=== PATIENT | female | born 1945 | race Caucasian/White ===

== ENCOUNTER 2017-01-07 23:46 | Inpatient (IN) | payer MEDICARE ==
[~2017-01-07] VITALS: Ht 170.2 cm; Wt 85.4 kg
[~2017-01-07 23:46] MED LIST: BUSP5TAB PO; CARV6.25 PO; CYAN1000P IM; IRON SUPPLEMENT PO; LOVA1TAB47 PO; MIRA33502 PO; PRIL20CA PO; STOO100C PO; [UNRECOGNIZED DRUG - CODE] IV
[2017-01-08] VITALS (35 sets, daily range): BP systolic 75–163; BP diastolic 48–90; PULSE 85–102; RESP 18–29; TEMP 97.4–98.5; O2SAT 95–100
[2017-01-08] MEDS ORDERED: SODIUM CHLOR 0.9% 250 ML INJ 250 ML IV ONE ×2 (00:15→01:30)
[2017-01-08] MEDS ORDERED: ONDANSETRON HCL 4 MG/2 ML VIAL IV ONE ×2 (00:30→02:15)
[2017-01-08 00:37] LABS: AUTOMATED NEUTROPHIL # 9.6 TH/MM3 (1.8-7.7); BASOPHIL # 0.1 TH/MM3 (0-0.2); BASOPHIL % 0.5 % (0.0-2.0); EOSINOPHIL # 0.1 TH/MM3 (0-0.4); EOSINOPHIL % 0.9 % (0.0-4.0); LYMPH % 2.7 % (9.0-44.0); LYMPHOCYTE # 0.3 TH/MM3 (1.0-4.8); MEAN CELL VOLUME 83.8 FL (80.0-100.0); MEAN CORPUSCULAR HEMOGLOBIN 26.8 PG (27.0-34.0); MONO % 5.6 % (0.0-8.0); NEUT % 90.3 % (16.0-70.0); PLATELET COUNT 343 TH/MM3 (150-450); RED BLOOD COUNT 2.42 MIL/MM3 (4.00-5.30); RED CELL DISTRIBUTION WIDTH 14.4 % (11.6-17.2); WHITE BLOOD COUNT 10.8 TH/MM3 (4.0-11.0)
--- NOTE | 2017-01-08 00:41 | RADRPT ---
EXAM DATE/TIME: 01/08/2017 00:23 [facility] COMPARISON: No previous studies available for comparison. INDICATIONS : Shortness of breath. MEDICAL HISTORY : Hypertension. SURGICAL HISTORY : None. ENCOUNTER: Initial ACUITY: 1 day PAIN SCORE: 0/10 LOCATION: Bilateral chest FINDINGS: A single view of the chest demonstrates multiple bilateral pulmonary nodules characteristic of bilate ral lung metastatic disease. No acute pulmonary infiltrates. No definite pleural effusions.. The car diomediastinal contours are unremarkable. Osseous structures are intact. CONCLUSION: Diffuse bilateral pulmonary metastatic disease. Cuauhtemoc Mensah MD on January 08, 2017 at 0:38 Board Certified Radiologist. This report was verified electronically.
[2017-01-08 00:53] LABS: HEMO FLAGS DIFF FINAL
[2017-01-08 00:55] LABS: HEMATOCRIT 20.3 % (35.0-46.0)
[2017-01-08 01:04] LABS: CHLORIDE 109 MEQ/L (98-107); POTASSIUM 5.3 MEQ/L (3.5-5.1); SODIUM (NA) 141 MEQ/L (136-145)
[2017-01-08 01:06] LABS: BLOOD, URINE SMALL (NEG); GLUCOSE,URINE NEG (NEG); KETONE, URINE NEG (NEG); NITRITE,URINE NEG (NEG); PH, URINE 5.5 (5.0-8.5)
[2017-01-08 01:07] LABS: ANION GAP 16 MEQ/L (5-15); BICARBONATE 16.5 MEQ/L (21.0-32.0)
[2017-01-08 01:08] LABS: BLOOD UREA NITROGEN 81 MG/DL (7-18)
[2017-01-08 01:10] LABS: ALT (GPT) 17 U/L (10-53); APTT (PATIENT) 53.1 SEC (24.3-30.1); AST (GOT) 37 U/L (15-37); GLOMERULAR FILTRATION RATE 20 ML/MIN (>89)
[2017-01-08 01:12] LABS: TOTAL BILIRUBIN ADULT 0.2 MG/DL (0.2-1.0)
[2017-01-08 01:13] LABS: ALKALINE PHOSPHATASE 91 U/L (45-117)
--- NOTE | 2017-01-08 01:22 | PD ---
HPI Chief Complaint: Abdominal Pain Time Seen by Provider: 00:13 Travel History International Travel<30 days: No Contact w/Intl Traveler<30days: No History of Present Illness HPI Is a 71 old woman presents emergent department when his been feeling poorly for the past 4 days or so. Over the past 6 hours on abruptly worse. She is Fatigued Weak and Lightheaded, She Had a Fainting Spell. I Also Noticed Some Dark Stools. She [place] Constipated. She States Her Doctor Told Her That Her INR Was Elevated and That She Needed to Stop Her Warfarin for Now, He Brought Eat Spinach, and Then a Recheck on Sunday. History Past Medical History Narrative Medical Chronic any disease, stage IV AAA, [id number] thrombus Diabetes Hypertension PNEUMOCCOCAL Vaccine (Year): 2010 Menopausal: Yes : 5 Para: 3 Social History Alcohol Use: Yes (1-2 DAILY) Tobacco Use: No (QUIT 10 YRS AGO. H/O 25 PACK YEARS. ) Allergies-Medications (Allergen,Severity, Reaction): Coded Allergies: Clindamycin (Unverified Allergy, Severe, VOMITING AND DIARRHEA, 11/17/11) Sulfamethoxazole (Unverified Allergy, Severe, VOMITING AND DIARRHEA, ) Penicillin (Unverified Allergy, Mild, Rash, 11/17/11) Reported Meds & Prescriptions Reported Meds & Active Scripts Active Reported Vancomycin 1 Gm Addvantage (Vancomycin HCl) 1 Gm Inj 1 Gm IV Q36HR Vitamin B12 (Cyanocobalamin) 1,000 Mcg/Ml Inj 1,000 Mcg IM MONTHLY Colace (Docusate Sodium) 100 Mg Cap 100 Mg PO BID Miralax (Polyethylene Glycol) 255 Gm Powd 17 Gm PO DAILY [Iron Supplement] 45 Mg PO BID Buspirone Hcl (Buspirone HCl) 5 Mg Tab 5 Mg PO BID Prilosec (Omeprazole) 20 Mg Capcr 20 Mg PO DAILY Lovastatin 20 Mg Tab 20 Mg PO DAILY Coreg (Carvedilol) 6.25 Mg Tab 3.12 Mg PO BID Review of Systems Except as stated in HPI: all other systems reviewed are Neg Physical Exam Narrative GENERAL: This 71-year-old woman, little bit ill-appearing, somewhat pale. SKIN: Focused skin assessment warm/dry. HEAD: Atraumatic. Normocephalic. NECK: Trachea midline. No JVD. CARDIOVASCULAR: Regular rate and rhythm. No murmur appreciated. RESPIRATORY: No accessory muscle use. Clear to auscultation. Breath sounds equal bilaterally. GASTROINTESTINAL: Abdomen soft, non-tender, nondistended. Hepatic and splenic margins not palpable. MUSCULOSKELETAL: No obvious deformities. No edema. NEUROLOGICAL: Awake and alert. No obvious cranial nerve deficits. Motor grossly within normal limits. Normal speech. PSYCHIATRIC: Appropriate mood and affect; insight and judgment normal. Data Data Last Documented VS Vital Signs Date Time Temp Pulse Resp B/P Pulse Ox O2 Delivery O2 Flow Rate FiO2 01/08/17 01:02 97.7 90 20 95/48 99 Nasal Cannula 2 Orders Type And Screen (01/08/17:) Red Blood Cells (Rbc) (01/08/17:13) Fresh Frozen Plasma (Ffp) (01/08/17:13) Blood Product Administration .UPON TRANSFUSION (01/08/17:) Sodium Chlor 0.9% 250 Ml Inj (Ns 250 Ml (01/08/17 00:15) Complete Blood Count With Diff (01/08/17:13) Comprehensive Metabolic Panel (01/08/17:13) Lipase (01/08/17:13) Lactic Acid (01/08/17:13) Prothrombin Time / Inr (Pt) (01/08/17:) Act Partial Throm Time (Ptt) (01/08/17:13) Urinalysis - C+S If Indicated (01/08/17:) Ct Abd/Pel W/O Iv Contrast (01/08/17:13) Iv Access Insert/Monitor (01/08/17:13) Ecg Monitoring (01/08/17:13) Oximetry (01/08/17:13) Electrocardiogram (01/08/17 00:13) Chest, Single Ap (01/08/17:13) Urinary Catheter Insert/Apply (01/08/17:13) Ondansetron Inj (Zofran Inj) (01/08/17 00:30) Admit Order (Ed Use Only) (01/08/17 ) Labs Laboratory Tests Test 01/08/17 01/08/17 00:20 00:35 White Blood Count 10.8 TH/MM3 Red Blood Count 2.42 MIL/MM3 Hemoglobin 6.5 GM/DL Hematocrit 20.3 % Mean Corpuscular Volume 83.8 FL Mean Corpuscular Hemoglobin 26.8 PG Mean Corpuscular Hemoglobin 32.0 % Concent Red Cell Distribution Width 14.4 % Platelet Count 343 TH/MM3 Mean Platelet Volume 8.8 FL Neutrophils (%) (Auto) 90.3 % Lymphocytes (%) (Auto) 2.7 % Monocytes (%) (Auto) 5.6 % Eosinophils (%) (Auto) 0.9 % Basophils (%) (Auto) 0.5 % Neutrophils # (Auto) 9.6 TH/MM3 Lymphocytes # (Auto) 0.3 TH/MM3 Monocytes # (Auto) 0.6 TH/MM3 Eosinophils # (Auto) 0.1 TH/MM3 Basophils # (Auto) 0.1 TH/MM3 CBC Comment DIFF FINAL Differential Comment Sodium Level 141 MEQ/L Potassium Level 5.3 MEQ/L Chloride Level 109 MEQ/L Carbon Dioxide Level 16.5 MEQ/L Anion Gap 16 MEQ/L Blood Urea Nitrogen 81 MG/DL Creatinine 2.40 MG/DL Estimat Glomerular Filtration 20 ML/MIN Rate Random Glucose 175 MG/DL Lactic Acid Level 4.9 mmol/L Calcium Level 8.2 MG/DL Total Bilirubin 0.2 MG/DL Aspartate Amino Transf 37 U/L (AST/SGOT) Alanine Aminotransferase 17 U/L (ALT/SGPT) Alkaline Phosphatase 91 U/L Total Protein 6.2 GM/DL Albumin 2.5 GM/DL Lipase 76 U/L Urine pH 5.5 Urine Protein NEG mg/dL Urine Glucose (UA) NEG mg/dL Urine Ketones NEG mg/dL Urine Occult Blood SMALL Urine Nitrite NEG Urine Bilirubin NEG Urine Leukocyte Esterase NEG [facility] Medical Decision Making Medical Screen Exam Complete: Yes Emergency Medical Condition: Yes Interpretation(s) LABS: CBC remarkable for any melena 6.5. CMP remarkable for abnormal electrolytes, acidosis with an anion gap of 16 and a bicarbonate 16.5 and a lactate of 4.9, elevated BUN and creatinine Lipase is 76 INR 8.0 Urinalysis unremarkable Differential Diagnosis GI bleed, upper GI bleed, hematemesis, quite cooperative, other Narrative Course Medical decision making Is a 71-year-old woman presents to the emergency department complaining of weakness and fatigue, very pale appearing, with known elevated INR, with dark stools and evidence of GI bleed. Initial hematology 6.2, INR is elevated, lactate elevated. She was given emergency release blood. We'll put in for vitamin K FFP for reversal, more blood transfusion. I spoke with Dr. Costa rehab liaison for gastroenterology. We'll place consult for Dr. Okeefe see her in the morning. I spoke with Dr. Gustafson, with critical care medicine. When the patient to the ICU. Critical Care Narrative Aggregate critical care time was 35 minutes. Time to perform other separately billable procedures was not included in the critical care time. My time did not include minutes spent treating any other patients simultaneously or on activities that did not directly contribute to the patient's treatment. The services I provided to this patient were to treat and/or prevent clinically significant deterioration that could result in: , disability, shock. I provided critical care services requiring my management, as noted below: Chart data review, documentation time, medication orders and management, vital sign assessments/reviewing monitor data, ordering and reviewing lab tests, ordering and interpreting/reviewing x-rays and diagnostic studies, care of the patient and discussion of the patient with the admitting physicians. Diagnosis Primary Impression: GI bleed Additional Impressions: Shock Warfarin-induced coagulopathy Admitting Information Admitting Physician Requests: it Lex Zhang MD Jan 08, 2017 01:22
[2017-01-08] MEDS ORDERED: PHYTONADIONE INJ 10 MG in SODIUM CHLORIDE 0.9% INJ 50 ML IV ONE ×2 (01:30→02:15)
[2017-01-08 01:46] LABS: METHOD OF COLLECTION CATH; MUCUS URINE MOD /lpf (OCC); SQUAMOUS EPITHELIAL CELL URINE 0-5 /hpf (0-5); URINE COLOR YELLOW (YELLW/STRAW)
[2017-01-08 01:47] LABS: COMMENT (UR) CULT NOT INDICATED; CULTURE IF INDICATED CULT NOT INDICATED
--- NOTE | 2017-01-08 01:59 | RADRPT ---
EXAM DATE/TIME: 01/08/2017 01:19 [facility] COMPARISON: No previous studies available for comparison. INDICATIONS : Shortness of breath. Bilateral pulmonary nodules. RADIATION DOSE: 17.51 CTDIvol (mGy) ; Combined studies - Thorax/Abdomen/Pelvis MEDICAL HISTORY : Gastroesophageal reflux disease. Renal failure, chronic. Diabetes mellitus type 2. Hypertension. SURGICAL HISTORY : None. ENCOUNTER: Initial ACUITY: 4 - 6 days PAIN SCALE: 5/10 LOCATION: Bilateral chest TECHNIQUE: Volumetric scanning of the chest was performed. Using automated exposure control and adjustment of t he mA and/or kV according to patient size, radiation dose was kept as low as reasonably achievable to obtain optimal diagnostic quality images. DICOM format image data is available electronically for r eview and comparison. Follow-up recommendations for incidentally detected pulmonary nodules are based at a minimum on nodul e size and patient risk factors according to Fleischner Society Guidelines. FINDINGS: LUNGS: There are multiple scattered pulmonary nodules throughout both lung mckay. The largest one measures 2.3 cm and the right lower lobe no acute pulmonary infiltrates are demonstrated. PLEURAE: There is no pleural thickening or pleural effusion. MEDIASTINUM: The heart and great vessels demonstrate no acute abnormality. There is no mediastinal or hilar lymph adenopathy. Mild aneurysmal dilatation of the ascending aorta at 4.4 cm. AXILLAE: Within normal limits. No lymphadenopathy. MUSCULOSKELETAL: Within normal limits for patient age. MISCELLANEOUS: Multiple low density lesions in the liver. Elina hepatal and para-aortic adenopathy CONCLUSION: 1. Diffuse lung metastatic disease. 2. Diffuse liver metastatic disease. Cuauhtemoc Mensah MD on January 08, 2017 at 1:55 Board Certified Radiologist. This report was verified electronically.
--- NOTE | 2017-01-08 02:05 | RADRPT ---
EXAM DATE/TIME: 01/08/2017 01:19 [facility] COMPARISON: No previous studies available for comparison. INDICATIONS : Epigastric pain. Weakness. ORAL CONTRAST: No oral contrast ingested. RADIATION DOSE: 17.51 CTDIvol (mGy) ; Combined studies - Thorax/Abdomen/Pelvis MEDICAL HISTORY : Gastroesophageal reflux disease. Renal failure, chronic. Diabetes mellitus type 2.Hypertension. SURGICAL HISTORY : None. ENCOUNTER: Initial ACUITY: 4 - 6 days PAIN SCALE: 5/10 LOCATION: Bilateral upper quadrant TECHNIQUE: Volumetric scanning of the abdomen and pelvis was performed. Using automated exposure control and ad justment of the mA and/or kV according to patient size, radiation dose was kept as low as reasonably achievable to obtain optimal diagnostic quality images. DICOM format image data is available electro nically for review and comparison. FINDINGS: LOWER LUNGS: Multiple bilateral pulmonary nodules. LIVER: Multiple ill-defined low-density lesions throughout the entire liver. No dilated biliary ducts. The g allbladder is unremarkable. There is mal hepatal adenopathy. SPLEEN: Normal size without lesion. PANCREAS: Within normal limits. KIDNEYS: Normal in size and shape. There is no mass, stone, or hydronephrosis. ADRENAL GLANDS: Within normal limits. VASCULAR: There is aneurysmal dilatation of the infrarenal abdominal aorta with an AP diameter of 3.7 cm. BOWEL/MESENTERY: There is an abnormal area of increased density and soft tissue involving the upper portion of the sto mach near the GE junction. Suspicious for neoplastic disease. ABDOMINAL WALL: Within normal limits. RETROPERITONEUM: There is diffuse para-aortic and retroperitoneal adenopathy. The largest mass measures about 3.5 cm a long the left side of the aorta at the level of the kidneys. No definite pelvic adenopathy is demonst rated. BLADDER: Diaz catheter in the bladder. REPRODUCTIVE: Within normal limits. INGUINAL: There is no lymphadenopathy or hernia. MUSCULOSKELETAL: Within normal limits for patient age. CONCLUSION: 1. There is an abnormal soft tissue mass involving the upper portion of the stomach at or just below the GE junction suspicious for neoplastic disease. Recommend direct visualization by endoscopy. 2. Diffuse liver metastatic disease. 3. Diffuse lung metastatic disease. 4. Diffuse para-aortic and retroperitoneal adenopathy. 5. Aneurysmal dilatation of the infrarenal abdominal aorta at 3.7 cm. Cuauhtemoc Mensah MD on January 08, 2017 at 1:58 Board Certified Radiologist. This report was verified electronically.
[2017-01-08] MEDS ORDERED: PANTOPRAZOLE INJ 80 MG in SODIUM CHLORIDE 0.9% INJ 100 ML IV SCH (02:15)
[2017-01-08] MEDS ORDERED: PANTOPRAZOLE INJ 80 MG in SODIUM CHLORIDE 0.9% INJ 35 ML IV ONE (02:15)
[2017-01-08] MEDS ORDERED: ONDANSETRON HCL 4 MG/2 ML VIAL IV PUSH ONE (02:15)
[2017-01-08] MEDS ORDERED: ZOLPIDEM TARTRATE 5 MG TAB PO PRN (03:30)
[2017-01-08] MEDS ORDERED: CHLORHEXIDINE GLUCONATE 2 % 1 PACK (2 CLOTHS) TOP PRN (03:30)
[2017-01-08] MEDS ORDERED: MAGNESIUM HYDROXIDE SUSP 30 ML CUP PO PRN (03:30)
[2017-01-08] MEDS ORDERED: SENNOSIDES 8.6 MG TAB PO PRN (03:30)
[2017-01-08] MEDS ORDERED: BISACODYL 10 MG SUPP RECTAL PRN (03:30)
[2017-01-08] MEDS ORDERED: ACETAMINOPHEN 325 MG TAB PO PRN (03:30)
[2017-01-08] MEDS ORDERED: LACTULOSE SYRUP 20 GM/30 ML CUP PO PRN (03:30)
[2017-01-08] MEDS ORDERED: SODIUM CHLORIDE 0.9% FLUSH 10 ML FLUSH PRN (03:30)
[2017-01-08] MEDS ORDERED: MISCELLANEOUS NURSING INFORMATION XX SCH (03:30)
[2017-01-08] MEDS ORDERED: RESP: ALBUTEROL 2.5 MG/IPRATROPIUM 0.5 MG NEB (PRN) INH (03:30)
[2017-01-08] MEDS: CHLORHEXIDINE GLUCONATE 2 % 1 PACK (2 CLOTHS) TOP SCH (03:37)
[2017-01-08] MEDS ORDERED: AMLO10TA2 PO (03:50)
[2017-01-08] MEDS ORDERED: WARF-23 PO (03:50)
[2017-01-08] MEDS ORDERED: TELM1TAB PO (03:50)
[2017-01-08] MEDS ORDERED: CYAN25005 IM (03:50)
[2017-01-08] MEDS ORDERED: NOVOLOGP2 SQ (03:50)
[2017-01-08] MEDS ORDERED: LEVEMIR SQ (03:50)
[2017-01-08] MEDS ORDERED: BUSP1TAB PO (03:50)
[2017-01-08] MEDS ORDERED: CARV6.252 PO (03:50)
[2017-01-08] MEDS ORDERED: PRIL20TA2 PO (03:50)
[2017-01-08] MEDS ORDERED: POLY17PO3 (03:50)
[2017-01-08] MEDS ORDERED: CHOL1CAP34 PO (03:50)
[2017-01-08] MEDS ORDERED: COLA100C PO (03:50)
[2017-01-08] MEDS ORDERED: ATOR20TA15 PO (03:50)
[2017-01-08] MEDS: SODIUM CHLOR 0.9% 1000 ML INJ 1,000 ML IV SCH ×2 (03:51→15:13)
--- NOTE | 2017-01-08 04:03 | HHI.HP ---
[facility] Service Critical Care Medicine Primary Care Physician Fiona Robles MD Admission Diagnosis GI bleed, marked anemia Diagnosis: Travel History International Travel<30 Days: No Contact w/Intl Traveler <30 Da: No History of Present Illness 71 old woman presents because she has been feeling poorly for the past 4 days. She feels fatigued weak and lightheaded and has some fainting spells. She was told by her primary care physician that her INR was elevated and advised her to take vitamin K. She'll don't also noticed some dark stool. Review of Systems Constitutional: COMPLAINS OF: Fatigue, Dizziness, DENIES: Diaphoretic episodes , Fever, Weight gain, Weight loss, Chills, Change in appetite, Night Sweats Endocrine: DENIES: Abnorml menstrual pattern, Heat/cold intolerance, Polydipsia , Polyuria, Polyphagia Eyes: DENIES: Blurred vision, Diplopia, Eye inflammation, Eye pain, Vision loss , Photosensitivity, Double Vision Ears, nose, mouth, throat: DENIES: Tinnitus, Hearing loss, Vertigo, Nasal discharge, Oral lesions, Throat pain, Hoarseness, Ear Pain, Running Nose, Epistaxis, Sinus Pain, Toothache, Odynophagia Respiratory: DENIES: Apneas, Cough, Snoring, Wheezing, Hemoptysis, Sputum production, Shortness of breath Cardiovascular: DENIES: Chest pain, Palpitations, Syncope, Dyspnea on Exertion , PND, Lower Extremity Edema, Orthopnea, Claudication Gastrointestinal: COMPLAINS OF: Black stools, Constipation, DENIES: Abdominal pain, Bloody stools, Diarrhea, Nausea, Vomiting, Difficulty Swallowing, Anorexia Genitourinary: DENIES: Abnormal vaginal bleeding, Dysmenorrhea, Dyspareunia, Sexual dysfunction, Urinary frequency, Urinary incontinence, Urgency, Hematuria , Dysuria, Nocturia, Vaginal discharge Musculoskeletal: DENIES: Joint pain, Muscle aches, Stiffness, Joint Swelling, Back pain, Neck pain Integumentary: DENIES: Abnormal pigmentation, Pruritus, Rash, Nail changes, Breast masses, Breast skin changes, Nipple discharge Hematologic/lymphatic: DENIES: Bruising, Lymphadenopathy Immunologic/allergic: DENIES: Eczema, Urticaria Neurologic: DENIES: Abnormal gait, Headache, Localized weakness, Paresthesias, Seizures, Speech Problems, Tremor, Poor Balance Psychiatric: DENIES: Anxiety, Confusion, Mood changes, Depression, Hallucinations, Agitation, Suicidal Ideation, Homicidal Ideation, Delusions Past Family Social History Allergies: Coded Allergies: Clindamycin (Unverified Allergy, Severe, VOMITING AND DIARRHEA, 11/17/11) Sulfamethoxazole (Unverified Allergy, Severe, VOMITING AND DIARRHEA, ) Penicillin (Unverified Allergy, Mild, Rash, 11/17/11) Past Medical History Cardiac kidney disease stage IV AAA, [id number] thrombus Diabetes Hypertension Past Surgical History None Reported Medications Reported Meds & Active Scripts Active Reported Vancomycin 1 Gm Addvantage (Vancomycin HCl) 1 Gm Inj 1 Gm IV Q36HR Vitamin B12 (Cyanocobalamin) 1,000 Mcg/Ml Inj 1,000 Mcg IM MONTHLY Colace (Docusate Sodium) 100 Mg Cap 100 Mg PO BID Miralax (Polyethylene Glycol) 255 Gm Powd 17 Gm PO DAILY [Iron Supplement] 45 Mg PO BID Buspirone Hcl (Buspirone HCl) 5 Mg Tab 5 Mg PO BID Prilosec (Omeprazole) 20 Mg Capcr 20 Mg PO DAILY Lovastatin 20 Mg Tab 20 Mg PO DAILY Coreg (Carvedilol) 6.25 Mg Tab 3.12 Mg PO BID Active Ordered Medications Current Medications Medications (Trade) Dose Ordered Sig/[place] Route PRN Reason Start Time Stop Time Status Last Admin Dose Admin Sodium Chloride 250 ml @ 15 mls/hr ONCE ONCE IV 01/08/17 00:15 01/08/17 16:54 01/08/17 02:06 Sodium Chloride 250 ml @ 15 mls/hr ONCE ONCE IV 01/08/17 01:30 01/08/17 18:09 01/08/17 02:24 Pantoprazole Sodium/Sodium Chloride (Protonix Inj/NS Inj) 100 ml @ 10 mls/hr Q10H IV 01/08/17 02:15 Family History No family history of early cancer or coronary artery disease Social History She drinks socially 1-2 drinks per day She quit tobacco use 10 years ago and has a history of 25 packs per year Physical Exam Vital Signs Vital Signs Date Time Temp Pulse Resp B/P Pulse Ox O2 Delivery O2 Flow Rate FiO2 01/08/17 02:40 97.9 92 18 140/75 98 Nasal Cannula 2 01/08/17 02:25 98.0 91 20 149/77 97 Nasal Cannula 2 01/08/17 02:10 98.0 96 18 154/74 97 Nasal Cannula 2 01/08/17 01:55 98.4 94 18 158/81 97 Nasal Cannula 2 01/08/17 01:40 97.9 86 18 142/87 98 Nasal Cannula 2 01/08/17 01:25 86 20 156/83 98 01/08/17 01:13 85 20 163/66 100 Nasal Cannula 2 01/08/17 01:02 97.7 90 20 95/48 99 Nasal Cannula 2 01/08/17 00:27 100 20 75/54 01/08/17 00:17 94 20 110/59 98 01/08/17 00:10 20 01/08/17 00:00 102 18 94/56 99 Nasal Cannula 2 Physical Exam GENERAL: Well-nourished, well-developed patient. SKIN: Warm and dry. HEAD: Normocephalic. EYES: No scleral icterus. No injection or drainage. NECK: Supple, trachea midline. No JVD or lymphadenopathy. CARDIOVASCULAR: Regular rate and rhythm without murmurs, gallops, or rubs. RESPIRATORY: Breath sounds equal bilaterally. No accessory muscle use. GASTROINTESTINAL: Abdomen soft, non-tender, nondistended. MUSCULOSKELETAL: No cyanosis, or edema. BACK: Nontender without obvious deformity. No CVA tenderness. EXTREMITIES: Clubbing cyanosis or edema Laboratory Laboratory Tests Test 01/08/17 01/08/17 01/08/17 00:20 00:35 00:47 White Blood Count 10.8 Red Blood Count 2.42 Hemoglobin 6.5 Hematocrit 20.3 Mean Corpuscular Volume 83.8 Mean Corpuscular Hemoglobin 26.8 Mean Corpuscular Hemoglobin 32.0 Concent Red Cell Distribution Width 14.4 Platelet Count 343 Mean Platelet Volume 8.8 Neutrophils (%) (Auto) 90.3 Lymphocytes (%) (Auto) 2.7 Monocytes (%) (Auto) 5.6 Eosinophils (%) (Auto) 0.9 Basophils (%) (Auto) 0.5 Neutrophils # (Auto) 9.6 Lymphocytes # (Auto) 0.3 Monocytes # (Auto) 0.6 Eosinophils # (Auto) 0.1 Basophils # (Auto) 0.1 CBC Comment DIFF FINAL Differential Comment Prothrombin Time 97.0 Prothromb Time International 8.0 Ratio Activated Partial 53.1 Thromboplast Time Sodium Level 141 Potassium Level 5.3 Chloride Level 109 Carbon Dioxide Level 16.5 Anion Gap 16 Blood Urea Nitrogen 81 Creatinine 2.40 Estimat Glomerular Filtration 20 Rate Random Glucose 175 Lactic Acid Level 4.9 Calcium Level 8.2 Total Bilirubin 0.2 Aspartate Amino Transf 37 (AST/SGOT) Alanine Aminotransferase 17 (ALT/SGPT) Alkaline Phosphatase 91 Total Protein 6.2 Albumin 2.5 Lipase 76 Blood Type O POSITIVE O POSITIVE Antibody Screen NEGATIVE Crossmatch Leukocyte-Reduced Red Blood Cells Blood Bank Comment Urine Collection Type CATH Urine Color YELLOW Urine Turbidity CLEAR Urine pH 5.5 Urine Specific [place] 1.016 Urine Protein NEG Urine Glucose (UA) NEG Urine Ketones NEG Urine Occult Blood SMALL Urine Nitrite NEG Urine Bilirubin NEG Urine Leukocyte Esterase NEG Urine RBC 4-9 Urine Squamous Epithelial 0-5 Cells Urine Amorphous Sediment MOD Urine Hyaline Casts 3-5 Urine Mucus MOD Microscopic Urinalysis Comment CULT NOT INDICATED Result Diagram: 01/08/17 0020 01/08/17 0020 Imaging Last 24 hours Impressions Chest X-Ray 01/08/1712 Signed Impressions: Service Date/Time: Sunday, January 08, 2017 00:23 - CONCLUSION: Diffuse bilateral pulmonary metastatic disease. Cuauhtemoc Mensah MD Abdomen/Pelvis CT 01/08/17 001 Signed Impressions: Service Date/Time: Sunday, January 08, 2017 01:19 - CONCLUSION: 1. There is an abnormal soft tissue mass involving the upper portion of the stomach at or just below the GE junction suspicious for neoplastic disease. Recommend direct visualization by endoscopy. 2. Diffuse liver metastatic disease. 3. Diffuse lung metastatic disease. 4. Diffuse para-aortic and retroperitoneal adenopathy. 5. Aneurysmal dilatation of the infrarenal abdominal aorta at 3.7 cm. Cuauhtemoc Mensah MD Chest CT 01/08/17 0000 Signed Impressions: Service Date/Time: Sunday, January 08, 2017 01:19 - CONCLUSION: 1. Diffuse lung metastatic disease. 2. Diffuse liver metastatic disease. Cuauhtemoc Mensah MD Assessment and Plan Assessment and Plan Anemia - Due to GI bleed - Supratherapeutic INR - Transfuse PRBCs to keep hemoglobin above 7 Coagulopathy - Iatrogenic - Hold Coumadin - INR >8 - Kcentra - Vitamin K and FFP's GI bleed - IV Protonix every 12 - GI consult pending Mass in the stomach suspicious of neoplasm - Widespread metastatic disease in the liver lungs and adenopathy - Oncology consult Hypertension - Currently normotensive - We'll hold home antihypertensive meds due to active GI bleed Chronic kidney disease - Creatinine 2.4 today - Most likely component of volume loss - Last creatinine available in the chart is from 2012 and was 1.4 - We'll continue hydration and monitor trend as well as strict I's and O's Diabetes - Insulin sliding scale DVT GI prophylaxis - Teds SCDs - Hold pharmacological DVT prophylaxis due to active GI bleed - IV Protonix Critical Care: The total critical care time was 35 minutes. Time to perform other separately billable procedures was not included in the critical care time. Aneudy Gustafson MD Jan 08, 2017 04:03
[2017-01-08] MEDS ORDERED: PROTHROMBIN COMPLEX IV ONE (04:15)
[2017-01-08 04:21] LABS: HEMATOCRIT 28.3 % (35.0-46.0); REVIEW FLAG FINAL
[2017-01-08] MEDS: ONDANSETRON HCL 4 MG/2 ML VIAL IV PRN (04:29)
[2017-01-08] MEDS: DOCUSATE SODIUM 50 MG/SENNA 8.6 MG TAB PO SCH ×2 (09:00→20:58)
[2017-01-08] MEDS: PANTOPRAZOLE SODIUM 40 MG VIAL IV SCH ×2 (09:46→20:58)
[2017-01-08] MEDS: SODIUM CHLORIDE 0.9% FLUSH 10 ML FLUSH SCH ×2 (09:46→21:00)
[2017-01-08 13:40] LABS: HEMATOCRIT 26.3 % (35.0-46.0); REVIEW FLAG FINAL
[2017-01-08 13:48] LABS: PROTHROMBIN TIME - PATIENT 11.4 SEC (9.8-11.6)
[2017-01-08] MEDS: MORPHINE SULFATE 8 MG/ML INJ IV PUSH PRN ×2 (16:05→20:47)
--- NOTE | 2017-01-08 16:42 | PD.CONS ---
HPI History of Present Illness This is a 71 year old female who presented to the ER for evaluation of generalized weakness, and fatigue. The patient tells me that she has a long history of constipation that has been well controlled with pericolace at home. However, she ran out of her laxatives about a week ago and has been having constipation for the past 5 days. She has passed some small bowel movements, but feels that she has not had a good solid bowel movement. She then started having nausea/vomiting without hematemesis this past Sunday. Since that time, she has had decreased appetite. She reports that her appetite was good until she started having the nausea and vomiting and has not lost any weight. She states that she has actually gained weight. She does have a history of esophageal strictures and states that she has had problems swallowing pills in the past, but has not had any difficulty swallowing since her last EGD with dilatation in 2011. She does not feel like the food is getting caught in her esophagus, but does report that when she tried to eat, she felt as though it was just sitting in her stomach until she threw up. She has not had any reflux or heartburn. She has not seen any blood in her stool or dark stools. On admission, she was found to have anemia with an H/H of 6.5/20.3. Rectal exam revealed dark stool and this was hemoccult (+). Abdomen/Pelvis CT (01/08/17)---- -> 1. There is an abnormal soft tissue mass involving the upper portion of the stomach at or just below the GE junction suspicious for neoplastic disease. Recommend direct visualization by endoscopy. 2. Diffuse liver metastatic disease. 3. Diffuse lung metastatic disease. 4. Diffuse para-aortic and retroperitoneal adenopathy. 5. Aneurysmal dilatation of the infrarenal abdominal aorta at 3.7 cm. GI was consulted for further evaluation. She last had EGD with dilatation (05/03/12)----> stricture in the proximal esophagus, stricture in the distal esophagus. Colonoscopy (06/29/15)----> two sessile polyps ranging between 3-5 mm in size were found in the rectum, multiple biopsies performed using cold forceps, sessile polyp ranging between 3-5 mm in size was found in the ascending colon, polypectomy was performed with cold forceps, sessile polyp ranging between 3-5 mm in size was found in the sigmoid colon, biopsy using cord forcepts, melanosis, there was severe diverticulosis noted in the sigmoid colon, retroflexed views revealed small internal hemorrhoids, rectal exam revealed external hemorrhoids. Pathology sigmoid polyp -hyperplastic, cecum bx- colonic mucosa with pigmented macrophages in lamina propria, consistent with melanosis coli, negative for dysplasia, colon, ascending biopsy with fragments of tubular adenoma, negative for high grade dysplasia or malignancy, rectal polyp with fragments of hyperplastic polyp. She does not know her family history, as she was adopted. (Caterina Alegria) PFSH Past Medical History Abdominal aortic aneurysm Iron deficiency anemia Anxiety B12 deficiency Cataracts Cellulitis Charcot's joint of foot CKD Colon polyps Esophageal stricture DVT HTN GERD Hyperlipidemia PAD DM Vitamin D deficiency Constipation Past Surgical History Cataract surgery EGD with dilatation Colonoscopy (Caterina Alegria) Coded Allergies: Clindamycin (Unverified Allergy, Severe, VOMITING AND DIARRHEA, 01/08/17) Sulfamethoxazole (Unverified Allergy, Severe, VOMITING AND DIARRHEA, ) Penicillin (Unverified Allergy, Mild, Rash, 01/08/17) Cipro (Verified Allergy, Unknown, 01/08/17) Medications Allergies Coded Allergies Type Severity Reaction Last Updated Verified Clindamycin Allergy Severe VOMITING AND DIARRHEA 01/08/17 No Sulfamethoxazole Allergy Severe VOMITING AND DIARRHEA 01/08/17 No Penicillin Allergy Mild Rash 01/08/17 No Cipro Allergy Unknown 01/08/17 Yes Active Scripts Medications Dose Route/Sig Days Date Category Dose Instructions Vitamin D3 (Cholecalciferol) 50,000 Unit Cap 50,000 Units PO Q7D 01/08/17 Reported Vitamin B12 (Cyanocobalamin (Vitamin B-12)) 2,500 Mcg Tab.chew IM MONTHLY 01/08/17 Reported Colace (Docusate Sodium) 100 Mg Capsule 100 Mg PO DAILY 01/08/17 Reported Miralax (Polyethylene Glycol 3350) 17 Gm Powd.pack 01/08/17 Reported Levemir Inj (Insulin Detemir) 1,000 unit/ 10 ML Vial 52 Units SQ HS 01/08/17 Reported Do not mix with any other Insulin. Amlodipine (Amlodipine Besylate) 10 Mg Tab 10 Mg PO DAILY 01/08/17 Reported Atorvastatin (Atorvastatin Calcium) 20 Mg Tab 20 Mg PO HS 01/08/17 Reported Carvedilol 6.25 Mg Tab 6.25 Mg PO BID 01/08/17 Reported Buspirone (Buspirone HCl) 7.5 Mg Tab 7.5 Mg PO BID 01/08/17 Reported Prilosec (Omeprazole Magnesium) 20 Mg Tab 20 Mg PO DAILY 01/08/17 Reported Telmisartan 40 Mg Tab 40 Mg PO DAILY 01/08/17 Reported Novolog Inj (Insulin Aspart) 1,000 Unit/10 Ml Vial 14 Units SQ TIDPC 01/08/17 Reported Warfarin 5 Mg Tab 5 Mg PO DAILY 01/08/17 Reported Family History Pt adopted Social History Former smoker, quit in 2000, smoked 25 years Drinks one glass of wine daily No illicit drug use. (Caterina Alegria) Review of Systems Constitutional: COMPLAINS OF: Diaphoretic episodes, Fatigue, Weight gain, Dizziness, Change in appetite, DENIES: Weight loss Respiratory: COMPLAINS OF: Shortness of breath, DENIES: Cough Cardiovascular: DENIES: Chest pain Gastrointestinal: COMPLAINS OF: Constipation, Nausea, Vomiting, Anorexia, Swelling of Abdomen, DENIES: Abdominal pain, Black stools, Bloody stools, Diarrhea, Difficulty Swallowing, Odynophagia, Heartburn, Hematemesis Musculoskeletal: COMPLAINS OF: Joint pain, Muscle aches Neurologic: COMPLAINS OF: Localized weakness (BLE weakness), DENIES: Headache Psychiatric: DENIES: Confusion (Caterina Alegria) GI Exam Vitals I&O Vital Signs Date Time Temp Pulse Resp B/P Pulse Ox O2 Delivery O2 Flow Rate FiO2 01/08/17 14:00 93 01/08/17 14:00 93 23 146/71 95 01/08/17 13:01 96 29 160/77 97 01/08/17 13:00 96 27 97 01/08/17 12:01 98.2 96 23 130/63 98 01/08/17 12:00 96 01/08/17 12:00 96 20 97 01/08/17 11:00 96 27 143/71 98 01/08/17 10:01 96 23 146/65 98 01/08/17 10:00 96 01/08/17 10:00 96 25 97 01/08/17 09:00 98 24 162/81 99 01/08/17 08:00 92 01/08/17 08:00 97.4 99 20 156/74 98 01/08/17 07:00 95 18 151/68 98 01/08/17 06:00 96 19 156/73 98 01/08/17 06:00 96 01/08/17 05:00 94 21 133/65 100 01/08/17 04:00 97 01/08/17 04:00 98.1 97 20 150/90 100 01/08/17 02:40 97.9 92 18 140/75 98 Nasal Cannula 2 01/08/17 02:40 97.9 92 18 140/75 98 Nasal Cannula 2 01/08/17 02:25 98.0 91 20 149/77 97 Nasal Cannula 2 01/08/17 02:10 98.0 96 18 154/74 97 Nasal Cannula 2 01/08/17 01:55 98.4 94 18 158/81 97 Nasal Cannula 2 01/08/17 01:40 97.9 86 18 142/87 98 Nasal Cannula 2 01/08/17 01:25 86 20 156/83 98 01/08/17 01:13 85 20 163/66 100 Nasal Cannula 2 01/08/17 01:02 97.7 90 20 95/48 99 Nasal Cannula 2 01/08/17 00:32 98 18 99/60 98 Nasal Cannula 2 01/08/17 00:27 100 20 75/54 01/08/17 00:17 94 20 110/59 98 01/08/17 00:10 20 01/08/17 00:00 102 18 94/56 99 Nasal Cannula 2 I/O 01/07/17 01/07/17 01/07/17 01/08/17 01/08/17 01/08/17 07:00 15:00 23:00 07:00 15:00 23:00 Intake Total 1892 ml 707 ml Output Total 420 ml 850 ml Balance 1472 ml -143 ml Intake Oral 50 ml IV Total 1617 ml 657 ml Packed Cells 275 ml Output Urine Total 410 ml 850 ml Emesis 10 ml 0 ml Imaging Last Impressions Chest X-Ray 01/08/1712 Signed Impressions: Service Date/Time: Sunday, January 08, 2017 00:23 - CONCLUSION: Diffuse bilateral pulmonary metastatic disease. Cuauhtemoc Mensah MD Abdomen/Pelvis CT 01/08/1712 Signed Impressions: Service Date/Time: Sunday, January 08, 2017 01:19 - CONCLUSION: 1. There is an abnormal soft tissue mass involving the upper portion of the stomach at or just below the GE junction suspicious for neoplastic disease. Recommend direct visualization by endoscopy. 2. Diffuse liver metastatic disease. 3. Diffuse lung metastatic disease. 4. Diffuse para-aortic and retroperitoneal adenopathy. 5. Aneurysmal dilatation of the infrarenal abdominal aorta at 3.7 cm. Cuauhtemoc Mensah MD Chest CT 01/08/17 0000 Signed Impressions: Service Date/Time: Sunday, January 08, 2017 01:19 - CONCLUSION: 1. Diffuse lung metastatic disease. 2. Diffuse liver metastatic disease. Cuauhtemoc Mensah MD Laboratory Test 01/08/17 01/08/17 01/08/17 01/08/17 00:20 00:35 00:47 03:20 White Blood Count 10.8 TH/MM3 Red Blood Count 2.42 MIL/MM3 Hemoglobin 6.5 GM/DL Hematocrit 20.3 % Mean Corpuscular Volume 83.8 FL Mean Corpuscular Hemoglobin 26.8 PG Mean Corpuscular Hemoglobin 32.0 % Concent Red Cell Distribution Width 14.4 % Platelet Count 343 TH/MM3 Mean Platelet Volume 8.8 FL Neutrophils (%) (Auto) 90.3 % Lymphocytes (%) (Auto) 2.7 % Monocytes (%) (Auto) 5.6 % Eosinophils (%) (Auto) 0.9 % Basophils (%) (Auto) 0.5 % Neutrophils # (Auto) 9.6 TH/MM3 Lymphocytes # (Auto) 0.3 TH/MM3 Monocytes # (Auto) 0.6 TH/MM3 Eosinophils # (Auto) 0.1 TH/MM3 Basophils # (Auto) 0.1 TH/MM3 CBC Comment DIFF FINAL Differential Comment Prothrombin Time 97.0 SEC Prothromb Time International 8.0 RATIO Ratio Activated Partial 53.1 SEC Thromboplast Time Sodium Level 141 MEQ/L Potassium Level 5.3 MEQ/L Chloride Level 109 MEQ/L Carbon Dioxide Level 16.5 MEQ/L Anion Gap 16 MEQ/L Blood Urea Nitrogen 81 MG/DL Creatinine 2.40 MG/DL Estimat Glomerular Filtration 20 ML/MIN Rate Random Glucose 175 MG/DL Lactic Acid Level 4.9 mmol/L Calcium Level 8.2 MG/DL Total Bilirubin 0.2 MG/DL Aspartate Amino Transf 37 U/L (AST/SGOT) Alanine Aminotransferase 17 U/L (ALT/SGPT) Alkaline Phosphatase 91 U/L Total Protein 6.2 GM/DL Albumin 2.5 GM/DL Lipase 76 U/L Blood Type O POSITIVE O POSITIVE Antibody Screen NEGATIVE Crossmatch Leukocyte-Reduced Red Blood Cells Blood Bank Comment Urine Collection Type CATH Urine Color YELLOW Urine Turbidity CLEAR Urine pH 5.5 Urine Specific Osteen 1.016 Urine Protein NEG mg/dL Urine Glucose (UA) NEG mg/dL Urine Ketones NEG mg/dL Urine Occult Blood SMALL Urine Nitrite NEG Urine Bilirubin NEG Urine Leukocyte Esterase NEG Urine RBC 4-9 /hpf Urine Squamous Epithelial 0-5 /hpf Cells Urine Amorphous Sediment MOD Urine Hyaline Casts 3-5 /lpf Urine Mucus MOD /lpf Microscopic Urinalysis Comment CULT NOT INDICATED Nasal Screen MRSA (PCR) MRSA NOT DETECTED Test 01/08/17 01/08/17 04:01 13:07 Hemoglobin 9.2 GM/DL 8.6 GM/DL Hematocrit 28.3 % 26.3 % Prothrombin Time 11.4 SEC Prothromb Time International 1.0 RATIO Ratio Physical Examination HEENT: Normocephalic; atraumatic; no jaundice. CHEST: Resp. even/unlabored. Diminished. CARDIAC: RRR. ABDOMEN: Soft, mildly bloated, nontender; no hepatosplenomegaly; bowel sounds are present in all four quadrants. EXTREMITIES: No clubbing, cyanosis, or edema. SKIN: BLE discolored PROGRAM/MUSIC DIRECTOR: No focal deficits; alert and oriented times three. (Caterina Alegria) Assessment and Plan Plan ASSESSMENT: - Abn. Imaging with soft tissue mass involving the upper portion of stomach/ below GE junction. Abdomen/Pelvis CT (01/08/17)-----> 1. There is an abnormal soft tissue mass involving the upper portion of the stomach at or just below the GE junction suspicious for neoplastic disease. Recommend direct visualization by endoscopy. 2. Diffuse liver metastatic disease. 3. Diffuse lung metastatic disease. 4. Diffuse para-aortic and retroperitoneal adenopathy. 5. Aneurysmal dilatation of the infrarenal abdominal aorta at 3.7 cm. EGD with dilatation (05/03/12)----> stricture in the proximal esophagus , stricture in the distal esophagus. Colonoscopy (06/29/15)----> two sessile polyps ranging between 3-5 mm in size were found in the rectum, multiple biopsies performed using cold forceps, sessile polyp ranging between 3-5 mm in size was found in the ascending colon, polypectomy was performed with cold forceps, sessile polyp ranging between 3-5 mm in size was found in the sigmoid colon, biopsy using cord forcepts, melanosis, there was severe diverticulosis noted in the sigmoid colon, retroflexed views revealed small internal hemorrhoids, rectal exam revealed external hemorrhoids. Pathology sigmoid polyp-hyperplastic , cecum bx- colonic mucosa with pigmented macrophages in lamina propria, consistent with melanosis coli, negative for dysplasia, colon, ascending biopsy with fragments of tubular adenoma, negative for high grade dysplasia or malignancy, rectal polyp with fragments of hyperplastic polyp. She was adopted and does not know family history. 3-4 day hx of n/v, decreased appetite, constipation. No abn. weight loss. States appetite was okay until Sunday. Okay for clears. Will plan for EGD with biopsy in am. - Metastatic liver and lung disease on CT. Plan for EGD with biopsy of gastric mass in am. Consult oncology. AFP, CEA, Ca19-9. - Severe anemia with hemoccult positive stool,acute on chronic. Pt has hx of CLEMENCIA and B12 Deficiency. H/H 6.5/20.3. S/P 2 units PRBC, 8.6/26.3. - N/V. CT as above with gastric mass. She does have hx of esophageal strictures, but states that this was more difficulty with pills getting caught and that this is different. States she has not had any issues with dysphagia since dilatation in 2011. Plan for EGD in am. PPI. Zofran. Okay for clears. - Coagulopathy on admission with INR of 8.0. (On Coumadin for DVT, now on hold. INR 1.0) - Constipation. Long hx of constipation, usually controlled with pericolace, but ran out about a week ago and has not had good bowel movement in 5 days although she has passed some small stools. - Acute on chronic kidney disease with electrolyte abnormalities. Creat 2.40. K+ 5.3 - Abdominal aortic aneurysm, Anxiety, Hx DVT, HTN, Hyperlipidemia, PAD, per attending. PLAN: - Plan for EGD with biopsy - Obtain consents - Clear liquids - NPO after MN - COnt. PPI - AFP, CEA, Ca19-9 - Oncology evaluation - CBC, PT/INR, BMP in am - Lactulose prn - Supportive care - Further recommendations to follow based on results of above - Pt seen and examined by Dr. Okeefe and myself and this note is written on her behalf (Caterina Alegria) Physician Comments seen, examined agree with above (Sofie Okeefe MD) Caterina Alegria Jan 08, 2017 16:42 Sofie Okeefe MD Jan 08, 2017 18:39
[2017-01-08 19:29] LABS: REVIEW FLAG FINAL
--- NOTE | 2017-01-08 19:31 | EKG ---
Date Performed: 01/08/2017 Time Performed: 00:06:15 PTAGE: 71 years EKG: Sinus rhythm RIGHT BUNDLE BRANCH BLOCK LEFT ANTERIOR FASCICULAR BLOCK POSSIBLE SEPTAL MYOCARDIAL INFARCTION ABNOR MAL ECG PREVIOUS TRACING : 11/02/2011 09.38 Since previous tracing, no significant change noted DOCTOR: Jerilyn Ash Interpretating Date/Time 01/08/2017 19:30:46
[2017-01-08 23:51] LABS: REVIEW FLAG FINAL
[2017-01-09] VITALS (26 sets, daily range): BP systolic 115–168; BP diastolic 56–76; PULSE 78–98; RESP 13–30; TEMP 97.3–98.6; O2SAT 93–98
[2017-01-09] MEDS: CHLORHEXIDINE GLUCONATE 2 % 1 PACK (2 CLOTHS) TOP SCH (04:00)
[2017-01-09 04:13] LABS: AUTOMATED NEUTROPHIL # 8.9 TH/MM3 (1.8-7.7); BASOPHIL % 0.4 % (0.0-2.0); EOSINOPHIL # 0.1 TH/MM3 (0-0.4); HEMATOCRIT 22.9 % (35.0-46.0); HEMO FLAGS DIFF FINAL; LYMPHOCYTE # 0.2 TH/MM3 (1.0-4.8); MEAN CELL VOLUME 87.2 FL (80.0-100.0); MEAN CORPUSCULAR HEMOGLOBIN 28.7 PG (27.0-34.0); MEAN CORPUSCULAR HGB CONC 32.9 % (32.0-36.0); MONO % 10.1 % (0.0-8.0); NEUT % 86.5 % (16.0-70.0); PLATELET COUNT 211 TH/MM3 (150-450); RED BLOOD COUNT 2.63 MIL/MM3 (4.00-5.30); RED CELL DISTRIBUTION WIDTH 15.2 % (11.6-17.2); WHITE BLOOD COUNT 10.2 TH/MM3 (4.0-11.0)
[2017-01-09 04:21] LABS: PROTHROMBIN TIME - PATIENT 10.9 SEC (9.8-11.6)
[2017-01-09] MEDS: SODIUM CHLOR 0.9% 1000 ML INJ 1,000 ML IV SCH ×3 (04:29→22:43)
[2017-01-09 04:37] LABS: ALT (GPT) 15 U/L (10-53); ANION GAP 9 MEQ/L (5-15); AST (GOT) 27 U/L (15-37); BICARBONATE 21.3 MEQ/L (21.0-32.0); BLOOD UREA NITROGEN 64 MG/DL (7-18); CHLORIDE 114 MEQ/L (98-107); GLOMERULAR FILTRATION RATE 27 ML/MIN (>89); POTASSIUM 4.7 MEQ/L (3.5-5.1); SODIUM (NA) 144 MEQ/L (136-145)
[2017-01-09 04:39] LABS: ALKALINE PHOSPHATASE 79 U/L (45-117); TOTAL BILIRUBIN ADULT 0.4 MG/DL (0.2-1.0)
[2017-01-09] MEDS: MORPHINE SULFATE 8 MG/ML INJ IV PUSH PRN ×3 (05:23→18:47)
[2017-01-09] MEDS: ONDANSETRON HCL 4 MG/2 ML VIAL IV PRN ×3 (05:23→18:34)
[2017-01-09] MEDS: DOCUSATE SODIUM 50 MG/SENNA 8.6 MG TAB PO SCH ×2 (09:00→21:41)
[2017-01-09] MEDS: PANTOPRAZOLE SODIUM 40 MG VIAL IV SCH ×2 (10:05→21:41)
[2017-01-09] MEDS: SODIUM CHLORIDE 0.9% FLUSH 10 ML FLUSH SCH ×2 (10:06→21:42)
[2017-01-09] MEDS ORDERED: DEXTROSE 50% IN WATER 50 ML VIAL(D50) IV PRN (10:15)
[2017-01-09] MEDS ORDERED: GLUCAGON 1 MG/ML VIAL OTHER PRN (10:15)
[2017-01-09] MEDS: INSULIN NovoLIN REGULAR SUPPLEMENTAL SCALE SQ SCH ×3 (11:00→21:00)
--- NOTE | 2017-01-09 12:01 | HHI.CCPN ---
Subjective Remarks/Hospital Course 71 year old woman presents because she has been feeling poorly for the past 4 days. She feels fatigued weak and lightheaded and has some fainting spells. She was told by her primary care physician that her INR was elevated and advised her to take vitamin K. She'll don't also noticed some dark stool. Subjective: 01/09: Hemoglobin slowly trending downward. Plan for EGD today. Coags are stabilized. No bowel movement 7 days. Objective Vital Signs Date Time Temp Pulse Resp B/P Pulse Ox O2 Delivery O2 Flow Rate FiO2 01/09/17 10:00 82 16 158/67 95 01/09/17 08:01 97.9 01/08/17 02:40 Nasal Cannula 2 Intake and Output 01/08/17 01/08/17 01/09/17 08:00 16:00 00:00 Intake Total 1892 ml 707 ml 1285 ml Output Total 420 ml 850 ml 850 ml Balance 1472 ml -143 ml 435 ml Result Diagram: 01/09/17 0320 01/09/17 0320 Imaging Last Impressions Chest X-Ray 01/08/1712 Signed Impressions: Service Date/Time: Sunday, January 08, 2017 00:23 - CONCLUSION: Diffuse bilateral pulmonary metastatic disease. Cuauhtemoc Mensah MD Abdomen/Pelvis CT 01/08/1712 Signed Impressions: Service Date/Time: Sunday, January 08, 2017 01:19 - CONCLUSION: 1. There is an abnormal soft tissue mass involving the upper portion of the stomach at or just below the GE junction suspicious for neoplastic disease. Recommend direct visualization by endoscopy. 2. Diffuse liver metastatic disease. 3. Diffuse lung metastatic disease. 4. Diffuse para-aortic and retroperitoneal adenopathy. 5. Aneurysmal dilatation of the infrarenal abdominal aorta at 3.7 cm. Cuauhtemoc Mensah MD Chest CT 01/08/17 0000 Signed Impressions: Service Date/Time: Sunday, January 08, 2017 01:19 - CONCLUSION: 1. Diffuse lung metastatic disease. 2. Diffuse liver metastatic disease. Cuauhtemoc Mensah MD Objective Remarks GENERAL: 71-year-old female, resting in bed in mild distress secondary to abdominal pain SKIN: Warm and dry. No rash HEAD: Normocephalic. EYES: Pupils equal round reactive.. NECK: Supple, trachea midline. No JVD or lymphadenopathy. CARDIOVASCULAR: RR. S1, S2 no S4. Distant. RESPIRATORY: Socially clear to auscultation without wheezes rales or rhonchi GASTROINTESTINAL: Abdomen soft, diffuse tender specifically in the left lower quadrant to palpation. Voluntary guarding. No rigidity. MUSCULOSKELETAL: No significant peripheral edema. BACK: Nontender without obvious deformity. No CVA tenderness. NEURO: Cranial nerves II through XII grossly intact. Strength equal/and symmetric bilaterally. Normal sensation.. A/P Assessment and Plan Neuro/Psych: Anxiety disorder NOS Holding buspirone 7.5 mg by mouth twice a day On acetaminophen 650 mg every 4 hours as needed for fever/pain 1-5 CV: History of hypertension Dyslipidemia 4.4 cm ascending aortic aneurysm and 3.3 cm infrarenal aortic aneurysm Holding carvedilol 6.25 mg twice a day, telmisartan 40 mg by mouth daily, amlodipine 10 mg daily for hypertension. Holding atorvastatin 20 mg by mouth daily for dyslipidemia On normal saline at 84 cc an hour. Currently not requiring vasopressors and/or antihypertensives. As needed labetalol for systolic blood pressure greater than 160 Resp: Pulmonary nodules Nasal cannula to maintain saturations greater than or equal to 92% Incentive spirometry while awake CT chest revealed multiple pulmonary nodules largest which is 2.3 cm in the right lower lobe GI: Constipation Gastroesophageal reflux disease History of tubular adenoma History of esophageal stricture Patient is currently nothing by mouth Currently on pantoprazole 40 mg IV twice a day On omeprazole 20 mg by mouth daily at home for gastroesophageal reflux disease Patient is on docusate sodium 100 mg by mouth daily and polyethylene glycol 17 g by mouth daily for constipation. CT abdomen/pelvis revealed multiple low liver lesions, portal hepatic and periaortic lymphadenopathy. Large mass at the GE junction amenable to biopsy. Plan for EGD today Glycerin suppositories times 1, soapsuds enema, Gastrografin enema and Relistor 12 mg subcutaneous 1 ordered for constipation : Diaz catheter if indicated for accurate I's nose any critically ill patient Endo: Diabetes mellitus On insulin aspart 14 units subcutaneous 3 times a day and insulin detemir 52 units at night for diabetes mellitus Currently on sliding-scale with Accu-Cheks every 6 hours to maintain euglycemia/ moderate regimen Renal: Chronic kidney disease stage III Monitor urine output Accurate I's and O's Follow-ups BMP in a.m. Heme: Acute blood loss anemia History of iron deficiency anemia Chronic warfarin use History of deep venous thrombosis Patient is on warfarin 5 mill grams by mouth daily at home. Reversed with 10 mg of vitamin K IV/5 mg subcutaneous and PCC Last INR 1.0 8 was 8.0 on admission Transfuse 1 unit PRBC today. Serial hemoglobins. Follow trends ID: Monitor for infection MSK: Physical therapy evaluate and treat FEN: Vitamin B12 deficiency Vitamin D deficiency On Cyanocobalamin 2500 g by mouth monthly for vitamin B-12 deficiency and cholecalciferol 50,000 units by mouth weekly for osteoporosis Access - Utilize peripheral IV. Central line if indicated Prophylaxis - GI - Protonix - DVT - SCD/pharmacological prophylaxis contraindicated with bleeding Level III follow-up Everett Courtney MD Jan 09, 2017 12:01 - Vitamin K and FFP's GI bleed - IV Protonix every 12 - GI consult pending Mass in the stomach suspicious of neoplasm - Widespread metastatic disease in the liver lungs and adenopathy - Oncology consult Hypertension - Currently normotensive - We'll hold home antihypertensive meds due to active GI bleed Chronic kidney disease - Creatinine 2.4 today - Most likely component of volume loss - Last creatinine available in the chart is from 2013 and was 1.4 - We'll continue hydration and monitor trend as well as strict I's and O's Diabetes - Insulin sliding scale DVT GI prophylaxis - Teds SCDs - Hold pharmacological DVT prophylaxis due to active GI bleed - IV Protonix Critical Care: The total critical care time was 35 minutes. Time to perform other separately billable procedures was not included in the critical care time. Everett Courtney MD Jan 09, 2017 12:01
[2017-01-09] MEDS ORDERED: METHYLNALTREXONE BROMIDE 12 MG/0.6 ML VIAL SQ ONE (12:15)
[2017-01-09] MEDS ORDERED: GLYCERIN ADULT 2 GM SUPP RECTAL ONE (12:15)
[2017-01-09] MEDS ORDERED: EPINEPHrine HCL (1:10,000) 1 MG/10 ML SYRINGE OTHER ONE (14:50)
[2017-01-09] MEDS ORDERED: PROPOFOL 200 MG/20 ML AMP IV ONE (14:59)
--- NOTE | 2017-01-09 15:10 | GIPROC ---
[facility] [address] [facility]. [facility], [address] EGD PROCEDURE REPORT EXAM DATE: 01/09/2017 PATIENT NAME: Madison Vasquez MR #: [id number] BIRTHDATE: 1945 ATTENDING: Sofie Okeefe MD ORDER #: [id number] SAFETY COUNCIL DIRECTOR: Griselda Lopez and Yolis Flynn STATUS: inpatient INDICATIONS: The patient is a 71 yr old female here for an EGD due to anemia abnormal ct PROCEDURE PERFORMED: EGD w/ biopsy EGD w/ directed submucosal injection(s), any substance MEDICATIONS: Per Anesthesia and None. TOPICAL ANESTHETIC: none CONSENT: The patient understands the risks and benefits of the procedure and understands that these risks include, but are not limited to: sedation, allergic reaction, infection, perforation and/or bleeding. Alternative means of evaluation and treatment include, among others: physical exam, x-rays, and/or surgical intervention. The patient elects to proceed with this endoscopic procedure. medical equipment was checked for proper function. Hand hygiene and appropriate measures for infection prevention was taken. After the risks, benefits and alternatives of the procedure were thoroughly explained, Informed consent was verified, confirmed and timeout was successfully executed by the treatment team. The patient was anesthetized with topical anesthesia and the Pentax EG-[id number] endoscope was introduced through the mouth and advanced to the second portion of the duodenum. Retroflexed views revealed ulcerated mass fundus The gastroscope was then slowly withdrawn and removed. Esophagitis distal esophagus-giopsy ulcerated mass fundus , old clot, friable-multiple biopsies , epinephrine 1:10,000 - 7 cc injected. ADVERSE EVENTS: There were no complications. IMPRESSIONS: 1. Esophagitis distal esophagus-giopsy ulcerated mass fundus , old clot, friable-multiple biopsies , epinephrine 1:10,000 - 7 cc injected 2. Retroflexed views revealed ulcerated mass fundus RECOMMENDATIONS: 1. Anti-reflux regimen 2. Continue PPI 3. Avoid NSAIDS 4. Full liquid consult oncology consult surgery/oncological PATIENT CONDITION: stable DISPOSITION: Inpatient REPEAT EXAM: EGD pending biopsy results Sofie Okeefe MD eSigned: Sofie Okeefe MD 01/09/2017 3:10 PM cc: PATIENT NAME: Madison aVsquez MR#: [id number]
[2017-01-09] MEDS ORDERED: DO NOT ADM ANY ANTICOAGULANT DRUGS PRN (15:14)
[2017-01-09] MEDS ORDERED: *PROMETHAZINE 25 MG/ML VIAL PERIprocedural use ONLY ONE (15:25)
[2017-01-09 20:07] LABS: HEMATOCRIT 27.4 % (35.0-46.0); REVIEW FLAG FINAL
[2017-01-10] VITALS (16 sets, daily range): BP systolic 133–170; BP diastolic 60–81; PULSE 77–98; RESP 13–19; TEMP 96.7–99; O2SAT 91–99
[2017-01-10] MEDS: [UNRECOGNIZED DRUG - REMARK] T-DERMAL SCH (01:00)
[2017-01-10] MEDS: SCOPOLAMINE 1.5 MG PATCH T-DERMAL SCH (01:48)
[2017-01-10] MEDS: CHLORHEXIDINE GLUCONATE 2 % 1 PACK (2 CLOTHS) TOP SCH (04:00)
[2017-01-10] MEDS: ONDANSETRON HCL 4 MG/2 ML VIAL IV PRN ×3 (04:39→21:18)
[2017-01-10] MEDS: MORPHINE SULFATE 8 MG/ML INJ IV PUSH PRN ×3 (04:40→11:01)
--- NOTE | 2017-01-10 05:35 | MB ---
cc: JULI CONNER DATE OF 1945 DATE OF CONSULTATION January 10, 2017 REASON FOR CONSULTATION Patient with soft tissue mass in the upper portion of the stomach below the GE junction, also metastatic disease to the liver and lungs. CHIEF COMPLAINT Persistent nausea. HISTORY OF PRESENT ILLNESS This is a 71-year-old female who presented to the emergency department with generalized weakness, fatigue, nausea, abdominal discomfort and overall decline over the past 1-2 weeks. She also was constipated. In the emergency department a CT of the abdomen and pelvis was obtained which shows abnormal soft tissue mass in the upper portion of the stomach just below the GE junction. Additionally there were diffuse liver metastatic lesions, lung lesions as well. The patient was anemic on admission with a hemoglobin of 6.5 and stool was hemoccult positive. The patient was admitted to the intensive care unit for close monitoring. She has received packed red blood cell transfusion. She has been on Coumadin for lower extremity DVT. On admission she had supratherapeutic INR. She was given Kcentra, vitamin K and FFP. The patient underwent an EGD today; the official report is not available. The EGD did confirm an esophageal mass. This was a distal esophagus ulcerated mass. Biopsy pathology results are pending. The patient is currently very nauseous. She was given was IV Zofran. She has also received 2 units of packed red blood cell today. She denies any headaches, no blurry vision. No chest pain, no shortness of breath. No abdominal pain. No lower extremity edema or pain. Her tumor markers are elevated including AFP level of 777. CEA of 1044. CA19-9 02/9311. The patient has a history of Stage IV chronic kidney disease. She is deconditioned at baseline and is not very ambulatory. This was conveyed to me by her son who was present during this evaluation. REVIEW OF SYSTEMS A comprehensive 14-point review of systems was completed which is negative except as described in the HPI. PAST MEDICAL HISTORY 1. Abdominal aortic aneurysm. 2. Iron deficiency anemia. 3. Anxiety. 4. B12 deficiency. 5. Cataracts. 6. Cellulitis. 7. CKD. 8. Colonic polyps. 9. Esophageal strictures. 10. DVT. 11. Hypertension. 12. Gastroesophageal reflux disease. 13. Hyperlipidemia. 14. Peripheral arterial disease. 15. Diabetes. 16. Vitamin D deficiency. 17. Chronic constipation. PAST SURGICAL HISTORY 1. Cataract surgery. 2. EGD with dilatation. 3. Colonoscopy. 4. Recent EGD with biopsy. FAMILY HISTORY Reviewed and IS noncontributory to this admission. SOCIAL HISTORY Quit smoking in 2004. Has approximately 25 years of smoking history. She drinks one glass of wine daily. No illicit drug use. MEDICATIONS 1. Labetalol 10 mg IV q.1 hour p.r.n. 2. Sliding scale insulin. 3. Pantoprazole 40 mg IV q.12 hours. 4. Docusate 1 tablet p.o. b.i.d. 5. Morphine sulfate 2 mg IV q.2 hours p.r.n. 6. Zofran 4 mg IV q.6 hours p.r.n. 7. Ambien 5 mg p.o. q.h.s. p.r.n. 8. DuoNebs q.2 hours p.r.n. 9. Magnesium hydroxide 30 cc p.o. q.12 hours. 10. Senna 17.2 mg q.12 hours p.r.n. 11. Dulcolax 10 mg suppository p.r.n. 12. Lactulose 30cc p.o. p.r.n. ALLERGIES CIPRO. CLINDAMYCIN. PENICILLIN. SULFAMETHOXAZOLE. PHYSICAL EXAMINATION VITAL SIGNS: Blood pressure is 115/56, pulse is in the 80s, temperature is 98.3, O2 sats are 95% on room air. GENERAL: In mild distress, nauseous. HEENT: Pupils are equal, round, react to light. EOMI. No oral thrush. No oral lesions. NECK: Supple. No JVD, no bruits, no lymphadenopathy. CHEST: Clear to auscultation bilaterally. CARDIAC: S1-S2, regular rate and rhythm. ABDOMEN: Soft. Mild tenderness in the epigastric area. No rebound or guarding. Bowel sounds are present. EXTREMITIES: Without any edema, erythema or cyanosis. SKIN: Without any petechiae, lesion or bruises. NEURO: No focal deficits. PSYCHIATRIC: Mood and affect is appropriate. LABORATORY DATA WBC 10.2, hemoglobin 9.1, MCV 87.2, platelet count is 211. Serum chemistries show sodium of 144, potassium 4.7, CO2 21.3, BUN 64, creatinine 1.83, lactic acid 4.9, calcium 8.2, phosphorus 2.6, magnesium 2, alk phos 79, total protein 6, albumin 2.6. IMAGING STUDIES Reviewed in the EMR. CT of the abdomen and pelvis shows abnormal soft tissue mass involving the upper portion of the stomach at or just below the GE junction suspicious for neoplastic disease. Diffuse liver metastatic disease. Diffuse lung metastatic disease. Diffuse paronychia and retroperitoneal adenopathy. Aneurysm in the infrarenal abdominal aorta 3.[address] of the chest shows diffuse lung metastatic disease. There are multiple lung nodules in bilateral lung mckay. ASSESSMENT AND PLAN This is a 71-year-old female who presents with weakness, abdominal pain, constipation and difficulty swallowing. On admission she underwent imaging including a CT of the chest, abdomen and pelvis which revealed a gastric mass at or below the level of the GE junction, metastatic lesions to the liver, abdomen as well as bilateral lung mckay. 1. GE junction/gastric mass with metastatic disease to the liver, lung and abdomen. This is highly suspicious for a primary gastric cancer. She has undergone EGD and biopsy is pending. I will follow up. At baseline the patient has a poor performance status. She has been non-ambulatory for the past two years. She also has Stage III-IV chronic kidney disease. I had a long discussion with the patient's both sons. I explained to them that, if this is confirmed malignancy, she has Stage IV disease. There are no curative options. Metastatic cancer is treated with systemic chemotherapy. The goal of the treatment is to palliate the symptoms, control disease, minimize toxicity and preserve the quality of life of the patient. I will discuss with them further once the diagnosis is confirmed 2. Dysphagia, poor oral intake, hypoalbuminemia. We need to consult Speech Pathology to evaluate and obtain a swallow study. Dietitian consult. I briefly discussed with the family that we may need to consider a feeding tube. 3. Severe anemia, likely bleeding from the gastric mass. We will transfuse packed red blood cells. If she continues to drop her hemoglobin, we may have to ask IR whether embolization of the blood supply to the mass is possible. 4. Stage IV chronic kidney disease. 5. History of DVT. Anticoagulation is on hold. Thank you for allowing me to participate in the care of this patient. I will continue to follow this patient along. MD MARY BETH Turner/JANETTE /12:42 AM /5:07 AM
[2017-01-10 05:40] LABS: AUTOMATED NEUTROPHIL # 9.4 TH/MM3 (1.8-7.7); BASOPHIL % 0.4 % (0.0-2.0); EOSINOPHIL # 0.1 TH/MM3 (0-0.4); EOSINOPHIL % 0.7 % (0.0-4.0); HEMATOCRIT 32.2 % (35.0-46.0); HEMO FLAGS DIFF FINAL; LYMPH % 1.4 % (9.0-44.0); LYMPHOCYTE # 0.2 TH/MM3 (1.0-4.8); MEAN CELL VOLUME 85.1 FL (80.0-100.0); MEAN CORPUSCULAR HEMOGLOBIN 28.2 PG (27.0-34.0); MEAN CORPUSCULAR HGB CONC 33.2 % (32.0-36.0); MONO % 11.1 % (0.0-8.0); NEUT % 86.4 % (16.0-70.0); PLATELET COUNT 186 TH/MM3 (150-450); RED BLOOD COUNT 3.78 MIL/MM3 (4.00-5.30); RED CELL DISTRIBUTION WIDTH 17.1 % (11.6-17.2); WHITE BLOOD COUNT 10.9 TH/MM3 (4.0-11.0)
[2017-01-10 06:07] LABS: ANION GAP 10 MEQ/L (5-15); AST (GOT) 23 U/L (15-37); BICARBONATE 22.2 MEQ/L (21.0-32.0); CHLORIDE 114 MEQ/L (98-107); MAGNESIUM 2.1 MG/DL (1.5-2.5); POTASSIUM 4.5 MEQ/L (3.5-5.1); SODIUM (NA) 146 MEQ/L (136-145)
[2017-01-10 06:17] LABS: APTT (PATIENT) 24.7 SEC (24.3-30.1); INTERNATIONAL NORMALIZED RATIO 1.1 RATIO; PROTHROMBIN TIME - PATIENT 11.8 SEC (9.8-11.6)
[2017-01-10 06:19] LABS: ALKALINE PHOSPHATASE 86 U/L (45-117); ALT (GPT) 15 U/L (10-53); BLOOD UREA NITROGEN 38 MG/DL (7-18); GLOMERULAR FILTRATION RATE 30 ML/MIN (>89)
[2017-01-10] MEDS: INSULIN NovoLIN REGULAR SUPPLEMENTAL SCALE SQ SCH ×4 (06:52→21:00)
[2017-01-10] MEDS: DOCUSATE SODIUM 50 MG/SENNA 8.6 MG TAB PO SCH ×2 (08:46→21:00)
[2017-01-10] MEDS: PANTOPRAZOLE SODIUM 40 MG VIAL IV SCH ×2 (08:47→21:00)
[2017-01-10] MEDS: SODIUM CHLORIDE 0.9% FLUSH 10 ML FLUSH SCH (08:47)
--- NOTE | 2017-01-10 10:03 | HHI.GIFU ---
Subjective Remarks Resting in bed. Pt having dry heaving despite Zofran. Does not want compazine - states she has no allergy, but she is opposed to it because of it's name and it brings back memories of her . No hematemesis. No rectal bleeding. ( Caterina Alegria) Objective Vitals I&O Vital Signs Date Time Temp Pulse Resp B/P Pulse Ox O2 Delivery O2 Flow Rate FiO2 01/10/17 07:00 98.4 86 14 149/71 99 01/10/17 06:00 96.7 83 14 134/60 91 01/10/17 06:00 83 01/10/17 05:00 98.7 93 19 133/63 91 01/10/17 04:00 85 01/10/17 04:00 98.3 85 15 160/72 91 01/10/17 03:00 98.3 84 15 166/79 91 01/10/17 02:00 98.4 84 18 160/75 91 01/10/17 02:00 84 01/10/17 01:00 98.2 81 16 158/72 91 01/10/17 00:00 98.4 77 13 137/65 93 01/10/17 00:00 77 01/09/17 23:00 98.4 80 14 134/66 94 01/09/17 22:00 85 01/09/17 22:00 98.6 85 28 124/64 95 01/09/17 21:00 98.5 83 19 127/58 94 01/09/17 20:00 98.3 93 16 115/56 95 01/09/17 20:00 83 01/09/17 19:00 98.0 97 19 126/58 94 01/09/17 18:00 83 01/09/17 18:00 97.9 83 14 166/73 95 01/09/17 18:00 97.9 83 14 166/73 95 01/09/17 17:00 85 13 132/59 94 01/09/17 16:14 97.9 90 15 146/65 96 01/09/17 16:00 87 01/09/17 16:00 97.9 87 14 94 01/09/17 15:44 98.2 86 16 133/59 95 Room Air 01/09/17 15:30 90 21 143/67 95 Room Air 01/09/17 15:19 98.4 94 24 139/64 94 Room Air 01/09/17 14:06 89 14 143/68 97 01/09/17 14:00 92 19 97 01/09/17 14:00 98 01/09/17 13:00 90 26 130/63 96 01/09/17 12:00 87 01/09/17 12:00 97.9 87 16 148/62 96 01/09/17 11:05 88 30 133/63 97 01/09/17 10:00 82 01/09/17 10:00 82 16 158/67 95 I/O 01/09/17 01/09/17 01/09/17 01/10/17 01/10/17 01/10/17 07:00 15:00 23:00 07:00 15:00 23:00 Intake Total 972 ml 636 ml 814 ml 944 ml Output Total 650 ml 775 ml 650 ml 650 ml Balance 322 ml -139 ml 164 ml 294 ml Intake Oral 300 ml 300 ml IV Total 672 ml 636 ml 632 ml Packed Cells 314 ml 312 ml Other 200 ml Output Urine Total 650 ml 775 ml 650 ml 650 ml Stool Total 0 ml 0 ml 0 ml Laboratory Laboratory Tests Test 01/09/17 01/09/17 01/09/17 01/10/17 13:23 19:17 19:33 04:46 Blood Type O POSITIVE O POSITIVE Crossmatch Leukocyte-Reduced Leukocyte-Reduced Red Blood Red Blood Cells Cells Blood Bank Comment Hemoglobin 9.1 10.7 Hematocrit 27.4 32.2 White Blood Count 10.9 Red Blood Count 3.78 Mean Corpuscular Volume 85.1 Mean Corpuscular Hemoglobin 28.2 Mean Corpuscular Hemoglobin 33.2 Concent Red Cell Distribution Width 17.1 Platelet Count 186 Mean Platelet Volume 8.3 Neutrophils (%) (Auto) 86.4 Lymphocytes (%) (Auto) 1.4 Monocytes (%) (Auto) 11.1 Eosinophils (%) (Auto) 0.7 Basophils (%) (Auto) 0.4 Neutrophils # (Auto) 9.4 Lymphocytes # (Auto) 0.2 Monocytes # (Auto) 1.2 Eosinophils # (Auto) 0.1 Basophils # (Auto) 0.0 CBC Comment DIFF FINAL Differential Comment Prothrombin Time 11.8 Prothromb Time International 1.1 Ratio Activated Partial 24.7 Thromboplast Time Sodium Level 146 Potassium Level 4.5 Chloride Level 114 Carbon Dioxide Level 22.2 Anion Gap 10 Blood Urea Nitrogen 38 Creatinine 1.67 Estimat Glomerular Filtration 30 Rate Random Glucose 123 Calcium Level 8.5 Phosphorus Level 2.8 Magnesium Level 2.1 Total Bilirubin 1.0 Aspartate Amino Transf 23 (AST/SGOT) Alanine Aminotransferase 15 (ALT/SGPT) Alkaline Phosphatase 86 Total Protein 6.5 Albumin 2.8 Imaging Last Impressions Chest X-Ray 01/08/1712 Signed Impressions: Service Date/Time: Sunday, January 08, 2017 00:23 - CONCLUSION: Diffuse bilateral pulmonary metastatic disease. Cuauhtemoc Mensah MD Abdomen/Pelvis CT 01/08/1712 Signed Impressions: Service Date/Time: Sunday, January 08, 2017 01:19 - CONCLUSION: 1. There is an abnormal soft tissue mass involving the upper portion of the stomach at or just below the GE junction suspicious for neoplastic disease. Recommend direct visualization by endoscopy. 2. Diffuse liver metastatic disease. 3. Diffuse lung metastatic disease. 4. Diffuse para-aortic and retroperitoneal adenopathy. 5. Aneurysmal dilatation of the infrarenal abdominal aorta at 3.7 cm. Cuauhtemoc Mensah MD Chest CT 01/08/17 0000 Signed Impressions: Service Date/Time: Sunday, January 08, 2017 01:19 - CONCLUSION: 1. Diffuse lung metastatic disease. 2. Diffuse liver metastatic disease. Cuauhtemoc Mensah MD Physical Exam HEENT: Normocephalic; atraumatic; no jaundice. CHEST: CTA CARDIAC: RRR ABDOMEN: Soft, nondistended, nontender; no hepatosplenomegaly; bowel sounds are present in all four quadrants. EXTREMITIES: No clubbing, cyanosis, or edema. SKIN: Normal; no rash; no jaundice. PIECER: No focal deficits; alert and oriented times three. (Caterina Alegria) Assessment and Plan Plan ASSESSMENT: - Ulcerated Gastric mass with evidence of metastatic dz to liver and lung. Abdomen/Pelvis CT (01/08/17)-----> 1. There is an abnormal soft tissue mass involving the upper portion of the stomach at or just below the GE junction suspicious for neoplastic disease. Recommend direct visualization by endoscopy. 2. Diffuse liver metastatic disease. 3. Diffuse lung metastatic disease. 4. Diffuse para-aortic and retroperitoneal adenopathy. 5. Aneurysmal dilatation of the infrarenal abdominal aorta at 3.7 cm. Colonoscopy (06/29/15)----> two sessile polyps ranging between 3-5 mm in size were found in the rectum, multiple biopsies performed using cold forceps, sessile polyp ranging between 3-5 mm in size was found in the ascending colon, polypectomy was performed with cold forceps, sessile polyp ranging between 3-5 mm in size was found in the sigmoid colon, biopsy using cord forceps , melanosis, there was severe diverticulosis noted in the sigmoid colon, retroflexed views revealed small internal hemorrhoids, rectal exam revealed external hemorrhoids. Pathology sigmoid polyp-hyperplastic, cecum bx- colonic mucosa with pigmented macrophages in lamina propria, consistent with melanosis coli, negative for dysplasia, colon, ascending biopsy with fragments of tubular adenoma, negative for high grade dysplasia or malignancy, rectal polyp with fragments of hyperplastic polyp. She was adopted and does not know family history. 3-4 day hx of n/v, decreased appetite, constipation. No abn. weight loss. EGD (01/09/17)-----> 1. Esophagitis distal esophagus-biopsy, ulcerated mass fundus , old clot, friable-multiple biopsies , epinephrine 1:10,000 - 7 cc injected 2. Retroflexed views revealed ulcerated mass fundus. Pathology pending. AFP 777.5, CEA 1044.3, Ca19-9 9311.6. Oncology following. If bleeding, consider embolization by IR. - Metastatic liver and lung disease on CT. Gastric mass as above, pathology pending. FP 777.5, CEA 1044.3, Ca19-9 9311.6. Oncology following. - Severe anemia with hemoccult positive stool,acute on chronic. Pt has hx of CLEMENCIA and B12 Deficiency. H/H 6.5/20.3. S/P 5 units PRBC, 10.7/32.2. - N/V. CT as above with gastric mass. She does have hx of esophageal strictures, but states that this was more difficulty with pills getting caught and that this is different. States she has not had any issues with dysphagia since dilatation in 2011. PPI. Zofran. Still dry heaving despite zofran. Does not want compazine (states no allergyto this), trial of phenergan if needed. Going for MBS today. If fails, may need - Coagulopathy on admission with INR of 8.0. (On Coumadin for DVT, now on hold. INR 1.0) - Constipation. Long hx of constipation, usually controlled with pericolace, but ran out about a week ago and has not had good bowel movement in 5 days although she has passed some small stools.Pericolace, lacutlose - Acute on chronic kidney disease with electrolyte abnormalities. Creat 1.67 - Abdominal aortic aneurysm, Anxiety, Hx DVT, HTN, Hyperlipidemia, PAD, per attending. PLAN: - NPO until MBS - MBS today - Await pathology - Cont. PPI - Oncology evaluation - Monitor labs - Lactulose prn - Supportive care - If bleeding, consider IR for embolization - Further recommendations to follow based on results of above - Pt seen and examined by Dr. Okeefe and myself and this note is written on her behalf (Caterina Alegria) Physician Comments seen, examined agree with above just returned from Gastrografin enema, large amounts of melanotic stool manual disimpaction done also, felt better (Sofie Okeefe MD) Caterina Alegria Jan 10, 2017 10:03 Sofie Okeefe MD Jan 10, 2017 15:38
[2017-01-10] MEDS ORDERED: GLYCERIN ADULT 2 GM SUPP RECTAL PRN (12:15)
[2017-01-10] MEDS: SODIUM CHLOR 0.45% 1000 ML INJ 1,000 ML IV SCH (12:15)
[2017-01-10] MEDS ORDERED: POLYETHYLENE GLYCOL 17 GM PKG PO ONE (12:15)
[2017-01-10] MEDS ORDERED: GLYCERIN ADULT 2 GM SUPP RECTAL ONE (12:15)
--- NOTE | 2017-01-10 12:20 | HHI.CCPN ---
Subjective Remarks/Hospital Course 71 year old woman presents because she has been feeling poorly for the past 4 days. She feels fatigued weak and lightheaded and has some fainting spells. She was told by her primary care physician that her INR was elevated and advised her to take vitamin K. She'll don't also noticed some dark stool. 01/09: Hemoglobin slowly trending downward. Plan for EGD today. Coags are stabilized. No bowel movement 7 days. Subjective: 01/10: Tmax 99. Resting complaint bed. Currently for barium swallow evaluation. Afterwards for Gastrografin enema due to no bowel movement 8 days. Unresponsive to Relistor. Status post EGD with biopsy history of stomach /esophagus results currently pending. Objective Vital Signs Date Time Temp Pulse Resp B/P Pulse Ox O2 Delivery O2 Flow Rate FiO2 01/10/17 10:00 85 01/10/17 08:00 99.0 16 170/81 96 01/09/17 15:44 Room Air 01/08/17 02:40 2 Intake and Output 01/09/17 01/09/17 01/10/17 08:00 16:00 00:00 Intake Total 972 ml 836 ml 614 ml Output Total 650 ml 775 ml 650 ml Balance 322 ml 61 ml -36 ml Result Diagram: 01/10/17 0446 01/10/17 0446 Imaging Last Impressions Chest X-Ray 01/08/17 001 Signed Impressions: Service Date/Time: Sunday, January 08, 2017 00:23 - CONCLUSION: Diffuse bilateral pulmonary metastatic disease. Cuauhtemoc Mensah MD Abdomen/Pelvis CT 01/08/17 0013 Signed Impressions: Service Date/Time: Sunday, January 08, 2017 01:19 - CONCLUSION: 1. There is an abnormal soft tissue mass involving the upper portion of the stomach at or just below the GE junction suspicious for neoplastic disease. Recommend direct visualization by endoscopy. 2. Diffuse liver metastatic disease. 3. Diffuse lung metastatic disease. 4. Diffuse para-aortic and retroperitoneal adenopathy. 5. Aneurysmal dilatation of the infrarenal abdominal aorta at 3.7 cm. Cuauhtemoc Mensah MD Chest CT 01/08/17 0000 Signed Impressions: Service Date/Time: Sunday, January 08, 2017 01:19 - CONCLUSION: 1. Diffuse lung metastatic disease. 2. Diffuse liver metastatic disease. Cuauhtemoc Mensah MD Objective Remarks GENERAL: 71-year-old female, resting in bed in no acute distress SKIN: Warm and dry. No rash HEAD: Normocephalic. EYES: Pupils equal round reactive.. NECK: Supple, trachea midline. No JVD or lymphadenopathy. CARDIOVASCULAR: RR. S1, S2 no S4. Distant. RESPIRATORY: Essentially clear to auscultation bilaterally without wheezes rales or rhonchi GASTROINTESTINAL: Abdomen soft, diffuse tender specifically in the left lower quadrant to palpation. Voluntary guarding. No rigidity. Hypoactive bowel sounds MUSCULOSKELETAL: No significant peripheral edema. BACK: Nontender without obvious deformity. No CVA tenderness. NEURO: Cranial nerves II through XII grossly intact. Strength equal/and symmetric bilaterally. Normal sensation.. A/P Assessment and Plan Neuro/Psych: Anxiety disorder NOS Holding buspirone 7.5 mg by mouth twice a day On acetaminophen 650 mg every 4 hours as needed for fever/pain 1-5 Morphine 2 mg IV every 2 hours when necessary pain 6-10 Scopolamine patch 1 mg patch every 3 days as needed for sickness of motion per Dr. Nichols CV: History of hypertension Dyslipidemia 4.4 cm ascending aortic aneurysm and 3.3 cm infrarenal aortic aneurysm Holding carvedilol 6.25 mg twice a day, telmisartan 40 mg by mouth daily, amlodipine 10 mg daily for hypertension. Holding atorvastatin 20 mg by mouth daily for dyslipidemia On one half normal saline at 84 cc an hour. Currently not requiring vasopressors and/or antihypertensives. As needed labetalol for systolic blood pressure greater than 160 Resp: Pulmonary nodules Nasal cannula to maintain saturations greater than or equal to 92% Incentive spirometry while awake CT chest revealed multiple pulmonary nodules largest which is 2.3 cm in the right lower lobe GI: Constipation Gastroesophageal reflux disease History of tubular adenoma History of esophageal stricture Patient is currently on full liquid diet/2200 kcal ADA Currently on pantoprazole 40 mg IV twice a day On omeprazole 20 mg by mouth daily at home for gastroesophageal reflux disease Patient is on docusate sodium 100 mg by mouth by mouth daily and polyethylene glycol 17 g by mouth daily for constipation at home. CT abdomen/pelvis revealed multiple low liver lesions, portal hepatic and periaortic lymphadenopathy. Large mass at the GE junction amenable to biopsy. EGD 01/09 of biopsy esophagus sophagitis distal esophagus-biopsy ulcerated mass fundus , old clot, friable-multiple biopsies , epinephrine 1:10, 000 - 7 cc injected . Retroflexed views revealed ulcerated mass fundus Currently docusate sodium/senna 1 tablet twice a day, polyethylene glycol 17 g by mouth twice a day, lactulose 30 cc every 6 hours twice a day constipation, Glycerin suppositories times 1, soapsuds enema, Gastrografin enema and Relistor 12 mg subcutaneous 1 ordered for constipation Promethazine 12.5 mg IM every 6 hours when necessary nausea : Diaz catheter if indicated for accurate I's and O's in a critically ill patient Endo: Diabetes mellitus On insulin aspart 14 units subcutaneous 3 times a day and insulin detemir 52 units at night for diabetes mellitus Currently on sliding-scale with Accu-Cheks every 6 hours to maintain euglycemia/ moderate regimen Renal: Chronic kidney disease stage III Monitor urine output Accurate I's and O's Follow-ups BMP in a.m. Heme: Acute blood loss anemia History of iron deficiency anemia Chronic warfarin use History of deep venous thrombosis Patient is on warfarin 5 mill grams by mouth daily at home. Reversed with 10 mg of vitamin K IV/5 mg subcutaneous and PCC Last INR 1.1 today. 8 was 8.0 on admission Transfuse 1 unit PRBC on 01/09. Currently 2.7 Serial hemoglobins. Follow trends Alpha-fetoprotein 777.1. CEA 1044.7. CA-19-9 511.6 ID: Monitor for infection MSK: Physical therapy evaluate and treat FEN: Vitamin B12 deficiency Vitamin D deficiency Hypernatremia On Cyanocobalamin 2500 g by mouth monthly for vitamin B-12 deficiency and cholecalciferol 50,000 units by mouth weekly for osteoporosis Adjust IV fluids to one half normal saline as above. See orders Access - Utilize peripheral IV. Central line if indicated Prophylaxis - GI - Protonix - DVT - SCD/pharmacological prophylaxis contraindicated with bleeding Level II follow-up Everett Courtney MD Jan 10, 2017 12:20
[2017-01-10] MEDS ORDERED: DIATRIZOATE MEGLUM/DIATRIZOATE SOD 120 ML BTL (for RAD DIAG) RECTAL ONE (13:46)
--- NOTE | 2017-01-10 14:08 | RADRPT ---
EXAM DATE/TIME: 01/10/2017 00:00 [facility] COMPARISON: No previous studies available for comparison. INDICATIONS : Dysphagia. FLUORO TIME: 1.3 minutes IMAGE COUNT: 0 CONTRAST: Dose as prescribed by speech pathologist. MEDICAL HISTORY : Hypertension. Gastroesophageal reflux disease. Renal failure, chronic. Diabetes mellitus type 2 SURGICAL HISTORY : None. ENCOUNTER: Subsequent ACUITY: 3 days PAIN SCORE: 0/10 LOCATION: esophagus. FINDINGS: A modified barium swallow was performed with speech pathology. Patient was given a variety of liquids to swallow. For a full detailed report, see report by the speech pathologist. CONCLUSION: Normal examination. Lex Harmon MD on January 10, 2017 at 14:06 Board Certified Radiologist. This report was verified electronically.
--- NOTE | 2017-01-10 15:16 | RADRPT ---
EXAM DATE/TIME: 01/10/2017 13:07 [facility] COMPARISON: No previous studies available for comparison. INDICATIONS : Constipation. FLUORO TIME: 2.1 minutes IMAGE COUNT: 7 CONTRAST: 1. [facility] MEDICAL HISTORY : Hypertension. SURGICAL HISTORY : None. ENCOUNTER: Initial ACUITY: 1 week PAIN SCORE: 10/10 LOCATION: Bilateral abdomen. FINDINGS: Job Foreman film demonstrates some residual barium from the swallow. The tip was inserted into the rectum. Contrast was instilled. There is filling of the descending, transverse and portions of the ascendi ng colon. Eventually, there is filling of the cecum. No long segment stricture or mass is identifie d. There is extensive sigmoid diverticulosis. Lex Harmon MD on January 10, 2017 at 15:05 Board Certified Radiologist. This report was verified electronically.
[2017-01-10] MEDS: LACTULOSE SYRUP 20 GM/30 ML CUP PO SCH (16:39)
[2017-01-10] MEDS: PROMETHAZINE INJ 25 MG/ML VIAL IM PRN (16:39)
[2017-01-10] MEDS: POLYETHYLENE GLYCOL 17 GM PKG PO SCH (21:00)
--- NOTE | 2017-01-10 22:02 | RADRPT ---
EXAM DATE/TIME: 01/10/2017 21:31 [facility] COMPARISON: No previous studies available for comparison. INDICATIONS : Metastatic disease. MEDICAL HISTORY : Diabetes mellitus type 2. Renal insufficiency. Hypertension. DVT, Lung and Liver Cancer, Mass in stom ach. SURGICAL HISTORY : Abdominal aortic aneurysm repair. ENCOUNTER: Initial ACUITY: 1 day PAIN SCORE: 3/10 LOCATION: Bilateral cranial TECHNIQUE: Multiplanar, multisequence MRI of the brain was performed without contrast. FINDINGS: There is mild atrophy and patchy increased flair signal the bilateral this may well enter into the wh ite matter and giancarlo, felt to be most consistent with chronic microvascular ischemic disease. There is no hemorrhage. No evidence of acute infarction. Remote bilateral cerebellar lacunar infarcts are pre sent. Calvarial bone marrow signal intensity is normal. CONCLUSION: 1. Atrophy and white matter disease without definite evidence for mass. Orestes Mccord MD on January 10, 2017 at 21:59 Board Certified Radiologist. This report was verified electronically.
--- NOTE | 2017-01-10 22:47 | PD.ONC.PN ---
Subjective Subjective Remarks f/u for esophageal mass and multiple metastatic lesion still nauseous no fevers no overt bleeding Objective Data Date Time Temp Pulse Resp B/P Pulse Ox O2 Delivery O2 Flow Rate FiO2 01/10/17 20:00 84 01/10/17 18:00 86 01/10/17 16:00 86 01/10/17 16:00 99.0 98 16 165/78 91 01/10/17 14:00 84 01/10/17 12:00 99.0 89 16 158/77 94 01/10/17 12:00 86 01/10/17 10:00 85 01/10/17 08:00 85 01/10/17 08:00 99.0 89 16 170/81 96 01/10/17 07:00 98.4 86 14 149/71 99 01/10/17 06:00 96.7 83 14 134/60 91 01/10/17 06:00 83 01/10/17 05:00 98.7 93 19 133/63 91 01/10/17 04:00 85 01/10/17 04:00 98.3 85 15 160/72 91 01/10/17 03:00 98.3 84 15 166/79 91 01/10/17 02:00 98.4 84 18 160/75 91 01/10/17 02:00 84 01/10/17 01:00 98.2 81 16 158/72 91 01/10/17 00:00 98.4 77 13 137/65 93 01/10/17 00:00 77 01/09/17 23:00 98.4 80 14 134/66 94 01/10/17 01/10/17 01/10/17 07:00 15:00 23:00 Intake Total 944 ml 550 ml 100 ml Output Total 650 ml 2001 ml 3 ml Balance 294 ml -1451 ml 97 ml Result Diagram: 01/10/17 0446 01/10/17 0446 Laboratory Results Laboratory Tests Test 01/10/17 04:46 White Blood Count 10.9 TH/MM3 Red Blood Count 3.78 MIL/MM3 Hemoglobin 10.7 GM/DL Hematocrit 32.2 % Mean Corpuscular Volume 85.1 FL Mean Corpuscular Hemoglobin 28.2 PG Mean Corpuscular Hemoglobin 33.2 % Concent Red Cell Distribution Width 17.1 % Platelet Count 186 TH/MM3 Mean Platelet Volume 8.3 FL Neutrophils (%) (Auto) 86.4 % Lymphocytes (%) (Auto) 1.4 % Monocytes (%) (Auto) 11.1 % Eosinophils (%) (Auto) 0.7 % Basophils (%) (Auto) 0.4 % Neutrophils # (Auto) 9.4 TH/MM3 Lymphocytes # (Auto) 0.2 TH/MM3 Monocytes # (Auto) 1.2 TH/MM3 Eosinophils # (Auto) 0.1 TH/MM3 Basophils # (Auto) 0.0 TH/MM3 CBC Comment DIFF FINAL Differential Comment Prothrombin Time 11.8 SEC Prothromb Time International 1.1 RATIO Ratio Activated Partial 24.7 SEC Thromboplast Time Sodium Level 146 MEQ/L Potassium Level 4.5 MEQ/L Chloride Level 114 MEQ/L Carbon Dioxide Level 22.2 MEQ/L Anion Gap 10 MEQ/L Blood Urea Nitrogen 38 MG/DL Creatinine 1.67 MG/DL Estimat Glomerular Filtration 30 ML/MIN Rate Random Glucose 123 MG/DL Calcium Level 8.5 MG/DL Phosphorus Level 2.8 MG/DL Magnesium Level 2.1 MG/DL Total Bilirubin 1.0 MG/DL Aspartate Amino Transf 23 U/L (AST/SGOT) Alanine Aminotransferase 15 U/L (ALT/SGPT) Alkaline Phosphatase 86 U/L Total Protein 6.5 GM/DL Albumin 2.8 GM/DL Imaging Studies Last 24 hours Impressions Modified Barium Swallow 01/10/17 0000 Signed Impressions: Service Date/Time: Tuesday, January 10, 2017 00:00 - CONCLUSION: Normal examination. Lex Harmon MD Administered Medications Medications (Trade) Dose Ordered Sig/[place] Route PRN Reason Start Time Stop Time Status Last Admin Dose Admin Sodium Chloride (NS Flush) 2 ml BID .XX 01/08/17 09:00 01/10/17 08:47 Morphine Sulfate (Morphine Inj) 2 mg Q2H PRN IV PUSH PAIN SCALE 6 TO 10 01/08/17 03:45 01/10/17 11:01 Pantoprazole Sodium (Protonix Inj) 40 mg Q12H IV 01/08/17 09:00 01/10/17 08:47 Ondansetron HCl (Zofran Inj) 4 mg Q6H PRN IV NAUSEA OR VOMITING 01/08/17 03:30 01/10/17 21:18 Miscellaneous Information 1 Q361D XX 01/08/17 03:30 01/08/17 03:30 Chlorhexidine Gluconate (Chlorhexidine 2% Cloth) 3 pack Taper DAILY@04 TOP 01/08/17 04:00 01/04/18 03:59 01/10/17 04:00 Senna/Docusate Sodium (Stephanie-Colace) 1 tab BID PO 01/08/17 09:00 01/10/17 08:46 Scopolamine (Transderm-Scop 1.5 Mg Patch.72 Hr) 1 patch Q3D T-DERMAL 01/10/17 01:00 01/10/17 01:48 Miscellaneous Information 1 Q3D T-DERMAL 01/10/17 01:00 01/10/17 01:00 Promethazine HCl (Phenergan Inj) 12.5 mg Q6H PRN IM NAUSEA 01/10/17 09:30 01/10/17 16:39 Lactulose 30 ml 30 ml Q6HR PO 01/10/17 18:00 01/10/17 16:39 Sodium Chloride (1/2 NS 1000 ml Inj) 1,000 ml @ 84 mls/hr [id number] IV 01/10/17 12:15 01/10/17 12:15 Objective Remarks GENERAL: nad SKIN: Warm and dry. NECK: Supple, trachea midline. No JVD or lymphadenopathy. LYMPHATIC: No adenopathy. CARDIOVASCULAR: Regular rate and rhythm without murmurs. RESPIRATORY: Breath sounds equal bilaterally. No accessory muscle use. GASTROINTESTINAL: Abdomen soft, non-tender, nondistended. EXTREMITIES: No cyanosis, or edema. Assessment/Plan Problem List: (1) Shock Status: Acute (2) GI bleed Status: Acute (3) Warfarin-induced coagulopathy Status: Acute (4) Metastatic disease Status: Acute (5) Esophageal mass Status: Acute Assessment 71-year-old female who presents with weakness, abdominal pain, constipation and difficulty swallowing. On admission she underwent imaging including a CT of the chest, abdomen and pelvis which revealed a gastric mass at or below the level of the GE junction, metastatic lesions to the liver, abdomen as well as bilateral lung mckay. 1. GE junction/gastric mass with metastatic disease to the liver, lung and abdomen--highly suspicious for a primary gastric cancer. s/p EGD and biopsy - Path pending --likely gastric cancer - Further recs once results are available 2. Dysphagia, poor oral intake, hypoalbuminemia. - MBS pending, - Supportive care 3. Severe anemia, likely bleeding from the gastric mass. - Monitor Hb - transfuse for Hb less than 7.5 4. Stage IV chronic kidney disease. 5. History of DVT. Anticoagulation is on hold. 6. Intractable Nausea - trial of steroids - Zofran/compazine prn - scopalamine patch Marko Nichols MD Jan 10, 2017 22:47
[2017-01-10] MEDS: DEXAMETHASONE 4 MG TAB PO SCH (23:00)
[2017-01-11] VITALS (16 sets, daily range): BP systolic 123–189; BP diastolic 66–86; PULSE 58–98; RESP 14–47; TEMP 98.1–98.7; O2SAT 92–95
[2017-01-11] MEDS: SODIUM CHLOR 0.45% 1000 ML INJ 1,000 ML IV SCH ×2 (00:10→12:05)
[2017-01-11] MEDS: MORPHINE SULFATE 8 MG/ML INJ IV PUSH PRN ×5 (00:23→23:18)
[2017-01-11] MEDS: PROMETHAZINE INJ 25 MG/ML VIAL IM PRN ×3 (00:23→20:15)
[2017-01-11] MEDS: SODIUM CHLORIDE 0.9% FLUSH 10 ML FLUSH SCH ×3 (00:24→20:36)
[2017-01-11] MEDS: CHLORHEXIDINE GLUCONATE 2 % 1 PACK (2 CLOTHS) TOP SCH (04:00)
[2017-01-11] MEDS: LACTULOSE SYRUP 20 GM/30 ML CUP PO SCH ×4 (05:39→18:00)
[2017-01-11] MEDS: LABETALOL HCL 100 MG/20 ML VIAL IV PUSH PRN ×2 (05:39→23:43)
[2017-01-11] MEDS: INSULIN NovoLIN REGULAR SUPPLEMENTAL SCALE SQ SCH ×4 (05:39→20:16)
[2017-01-11 06:06] LABS: AUTOMATED NEUTROPHIL # 8.6 TH/MM3 (1.8-7.7); BASOPHIL # 0.1 TH/MM3 (0-0.2); BASOPHIL % 1.4 % (0.0-2.0); EOSINOPHIL # 0.1 TH/MM3 (0-0.4); EOSINOPHIL % 0.6 % (0.0-4.0); HEMATOCRIT 31.1 % (35.0-46.0); HEMO FLAGS DIFF FINAL; LYMPH % 1.9 % (9.0-44.0); LYMPHOCYTE # 0.2 TH/MM3 (1.0-4.8); MEAN CELL VOLUME 85.4 FL (80.0-100.0); MEAN CORPUSCULAR HEMOGLOBIN 28.8 PG (27.0-34.0); MEAN CORPUSCULAR HGB CONC 33.7 % (32.0-36.0); MONO % 10.6 % (0.0-8.0); NEUT % 85.5 % (16.0-70.0); PLATELET COUNT 170 TH/MM3 (150-450); RED BLOOD COUNT 3.64 MIL/MM3 (4.00-5.30); RED CELL DISTRIBUTION WIDTH 17.1 % (11.6-17.2); WHITE BLOOD COUNT 10.1 TH/MM3 (4.0-11.0)
[2017-01-11 06:37] LABS: BICARBONATE 22.3 MEQ/L (21.0-32.0); POTASSIUM 4.2 MEQ/L (3.5-5.1)
[2017-01-11] MEDS: POLYETHYLENE GLYCOL 17 GM PKG PO SCH ×2 (09:00→20:37)
[2017-01-11] MEDS: DOCUSATE SODIUM 50 MG/SENNA 8.6 MG TAB PO SCH ×2 (09:00→20:37)
[2017-01-11] MEDS: DEXAMETHASONE 4 MG TAB PO SCH ×2 (09:00→20:15)
[2017-01-11] MEDS: PANTOPRAZOLE SODIUM 40 MG VIAL IV SCH ×2 (09:37→20:15)
--- NOTE | 2017-01-11 15:27 | HHI.CCPN ---
Subjective Remarks/Hospital Course 71 year old woman presents because she has been feeling poorly for the past 4 days. She feels fatigued weak and lightheaded and has some fainting spells. She was told by her primary care physician that her INR was elevated and advised her to take vitamin K. She'll don't also noticed some dark stool. 01/09: Hemoglobin slowly trending downward. Plan for EGD today. Coags are stabilized. No bowel movement 7 days. 01/10: Tmax 99. Resting complaint bed. Currently for barium swallow evaluation. Afterwards for Gastrografin enema due to no bowel movement 8 days. Unresponsive to Relistor. Status post EGD with biopsy history of stomach /esophagus results currently pending. Subjective: 01/11: Positive bowel movement yesterday. Disimpacted by GI. Gastrografin enema with sigmoid diverticulosis but patent. Passed swallow evaluation. He will then be stable. Hemoglobin stable. Weaning pathology results. MRI brain negative or metastases. Updated family at bedside. Objective Vital Signs Date Time Temp Pulse Resp B/P Pulse Ox O2 Delivery O2 Flow Rate FiO2 01/11/17 14:00 96 01/11/17 08:00 98.6 17 151/67 93 01/09/17 15:44 Room Air 01/08/17 02:40 2 Intake and Output 01/10/17 01/10/17 01/11/17 08:00 16:00 00:00 Intake Total 944 ml 650 ml 880 ml Output Total 650 ml 2004 ml 450 ml Balance 294 ml -1354 ml 430 ml Result Diagram: 01/11/17 0509 01/11/17 0509 Imaging Last Impressions Modified Barium Swallow 01/10/17 0000 Signed Impressions: Service Date/Time: Tuesday, January 10, 2017 00:00 - CONCLUSION: Normal examination. Lex Harmon MD Brain MRI 01/10/17 0000 Signed Impressions: Service Date/Time: Tuesday, January 10, 2017 21:31 - CONCLUSION: 1. Atrophy and white matter disease without definite evidence for mass. Orestes Mccord MD Chest X-Ray 01/08/17 0013 Signed Impressions: Service Date/Time: Sunday, January 08, 2017 00:23 - CONCLUSION: Diffuse bilateral pulmonary metastatic disease. Cuauhtemoc Mensah MD Abdomen/Pelvis CT 01/08/17 0013 Signed Impressions: Service Date/Time: Sunday, January 08, 2017 01:19 - CONCLUSION: 1. There is an abnormal soft tissue mass involving the upper portion of the stomach at or just below the GE junction suspicious for neoplastic disease. Recommend direct visualization by endoscopy. 2. Diffuse liver metastatic disease. 3. Diffuse lung metastatic disease. 4. Diffuse para-aortic and retroperitoneal adenopathy. 5. Aneurysmal dilatation of the infrarenal abdominal aorta at 3.7 cm. Cuauhtemoc Mensah MD Chest CT 01/08/17 0000 Signed Impressions: Service Date/Time: Sunday, January 08, 2017 01:19 - CONCLUSION: 1. Diffuse lung metastatic disease. 2. Diffuse liver metastatic disease. Cuauhtemoc Mensah MD Objective Remarks GENERAL: 71-year-old female, resting in bed in no acute distress SKIN: Warm and dry. No rash HEAD: Normocephalic. EYES: Pupils equal round reactive.. NECK: Supple, trachea midline. No JVD or lymphadenopathy. CARDIOVASCULAR: RR. S1, S2 no S4. Distant. RESPIRATORY: Essentially clear to auscultation bilaterally without wheezes rales or rhonchi GASTROINTESTINAL: Abdomen soft, nontender. Hypoactive bowel sounds MUSCULOSKELETAL: No significant peripheral edema. BACK: Nontender without obvious deformity. No CVA tenderness. NEURO: Cranial nerves II through XII grossly intact. Strength equal/and symmetric bilaterally. Normal sensation.. A/P Assessment and Plan Neuro/Psych: Anxiety disorder NOS Holding buspirone 7.5 mg by mouth twice a day On acetaminophen 650 mg every 4 hours as needed for fever/pain 1-5 Morphine 2 mg IV every 2 hours when necessary pain 6-10 Scopolamine patch 1 mg patch every 3 days as needed for nausea per Dr. Nichols MRI brain 01/10 revealed no signs of metastases. CV: History of hypertension Dyslipidemia 4.4 cm ascending aortic aneurysm and 3.3 cm infrarenal aortic aneurysm Holding carvedilol 6.25 mg twice a day, telmisartan 40 mg by mouth daily, amlodipine 10 mg daily for hypertension. Holding atorvastatin 20 mg by mouth daily for dyslipidemia On one half normal saline at 84 cc an hour. Currently not requiring vasopressors and/or antihypertensives. As needed labetalol for systolic blood pressure greater than 160 Resp: Pulmonary nodules Nasal cannula to maintain saturations greater than or equal to 92% Incentive spirometry while awake CT chest revealed multiple pulmonary nodules largest which is 2.3 cm in the right lower lobe GI: Constipation Gastroesophageal reflux disease History of tubular adenoma History of esophageal stricture Patient is currently on full liquid diet/2200 kcal ADA Currently on pantoprazole 40 mg IV twice a day On omeprazole 20 mg by mouth daily at home for gastroesophageal reflux disease Patient is on docusate sodium 100 mg by mouth by mouth daily and polyethylene glycol 17 g by mouth daily for constipation at home. CT abdomen/pelvis revealed multiple low liver lesions, portal hepatic and periaortic lymphadenopathy. Large mass at the GE junction amenable to biopsy. EGD 01/09 of biopsy esophagus sophagitis distal esophagus-biopsy ulcerated mass fundus , old clot, friable-multiple biopsies , epinephrine 1:10, 000 - 7 cc injected . Retroflexed views revealed ulcerated mass fundus Currently docusate sodium/senna 1 tablet twice a day, polyethylene glycol 17 g by mouth twice a day, lactulose 30 cc every 6 hours twice a day constipation, Glycerin suppositories times 1, soapsuds enema, Gastrografin enema and Relistor 12 mg subcutaneous 1 ordered for constipation Promethazine 12.5 mg IM every 6 hours when necessary nausea : Diaz catheter if indicated for accurate I's and O's in a critically ill patient Endo: Diabetes mellitus On insulin aspart 14 units subcutaneous 3 times a day and insulin detemir 52 units at night for diabetes mellitus Currently on sliding-scale with Accu-Cheks every 6 hours to maintain euglycemia/ moderate regimen Renal: Chronic kidney disease stage IV Monitor urine output Accurate I's and O's Follow-ups BMP in a.m. Heme: Acute blood loss anemia History of iron deficiency anemia Chronic warfarin use History of deep venous thrombosis Patient is on warfarin 5 mill grams by mouth daily at home. Reversed with 10 mg of vitamin K IV/5 mg subcutaneous and PCC Last INR 1.1 today. 8 was 8.0 on admission Transfuse 1 unit PRBC on 01/09. Currently 2.7 Serial hemoglobins. Follow trends Alpha-fetoprotein 777.1. CEA 1044.7. CA-19-9 511.6 ID: Monitor for infection MSK: Physical therapy evaluate and treat FEN: Vitamin B12 deficiency Vitamin D deficiency Hypernatremia On Cyanocobalamin 2500 g by mouth monthly for vitamin B-12 deficiency and cholecalciferol 50,000 units by mouth weekly for osteoporosis Adjust IV fluids to one half normal saline as above. See orders Access - Utilize peripheral IV. Central line if indicated Prophylaxis - GI - Protonix - DVT - SCD/pharmacological prophylaxis contraindicated with bleeding Level II follow-up Patient is stable from a critical care medicine standpoint. We'll assign care to hospitalist in a.m. Transfer to floor. Everett Courtney MD Jan 11, 2017 15:27
--- NOTE | 2017-01-11 17:41 | HHI.GIFU ---
GI Follow-up Note Consult Follow-up Subjective: Patient laying in bed comfortably,feeling better.Some nause, hungry.No more BM's.Daughter at bedside - pathology suggesting adenocarcinoma - source stomach -high risk for bleeding from tumor-large ulcerated mass Objective: PHYSICAL EXAMINATION: Vitals signs stable No fever Vital Signs Date Time Temp Pulse Resp B/P Pulse Ox O2 Delivery O2 Flow Rate FiO2 01/11/17 14:00 96 01/11/17 12:00 86 01/11/17 12:00 98.1 86 14 163/70 93 01/11/17 10:00 58 HEENT: Pupils round and reactive to light; normocephalic; atraumatic; no jaundice. Throat is clear. NECK: Neck is supple, no JVD, no lymphadenopathy. CHEST: Chest is clear to auscultation and percussion. CARDIAC: Regular rate and rhythm with no murmur gallop or rubs. ABDOMEN: Soft, nondistended, nontender; no hepatosplenomegaly; bowel sounds are present in all four quadrants. EXTREMITIES: No clubbing, cyanosis, or edema. SKIN: Normal; no rash; no jaundice. ELECTRIC METER TECHNICIAN: No focal deficits; alert and oriented times three. Available Data (labs, X- Rays, Procedues) : Laboratory Tests Test 01/09/17 01/09/17 01/10/17 01/11/17 19:17 19:33 04:46 05:09 Blood Type O POSITIVE Crossmatch Leukocyte-Reduced Red Blood Cells Blood Bank Comment Hemoglobin 9.1 GM/DL 10.7 GM/DL 10.5 GM/DL Hematocrit 27.4 % 32.2 % 31.1 % White Blood Count 10.9 TH/MM3 10.1 TH/MM3 Red Blood Count 3.78 MIL/MM3 3.64 MIL/MM3 Mean Corpuscular Volume 85.1 FL 85.4 FL Mean Corpuscular Hemoglobin 28.2 PG 28.8 PG Mean Corpuscular Hemoglobin 33.2 % 33.7 % Concent Red Cell Distribution Width 17.1 % 17.1 % Platelet Count 186 TH/MM3 170 TH/MM3 Mean Platelet Volume 8.3 FL 9.1 FL Neutrophils (%) (Auto) 86.4 % 85.5 % Lymphocytes (%) (Auto) 1.4 % 1.9 % Monocytes (%) (Auto) 11.1 % 10.6 % Eosinophils (%) (Auto) 0.7 % 0.6 % Basophils (%) (Auto) 0.4 % 1.4 % Neutrophils # (Auto) 9.4 TH/MM3 8.6 TH/MM3 Lymphocytes # (Auto) 0.2 TH/MM3 0.2 TH/MM3 Monocytes # (Auto) 1.2 TH/MM3 1.1 TH/MM3 Eosinophils # (Auto) 0.1 TH/MM3 0.1 TH/MM3 Basophils # (Auto) 0.0 TH/MM3 0.1 TH/MM3 CBC Comment DIFF FINAL DIFF FINAL Differential Comment Prothrombin Time 11.8 SEC Prothromb Time International 1.1 RATIO Ratio Activated Partial 24.7 SEC Thromboplast Time Sodium Level 146 MEQ/L 146 MEQ/L Potassium Level 4.5 MEQ/L 4.2 MEQ/L Chloride Level 114 MEQ/L 115 MEQ/L Carbon Dioxide Level 22.2 MEQ/L 22.3 MEQ/L Anion Gap 10 MEQ/L 9 MEQ/L Blood Urea Nitrogen 38 MG/DL 32 MG/DL Creatinine 1.67 MG/DL 1.72 MG/DL Estimat Glomerular Filtration 30 ML/MIN 29 ML/MIN Rate Random Glucose 123 MG/DL 135 MG/DL Calcium Level 8.5 MG/DL 8.5 MG/DL Phosphorus Level 2.8 MG/DL Magnesium Level 2.1 MG/DL Total Bilirubin 1.0 MG/DL Aspartate Amino Transf 23 U/L (AST/SGOT) Alanine Aminotransferase 15 U/L (ALT/SGPT) Alkaline Phosphatase 86 U/L Total Protein 6.5 GM/DL Albumin 2.8 GM/DL ASSESSMENT/PLAN: acute gi bleeding secondary large ulcerated mas fundus of stomach-pathology suggesting adenocarcinoma most likely gastric origin coagulopathy secondary Coumadin toxicity metastatic disease on ct involving lungs and liver history of dvt -as per patient diagnosed 1 year ago constipation-improved Recommendations soft diet ppi high risk for bleeding if anticoagulation restarted suggests doppler us of lower extremities, consider IVC filter if ok with oncology and medical team consider pet ct op consider biopsy of liver or lung lesions if indicated -recommendations as per oncology discussed with daughter and patient -pathology results explained in detail It was a pleasure seeing Madison Vasquez. Thank you for this consult. Entered by: Sofie Villalpando MD Jan 11, 2017 17:41
--- NOTE | 2017-01-11 17:47 | HHI.GIFU ---
Subjective Remarks Resting in bed. No distress. Nausea has improved today, still having periodic episodes, but is able to control this with meds. No abdominal pain. Objective Vitals I&O Vital Signs Date Time Temp Pulse Resp B/P Pulse Ox O2 Delivery O2 Flow Rate FiO2 01/11/17 14:00 96 01/11/17 12:00 86 01/11/17 12:00 98.1 86 14 163/70 93 01/11/17 10:00 58 01/11/17 08:00 62 01/11/17 08:00 98.6 87 17 151/67 93 01/11/17 06:00 79 01/11/17 04:00 81 01/11/17 04:00 98.7 81 18 166/83 93 01/11/17 02:00 79 01/11/17 00:00 85 01/11/17 00:00 98.2 85 15 123/66 94 01/10/17 22:00 88 01/10/17 20:00 98.7 84 13 134/64 91 01/10/17 20:00 84 01/10/17 18:00 86 I/O 01/10/17 01/10/17 01/10/17 01/11/17 01/11/17 01/11/17 07:00 15:00 23:00 07:00 15:00 23:00 Intake Total 944 ml 550 ml 980 ml 747 ml 730 ml Output Total 650 ml 2001 ml 453 ml 300 ml 610 ml Balance 294 ml -1451 ml 527 ml 447 ml 120 ml Intake Oral 50 ml 450 ml 250 ml 200 ml IV Total 632 ml 500 ml 530 ml 497 ml 530 ml Packed Cells 312 ml Output Urine Total 650 ml 2000 ml 450 ml 300 ml 610 ml Stool Total 0 ml 1 ml 3 ml # Bowel Movements 1 1 Laboratory Laboratory Tests Test 01/11/17 05:09 White Blood Count 10.1 Red Blood Count 3.64 Hemoglobin 10.5 Hematocrit 31.1 Mean Corpuscular Volume 85.4 Mean Corpuscular Hemoglobin 28.8 Mean Corpuscular Hemoglobin 33.7 Concent Red Cell Distribution Width 17.1 Platelet Count 170 Mean Platelet Volume 9.1 Neutrophils (%) (Auto) 85.5 Lymphocytes (%) (Auto) 1.9 Monocytes (%) (Auto) 10.6 Eosinophils (%) (Auto) 0.6 Basophils (%) (Auto) 1.4 Neutrophils # (Auto) 8.6 Lymphocytes # (Auto) 0.2 Monocytes # (Auto) 1.1 Eosinophils # (Auto) 0.1 Basophils # (Auto) 0.1 CBC Comment DIFF FINAL Differential Comment Sodium Level 146 Potassium Level 4.2 Chloride Level 115 Carbon Dioxide Level 22.3 Anion Gap 9 Blood Urea Nitrogen 32 Creatinine 1.72 Estimat Glomerular Filtration 29 Rate Random Glucose 135 Calcium Level 8.5 Imaging Last Impressions Modified Barium Swallow 01/10/17 Signed Impressions: Service Date/Time: Tuesday, January 10, 2017 00:00 - CONCLUSION: Normal examination. Lex Harmon MD Brain MRI 01/10/17 Signed Impressions: Service Date/Time: Tuesday, January 10, 2017 21:31 - CONCLUSION: 1. Atrophy and white matter disease without definite evidence for mass. Orestes Mccord MD Chest X-Ray 01/08/1712 Signed Impressions: Service Date/Time: Sunday, January 08, 2017 00:23 - CONCLUSION: Diffuse bilateral pulmonary metastatic disease. Cuauhtemoc Mensah MD Abdomen/Pelvis CT 01/08/1712 Signed Impressions: Service Date/Time: Sunday, January 08, 2017 01:19 - CONCLUSION: 1. There is an abnormal soft tissue mass involving the upper portion of the stomach at or just below the GE junction suspicious for neoplastic disease. Recommend direct visualization by endoscopy. 2. Diffuse liver metastatic disease. 3. Diffuse lung metastatic disease. 4. Diffuse para-aortic and retroperitoneal adenopathy. 5. Aneurysmal dilatation of the infrarenal abdominal aorta at 3.7 cm. Cuauhtemoc Mensah MD Chest CT 01/08/17 Signed Impressions: Service Date/Time: Sunday, January 08, 2017 01:19 - CONCLUSION: 1. Diffuse lung metastatic disease. 2. Diffuse liver metastatic disease. Cuauhtemoc Mensah MD Physical Exam HEENT: Normocephalic; atraumatic; no jaundice. CHEST: CTA CARDIAC: RRR ABDOMEN: Soft, nondistended, nontender; no hepatosplenomegaly; bowel sounds are present in all four quadrants. EXTREMITIES: No clubbing, cyanosis, or edema. SKIN: Normal; no rash; no jaundice. PICKLE SOLUTION MAKER: No focal deficits; alert and oriented times three. Assessment and Plan Plan ASSESSMENT: - Ulcerated Gastric mass with evidence of metastatic dz to liver and lung. Abdomen/Pelvis CT (01/08/17)-----> 1. There is an abnormal soft tissue mass involving the upper portion of the stomach at or just below the GE junction suspicious for neoplastic disease. Recommend direct visualization by endoscopy. 2. Diffuse liver metastatic disease. 3. Diffuse lung metastatic disease. 4. Diffuse para-aortic and retroperitoneal adenopathy. 5. Aneurysmal dilatation of the infrarenal abdominal aorta at 3.7 cm. Colonoscopy (06/29/15)----> two sessile polyps ranging between 3-5 mm in size were found in the rectum, multiple biopsies performed using cold forceps, sessile polyp ranging between 3-5 mm in size was found in the ascending colon, polypectomy was performed with cold forceps, sessile polyp ranging between 3-5 mm in size was found in the sigmoid colon, biopsy using cord forceps , melanosis, there was severe diverticulosis noted in the sigmoid colon, retroflexed views revealed small internal hemorrhoids, rectal exam revealed external hemorrhoids. Pathology sigmoid polyp-hyperplastic, cecum bx- colonic mucosa with pigmented macrophages in lamina propria, consistent with melanosis coli, negative for dysplasia, colon, ascending biopsy with fragments of tubular adenoma, negative for high grade dysplasia or malignancy, rectal polyp with fragments of hyperplastic polyp. She was adopted and does not know family history. 3-4 day hx of n/v, decreased appetite, constipation. No abn. weight loss. EGD (01/09/17)-----> 1. Esophagitis distal esophagus-biopsy, ulcerated mass fundus , old clot, friable-multiple biopsies , epinephrine 1:10,000 - 7 cc injected 2. Retroflexed views revealed ulcerated mass fundus. Pathology pending. AFP 777.5, CEA 1044.3, Ca19-9 9311.6. Oncology following. If bleeding, consider embolization by IR. No active bleeding at this time. S/P MBS. Tolerating liquid diet. - Metastatic liver and lung disease on CT. Gastric mass as above, pathology pending. FP 777.5, CEA 1044.3, Ca19-9 9311.6. Oncology following. - Severe anemia with hemoccult positive stool,acute on chronic. Pt has hx of CLEMENCIA and B12 Deficiency. S/P 5 units PRBC, 10.5/31.1 - N/V. CT as above with gastric mass. She does have hx of esophageal strictures, but states that this was more difficulty with pills getting caught and that this is different. States she has not had any issues with dysphagia since dilatation in 2011. PPI. Zofran. Phenergan. - Constipation. Gastrografin enema (01/10/17)----> Residual barium from mbs, there was filling of the descending, transverse, and portions of the ascending colon eventually there is filling of the cecum. No long segment stricture or mass is identified. There is extensive sigmoid diverticulosis. (+) BM. - Coagulopathy on admission with INR of 8.0. (On Coumadin for DVT, now on hold. INR 1.0) - Acute on chronic kidney disease with electrolyte abnormalities. Creat 1.72 - Abdominal aortic aneurysm, Anxiety, Hx DVT, HTN, Hyperlipidemia, PAD, per attending. PLAN: - Full liquids - Await pathology - Cont. PPI - Cont. Zofran - Cont. Phenergan - Monitor labs - Lactulose prn - Supportive care - If bleeding, consider IR for embolization - Further recommendations to follow based on results of above - Pt seen and examined by Dr. Okeefe and myself and this note is written on her behalf Caterina Alegria Jan 11, 2017 17:47
--- NOTE | 2017-01-11 20:23 | RADRPT ---
EXAM DATE/TIME: 01/11/2017 19:16 [place] COMPARISON: No previous studies available for comparison. INDICATIONS : Bilateral leg pain. MEDICAL HISTORY : Hypercholesterolemia. Gastroesophageal reflux disease. Hypertension. Ulcerated gastric mass with mets .Neuropathy. . Stage 3 renal disease. Osteoporosis. Diabetes. Measles. Abdominal aortic aneu rysm. Anemia. Anxiety. Esophageal strictures. Deep vein thrombosis. Hyperlipidemia. Peripheral arteri al disease. SURGICAL HISTORY : Rectal cyst removal. Cataract removal. EGD with dialation. ENCOUNTER: Initial ACUITY: 1 day PAIN SCORE: 2/10 LOCATION: Bilateral legs. TECHNIQUE: Venous ultrasound of the left and right leg was performed from the inguinal ligament to the proximal calf. Real-time, color Doppler and spectral tracing, compression and augmentation techniques were us ed. FINDINGS: RIGHT LEG: There is normal compressibility of the deep venous system from the inguinal region to the proximal ca lf. No echogenic clot is seen in the lumen of the common femoral, femoral, popliteal, and posterior tibial veins. There is a normal response of the venous system to proximal and distal augmentation an d respiration. LEFT LEG: There is normal compressibility of the deep venous system from the inguinal region to the proximal ca lf. No echogenic clot is seen in the lumen of the common femoral, femoral, popliteal, and posterior tibial veins. There is a normal response of the venous system to proximal and distal augmentation an d respiration. CONCLUSION: Normal examination. Orestes Mccord MD on January 11, 2017 at 20:21 Board Certified Radiologist. This report was verified electronically.
--- NOTE | 2017-01-11 23:44 | PD.ONC.PN ---
Subjective Subjective Remarks biopsy results not available when patient seen earlier in the day Path---> gastric adenocarcinoma with signet cell features nausea better today denies any pain d/w rn Objective Data Date Time Temp Pulse Resp B/P Pulse Ox O2 Delivery O2 Flow Rate FiO2 01/11/17 18:00 97 01/11/17 16:00 91 01/11/17 16:00 98.4 91 22 156/75 93 01/11/17 14:00 96 01/11/17 12:00 86 01/11/17 12:00 98.1 86 14 163/70 93 01/11/17 10:00 58 01/11/17 08:00 62 01/11/17 08:00 98.6 87 17 151/67 93 01/11/17 06:00 79 01/11/17 04:00 81 01/11/17 04:00 98.7 81 18 166/83 93 01/11/17 02:00 79 01/11/17 00:00 85 01/11/17 00:00 98.2 85 15 123/66 94 01/11/17 01/11/17 01/11/17 07:00 15:00 23:00 Intake Total 747 ml 730 ml Output Total 300 ml 610 ml Balance 447 ml 120 ml Result Diagram: 01/11/17 0509 01/11/17 0509 Laboratory Results Laboratory Tests Test 01/11/17 05:09 White Blood Count 10.1 TH/MM3 Red Blood Count 3.64 MIL/MM3 Hemoglobin 10.5 GM/DL Hematocrit 31.1 % Mean Corpuscular Volume 85.4 FL Mean Corpuscular Hemoglobin 28.8 PG Mean Corpuscular Hemoglobin 33.7 % Concent Red Cell Distribution Width 17.1 % Platelet Count 170 TH/MM3 Mean Platelet Volume 9.1 FL Neutrophils (%) (Auto) 85.5 % Lymphocytes (%) (Auto) 1.9 % Monocytes (%) (Auto) 10.6 % Eosinophils (%) (Auto) 0.6 % Basophils (%) (Auto) 1.4 % Neutrophils # (Auto) 8.6 TH/MM3 Lymphocytes # (Auto) 0.2 TH/MM3 Monocytes # (Auto) 1.1 TH/MM3 Eosinophils # (Auto) 0.1 TH/MM3 Basophils # (Auto) 0.1 TH/MM3 CBC Comment DIFF FINAL Differential Comment Sodium Level 146 MEQ/L Potassium Level 4.2 MEQ/L Chloride Level 115 MEQ/L Carbon Dioxide Level 22.3 MEQ/L Anion Gap 9 MEQ/L Blood Urea Nitrogen 32 MG/DL Creatinine 1.72 MG/DL Estimat Glomerular Filtration 29 ML/MIN Rate Random Glucose 135 MG/DL Calcium Level 8.5 MG/DL Imaging Studies Last 24 hours Impressions Lower Extremity Ultrasound 01/11/17 0000 Signed Impressions: Service Date/Time: December 19:16 - CONCLUSION: Normal examination. Orestes Mccord MD Administered Medications Medications (Trade) Dose Ordered Sig/[place] Route PRN Reason Start Time Stop Time Status Last Admin Dose Admin Sodium Chloride (NS Flush) 2 ml BID .XX 01/08/17 09:00 01/11/17 20:36 Morphine Sulfate (Morphine Inj) 2 mg Q2H PRN IV PUSH PAIN SCALE 6 TO 10 01/08/17 03:45 01/11/17 23:18 Pantoprazole Sodium (Protonix Inj) 40 mg Q12H IV 01/08/17 09:00 01/11/17 20:15 Ondansetron HCl (Zofran Inj) 4 mg Q6H PRN IV NAUSEA OR VOMITING 01/08/17 03:30 01/10/17 21:18 Miscellaneous Information 1 Q361D XX 01/08/17 03:30 01/08/17 03:30 Chlorhexidine Gluconate (Chlorhexidine 2% Cloth) 3 pack Taper DAILY@04 TOP 01/08/17 04:00 01/04/18 03:59 01/10/17 04:00 Senna/Docusate Sodium (Stephanie-Colace) 1 tab BID PO 01/08/17 09:00 01/10/17 08:46 Labetalol HCl (Trandate Inj) 10 mg Q1HR PRN IV PUSH SBP>160, DBP>90, HR>65 01/09/17 12:30 01/11/17 23:43 Scopolamine (Transderm-Scop 1.5 Mg Patch.72 Hr) 1 patch Q3D T-DERMAL 01/10/17 01:00 01/10/17 01:48 Miscellaneous Information 1 Q3D T-DERMAL 01/10/17 01:00 01/10/17 01:00 Promethazine HCl (Phenergan Inj) 12.5 mg Q6H PRN IM NAUSEA 01/10/17 09:30 01/11/17 20:15 Lactulose 30 ml 30 ml Q6HR PO 01/10/17 18:00 01/10/17 16:39 Sodium Chloride (1/2 NS 1000 ml Inj) 1,000 ml @ 84 mls/hr [id number] IV 01/10/17 12:15 01/11/17 12:05 Dexamethasone (Decadron) 4 mg Q12HR PO 01/10/17 23:00 01/11/17 20:15 Objective Remarks GENERAL: acutely ill SKIN: Warm and dry. NECK: Supple, trachea midline. No JVD or lymphadenopathy. LYMPHATIC: No adenopathy. CARDIOVASCULAR: Regular rate and rhythm without murmurs. RESPIRATORY: Breath sounds equal bilaterally. No accessory muscle use. GASTROINTESTINAL: Abdomen soft, diffusely tender EXTREMITIES: No cyanosis, or edema. Assessment/Plan Problem List: (1) Shock Status: Acute (2) GI bleed Status: Acute (3) Warfarin-induced coagulopathy Status: Acute (4) Metastatic disease Status: Acute (5) Esophageal mass Status: Acute Assessment 71-year-old female who presents with weakness, abdominal pain, constipation and difficulty swallowing. On admission she underwent imaging including a CT of the chest, abdomen and pelvis which revealed a gastric mass at or below the level of the GE junction, metastatic lesions to the liver, abdomen as well as bilateral lung mckay. 1. GE junction/gastric mass with metastatic disease to the liver, lung and abdomen--highly suspicious for a primary gastric cancer. s/p EGD and biopsy - Path ---> gastric cancer with signet cell features - Will discuss with family in AM. path was not available when I saw patient - Further treatment discussions to be held outpatient. Will need PET/CT scan outpatient 2. Dysphagia, poor oral intake, hypoalbuminemia. - MBS show no swallowing issue - Supportive care 3. Severe anemia, likely bleeding from the gastric mass. - Monitor Hb - transfuse for Hb less than 7.5 4. Stage IV chronic kidney disease. 5. History of DVT. Anticoagulation is on hold due to bleeding - doppler u/s pending 6. Intractable Nausea - trial of steroids - Zofran/compazine prn - scopalamine patch Marko Nichols MD Jan 11, 2017 23:44
[2017-01-12] VITALS (7 sets, daily range): BP systolic 112–175; BP diastolic 63–84; PULSE 77–97; RESP 17–27; TEMP 97.1–98.6; O2SAT 92–95
[2017-01-12] MEDS ORDERED: cloNIDine HCL 0.1 MG TAB PO PRN (00:45)
[2017-01-12] MEDS: CARVEDILOL 6.25 MG TAB PO SCH ×3 (01:05→21:03)
[2017-01-12] MEDS: CHLORHEXIDINE GLUCONATE 2 % 1 PACK (2 CLOTHS) TOP SCH (04:00)
[2017-01-12] MEDS: INSULIN NovoLIN REGULAR SUPPLEMENTAL SCALE SQ SCH ×4 (06:17→21:08)
[2017-01-12] MEDS: LACTULOSE SYRUP 20 GM/30 ML CUP PO SCH ×4 (06:20→18:00)
[2017-01-12 06:53] LABS: AUTOMATED NEUTROPHIL # 8.2 TH/MM3 (1.8-7.7); BASOPHIL % 0.1 % (0.0-2.0); HEMATOCRIT 33.5 % (35.0-46.0); HEMO FLAGS DIFF FINAL; LYMPH % 1.1 % (9.0-44.0); LYMPHOCYTE # 0.1 TH/MM3 (1.0-4.8); MEAN CELL VOLUME 86.7 FL (80.0-100.0); MEAN CORPUSCULAR HEMOGLOBIN 28.4 PG (27.0-34.0); MEAN CORPUSCULAR HGB CONC 32.8 % (32.0-36.0); MONO % 5.3 % (0.0-8.0); NEUT % 93.5 % (16.0-70.0); PLATELET COUNT 177 TH/MM3 (150-450); RED BLOOD COUNT 3.87 MIL/MM3 (4.00-5.30); RED CELL DISTRIBUTION WIDTH 17.2 % (11.6-17.2); WHITE BLOOD COUNT 8.8 TH/MM3 (4.0-11.0)
[2017-01-12 07:27] LABS: ALKALINE PHOSPHATASE 88 U/L (45-117); ALT (GPT) 13 U/L (10-53); ANION GAP 11 MEQ/L (5-15); AST (GOT) 22 U/L (15-37); BICARBONATE 19.4 MEQ/L (21.0-32.0); BLOOD UREA NITROGEN 23 MG/DL (7-18); CHLORIDE 107 MEQ/L (98-107); GLOMERULAR FILTRATION RATE 33 ML/MIN (>89); MAGNESIUM 1.8 MG/DL (1.5-2.5); POTASSIUM 4.3 MEQ/L (3.5-5.1); SODIUM (NA) 137 MEQ/L (136-145); TOTAL BILIRUBIN ADULT 0.6 MG/DL (0.2-1.0)
[2017-01-12] MEDS: DEXAMETHASONE 4 MG TAB PO SCH ×2 (08:27→21:03)
[2017-01-12] MEDS: PANTOPRAZOLE SODIUM 40 MG VIAL IV SCH ×2 (08:27→21:05)
[2017-01-12] MEDS: MORPHINE SULFATE 8 MG/ML INJ IV PUSH PRN ×4 (08:27→23:06)
[2017-01-12] MEDS: SODIUM CHLORIDE 0.9% FLUSH 10 ML FLUSH SCH ×2 (08:28→21:00)
[2017-01-12] MEDS: DOCUSATE SODIUM 50 MG/SENNA 8.6 MG TAB PO SCH ×2 (08:28→21:00)
[2017-01-12] MEDS: POLYETHYLENE GLYCOL 17 GM PKG PO SCH ×2 (08:28→21:00)
--- NOTE | 2017-01-12 11:01 | HHI.PR ---
Subjective Remarks No new complaints. Pt is tolerating small amount of PO intake. Pt had coffee and part of a bagel for breakfast this AM. Pt states that she had a small amount of vomit this AM. Overall her n/v is much improved from admission. Objective Vitals Vital Signs Date Time Temp Pulse Resp B/P Pulse Ox O2 Delivery O2 Flow Rate FiO2 01/12/17 08:00 97.1 83 18 175/84 94 01/12/17 04:00 97.5 87 17 168/72 92 01/12/17 01:00 97.6 93 18 167/79 95 01/12/17 00:00 97 01/12/17 00:00 97.8 91 27 158/70 92 01/11/17 23:52 90 30 166/77 94 01/11/17 23:08 93 36 179/85 92 01/11/17 23:00 92 47 189/86 93 01/11/17 22:00 90 23 176/81 94 01/11/17 22:00 98 01/11/17 21:00 98 28 177/86 93 01/11/17 20:00 98.7 92 30 176/85 95 01/11/17 20:00 92 01/11/17 18:00 97 01/11/17 16:00 91 01/11/17 16:00 98.4 91 22 156/75 93 01/11/17 14:00 96 01/11/17 12:00 86 01/11/17 12:00 98.1 86 14 163/70 93 01/11/17 01/11/17 01/12/17 15:00 23:00 07:00 Intake Total 730 ml 1497 ml 756 ml Output Total 610 ml 1400 ml 550 ml Balance 120 ml 97 ml 206 ml Intake Oral 200 ml 260 ml IV Total 530 ml 1237 ml 756 ml Output Urine Total 610 ml 1400 ml 550 ml # Bowel Movements 0 Result Diagram: 01/12/17 0612 01/12/17 0612 Imaging Last Impressions Lower Extremity Ultrasound 01/11/17 0000 Signed Impressions: Service Date/Time: December 19:16 - CONCLUSION: Normal examination. Orestes Mccord MD Modified Barium Swallow 01/10/17 0000 Signed Impressions: Service Date/Time: Tuesday, January 10, 2017 00:00 - CONCLUSION: Normal examination. Lex Harmon MD Brain MRI 01/10/17 0000 Signed Impressions: Service Date/Time: Tuesday, January 10, 2017 21:31 - CONCLUSION: 1. Atrophy and white matter disease without definite evidence for mass. Orestes Mccord MD Chest X-Ray 01/08/17 0013 Signed Impressions: Service Date/Time: Sunday, January 08, 2017 00:23 - CONCLUSION: Diffuse bilateral pulmonary metastatic disease. Cuauhtemoc Mensah MD Abdomen/Pelvis CT 01/08/17 0013 Signed Impressions: Service Date/Time: Sunday, January 08, 2017 01:19 - CONCLUSION: 1. There is an abnormal soft tissue mass involving the upper portion of the stomach at or just below the GE junction suspicious for neoplastic disease. Recommend direct visualization by endoscopy. 2. Diffuse liver metastatic disease. 3. Diffuse lung metastatic disease. 4. Diffuse para-aortic and retroperitoneal adenopathy. 5. Aneurysmal dilatation of the infrarenal abdominal aorta at 3.7 cm. Cuauhtemoc Mensah MD Chest CT 01/08/17 0000 Signed Impressions: Service Date/Time: Sunday, January 08, 2017 01:19 - CONCLUSION: 1. Diffuse lung metastatic disease. 2. Diffuse liver metastatic disease. Cuauhtemoc Mensah MD Objective Remarks GENERAL: This is a well-nourished, well-developed patient, in no apparent distress. CARDIOVASCULAR: Regular rate and rhythm without murmurs, gallops, or rubs. RESPIRATORY: Clear to auscultation. Breath sounds equal bilaterally. No wheezes , rales, or rhonchi. GASTROINTESTINAL: Abdomen soft, non-tender, nondistended. Normal active bowel sounds MUSCULOSKELETAL: Extremities without clubbing, cyanosis, or edema. NEURO: Alert & Oriented x4 to person, place, time, situation. Moves all ext x4 A/P Problem List: (1) Gastric carcinoma Status: Acute Plan: - comgmt with GI & Oncology - GE junction/gastric mass with metastatis to the liver, lung, and abdomen - EGD with biopsy performed by Dr. 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 Nichols. He recommends against IVC filter at this time - Dr. Nichols would like to obtain an - IVC filter? Will d/w Oncology - will need PET/CT scan outpt - pt will f/u with Dr. Nichols outpt for treatment plan, likely palliative chemotherapy. - Pt/son request DNR status. - anticipate d/c to SNF 01/15/17 (2) Metastatic disease Status: Acute Plan: - see above (3) Esophageal mass Status: Acute Plan: - see above - Pt with dysphagia and poor oral intake. - MBS showed NO swallowing issue - supportive care (4) Anemia, blood loss Status: Acute Plan: - d/t bleeding from gastric mass - Hg 6/5 (01/02/17), 11.0 (01/12/17) - Pt has received 5 units PRBCs during this hospitalization - observe (5) CKD (chronic kidney disease) stage 3, GFR 30-59 ml/min Status: Acute Plan: - observe (6) Intractable nausea and vomiting Status: Acute Plan: - IV steroids - zofran/compaine prn - scopolamine patch (7) Pulmonary nodules/lesions, multiple Status: Acute Plan: - CT (01/08/17) --> multiple pulm nodues, largest 2.3 cm RLL (8) Anxiety Status: Acute (9) Constipation Status: Acute Plan: - continue current bowel regimen - s/p Gastrografin enema (01/10/17) - last stool charted (01/10/17) - observe Problem Qualifiers (1) Intractable nausea and vomiting: Qualified Code: R11.2 - Intractable vomiting with nausea, unspecified vomiting type (2) Constipation: Qualified Code: K59.00 - Constipation, unspecified constipation type Marky Jaramillo DO Jan 12, 2017 11:01
[2017-01-12] MEDS: SODIUM CHLOR 0.45% 1000 ML INJ 1,000 ML IV SCH ×3 (11:55→23:12)
--- NOTE | 2017-01-12 13:59 | PD.ONC.PN ---
Subjective Subjective Remarks Afebrile overnight. Patient lying in bed. Having some pain across lower abdomen from constipation she states. Nausea improved but still present. She had a half a bagel this AM, but then vomited it up later. Objective Data Date Time Temp Pulse Resp B/P Pulse Ox O2 Delivery O2 Flow Rate FiO2 01/12/17 08:00 97.1 83 18 175/84 94 01/12/17 04:00 97.5 87 17 168/72 92 01/12/17 01:00 97.6 93 18 167/79 95 01/12/17 00:00 97 01/12/17 00:00 97.8 91 27 158/70 92 01/11/17 23:52 90 30 166/77 94 01/11/17 23:08 93 36 179/85 92 01/11/17 23:00 92 47 189/86 93 01/11/17 22:00 90 23 176/81 94 01/11/17 22:00 98 01/11/17 21:00 98 28 177/86 93 01/11/17 20:00 98.7 92 30 176/85 95 01/11/17 20:00 92 01/11/17 18:00 97 01/11/17 16:00 91 01/11/17 16:00 98.4 91 22 156/75 93 01/11/17 14:00 96 01/12/17 01/12/17 01/12/17 06:59 14:59 22:59 Intake Total 756 ml Output Total 550 ml Balance 206 ml Result Diagram: 01/12/1761101/12/17611 Laboratory Results Laboratory Tests Test 01/12/17 06:12 White Blood Count 8.8 TH/MM3 Red Blood Count 3.87 MIL/MM3 Hemoglobin 11.0 GM/DL Hematocrit 33.5 % Mean Corpuscular Volume 86.7 FL Mean Corpuscular Hemoglobin 28.4 PG Mean Corpuscular Hemoglobin 32.8 % Concent Red Cell Distribution Width 17.2 % Platelet Count 177 TH/MM3 Mean Platelet Volume 8.3 FL Neutrophils (%) (Auto) 93.5 % Lymphocytes (%) (Auto) 1.1 % Monocytes (%) (Auto) 5.3 % Eosinophils (%) (Auto) 0.0 % Basophils (%) (Auto) 0.1 % Neutrophils # (Auto) 8.2 TH/MM3 Lymphocytes # (Auto) 0.1 TH/MM3 Monocytes # (Auto) 0.5 TH/MM3 Eosinophils # (Auto) 0.0 TH/MM3 Basophils # (Auto) 0.0 TH/MM3 CBC Comment DIFF FINAL Differential Comment Sodium Level 137 MEQ/L Potassium Level 4.3 MEQ/L Chloride Level 107 MEQ/L Carbon Dioxide Level 19.4 MEQ/L Anion Gap 11 MEQ/L Blood Urea Nitrogen 23 MG/DL Creatinine 1.53 MG/DL Estimat Glomerular Filtration 33 ML/MIN Rate Random Glucose 252 MG/DL Calcium Level 8.5 MG/DL Phosphorus Level 2.5 MG/DL Magnesium Level 1.8 MG/DL Total Bilirubin 0.6 MG/DL Aspartate Amino Transf 22 U/L (AST/SGOT) Alanine Aminotransferase 13 U/L (ALT/SGPT) Alkaline Phosphatase 88 U/L Total Protein 6.4 GM/DL Albumin 2.4 GM/DL Administered Medications Medications (Trade) Dose Ordered Sig/[place] Route PRN Reason Start Time Stop Time Status Last Admin Dose Admin Sodium Chloride (NS Flush) 2 ml BID .XX 01/08/17 09:00 01/12/17 08:28 Morphine Sulfate (Morphine Inj) 2 mg Q2H PRN IV PUSH PAIN SCALE 6 TO 10 01/08/17 03:45 01/12/17 08:27 Pantoprazole Sodium (Protonix Inj) 40 mg Q12H IV 01/08/17 09:00 01/12/17 08:27 Ondansetron HCl (Zofran Inj) 4 mg Q6H PRN IV NAUSEA OR VOMITING 01/08/17 03:30 01/10/17 21:18 Miscellaneous Information 1 Q361D XX 01/08/17 03:30 01/08/17 03:30 Chlorhexidine Gluconate (Chlorhexidine 2% Cloth) 3 pack Taper DAILY@04 TOP 01/08/17 04:00 01/04/18 03:59 01/12/17 04:00 Senna/Docusate Sodium (Stephanie-Colace) 1 tab BID PO 01/08/17 09:00 01/12/17 08:28 Scopolamine (Transderm-Scop 1.5 Mg Patch.72 Hr) 1 patch Q3D T-DERMAL 01/10/17 01:00 01/10/17 01:48 Miscellaneous Information 1 Q3D T-DERMAL 01/10/17 01:00 01/10/17 01:00 Promethazine HCl (Phenergan Inj) 12.5 mg Q6H PRN IM NAUSEA 01/10/17 09:30 01/11/17 20:15 Lactulose (Lactulose Liq) 30 ml Q6HR PO 01/10/17 18:00 01/12/17 12:32 Polyethylene Glycol 17 gm 17 gm BID PO 01/10/17 21:00 01/12/17 08:28 Sodium Chloride (1/2 NS 1000 ml Inj) 1,000 ml @ 84 mls/hr [id number] IV 01/10/17 12:15 01/11/17 12:05 Dexamethasone (Decadron) 4 mg Q12HR PO 01/10/17 23:00 01/12/17 08:27 Carvedilol (Coreg) 6.25 mg Q12HR PO 01/12/17 00:45 01/12/17 08:27 Amlodipine Besylate (Norvasc) 10 mg DAILY PO 01/12/17 09:00 01/12/17 08:27 Clonidine (Catapres) 0.1 mg Q6H PRN PO SBP >165 01/12/17 00:45 01/12/17 03:58 Objective Remarks GENERAL: Pleasant elderly female lying on right side in bed. appears fatigued but otherwise in nad. SKIN: Warm and dry. HEAD: Normocephalic. EYES: No injection or drainage. NECK: Supple, trachea midline. CARDIOVASCULAR: Regular rate and rhythm RESPIRATORY: Breath sounds equal bilaterally. No accessory muscle use. GASTROINTESTINAL: Abdomen mildly distended, tender to palpation throughout EXTREMITIES: No cyanosis, or edema. MUSCULOSKELETAL: Adequate muscle tone. NEUROLOGICAL: No obvious focal deficit. Awake, alert, and oriented x3. Assessment/Plan Problem List: (1) Shock Status: Acute (2) GI bleed Status: Acute (3) Warfarin-induced coagulopathy Status: Acute (4) Metastatic disease Status: Acute (5) Esophageal mass Status: Acute Assessment 71-year-old female who presents with weakness, abdominal pain, constipation and difficulty swallowing. On admission she underwent imaging including a CT of the chest, abdomen and pelvis which revealed a gastric mass at or below the level of the GE junction, metastatic lesions to the liver, abdomen as well as bilateral lung mckay. Pathology showed a gastric adenocarcinoma. 1. GE junction/gastric mass with metastatic disease to the liver, lung and abdomen--highly suspicious for a primary gastric cancer. 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 Will need PET/CT scan outpatient -fs faxed to new patient referrals for follow up in 1-2 weeks. 2. Dysphagia, poor oral intake, hypoalbuminemia. - MBS show no swallowing issue - Supportive care 3. Severe anemia, likely bleeding from the gastric mass. - Monitor Hb - transfuse for Hb less than 7.5 4. Stage IV chronic kidney disease. 5. History of DVT. Anticoagulation is on hold due to bleeding - doppler u/s shows no DVT 6. Intractable Nausea - trial of steroids - Zofran/compazine prn - scopalamine patch Attending Statement The exam, history, and the medical decision-making described in the above note were completed with the assistance of the mid-level provider. I reviewed and agree with the findings presented. I attest that I had a [id number] encounter with the patient on the same day, and personally performed and documented my assessment and findings in the medical record. Ana Paul Jan 12, 2017 13:59 Marko Nichols MD Jan 12, 2017 21:40
[2017-01-12] MEDS: PROMETHAZINE INJ 25 MG/ML VIAL IM PRN ×2 (15:57→23:06)
--- NOTE | 2017-01-12 15:58 | HHI.GIFU ---
Subjective Remarks Resting in bed. Nausea- improved. Tolerating diet better. No pain. (Caterina Alegria) Objective Vitals I&O Vital Signs Date Time Temp Pulse Resp B/P Pulse Ox O2 Delivery O2 Flow Rate FiO2 01/12/17 12:00 97.9 81 18 134/65 95 01/12/17 08:00 97.1 83 18 175/84 94 01/12/17 04:00 97.5 87 17 168/72 92 01/12/17 01:00 97.6 93 18 167/79 95 01/12/17 00:00 97 01/12/17 00:00 97.8 91 27 158/70 92 01/11/17 23:52 90 30 166/77 94 01/11/17 23:08 93 36 179/85 92 01/11/17 23:00 92 47 189/86 93 01/11/17 22:00 90 23 176/81 94 01/11/17 22:00 98 01/11/17 21:00 98 28 177/86 93 01/11/17 20:00 98.7 92 30 176/85 95 01/11/17 20:00 92 01/11/17 18:00 97 01/11/17 16:00 91 01/11/17 16:00 98.4 91 22 156/75 93 I/O 01/11/17 01/11/17 01/11/17 01/12/17 01/12/17 01/12/17 07:00 15:00 23:00 07:00 15:00 23:00 Intake Total 747 ml 730 ml 1497 ml 756 ml 720 ml Output Total 300 ml 610 ml 1400 ml 550 ml 700 ml Balance 447 ml 120 ml 97 ml 206 ml 20 ml Intake Oral 250 ml 200 ml 260 ml 720 ml IV Total 497 ml 530 ml 1237 ml 756 ml Output Urine Total 300 ml 610 ml 1400 ml 550 ml 700 ml # Bowel Movements 1 0 1 Laboratory Laboratory Tests Test 01/12/17 06:12 White Blood Count 8.8 Red Blood Count 3.87 Hemoglobin 11.0 Hematocrit 33.5 Mean Corpuscular Volume 86.7 Mean Corpuscular Hemoglobin 28.4 Mean Corpuscular Hemoglobin 32.8 Concent Red Cell Distribution Width 17.2 Platelet Count 177 Mean Platelet Volume 8.3 Neutrophils (%) (Auto) 93.5 Lymphocytes (%) (Auto) 1.1 Monocytes (%) (Auto) 5.3 Eosinophils (%) (Auto) 0.0 Basophils (%) (Auto) 0.1 Neutrophils # (Auto) 8.2 Lymphocytes # (Auto) 0.1 Monocytes # (Auto) 0.5 Eosinophils # (Auto) 0.0 Basophils # (Auto) 0.0 CBC Comment DIFF FINAL Differential Comment Sodium Level 137 Potassium Level 4.3 Chloride Level 107 Carbon Dioxide Level 19.4 Anion Gap 11 Blood Urea Nitrogen 23 Creatinine 1.53 Estimat Glomerular Filtration 33 Rate Random Glucose 252 Calcium Level 8.5 Phosphorus Level 2.5 Magnesium Level 1.8 Total Bilirubin 0.6 Aspartate Amino Transf 22 (AST/SGOT) Alanine Aminotransferase 13 (ALT/SGPT) Alkaline Phosphatase 88 Total Protein 6.4 Albumin 2.4 Imaging Last Impressions Lower Extremity Ultrasound 01/11/17 0000 Signed Impressions: Service Date/Time: December 19:16 - CONCLUSION: Normal examination. Orestes Mccord MD Modified Barium Swallow 01/10/17 0000 Signed Impressions: Service Date/Time: Tuesday, January 10, 2017 00:00 - CONCLUSION: Normal examination. Lex Harmon MD Brain MRI 01/10/17 0000 Signed Impressions: Service Date/Time: Tuesday, January 10, 2017 21:31 - CONCLUSION: 1. Atrophy and white matter disease without definite evidence for mass. Orestes Mccord MD Chest X-Ray 01/08/17 0013 Signed Impressions: Service Date/Time: Sunday, January 08, 2017 00:23 - CONCLUSION: Diffuse bilateral pulmonary metastatic disease. Cuauhtemoc Mensah MD Abdomen/Pelvis CT 01/08/17 0013 Signed Impressions: Service Date/Time: Sunday, January 08, 2017 01:19 - CONCLUSION: 1. There is an abnormal soft tissue mass involving the upper portion of the stomach at or just below the GE junction suspicious for neoplastic disease. Recommend direct visualization by endoscopy. 2. Diffuse liver metastatic disease. 3. Diffuse lung metastatic disease. 4. Diffuse para-aortic and retroperitoneal adenopathy. 5. Aneurysmal dilatation of the infrarenal abdominal aorta at 3.7 cm. Cuauhtemoc Mensah MD Chest CT 01/08/17 0000 Signed Impressions: Service Date/Time: Sunday, January 08, 2017 01:19 - CONCLUSION: 1. Diffuse lung metastatic disease. 2. Diffuse liver metastatic disease. Cuauhtemoc Mensah MD Physical Exam HEENT: Normocephalic; atraumatic; no jaundice. CHEST: CTA CARDIAC: RRR ABDOMEN: Soft, nondistended, nontender; no hepatosplenomegaly; bowel sounds are present in all four quadrants. EXTREMITIES: No clubbing, cyanosis, or edema. SKIN: Normal; no rash; no jaundice. ELASTIC ASSEMBLER: No focal deficits; alert and oriented times three. (AlegriaCaterina) Assessment and Plan Plan ASSESSMENT: - Ulcerated Gastric mass with evidence of metastatic dz to liver and lung. Abdomen/Pelvis CT (01/08/17)-----> 1. There is an abnormal soft tissue mass involving the upper portion of the stomach at or just below the GE junction suspicious for neoplastic disease. Recommend direct visualization by endoscopy. 2. Diffuse liver metastatic disease. 3. Diffuse lung metastatic disease. 4. Diffuse para-aortic and retroperitoneal adenopathy. 5. Aneurysmal dilatation of the infrarenal abdominal aorta at 3.7 cm. Colonoscopy (06/29/15)----> two sessile polyps ranging between 3-5 mm in size were found in the rectum, multiple biopsies performed using cold forceps, sessile polyp ranging between 3-5 mm in size was found in the ascending colon, polypectomy was performed with cold forceps, sessile polyp ranging between 3-5 mm in size was found in the sigmoid colon, biopsy using cord forceps , melanosis, there was severe diverticulosis noted in the sigmoid colon, retroflexed views revealed small internal hemorrhoids, rectal exam revealed external hemorrhoids. Pathology sigmoid polyp-hyperplastic, cecum bx- colonic mucosa with pigmented macrophages in lamina propria, consistent with melanosis coli, negative for dysplasia, colon, ascending biopsy with fragments of tubular adenoma, negative for high grade dysplasia or malignancy, rectal polyp with fragments of hyperplastic polyp. She was adopted and does not know family history. 3-4 day hx of n/v, decreased appetite, constipation. No abn. weight loss. EGD (01/09/17)-----> 1. Esophagitis distal esophagus-biopsy, ulcerated mass fundus , old clot, friable-multiple biopsies , epinephrine 1:10,000 - 7 cc injected 2. Retroflexed views revealed ulcerated mass fundus. 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 AFP 777.5, CEA 1044.3, Ca19-9 9311.6. Oncology following - plan is for PET scan and to discuss further treatment plan as outpatient after PET. If bleeding, consider embolization by IR. No active bleeding at this time. Tolerating diet. 11.0/33.5. - Metastatic liver and lung disease on CT. Gastric mass as above, pathology pending. AFP 777.5, CEA 1044.3, Ca19-9 9311.6. Oncology following. - Severe anemia with hemoccult positive stool,acute on chronic. Pt has hx of CLEMENCIA and B12 Deficiency. S/P 5 units PRBC, 11.0/33.5. - N/V. CT as above with gastric mass. She does have hx of esophageal strictures, but states that this was more difficulty with pills getting caught and that this is different. States she has not had any issues with dysphagia since dilatation in 2011. PPI. Zofran. Phenergan. - Constipation. Gastrografin enema (01/10/17)----> Residual barium from mbs, there was filling of the descending, transverse, and portions of the ascending colon eventually there is filling of the cecum. No long segment stricture or mass is identified. There is extensive sigmoid diverticulosis. (+) BM. - Coagulopathy on admission with INR of 8.0. (On Coumadin for DVT, now on hold. INR 1.0). INR 1.1. - Acute on chronic kidney disease with electrolyte abnormalities. Creat 1.53 - Abdominal aortic aneurysm, Anxiety, Hx DVT, HTN, Hyperlipidemia, PAD, per attending. PLAN: - PADDY - Cont. PPI - Cont. Zofran - Cont. Phenergan - Monitor labs - Lactulose prn - Supportive care - If bleeding, consider IR for embolization - PET scan as outpatient - Further recommendations to follow based on results of above - Pt seen and examined by Dr. Okeefe and myself and this note is written on her behalf (Caterina Alegria) Caterina Alegria Jan 12, 2017 15:58 Sofie Okeefe MD Jan 12, 2017 22:15
[2017-01-13] VITALS: BP 146/69; PULSE 77; RESP 17; TEMP 97.3; O2SAT 95
[2017-01-13] MEDS: [UNRECOGNIZED DRUG - REMARK] T-DERMAL SCH (01:00)
[2017-01-13 04:00] VITALS: BP 157/87; PULSE 81; RESP 17; TEMP 97.2; O2SAT 94
[2017-01-13] MEDS: CHLORHEXIDINE GLUCONATE 2 % 1 PACK (2 CLOTHS) TOP SCH (04:00)
[2017-01-13] MEDS: LACTULOSE SYRUP 20 GM/30 ML CUP PO SCH ×5 (05:30→23:18)
[2017-01-13] MEDS: SCOPOLAMINE 1.5 MG PATCH T-DERMAL SCH (05:30)
[2017-01-13] MEDS: INSULIN NovoLIN REGULAR SUPPLEMENTAL SCALE SQ SCH ×4 (05:41→21:26)
[2017-01-13 07:13] LABS: AUTOMATED NEUTROPHIL # 10.1 TH/MM3 (1.8-7.7); BASOPHIL % 0.1 % (0.0-2.0); HEMATOCRIT 32.4 % (35.0-46.0); HEMO FLAGS DIFF FINAL; LYMPH % 0.9 % (9.0-44.0); LYMPHOCYTE # 0.1 TH/MM3 (1.0-4.8); MEAN CELL VOLUME 85.7 FL (80.0-100.0); MEAN CORPUSCULAR HEMOGLOBIN 28.1 PG (27.0-34.0); MEAN CORPUSCULAR HGB CONC 32.8 % (32.0-36.0); MONO % 8.3 % (0.0-8.0); NEUT % 90.7 % (16.0-70.0); PLATELET COUNT 178 TH/MM3 (150-450); RED BLOOD COUNT 3.78 MIL/MM3 (4.00-5.30); WHITE BLOOD COUNT 11.1 TH/MM3 (4.0-11.0)
[2017-01-13 07:41] LABS: POTASSIUM 4.2 MEQ/L (3.5-5.1)
[2017-01-13 08:30] VITALS: BP 168/83; PULSE 84; RESP 20; TEMP 96.7; O2SAT 93
[2017-01-13] MEDS: DOCUSATE SODIUM 50 MG/SENNA 8.6 MG TAB PO SCH ×2 (09:30→20:12)
[2017-01-13] MEDS: POLYETHYLENE GLYCOL 17 GM PKG PO SCH ×2 (09:30→20:12)
[2017-01-13] MEDS: DEXAMETHASONE 4 MG TAB PO SCH ×2 (09:55→20:30)
[2017-01-13] MEDS: CARVEDILOL 6.25 MG TAB PO SCH ×2 (09:55→20:29)
[2017-01-13] MEDS: PROMETHAZINE INJ 25 MG/ML VIAL IM PRN ×2 (09:56→17:33)
--- NOTE | 2017-01-13 10:48 | HHI.FF ---
Face to Face Verification Diagnosis: (1) Gastric carcinoma (2) Pulmonary nodules/lesions, multiple (3) Esophageal mass (4) Anxiety (5) Metastatic disease Physical Therapy Order: Evaluate and Treat, Improve ambulation, Strength and gait training Home Health Nursing Order: Medical education Signs/symptoms of disease process Diabetic education Medication education-adverse effect Nursing assessment with vital signs I have seen patient Madison Vasquez on 01/13/17. My clinical findings support the need for the requested home health care services because: Ltd mobility - disease progression Deconditioned w/ increased weakness Med compliance is questionable Limited ability to care for self Need for psychosocial assistance High risk of falls I certify that my clinical findings support that this patient is homebound because: Impaired cognitive ability/safety Unsteady gait/balance Unsafe to leave home unassisted Need for psychosocial assistance [id number] bed/chair Unable to use public transportation Marky Jaramillo DO Jan 13, 2017 10:47
--- NOTE | 2017-01-13 11:00 | HHI.PR ---
Subjective Remarks Pt c/o continued poor PO intake of both solid foods and liquids. Pt c/o continued nausea despite IM Phenergan. Pt c/o dyspepsia and discomfort with swallowing. Objective Vitals Vital Signs Date Time Temp Pulse Resp B/P Pulse Ox O2 Delivery O2 Flow Rate FiO2 01/13/17 08:30 96.7 84 20 168/83 93 01/13/17 04:00 97.2 81 17 157/87 94 01/13/17 00:00 97.3 77 17 146/69 95 01/12/17 23:11 16 01/12/17 20:00 97.9 77 18 112/63 94 01/12/17 16:26 98.6 80 18 156/69 95 01/12/17 12:00 97.9 81 18 134/65 95 01/12/17 01/12/17 01/13/17 14:59 22:59 06:59 Intake Total 1675 ml 480 ml Output Total 700 ml Balance 975 ml 480 ml Intake Oral 720 ml 480 ml IV Total 955 ml Output Urine Total 700 ml # Voids 4 # Bowel Movements 1 1 Result Diagram: 01/13/17 0551 01/13/17 0551 Imaging Last Impressions Lower Extremity Ultrasound 01/11/17 0000 Signed Impressions: Service Date/Time: December 19:16 - CONCLUSION: Normal examination. Orestes Mccord MD Modified Barium Swallow 01/10/17 0000 Signed Impressions: Service Date/Time: Tuesday, January 10, 2017 00:00 - CONCLUSION: Normal examination. Lex Hramon MD Brain MRI 01/10/17 0000 Signed Impressions: Service Date/Time: Tuesday, January 10, 2017 21:31 - CONCLUSION: 1. Atrophy and white matter disease without definite evidence for mass. Orestes Mccord MD Chest X-Ray 01/08/17 0013 Signed Impressions: Service Date/Time: Sunday, January 08, 2017 00:23 - CONCLUSION: Diffuse bilateral pulmonary metastatic disease. Cuauhtemoc Mensha MD Abdomen/Pelvis CT 01/08/17 001 Signed Impressions: Service Date/Time: Sunday, January 08, 2017 01:19 - CONCLUSION: 1. There is an abnormal soft tissue mass involving the upper portion of the stomach at or just below the GE junction suspicious for neoplastic disease. Recommend direct visualization by endoscopy. 2. Diffuse liver metastatic disease. 3. Diffuse lung metastatic disease. 4. Diffuse para-aortic and retroperitoneal adenopathy. 5. Aneurysmal dilatation of the infrarenal abdominal aorta at 3.7 cm. Cuauhtemoc Mensah MD Chest CT 01/08/17 0000 Signed Impressions: Service Date/Time: Sunday, January 08, 2017 01:19 - CONCLUSION: 1. Diffuse lung metastatic disease. 2. Diffuse liver metastatic disease. Cuauhtemoc Mensah MD Objective Remarks GENERAL: This is a well-nourished, well-developed patient, in no apparent distress. CARDIOVASCULAR: Regular rate and rhythm without murmurs, gallops, or rubs. RESPIRATORY: Clear to auscultation. Breath sounds equal bilaterally. No wheezes , rales, or rhonchi. GASTROINTESTINAL: Abdomen soft, non-tender, nondistended. Normal active bowel sounds MUSCULOSKELETAL: Extremities without clubbing, cyanosis, or edema. NEURO: Alert & Oriented x4 to person, place, time, situation. Moves all ext x4 A/P Problem List: (1) Gastric carcinoma Status: Acute Plan: - comgmt with GI & Oncology - GE junction/gastric mass with metastatis to the liver, lung, and abdomen - EGD with biopsy performed by Dr. 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 Nichols. He recommends against IVC filter at this time - will need PET/CT scan outpt - pt will f/u with Dr. Nichols outpt for treatment plan, likely palliative chemotherapy. - Pt/son request DNR status. - trial of scheduled IV reglan for nausea - trial of GI cocktail prn for dyspepsia - trial of "strawberry" glucerna with meals and bedtime - Pt/family do NOT want SNF - Pt will d/c to her son's house and feels their will be sufficient help there. - Request C and home Pt upon discharge. (2) Metastatic disease Status: Acute Plan: - see above (3) Esophageal mass Status: Acute Plan: - see above - Pt with dysphagia and poor oral intake. - MBS showed NO swallowing issue - supportive care (4) Anemia, blood loss Status: Acute Plan: - d/t bleeding from gastric mass - Hg 6/5 (01/02/17), 11.0 (01/12/17) - Pt has received 5 units PRBCs during this hospitalization - observe (5) CKD (chronic kidney disease) stage 3, GFR 30-59 ml/min Status: Acute Plan: - observe (6) Intractable nausea and vomiting Status: Acute Plan: - IV steroids - zofran/compaine prn - scopolamine patch (7) Pulmonary nodules/lesions, multiple Status: Acute Plan: - CT (01/08/17) --> multiple pulm nodues, largest 2.3 cm RLL (8) Anxiety Status: Acute (9) Constipation Status: Acute Plan: - continue current bowel regimen - s/p Gastrografin enema (01/10/17) - last stool charted (01/10/17) - observe Problem Qualifiers (1) Intractable nausea and vomiting: Qualified Code: R11.2 - Intractable vomiting with nausea, unspecified vomiting type (2) Constipation: Qualified Code: K59.00 - Constipation, unspecified constipation type Marky Jaramillo DO Jan 13, 2017 11:00
[2017-01-13 12:23] VITALS: BP 129/71; PULSE 75; RESP 20; TEMP 97; O2SAT 97
[2017-01-13] MEDS: PANTOPRAZOLE SODIUM 40 MG VIAL IV SCH ×2 (13:05→20:29)
[2017-01-13] MEDS: METOCLOPRAMIDE HCL 10 MG/2 ML VIAL IV SCH ×2 (13:06→20:29)
[2017-01-13] MEDS: SODIUM CHLORIDE 0.9% FLUSH 10 ML FLUSH SCH ×2 (13:07→20:10)
[2017-01-13 16:44] VITALS: BP 121/69; PULSE 91; RESP 20; TEMP 96.5; O2SAT 97
[2017-01-13] MEDS: MORPHINE SULFATE 8 MG/ML INJ IV PUSH PRN ×2 (17:34→21:29)
[2017-01-13] MEDS: [UNRECOGNIZED DRUG - MIXTURE] PO PRN (18:26)
[2017-01-13] MEDS: SODIUM CHLOR 0.45% 1000 ML INJ 1,000 ML IV SCH ×2 (18:27→23:40)
[2017-01-13 20:00] VITALS: BP 132/80; PULSE 76; RESP 17; TEMP 98; O2SAT 96
[2017-01-14] VITALS: BP 140/76; PULSE 96; RESP 18; TEMP 98.1; O2SAT 96
[2017-01-14] MEDS: MORPHINE SULFATE 8 MG/ML INJ IV PUSH PRN ×5 (01:58→20:24)
[2017-01-14 04:00] VITALS: BP 149/78; PULSE 69; RESP 17; TEMP 97.5; O2SAT 96
[2017-01-14] MEDS: CHLORHEXIDINE GLUCONATE 2 % 1 PACK (2 CLOTHS) TOP SCH (04:00)
[2017-01-14] MEDS: LACTULOSE SYRUP 20 GM/30 ML CUP PO SCH ×4 (05:05→23:04)
[2017-01-14] MEDS: METOCLOPRAMIDE HCL 10 MG/2 ML VIAL IV SCH ×3 (05:51→20:24)
[2017-01-14] MEDS: INSULIN NovoLIN REGULAR SUPPLEMENTAL SCALE SQ SCH ×4 (05:55→20:26)
[2017-01-14 06:44] LABS: AUTOMATED NEUTROPHIL # 9.7 TH/MM3 (1.8-7.7); BASOPHIL % 0.1 % (0.0-2.0); HEMO FLAGS DIFF FINAL; LYMPH % 1.1 % (9.0-44.0); LYMPHOCYTE # 0.1 TH/MM3 (1.0-4.8); MEAN CELL VOLUME 84.7 FL (80.0-100.0); MEAN CORPUSCULAR HEMOGLOBIN 28.5 PG (27.0-34.0); MEAN CORPUSCULAR HGB CONC 33.7 % (32.0-36.0); MONO % 7.7 % (0.0-8.0); NEUT % 91.1 % (16.0-70.0); PLATELET COUNT 159 TH/MM3 (150-450); RED BLOOD COUNT 3.78 MIL/MM3 (4.00-5.30); RED CELL DISTRIBUTION WIDTH 16.3 % (11.6-17.2); WHITE BLOOD COUNT 10.6 TH/MM3 (4.0-11.0)
[2017-01-14 06:49] LABS: BICARBONATE 22.4 MEQ/L (21.0-32.0); POTASSIUM 4.2 MEQ/L (3.5-5.1)
[2017-01-14 08:00] VITALS: BP 148/87; PULSE 83; RESP 20; TEMP 97.1; O2SAT 95
[2017-01-14] MEDS: CARVEDILOL 6.25 MG TAB PO SCH ×2 (09:49→20:24)
[2017-01-14] MEDS: PANTOPRAZOLE SODIUM 40 MG VIAL IV SCH ×2 (09:49→20:23)
[2017-01-14] MEDS: DEXAMETHASONE 4 MG TAB PO SCH ×2 (09:50→20:24)
[2017-01-14] MEDS: DOCUSATE SODIUM 50 MG/SENNA 8.6 MG TAB PO SCH ×2 (09:52→20:24)
[2017-01-14] MEDS: SODIUM CHLORIDE 0.9% FLUSH 10 ML FLUSH SCH ×2 (09:52→20:24)
[2017-01-14] MEDS: POLYETHYLENE GLYCOL 17 GM PKG PO SCH ×2 (09:52→20:24)
--- NOTE | 2017-01-14 10:17 | PD.ONC.PN ---
Subjective Subjective Remarks Afebrile overnight. Patient resting in bed. States nausea has improved, but is vomiting up everything she eats. She can't keep anything down. Objective Data Date Time Temp Pulse Resp B/P Pulse Ox O2 Delivery O2 Flow Rate FiO2 01/14/17 04:00 97.5 69 17 149/78 96 01/14/17 00:00 98.1 96 18 140/76 96 01/13/17 20:00 98.0 76 17 132/80 96 01/13/17 16:44 96.5 91 20 121/69 97 01/13/17 12:23 97.0 75 20 129/71 97 01/14/17 01/14/17 01/14/17 07:00 15:00 23:00 Intake Total 480 ml Balance 480 ml Result Diagram: 01/14/17 0528 01/14/1728 Laboratory Results Laboratory Tests Test 01/14/17 05:28 White Blood Count 10.6 TH/MM3 Red Blood Count 3.78 MIL/MM3 Hemoglobin 10.8 GM/DL Hematocrit 32.0 % Mean Corpuscular Volume 84.7 FL Mean Corpuscular Hemoglobin 28.5 PG Mean Corpuscular Hemoglobin 33.7 % Concent Red Cell Distribution Width 16.3 % Platelet Count 159 TH/MM3 Mean Platelet Volume 9.5 FL Neutrophils (%) (Auto) 91.1 % Lymphocytes (%) (Auto) 1.1 % Monocytes (%) (Auto) 7.7 % Eosinophils (%) (Auto) 0.0 % Basophils (%) (Auto) 0.1 % Neutrophils # (Auto) 9.7 TH/MM3 Lymphocytes # (Auto) 0.1 TH/MM3 Monocytes # (Auto) 0.8 TH/MM3 Eosinophils # (Auto) 0.0 TH/MM3 Basophils # (Auto) 0.0 TH/MM3 CBC Comment DIFF FINAL Differential Comment Sodium Level 136 MEQ/L Potassium Level 4.2 MEQ/L Chloride Level 103 MEQ/L Carbon Dioxide Level 22.4 MEQ/L Anion Gap 11 MEQ/L Blood Urea Nitrogen 33 MG/DL Creatinine 1.50 MG/DL Estimat Glomerular Filtration 34 ML/MIN Rate Random Glucose 158 MG/DL Calcium Level 8.4 MG/DL Administered Medications Medications (Trade) Dose Ordered Sig/[place] Route PRN Reason Start Time Stop Time Status Last Admin Dose Admin Sodium Chloride (NS Flush) 2 ml BID .XX 7/17/17 09:00 01/13/17 13:07 Morphine Sulfate (Morphine Inj) 2 mg Q2H PRN IV PUSH PAIN SCALE 6 TO 10 01/08/17 03:45 01/14/17 09:49 Pantoprazole Sodium (Protonix Inj) 40 mg Q12H IV 01/08/17 09:00 01/14/17 09:49 Ondansetron HCl (Zofran Inj) 4 mg Q6H PRN IV NAUSEA OR VOMITING 01/08/17 03:30 01/10/17 21:18 Miscellaneous Information 1 Q361D XX 01/08/17 03:30 01/08/17 03:30 Chlorhexidine Gluconate (Chlorhexidine 2% Cloth) Taper DAILY@04 TOP 01/08/17 04:00 01/04/18 03:59 01/13/17 04:00 Senna/Docusate Sodium (Stephanie-Colace) 1 tab BID PO 01/08/17 09:00 01/12/17 08:28 Scopolamine (Transderm-Scop 1.5 Mg Patch.72 Hr) 1 patch Q3D T-DERMAL 01/10/17 01:00 01/13/17 05:30 Miscellaneous Information 1 Q3D T-DERMAL 01/10/17 01:00 01/13/17 01:00 Promethazine HCl (Phenergan Inj) 12.5 mg Q6H PRN IM NAUSEA 01/10/17 09:30 01/13/17 17:33 Lactulose (Lactulose Liq) 30 ml Q6HR PO 01/10/17 18:00 01/12/17 12:32 Polyethylene Glycol 17 gm 17 gm BID PO 01/10/17 21:00 01/12/17 08:28 Sodium Chloride (1/2 NS 1000 ml Inj) 1,000 ml @ 84 mls/hr [id number] IV 01/10/17 12:15 01/13/17 18:27 Dexamethasone (Decadron) 4 mg Q12HR PO 01/10/17 23:00 01/14/17 09:50 Carvedilol (Coreg) 6.25 mg Q12HR PO 01/12/17 00:45 01/14/17 09:49 Amlodipine Besylate (Norvasc) 10 mg DAILY PO 01/12/17 09:00 01/14/17 09:50 Clonidine (Catapres) 0.1 mg Q6H PRN PO SBP >165 01/12/17 00:45 01/12/17 03:58 Metoclopramide HCl (Reglan Inj) 5 mg Q8H IV 01/13/17 13:00 01/14/17 05:51 Non-Formulary Medication 45 ML GI COCKTAIL OF MAAL... Q6H PRN PO DYSPEPSIA 01/13/17 11:15 01/13/17 18:26 Objective Remarks GENERAL: Elderly female upright in bed. SKIN: Warm and dry. HEAD: Normocephalic. EYES: No injection or drainage. MOUTH: + thrush NECK: Supple, trachea midline. CARDIOVASCULAR: Regular rate and rhythm RESPIRATORY: Breath sounds equal bilaterally. No accessory muscle use. GASTROINTESTINAL: Abdomen soft, non-tender, nondistended. EXTREMITIES: No cyanosis NEUROLOGICAL: No obvious focal deficit. Awake, alert, and oriented x3. Assessment/Plan Problem List: (1) Thrush Status: Acute Plan: --start magic mouthwash. may need diflucan (2) Malnutrition Status: Acute Plan: 01/14: may need G/J tube placement, patient unable to keep any nutrition down. --Dysphagia, poor oral intake, hypoalbuminemia. - MBS show no swallowing issue - Supportive care (3) Gastric adenocarcinoma Status: Acute Plan: -- GE junction/gastric mass with metastatic disease to the liver, lung and abdomen--highly suspicious for a primary gastric cancer. 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 Will need PET/CT scan outpatient -fs faxed to new patient referrals for follow up in 1-2 weeks. (4) Anemia, blood loss Status: Acute Plan: --Severe anemia, likely bleeding from the gastric mass. - Monitor Hb - transfuse for Hb less than 7.5 (5) CKD (chronic kidney disease) stage 3, GFR 30-59 ml/min Status: Acute Plan: --monitor (6) History of DVT (deep vein thrombosis) Status: Acute Plan: --nticoagulation is on hold due to bleeding - repeat doppler u/s shows no DVT (7) Intractable nausea and vomiting Status: Acute Plan: --decadron - Zofran/phenergan - scopalamine patch Assessment 71-year-old female who presents with weakness, abdominal pain, constipation and difficulty swallowing. On admission she underwent imaging including a CT of the chest, abdomen and pelvis which revealed a gastric mass at or below the level of the GE junction, metastatic lesions to the liver, abdomen as well as bilateral lung mckay. Pathology showed a gastric adenocarcinoma. Attending Statement Complaining of nausea vomiting Unable to keep anything down Severely malnourished Metastatic Gastric cancer Need GJ tube Chemotherapy is an outpatient The exam, history, and the medical decision-making described in the above note were completed with the assistance of the mid-level provider. I reviewed and agree with the findings presented. I attest that I had a [id number] encounter with the patient on the same day, and personally performed and documented my assessment and findings in the medical record. Problem Qualifiers (1) Intractable nausea and vomiting: Qualified Code: R11.2 - Intractable vomiting with nausea, unspecified vomiting type Ana Paul Jan 14, 2017 10:17 Shama Christianson MD Jan 14, 2017 22:27
[2017-01-14] MEDS: NYSTAT/DIPHENHY/LIDO MOUTHWASH (Adult) 120ML SWISH-SWAL SCH ×3 (12:21→20:25)
[2017-01-14 12:39] VITALS: BP 149/92; PULSE 85; RESP 20; TEMP 96.9; O2SAT 98
--- NOTE | 2017-01-14 13:19 | HHI.GIFU ---
Subjective Remarks Sitting up in bed. States she continues to have n/v. Reports she vomits every time she eats. Not tolerating oral intake. Has epigastric abdominal pain when she eats. She is concerned about being discharged home without being able to eat. (Montserrat Garcia) Objective Vitals I&O Vital Signs Date Time Temp Pulse Resp B/P Pulse Ox O2 Delivery O2 Flow Rate FiO2 01/14/17 12:39 96.9 85 20 149/92 98 01/14/17 10:10 16 01/14/17 08:00 97.1 83 20 148/87 95 01/14/17 04:00 97.5 69 17 149/78 96 01/14/17 00:00 98.1 96 18 140/76 96 01/13/17 20:00 98.0 76 17 132/80 96 01/13/17 16:44 96.5 91 20 121/69 97 I/O 01/13/17 01/13/17 01/13/17 01/14/17 01/14/17 01/14/17 07:00 15:00 23:00 07:00 15:00 23:00 Intake Total 480 ml 2746 ml 480 ml 480 ml Balance 480 ml 2746 ml 480 ml 480 ml Intake Oral 480 ml 360 ml 480 ml 480 ml IV Total 2386 ml # Voids 4 2 2 2 # Bowel Movements 1 1 0 0 Laboratory Laboratory Tests Test 01/14/17 05:28 White Blood Count 10.6 Red Blood Count 3.78 Hemoglobin 10.8 Hematocrit 32.0 Mean Corpuscular Volume 84.7 Mean Corpuscular Hemoglobin 28.5 Mean Corpuscular Hemoglobin 33.7 Concent Red Cell Distribution Width 16.3 Platelet Count 159 Mean Platelet Volume 9.5 Neutrophils (%) (Auto) 91.1 Lymphocytes (%) (Auto) 1.1 Monocytes (%) (Auto) 7.7 Eosinophils (%) (Auto) 0.0 Basophils (%) (Auto) 0.1 Neutrophils # (Auto) 9.7 Lymphocytes # (Auto) 0.1 Monocytes # (Auto) 0.8 Eosinophils # (Auto) 0.0 Basophils # (Auto) 0.0 CBC Comment DIFF FINAL Differential Comment Sodium Level 136 Potassium Level 4.2 Chloride Level 103 Carbon Dioxide Level 22.4 Anion Gap 11 Blood Urea Nitrogen 33 Creatinine 1.50 Estimat Glomerular Filtration 34 Rate Random Glucose 158 Calcium Level 8.4 Imaging Last Impressions Lower Extremity Ultrasound 01/11/17 0000 Signed Impressions: Service Date/Time: December 19:16 - CONCLUSION: Normal examination. Orestes Mccord MD Modified Barium Swallow 01/10/17 0000 Signed Impressions: Service Date/Time: Tuesday, January 10, 2017 00:00 - CONCLUSION: Normal examination. Lex Harmon MD Brain MRI 01/10/17 0000 Signed Impressions: Service Date/Time: Tuesday, January 10, 2017 21:31 - CONCLUSION: 1. Atrophy and white matter disease without definite evidence for mass. Orestes Mccord MD Chest X-Ray 01/08/1712 Signed Impressions: Service Date/Time: Sunday, January 08, 2017 00:23 - CONCLUSION: Diffuse bilateral pulmonary metastatic disease. Cuauhtemoc Mensah MD Abdomen/Pelvis CT 01/08/1712 Signed Impressions: Service Date/Time: Sunday, January 08, 2017 01:19 - CONCLUSION: 1. There is an abnormal soft tissue mass involving the upper portion of the stomach at or just below the GE junction suspicious for neoplastic disease. Recommend direct visualization by endoscopy. 2. Diffuse liver metastatic disease. 3. Diffuse lung metastatic disease. 4. Diffuse para-aortic and retroperitoneal adenopathy. 5. Aneurysmal dilatation of the infrarenal abdominal aorta at 3.7 cm. Cuauhtemoc Mensah MD Chest CT 01/08/17 Signed Impressions: Service Date/Time: Sunday, January 08, 2017 01:19 - CONCLUSION: 1. Diffuse lung metastatic disease. 2. Diffuse liver metastatic disease. Cuauhtemoc Mensah MD Physical Exam HEENT: Normocephalic; atraumatic; no jaundice. CHEST: CTA CARDIAC: RRR ABDOMEN: Soft, nondistended, nontender; no hepatosplenomegaly; bowel sounds are present in all four quadrants. EXTREMITIES: No clubbing, cyanosis, or edema. SKIN: Normal; no rash; no jaundice. TEACHER EDUCATION DIRECTOR: No focal deficits; alert and oriented times three. (Montserrat Garcia) Assessment and Plan Plan ASSESSMENT: - Ulcerated Gastric mass with evidence of metastatic dz to liver and lung. Abdomen/Pelvis CT (01/08/17)-----> 1. There is an abnormal soft tissue mass involving the upper portion of the stomach at or just below the GE junction suspicious for neoplastic disease. Recommend direct visualization by endoscopy. 2. Diffuse liver metastatic disease. 3. Diffuse lung metastatic disease. 4. Diffuse para-aortic and retroperitoneal adenopathy. 5. Aneurysmal dilatation of the infrarenal abdominal aorta at 3.7 cm. Colonoscopy (06/29/15)----> two sessile polyps ranging between 3-5 mm in size were found in the rectum, multiple biopsies performed using cold forceps, sessile polyp ranging between 3-5 mm in size was found in the ascending colon, polypectomy was performed with cold forceps, sessile polyp ranging between 3-5 mm in size was found in the sigmoid colon, biopsy using cord forceps , melanosis, there was severe diverticulosis noted in the sigmoid colon, retroflexed views revealed small internal hemorrhoids, rectal exam revealed external hemorrhoids. Pathology sigmoid polyp-hyperplastic, cecum bx- colonic mucosa with pigmented macrophages in lamina propria, consistent with melanosis coli, negative for dysplasia, colon, ascending biopsy with fragments of tubular adenoma, negative for high grade dysplasia or malignancy, rectal polyp with fragments of hyperplastic polyp. She was adopted and does not know family history. 3-4 day hx of n/v, decreased appetite, constipation. No abn. weight loss. EGD (01/09/17)-----> 1. Esophagitis distal esophagus-biopsy, ulcerated mass fundus , old clot, friable-multiple biopsies , epinephrine 1:10,000 - 7 cc injected 2. Retroflexed views revealed ulcerated mass fundus. 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 AFP 777.5, CEA 1044.3, Ca19-9 9311.6. Oncology following - plan is for PET scan and to discuss further treatment plan as outpatient after PET. If bleeding, consider embolization by IR. No active bleeding at this time. HH 10.8/32 Not tolerating diet. - Metastatic liver and lung disease on CT. Gastric mass as above, pathology pending. AFP 777.5, CEA 1044.3, Ca19-9 9311.6. Oncology following. - Severe anemia with Hemoccult positive stool,acute on chronic. Pt has hx of CLEMENCIA and B12 Deficiency. S/P 5 units PRBC, 10.8 - N/V. CT as above with gastric mass. She does have hx of esophageal strictures, but states that this was more difficulty with pills getting caught and that this is different. States she has not had any issues with dysphagia since dilatation in 2011. PPI. Zofran. Phenergan. - Constipation. Gastrografin enema (01/10/17)----> Residual barium from mbs, there was filling of the descending, transverse, and portions of the ascending colon eventually there is filling of the cecum. No long segment stricture or mass is identified. There is extensive sigmoid diverticulosis. (+) BM. - Coagulopathy on admission with INR of 8.0. (On Coumadin for DVT, now on hold. INR 1.0). INR 1.1. - Acute on chronic kidney disease with electrolyte abnormalities. Creat 1.50 - Abdominal aortic aneurysm, Anxiety, Hx DVT, HTN, Hyperlipidemia, PAD, per attending. PLAN: - PADDY - Consider TF due to patient not tolerating oral intake - Palliative care - Cont. PPI - Cont. Zofran - Cont. Phenergan - Monitor labs - Lactulose prn - Supportive care - If bleeding, consider IR for embolization - PET scan as outpatient - Further recommendations to follow based on results of above Patient seen and examined by Dr. Okeefe and myself and this note is written on her behalf (Montserrat Garcia) Physician Comments seen, examined agree with above we will consult IR in am for g/j tube as she cannot tolerate po (Sofie Okeefe MD) Montserrat Garcia Jan 14, 2017 13:19 Sofie Okeefe MD Jan 14, 2017 13:46
--- NOTE | 2017-01-14 13:46 | HHI.PR ---
Subjective Remarks pt continues to have poor PO intake. Pt vomited after eating a single grape & also after she tried glucerna. Pt c/o continued pain especially when she tries to eat. Pt requests adjustment of her pain medications. Objective Vitals Vital Signs Date Time Temp Pulse Resp B/P Pulse Ox O2 Delivery O2 Flow Rate FiO2 01/14/17 12:39 96.9 85 20 149/92 98 01/14/17 10:10 16 01/14/17 08:00 97.1 83 20 148/87 95 01/14/17 04:00 97.5 69 17 149/78 96 01/14/17 00:00 98.1 96 18 140/76 96 01/13/17 20:00 98.0 76 17 132/80 96 01/13/17 16:44 96.5 91 20 121/69 97 01/13/17 01/13/17 01/14/17 15:00 23:00 07:00 Intake Total 2746 ml 480 ml 480 ml Balance 2746 ml 480 ml 480 ml Intake Oral 360 ml 480 ml 480 ml IV Total 2386 ml # Voids 2 2 2 # Bowel Movements 1 0 0 Result Diagram: 01/14/17 0528 01/14/17 0528 Imaging Last Impressions Lower Extremity Ultrasound 01/11/17 0000 Signed Impressions: Service Date/Time: December 19:16 - CONCLUSION: Normal examination. Orestes Mccord MD Modified Barium Swallow 01/10/17 0000 Signed Impressions: Service Date/Time: Tuesday, January 10, 2017 00:00 - CONCLUSION: Normal examination. Lex Harmon MD Brain MRI 01/10/17 0000 Signed Impressions: Service Date/Time: Tuesday, January 10, 2017 21:31 - CONCLUSION: 1. Atrophy and white matter disease without definite evidence for mass. Orestes Mccord MD Chest X-Ray 01/08/17 0013 Signed Impressions: Service Date/Time: Sunday, January 08, 2017 00:23 - CONCLUSION: Diffuse bilateral pulmonary metastatic disease. Cuauhtemoc Mensah MD Abdomen/Pelvis CT 01/08/173 Signed Impressions: Service Date/Time: Sunday, January 08, 2017 01:19 - CONCLUSION: 1. There is an abnormal soft tissue mass involving the upper portion of the stomach at or just below the GE junction suspicious for neoplastic disease. Recommend direct visualization by endoscopy. 2. Diffuse liver metastatic disease. 3. Diffuse lung metastatic disease. 4. Diffuse para-aortic and retroperitoneal adenopathy. 5. Aneurysmal dilatation of the infrarenal abdominal aorta at 3.7 cm. Cuauhtemoc Mensah MD Chest CT 01/08/17 0000 Signed Impressions: Service Date/Time: Sunday, January 08, 2017 01:19 - CONCLUSION: 1. Diffuse lung metastatic disease. 2. Diffuse liver metastatic disease. Cuauhtemoc Mensah MD Objective Remarks GENERAL: This is a well-nourished, well-developed patient, in no apparent distress. CARDIOVASCULAR: Regular rate and rhythm without murmurs, gallops, or rubs. RESPIRATORY: Clear to auscultation. Breath sounds equal bilaterally. No wheezes , rales, or rhonchi. GASTROINTESTINAL: Abdomen soft, non-tender, nondistended. Normal active bowel sounds MUSCULOSKELETAL: Extremities without clubbing, cyanosis, or edema. NEURO: Alert & Oriented x4 to person, place, time, situation. Moves all ext x4 A/P Problem List: (1) Gastric carcinoma Status: Acute Plan: - comgmt with GI & Oncology - GE junction/gastric mass with metastatis to the liver, lung, and abdomen - EGD with biopsy performed by Dr. 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 Nichols. He recommends against IVC filter at this time - Defer possible anticoagulation to Oncology - will need PET/CT scan outpt - pt will f/u with Dr. Nichols outpt for treatment plan, likely palliative chemotherapy. - Pt/son request DNR status. - trial of scheduled IV reglan for nausea - trial of GI cocktail prn for dyspepsia - trial of "strawberry" glucerna with meals and bedtime - Pt/family do NOT want SNF - Pt will d/c to her son's house and feels their will be sufficient help there. - Request HHC and home Pt upon discharge. - long conversation with pt and son at the bedside today (01/14/17) - Case d/w Dr. Okeefe (01/14/17) - consult IR for placement of G/J tube - trial of duragesic 25 mcg - consult Dietary for TF recommendations - Consult Palliative for clarification of goals. (2) Metastatic disease Status: Acute Plan: - see above (3) Esophageal mass Status: Acute Plan: - see above - Pt with dysphagia and poor oral intake. - MBS showed NO swallowing issue - supportive care (4) Anemia, blood loss Status: Acute Plan: - d/t bleeding from gastric mass - Hg 6/5 (01/02/17), 11.0 (01/12/17) - Pt has received 5 units PRBCs during this hospitalization - observe (5) CKD (chronic kidney disease) stage 3, GFR 30-59 ml/min Status: Acute Plan: - observe (6) Intractable nausea and vomiting Status: Acute Plan: - IV steroids - zofran/compaine prn - scopolamine patch (7) Pulmonary nodules/lesions, multiple Status: Acute Plan: - CT (01/08/17) --> multiple pulm nodues, largest 2.3 cm RLL (8) Anxiety Status: Acute (9) Constipation Status: Acute Plan: - continue current bowel regimen - s/p Gastrografin enema (01/10/17) - last stool charted (01/10/17) - observe Problem Qualifiers (1) Intractable nausea and vomiting: Qualified Code: R11.2 - Intractable vomiting with nausea, unspecified vomiting type (2) Constipation: Qualified Code: K59.00 - Constipation, unspecified constipation type Marky Jaramillo DO Jan 14, 2017 13:46
[2017-01-14] MEDS: fentaNYL 25 MCG/HR PATCH T-DERMAL SCH (14:01)
[2017-01-14 16:45] VITALS: BP 145/74; PULSE 76; RESP 20; TEMP 98.1; O2SAT 94
[2017-01-14 20:00] VITALS: BP 142/74; PULSE 78; RESP 17; TEMP 98.4; O2SAT 96
[2017-01-14] MEDS: SODIUM CHLOR 0.45% 1000 ML INJ 1,000 ML IV SCH ×2 (20:24→23:11)
[2017-01-15] VITALS (8 sets, daily range): BP systolic 115–151; BP diastolic 65–78; PULSE 65–75; RESP 16–20; TEMP 96.7–98.6; O2SAT 93–97
[2017-01-15] MEDS: MORPHINE SULFATE 8 MG/ML INJ IV PUSH PRN ×3 (00:54→18:55)
[2017-01-15] MEDS: CHLORHEXIDINE GLUCONATE 2 % 1 PACK (2 CLOTHS) TOP SCH (03:41)
[2017-01-15] MEDS: LACTULOSE SYRUP 20 GM/30 ML CUP PO SCH ×3 (05:49→18:00)
[2017-01-15] MEDS: METOCLOPRAMIDE HCL 10 MG/2 ML VIAL IV SCH ×3 (05:50→22:44)
[2017-01-15] MEDS: INSULIN NovoLIN REGULAR SUPPLEMENTAL SCALE SQ SCH ×4 (05:52→21:00)
[2017-01-15 07:54] LABS: BASOPHIL % 0.2 % (0.0-2.0); HEMATOCRIT 31.4 % (35.0-46.0); HEMO FLAGS DIFF FINAL; LYMPH % 0.8 % (9.0-44.0); LYMPHOCYTE # 0.1 TH/MM3 (1.0-4.8); MEAN CELL VOLUME 85.2 FL (80.0-100.0); MEAN CORPUSCULAR HEMOGLOBIN 28.2 PG (27.0-34.0); MEAN CORPUSCULAR HGB CONC 33.1 % (32.0-36.0); MONO % 8.8 % (0.0-8.0); NEUT % 90.2 % (16.0-70.0); PLATELET COUNT 182 TH/MM3 (150-450); RED BLOOD COUNT 3.68 MIL/MM3 (4.00-5.30); RED CELL DISTRIBUTION WIDTH 16.7 % (11.6-17.2); WHITE BLOOD COUNT 11.1 TH/MM3 (4.0-11.0)
[2017-01-15 08:16] LABS: BICARBONATE 21.8 MEQ/L (21.0-32.0); MAGNESIUM 2.1 MG/DL (1.5-2.5); POTASSIUM 4.1 MEQ/L (3.5-5.1)
[2017-01-15] MEDS: CARVEDILOL 6.25 MG TAB PO SCH ×2 (08:48→22:22)
[2017-01-15] MEDS: DOCUSATE SODIUM 50 MG/SENNA 8.6 MG TAB PO SCH ×2 (08:48→22:22)
[2017-01-15] MEDS: [UNRECOGNIZED DRUG - MIXTURE] PO PRN ×3 (08:49→22:23)
[2017-01-15] MEDS: DEXAMETHASONE 4 MG TAB PO SCH ×2 (08:49→22:22)
[2017-01-15] MEDS: PROMETHAZINE INJ 25 MG/ML VIAL IM PRN (08:49)
[2017-01-15] MEDS: NYSTAT/DIPHENHY/LIDO MOUTHWASH (Adult) 120ML SWISH-SWAL SCH ×4 (09:00→21:00)
[2017-01-15] MEDS: PANTOPRAZOLE SODIUM 40 MG VIAL IV SCH ×2 (09:00→22:22)
[2017-01-15] MEDS: POLYETHYLENE GLYCOL 17 GM PKG PO SCH ×2 (09:00→22:23)
[2017-01-15] MEDS: SODIUM CHLORIDE 0.9% FLUSH 10 ML FLUSH SCH ×2 (09:00→22:22)
--- NOTE | 2017-01-15 09:24 | HHI.PR ---
Subjective Remarks c/o sore throat. Objective Vitals oral/tongue thrush heart reg lung cta abd s/nt ext no edema Vital Signs Date Time Temp Pulse Resp B/P Pulse Ox O2 Delivery O2 Flow Rate FiO2 01/15/17 06:00 97.1 75 18 151/69 95 01/15/17 00:00 98.6 75 17 147/72 94 01/14/17 20:00 98.4 78 17 142/74 96 01/14/17 17:45 16 01/14/17 16:45 98.1 76 20 145/74 94 01/14/17 15:15 17 01/14/17 12:39 96.9 85 20 149/92 98 01/14/17 01/14/17 01/15/17 14:59 22:59 06:59 Intake Total 1857 ml 480 ml 0 ml Balance 1857 ml 480 ml 0 ml Intake Oral 480 ml 0 ml IV Total 1857 ml # Voids 3 2 3 # Bowel Movements 1 0 0 Result Diagram: 01/15/17 0743 01/15/17 0743 Imaging Last Impressions Lower Extremity Ultrasound 01/11/17 0000 Signed Impressions: Service Date/Time: December 19:16 - CONCLUSION: Normal examination. Orestes Mccord MD Modified Barium Swallow 01/10/17 0000 Signed Impressions: Service Date/Time: Tuesday, January 10, 2017 00:00 - CONCLUSION: Normal examination. Lex Harmon MD Brain MRI 01/10/17 0000 Signed Impressions: Service Date/Time: Tuesday, January 10, 2017 21:31 - CONCLUSION: 1. Atrophy and white matter disease without definite evidence for mass. Orestes Mccord MD Chest X-Ray 01/08/17 0013 Signed Impressions: Service Date/Time: Sunday, January 08, 2017 00:23 - CONCLUSION: Diffuse bilateral pulmonary metastatic disease. Cuauhtemoc Mensah MD Abdomen/Pelvis CT 01/08/17 0013 Signed Impressions: Service Date/Time: Sunday, January 08, 2017 01:19 - CONCLUSION: 1. There is an abnormal soft tissue mass involving the upper portion of the stomach at or just below the GE junction suspicious for neoplastic disease. Recommend direct visualization by endoscopy. 2. Diffuse liver metastatic disease. 3. Diffuse lung metastatic disease. 4. Diffuse para-aortic and retroperitoneal adenopathy. 5. Aneurysmal dilatation of the infrarenal abdominal aorta at 3.7 cm. Cuauhtemoc Mensah MD Chest CT 01/08/17 0000 Signed Impressions: Service Date/Time: Sunday, January 08, 2017 01:19 - CONCLUSION: 1. Diffuse lung metastatic disease. 2. Diffuse liver metastatic disease. Cuauhtemoc Mensah MD A/P Problem List: (1) Gastric carcinoma Status: Acute Plan: - comgmt with GI & Oncology - GE junction/gastric mass with metastatis to the liver, lung, and abdomen - EGD with biopsy performed by Dr. 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 Nichols. He recommends against IVC filter at this time - Defer possible anticoagulation to Oncology - will need PET/CT scan outpt - pt will f/u with Dr. Nichols outpt for treatment plan, likely palliative chemotherapy. - Pt/son request DNR status. - trial of scheduled IV reglan for nausea - Pt/family do NOT want SNF - Pt will d/c to her son's house and feels their will be sufficient help there. - Request C and home Pt upon discharge. - long conversation with pt and son at the bedside today (01/14/17) - Case d/w Dr. Okeefe (01/14/17) - consult IR for placement of G/J tube - trial of duragesic 25 mcg - consult Dietary for TF recommendations - Consult Palliative for clarification of goals. -nystatin and MMW for thrush. (2) Metastatic disease Status: Acute Plan: - see above (3) Esophageal mass Status: Acute Plan: - see above - Pt with dysphagia and poor oral intake. - MBS showed NO swallowing issue - supportive care (4) Anemia, blood loss Status: Acute Plan: - d/t bleeding from gastric mass - Hg 6/5 (01/02/17), 11.0 (01/12/17) - Pt has received 5 units PRBCs during this hospitalization - observe (5) CKD (chronic kidney disease) stage 3, GFR 30-59 ml/min Status: Acute Plan: - observe (6) Intractable nausea and vomiting Status: Acute Plan: - IV steroids - zofran/compaine prn - scopolamine patch (7) Pulmonary nodules/lesions, multiple Status: Acute Plan: - CT (01/08/17) --> multiple pulm nodues, largest 2.3 cm RLL (8) Anxiety Status: Acute (9) Constipation Status: Acute Plan: - continue current bowel regimen - s/p Gastrografin enema (01/10/17) - last stool charted (01/10/17) - observe Problem Qualifiers (1) Intractable nausea and vomiting: Qualified Code: R11.2 - Intractable vomiting with nausea, unspecified vomiting type (2) Constipation: Qualified Code: K59.00 - Constipation, unspecified constipation type Akbar Wilson MD Jan 15, 2017 09:24
[2017-01-15] MEDS ORDERED: BENZOCAINE-MENTHOL (SUGAR FREE) 15 MG-3.6 MG LOZENGE BUCCAL ONE (10:00)
[2017-01-15] MEDS ORDERED: NYSTATIN SUSP 500,000 U/5 ML CUP SWISH-SWAL ONE (10:00)
--- NOTE | 2017-01-15 10:08 | PD.CONS ---
Consult Service Palliative Care Consult Requested By Dr. Jaramillo Primary Care Physician Fiona Robles MD Reason for Consultation a. To assist with evaluation and management of symptoms including:pain and nausea b. To assist medical decision maker(s) with: better understanding of current medical conditions; weighing benefits/burdens of medical treatment options; making medical treatment decisions. HPI History of Present Illness Patient is a 71-year-old with a past medical history of gastric carcinoma( diagnosed this hospitalization /), history of lower extremity DVT. She initially presented to the emergency room on 01/07/2017 due to feeling of fatigue and lightheadedness for the past 4 days. ER found patient to be fatigue , pale, with elevated INR, and very dark stool with evidence of GI bleed. Patient was given vitamin K and FFP. Patient was transferred to the ICU for further monitoring. == 01/08/[address] shows diffuse metastatic disease(multiple scattered pulmonary nodules throughout both lung mckay, largest one measures 2.3 cm in the right lower lobe). An diffuse liver metastases metastatic disease == 01/08/[address] shows an abnormal soft tissue mass involving the upper portion of the stomach, just below the GE junction suspicious for neoplastic disease. There is diffuse low metastatic disease. Diffuse para- aortic retroperitoneal adenopathy. There is an AAA at 3.7cm == 01/08/2017 EGD and biopsy was performedpathology shows invasive moderate to poorly differentiated mucinous producing adenocarcinoma. == Patient was transferred out of the ICU . Oncology was consulted, who states if this is a confirmed malignancy, that the goal of treatment with be for palliation and that there is no curative options.== == Patient underwent barium swallow study, and recommendations were regular diet as tolerated. == Course of hospitalization complicated by poor by mouth intake, nausea and vomiting, and dysphagia especially when trying to eat. Patient has oral and tongue thrush. Palliative care was consulted to review goals of care. On my visit pt just had G tube placed by IR today. Pt 's jesse Louis at bedside. Pt endorse 6/10 pain at mid epigastric area. Currently denies nausea. Goals of care reviewed. == Pt desires to go through with radiation and if functionally tolerable, chemotherapy. == She understands thearapy offer is palliative and not curative. == endorses a DNR. ==Family supportive of pt decision. Function/Cognitive Trajectory Has been significantly getting more more week. Review of Systems ROS Limitations: Clinical Condition Ears, nose, mouth, throat: COMPLAINS OF: Throat pain Gastrointestinal: COMPLAINS OF: Abdominal pain, Black stools, Nausea Past Family Social History Coded Allergies: Clindamycin (Unverified Allergy, Severe, VOMITING AND DIARRHEA, 01/08/17) Sulfamethoxazole (Unverified Allergy, Severe, VOMITING AND DIARRHEA, ) Penicillin (Unverified Allergy, Mild, Rash, 01/08/17) Cipro (Verified Allergy, Unknown, 01/08/17) Past Medical History Abdominal aortic aneurysm Iron deficiency anemia Anxiety B12 deficiency Cataracts Cellulitis Charcot's joint of foot CKD Colon polyps Esophageal stricture DVT HTN GERD Hyperlipidemia PAD DM Vitamin D deficiency Constipation Past Surgical History Cataract surgery EGD with dilatation Colonoscopy Reported Medications Chronic any disease, stage IV AAA, [id number] thrombus Diabetes Hypertension Current Medications Medications (Trade) Dose Ordered Sig/[place] Route Start Time Stop Time Status Last Admin (NS Flush) 2 ml UNSCH PRN .XX 01/08/17 03:30 (NS Flush) 2 ml BID .XX 01/08/17 09:00 01/15/17 09:00 (Tylenol) 650 mg Q6H PRN PO 01/08/17 03:30 (Morphine Inj) 2 mg Q2H PRN IV PUSH 01/08/17 03:45 01/15/17 08:50 (Protonix Inj) 40 mg Q12H IV 01/08/17 09:00 01/15/17 09:00 (Zofran Inj) 4 mg Q6H PRN IV 01/08/17 03:30 01/10/17 21:18 (Ambien) 5 mg HS PRN PO 01/08/17 03:30 Miscellaneous Information 1 Q361D XX 01/08/17 03:30 01/08/17 03:30 (Chlorhexidine 2% Cloth) Taper DAILY@04 TOP 01/08/17 04:00 01/04/18 03:59 01/13/17 04:00 (Chlorhexidine 2% Cloth) 3 pack UNSCH PRN TOP 01/08/17 03:30 (Stephanie-Colace) 1 tab BID PO 01/08/17 09:00 01/15/17 08:48 (Milk Of Magnesia Liq) 30 ml Q12H PRN PO 01/08/17 03:30 (Dulcolax Supp) 10 mg DAILY PRN RECTAL 01/08/17 03:30 (D50w (Vial) Inj) 50 ml UNSCH PRN IV 01/09/17 10:15 (Glucagon Inj) 1 mg UNSCH PRN OTHER 01/09/17 10:15 (Transderm-Scop 1.5 Mg Patch.72 Hr) 1 patch Q3D T-DERMAL 01/10/17 01:00 01/13/17 05:30 (Phenergan Inj) 12.5 mg Q6H PRN IM 01/10/17 09:30 01/15/17 08:49 (Lactulose Liq) 30 ml Q6HR PO 01/10/17 18:00 01/12/17 12:32 (Miralax) 17 gm BID PO 01/10/17 21:00 01/12/17 08:28 Glycerin 2 gm 2 gm BID PRN RECTAL 01/10/17 12:15 (1/2 NS 1000 ml Inj) 1,000 ml @ 84 mls/hr [id number] IV 01/10/17 12:15 01/14/17 20:24 (Decadron) 4 mg Q12HR PO 01/10/17 23:00 01/15/17 08:49 (Coreg) 6.25 mg Q12HR PO 01/12/17 00:45 01/15/17 08:48 (Norvasc) 10 mg DAILY PO 01/12/17 09:00 01/15/17 08:49 (Catapres) 0.1 mg Q6H PRN PO 01/12/17 00:45 01/12/17 03:58 (Reglan Inj) 5 mg Q8H IV 01/13/17 13:00 01/15/17 05:50 Non-Formulary Medication 45 ML GI COCKTAIL OF MAAL... Q6H PRN PO 01/13/17 11:15 01/15/17 08:49 (Magic Mouthwash Adult Liq) 10 ml QID SWISH-SWAL 01/14/17 13:00 01/15/17 09:00 (Duragesic 25 Mcg Patch.72 Hr) 1 patch Q3D T-DERMAL 01/14/17 13:45 01/14/17 14:01 Miscellaneous Information 1 Q3D T-DERMAL 01/17/17 13:45 (Mycostatin Liq) 5 ml QID SWISH-SWAL 01/15/17 13:00 (Mycostatin Liq) 5 ml ONCE ONCE SWISH-SWAL 01/15/17 10:00 01/15/17 10:01 (Cepacol Extra Freddy (Sugar Free)) 1 lozenge Q2HR PRN BUCCAL 01/15/17 12:00 (Cepacol Extra Freddy (Sugar Free)) 1 lozenge ONCE ONCE BUCCAL 01/15/17 10:00 01/15/17 10:01 (Chloraseptic [place]) 2 spray Q2H PRN OROPHARYNG 01/15/17 12:00 Family History Pt adopted Substance Use Tobacco: One to 2 drinks daily Alcohol: Quit 10 years 25 pack years Prescription med abuse: Denies Illicits: Denies Psychosocial History Pt originally from [place]. Spouse past away less than a year ago from aortic stenosis. Has 3 children Missy (works for [employer]), Jimmy, and Wayne (who is POA). and 7 grandchildren. 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 Loves cooking and crocheting. Like Bengali cuisine. Living Will: Completed, but not made available Health Care Surrogate: Completed, but not made available Durable Power of Child Care Counselor: Completed, but not made available Physical Exam Vital Signs Date Time Temp Pulse Resp B/P Pulse Ox O2 Delivery O2 Flow Rate FiO2 01/15/17 06:00 97.1 75 18 151/69 95 01/15/17 00:00 98.6 75 17 147/72 94 01/14/17 20:00 98.4 78 17 142/74 96 01/14/17 17:45 16 01/14/17 16:45 98.1 76 20 145/74 94 01/14/17 15:15 17 01/14/17 12:39 96.9 85 20 149/92 98 01/14/17 01/15/17 18:59 06:59 Intake Total 1857 ml 480 ml Balance 1857 ml 480 ml Intake Oral 480 ml IV Total 1857 ml # Voids 3 5 # Bowel Movements 1 0 Exam CONSTITUTIONAL/GENERAL: This is an adequately nourished patient, fatigued TUBES/LINES/DRAINS:g tube PIV, sierra. SKIN: No jaundice, rashes, or lesions. . No wounds seen anteriorly. Skin temperature appropriate. Not diaphoretic. HEAD: Atraumatic. Normocephalic. EYES: Pupils equal and round and reactive. Extraocular motions intact. No scleral icterus. ENT: Hearing grossly normal. Nose without bleeding or purulent drainage. NECK: Trachea midline. Supple, nontender. No palpable thyroid enlargement or nodularity. CARDIOVASCULAR: Regular rate and rhythm without murmurs, gallops, or rubs. RESPIRATORY/CHEST: Symmetric, unlabored respirations. Clear to auscultation. Breath sounds equal bilaterally. No wheezes, rales, or rhonchi. GASTROINTESTINAL: Abdomen soft, tender at mid epigastirc, G tube GENITOURINARY: Without palpable bladder distension. Sierra catheter in place. MUSCULOSKELETAL: Extremities without clubbing, cyanosis, or edema. LYMPHATICS: No palpable cervical or supraclavicular adenopathy. NEUROLOGICAL: Awake and alert. Motor and sensory grossly within normal limits. Follows commands. Cognitively sharp. Moves all extremities. PSYCHIATRIC: No obvious anxiety/depression. no apparent hallucinations or other psychotic thought process. Diagnostic Tests Laboratory Laboratory Tests Test 01/13/17 01/14/17 01/15/17 05:51 05:28 07:43 White Blood Count 11.1 TH/MM3 10.6 TH/MM3 11.1 TH/MM3 (4.0-11.0) (4.0-11.0) (4.0-11.0) Red Blood Count 3.78 MIL/MM3 3.78 MIL/MM3 3.68 MIL/MM3 (4.00-5.30) (4.00-5.30) (4.00-5.30) Hemoglobin 10.6 GM/DL 10.8 GM/DL 10.4 GM/DL (11.6-15.3) (11.6-15.3) (11.6-15.3) Hematocrit 32.4 % 32.0 % 31.4 % (35.0-46.0) (35.0-46.0) (35.0-46.0) Mean Corpuscular Volume 85.7 FL 84.7 FL 85.2 FL (80.0-100.0) (80.0-100.0) (80.0-100.0) Mean Corpuscular Hemoglobin 28.1 PG 28.5 PG 28.2 PG (27.0-34.0) (27.0-34.0) (27.0-34.0) Mean Corpuscular Hemoglobin 32.8 % 33.7 % 33.1 % Concent (32.0-36.0) (32.0-36.0) (32.0-36.0) Red Cell Distribution Width 17.0 % 16.3 % 16.7 % (11.6-17.2) (11.6-17.2) (11.6-17.2) Platelet Count 178 TH/MM3 159 TH/MM3 182 TH/MM3 (150-450) (150-450) (150-450) Mean Platelet Volume 9.3 FL 9.5 FL 8.6 FL (7.0-11.0) (7.0-11.0) (7.0-11.0) Neutrophils (%) (Auto) 90.7 % 91.1 % 90.2 % (16.0-70.0) (16.0-70.0) (16.0-70.0) Lymphocytes (%) (Auto) 0.9 % 1.1 % 0.8 % (9.0-44.0) (9.0-44.0) (9.0-44.0) Monocytes (%) (Auto) 8.3 % (0.0-8.0) 7.7 % (0.0-8.0) 8.8 % (0.0-8.0) Eosinophils (%) (Auto) 0.0 % (0.0-4.0) 0.0 % (0.0-4.0) 0.0 % (0.0-4.0) Basophils (%) (Auto) 0.1 % (0.0-2.0) 0.1 % (0.0-2.0) 0.2 % (0.0-2.0) Neutrophils # (Auto) 10.1 TH/MM3 9.7 TH/MM3 10.0 TH/MM3 (1.8-7.7) (1.8-7.7) (1.8-7.7) Lymphocytes # (Auto) 0.1 TH/MM3 0.1 TH/MM3 0.1 TH/MM3 (1.0-4.8) (1.0-4.8) (1.0-4.8) Monocytes # (Auto) 0.9 TH/MM3 0.8 TH/MM3 1.0 TH/MM3 (0-0.9) (0-0.9) (0-0.9) Eosinophils # (Auto) 0.0 TH/MM3 0.0 TH/MM3 0.0 TH/MM3 (0-0.4) (0-0.4) (0-0.4) Basophils # (Auto) 0.0 TH/MM3 0.0 TH/MM3 0.0 TH/MM3 (0-0.2) (0-0.2) (0-0.2) CBC Comment DIFF FINAL DIFF FINAL DIFF FINAL Differential Comment Sodium Level 136 MEQ/L 136 MEQ/L 137 MEQ/L (136-145) (136-145) (136-145) Potassium Level 4.2 MEQ/L 4.2 MEQ/L 4.1 MEQ/L (3.5-5.1) (3.5-5.1) (3.5-5.1) Chloride Level 104 MEQ/L 103 MEQ/L 104 MEQ/L (98-107) (98-107) (98-107) Carbon Dioxide Level 21.0 MEQ/L 22.4 MEQ/L 21.8 MEQ/L (21.0-32.0) (21.0-32.0) (21.0-32.0) Anion Gap 11 MEQ/L (5-15) 11 MEQ/L (5-15) 11 MEQ/L (5-15) Blood Urea Nitrogen 29 MG/DL (7-18) 33 MG/DL (7-18) 33 MG/DL (7-18) Creatinine 1.57 MG/DL 1.50 MG/DL 1.41 MG/DL (0.50-1.00) (0.50-1.00) (0.50-1.00) Estimat Glomerular Filtration 32 ML/MIN (>89) 34 ML/MIN (>89) 37 ML/MIN (>89) Rate Random Glucose 175 MG/DL 158 MG/DL 155 MG/DL (74-106) (74-106) (74-106) Calcium Level 8.8 MG/DL 8.4 MG/DL 8.2 MG/DL (8.5-10.1) (8.5-10.1) (8.5-10.1) Magnesium Level 2.1 MG/DL (1.5-2.5) Result Diagram: 01/15/17 0743 01/15/17 0743 Imaging Last Impressions Lower Extremity Ultrasound 01/11/17 0000 Signed Impressions: Service Date/Time: December 19:16 - CONCLUSION: Normal examination. Orestes Mccord MD Modified Barium Swallow 01/10/17 0000 Signed Impressions: Service Date/Time: Tuesday, January 10, 2017 00:00 - CONCLUSION: Normal examination. Lex Harmon MD Brain MRI 01/10/17 0000 Signed Impressions: Service Date/Time: Tuesday, January 10, 2017 21:31 - CONCLUSION: 1. Atrophy and white matter disease without definite evidence for mass. Orestes Mccord MD Chest X-Ray 01/08/1712 Signed Impressions: Service Date/Time: Sunday, January 08, 2017 00:23 - CONCLUSION: Diffuse bilateral pulmonary metastatic disease. Cuauhtemoc Mensah MD Abdomen/Pelvis CT 01/08/1712 Signed Impressions: Service Date/Time: Sunday, January 08, 2017 01:19 - CONCLUSION: 1. There is an abnormal soft tissue mass involving the upper portion of the stomach at or just below the GE junction suspicious for neoplastic disease. Recommend direct visualization by endoscopy. 2. Diffuse liver metastatic disease. 3. Diffuse lung metastatic disease. 4. Diffuse para-aortic and retroperitoneal adenopathy. 5. Aneurysmal dilatation of the infrarenal abdominal aorta at 3.7 cm. Cuauhtemoc Mensah MD Chest CT 01/08/17 0000 Signed Impressions: Service Date/Time: Sunday, January 08, 2017 01:19 - CONCLUSION: 1. Diffuse lung metastatic disease. 2. Diffuse liver metastatic disease. Cuauhtemoc Mensah MD Patient/Family Conference Present at Family Conference: pt and pt's daughter Missy Family Conference Time (mins): 45 Family Conference Location: Bedside Issues Discussed: * Palliative care role, purpose, approach * Additional medical, psychosocial, and spiritual history * Patients general health, functional status, and cognitive changes in the months leading up to the current hospitalization * Patient/family understanding of the current medical problems * Patient/family understanding of prognosis * Patients goals of care as best understood from advance directives and/or conversations and/or values * Current medical treatment options and benefits/burdens of those options * Likely scenarios comparing ongoing aggressive care with a transition to comfort measures only * Questions answered to the best of my ability * Palliative care contact information provided Assessment and Plan Disease Oriented Problem List: (1) Gastric carcinoma (2) Metastatic disease (3) GI bleed (4) History of DVT (deep vein thrombosis) Symptom Scale: (1) Pain 0-10 Scale: 6 Comment: mid gastric (2) Fatigue 0-10 Scale: 8 (3) Nausea 0-10 Scale: 3 Comment: comes in waves Pertinent Non-Medical Issues Psychosocial: Spiritual: Legal: Ethical issues impacting care: Important Contacts [phone] Wayne Vasquez (son) Prognosis 71-year-old with metastatic gastric cancer. Will be appropriate for hospice of goals of care are comfort measures only. Code Status: No Code Plan == POA- son Alexandr, await documentation. == code: DNR/DNI == goals of care: Pt desires to go through with radiation and if functionally tolerable, chemotherapy. She understands thearapy offer is palliative and not curative. Family supportive of pt decision. == nausea/ pain cancer burden- no new med rec. == palliative care will continue to follow. Time Spent Face to Face Time (mins): 68 >50% Counseling/Coord of Care: Yes Thank you for the opportunity to participate in the care of Ms. Vasquez. Attestation To help prompt me to consider important information that might be impacting today's encounter and assessment, information from prior notes written by myself or my colleagues may have been "brought forward" into today's note. My signature on this note, however, is an attestation that I personally performed the exam, history, and/or decision-making noted today, and, unless otherwise indicated, the interactions with patient, family, and staff as well as the review of records all occurred today. I also attest that the listed assessment and stated plan reflect my best clinical judgment today based on the combination of historical information, prior notes, and today's exam/ interactions. When time spent is documented, it refers only to time spent today by the signer, or if indicated, combined time spent today by collaborating physician/nurse practitioner. Rodney Bishop MD Jan 15, 2017 10:08
[2017-01-15] MEDS ORDERED: fentaNYL CITRATE 250 MCG/5 ML AMP ONE (11:15)
[2017-01-15] MEDS ORDERED: ceFAZolin 2 GM PREMIX 50 ML ONE (11:15)
[2017-01-15] MEDS ORDERED: MIDAZOLAM HCL 5 MG/5 ML VIAL ONE (11:15)
[2017-01-15] MEDS ORDERED: PHENOL 1.4% SOLN 180 ML BTL OROPHARYNG PRN (12:00)
[2017-01-15] MEDS ORDERED: BENZOCAINE-MENTHOL (SUGAR FREE) 15 MG-3.6 MG LOZENGE BUCCAL PRN (12:00)
[2017-01-15] MEDS ORDERED: IOHEXOL 350 MG/ML 50 ML BTL (for RAD DIAG) G-TUBE ONE (12:50)
--- NOTE | 2017-01-15 12:55 | PD.RAD ---
Post Procedure Progress Note Pre Procedure Diagnosis: (1) Gastric carcinoma Post Procedure Diagnosis: (1) Gastric carcinoma Procedure Date: Jan 15, 2017 Supervising Radiologist: Smith Antony Proceduralist/Assist: RT Jens(R) Anesthesia: Local, Conscious Sedation Plan of Activity Patient to Unit: [facility] Patient Condition: Fair See PACS Report for procedural detail/treatment Feeding Tube Gastrostomy Placement Macedonian: 18 Smith Antony MD Jan 15, 2017 12:55
[2017-01-15] MEDS: NYSTATIN SUSP 500,000 U/5 ML CUP SWISH-SWAL SCH ×3 (13:00→22:21)
--- NOTE | 2017-01-15 13:35 | RADRPT ---
EXAM DATE/TIME: 01/15/2017 11:51 [facility] COMPARISON: No previous studies available for comparison. INDICATIONS : Patient is in need of placement of a gastrostomy tube due to dysphagia. MEDICAL HISTORY : History of gastric carcinoma with metastases to liver, lung, abdomen, GE junction/ gastric mass, abdo minla aortic aneurysm, diverticulosis, anemia, hemorrhoids, HTN, CKD, DM, dyslipidemia. SURGICAL HISTORY : History of EGD with biopsy. ENCOUNTER: Initial ACUITY: 1 week PAIN SCORE: 0/10 FLUORO TIME: 3.9 minutes IMAGE SERIES: 1 SEDATION TIME: 60 minutes CONTRAST: 15 cc Omnipaque (iohexol) 350 MEDICATION(S): 1.) 4.5 mg midazolam (Versed) IV 2.) 225 mcg Fentanyl (Sublimaze) IV 3.) 1 mg glucagon (Gluca-Gen) IV DEVICE(S): 1.) 18 Fr gastrostomy tube PROCEDURE : 1. Limited abdominal ultrasound. 2. Fluoroscopically guided gastrostomy tube placement. 3. Conscious sedation with continuous EKG and oximetry monitoring. The risks, benefits and alternatives to the procedure were explained and verbal and written consent w as obtained. The site was prepped in sterile fashion. Full sterile technique was used, including ca p, mask, sterile gloves and gown and a large sterile sheet. Hand hygiene and 2% chlorhexidine and/or betadine/alcohol prep was utilized per protocol for cutaneous antisepsis. The skin and subcutaneous tissues were infiltrated with local anesthetic solution. Ultrasound was used to alpesh the position of the liver. The stomach was insufflated with room air. Th ree percutaneous fasteners were placed to secure the anterior gastric wall. A small incision was made between the fasteners. The stomach was accessed with an 18 gauge needle. A n 0.035 wire was advanced into the small bowel. The tract was dilated. The gastrostomy tube was int roduced through a peel-away sheath. The position was confirmed with an injection of contrast. Conscious sedation was performed with the prescribed dosages and duration as above in the presence of an independent trained radiology nurse to assist in the monitoring of the patient. EKG and oximetry remained stable throughout the procedure. The patient tolerated the procedure well and there were n o complications. The patient was sent to post anesthesia recovery in stable condition. CONCLUSION: Uncomplicated gastrostomy tube placement as above. Smith Antony MD on January 15, 2017 at 13:32 Board Certified Radiologist. This report was verified electronically.
--- NOTE | 2017-01-15 14:08 | PD.ONC.PN ---
Subjective Subjective Remarks Afebrile overnight. s/p G-tube placement in IR today. Having some pain at site, otherwise feeling well. Objective Data Date Time Temp Pulse Resp B/P Pulse Ox O2 Delivery O2 Flow Rate FiO2 01/15/17 13:15 65 18 138/72 96 01/15/17 13:00 69 20 133/69 93 01/15/17 12:45 97.7 72 20 139/78 97 01/15/17 06:00 97.1 75 18 151/69 95 01/15/17 00:00 98.6 75 17 147/72 94 01/14/17 20:00 98.4 78 17 142/74 96 01/14/17 17:45 16 01/14/17 16:45 98.1 76 20 145/74 94 01/14/17 15:15 17 01/15/17 01/15/17 01/15/17 07:00 15:00 23:00 Intake Total 0 ml Balance 0 ml Result Diagram: 01/15/17 0743 01/15/17 0743 Laboratory Results Laboratory Tests Test 01/15/17 07:43 White Blood Count 11.1 TH/MM3 Red Blood Count 3.68 MIL/MM3 Hemoglobin 10.4 GM/DL Hematocrit 31.4 % Mean Corpuscular Volume 85.2 FL Mean Corpuscular Hemoglobin 28.2 PG Mean Corpuscular Hemoglobin 33.1 % Concent Red Cell Distribution Width 16.7 % Platelet Count 182 TH/MM3 Mean Platelet Volume 8.6 FL Neutrophils (%) (Auto) 90.2 % Lymphocytes (%) (Auto) 0.8 % Monocytes (%) (Auto) 8.8 % Eosinophils (%) (Auto) 0.0 % Basophils (%) (Auto) 0.2 % Neutrophils # (Auto) 10.0 TH/MM3 Lymphocytes # (Auto) 0.1 TH/MM3 Monocytes # (Auto) 1.0 TH/MM3 Eosinophils # (Auto) 0.0 TH/MM3 Basophils # (Auto) 0.0 TH/MM3 CBC Comment DIFF FINAL Differential Comment Sodium Level 137 MEQ/L Potassium Level 4.1 MEQ/L Chloride Level 104 MEQ/L Carbon Dioxide Level 21.8 MEQ/L Anion Gap 11 MEQ/L Blood Urea Nitrogen 33 MG/DL Creatinine 1.41 MG/DL Estimat Glomerular Filtration 37 ML/MIN Rate Random Glucose 155 MG/DL Calcium Level 8.2 MG/DL Magnesium Level 2.1 MG/DL Imaging Studies Last 24 hours Impressions Gastrostomy Tube Placement 01/15/17 0000 Signed Impressions: Service Date/Time: Sunday, January 15, 2017 11:51 - CONCLUSION: Uncomplicated gastrostomy tube placement as above. Smith Antony MD Administered Medications Medications (Trade) Dose Ordered Sig/[place] Route PRN Reason Start Time Stop Time Status Last Admin Dose Admin Sodium Chloride (NS Flush) 2 ml BID .XX 01/08/17 09:00 01/15/17 09:00 Morphine Sulfate (Morphine Inj) 2 mg Q2H PRN IV PUSH PAIN SCALE 6 TO 10 01/08/17 03:45 01/15/17 08:50 Pantoprazole Sodium (Protonix Inj) 40 mg Q12H IV 01/08/17 09:00 01/15/17 09:00 Ondansetron HCl (Zofran Inj) 4 mg Q6H PRN IV NAUSEA OR VOMITING 01/08/17 03:30 01/10/17 21:18 Miscellaneous Information 1 [id number] XX 01/08/17 03:30 01/08/17 03:30 Chlorhexidine Gluconate (Chlorhexidine 2% Cloth) Taper DAILY@04 TOP 01/08/17 04:00 01/04/18 03:59 01/13/17 04:00 Senna/Docusate Sodium (Stephanie-Colace) 1 tab BID PO 01/08/17 09:00 01/15/17 08:48 Glucagon (Glucagon Inj) 1 mg UNSCH PRN OTHER HYPOGLYCEMIA-SEE COMMENTS 01/09/17 10:15 01/15/17 12:26 Scopolamine (Transderm-Scop 1.5 Mg Patch.72 Hr) 1 patch Q3D T-DERMAL 01/10/17 01:00 01/13/17 05:30 Promethazine HCl (Phenergan Inj) 12.5 mg Q6H PRN IM NAUSEA 01/10/17 09:30 01/15/17 08:49 Lactulose (Lactulose Liq) 30 ml Q6HR PO 01/10/17 18:00 01/12/17 12:32 Polyethylene Glycol 17 gm 17 gm BID PO 01/10/17 21:00 01/12/17 08:28 Sodium Chloride (1/2 NS 1000 ml Inj) 1,000 ml @ 84 mls/hr [id number] IV 01/10/17 12:15 01/14/17 20:24 Dexamethasone (Decadron) 4 mg Q12HR PO 01/10/17 23:00 01/15/17 08:49 Carvedilol (Coreg) 6.25 mg Q12HR PO 01/12/17 00:45 01/15/17 08:48 Amlodipine Besylate (Norvasc) 10 mg DAILY PO 01/12/17 09:00 01/15/17 08:49 Clonidine (Catapres) 0.1 mg Q6H PRN PO SBP >165 01/12/17 00:45 01/12/17 03:58 Metoclopramide HCl (Reglan Inj) 5 mg Q8H IV 01/13/17 13:00 01/15/17 05:50 Non-Formulary Medication 45 ML GI COCKTAIL OF MAAL... Q6H PRN PO DYSPEPSIA 01/13/17 11:15 01/15/17 08:49 Multi-Ingredient Mouthwash/Gargle (Magic Mouthwash Adult Liq) 10 ml QID SWISH-SWAL 01/14/17 13:00 01/15/17 09:00 Fentanyl (Duragesic 25 Mcg Patch.72 Hr) 1 patch Q3D T-DERMAL 01/14/17 13:45 01/14/17 14:01 Objective Remarks GENERAL: Elderly female upright in bed. SKIN: Warm and dry. HEAD: Normocephalic. EYES: No injection or drainage. NECK: Supple, trachea midline. CARDIOVASCULAR: Regular rate and rhythm RESPIRATORY: Breath sounds equal bilaterally. No accessory muscle use. GASTROINTESTINAL: Abdomen soft, non-tender, nondistended. G-tube in place, clamped EXTREMITIES: No cyanosis NEUROLOGICAL: awake and alert, normal speech. moving all extremities. Assessment/Plan Problem List: (1) Malnutrition Status: Acute Plan: --s/p G-tube placement in IR --Dysphagia, poor oral intake, hypoalbuminemia. - MBS show no swallowing issue - Supportive care (2) Gastric adenocarcinoma Status: Acute Plan: -- GE junction/gastric mass with metastatic disease to the liver, lung and abdomen--highly suspicious for a primary gastric cancer. 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 Will need PET/CT scan outpatient -fs faxed to new patient referrals for follow up in 1-2 weeks. --plan for radiation with Dr. Marques. patient's performance status will need to improve bf she can receive chemotherapy (3) Anemia, blood loss Status: Acute Plan: --Severe anemia, likely bleeding from the gastric mass. - Monitor Hb - transfuse for Hb less than 7.5 (4) CKD (chronic kidney disease) stage 3, GFR 30-59 ml/min Status: Acute Plan: --monitor (5) History of DVT (deep vein thrombosis) Status: Acute Plan: --anticoagulation is on hold due to bleeding - repeat doppler u/s shows no DVT --had DVT in leg ~ 4 years ago (6) Intractable nausea and vomiting Status: Acute Plan: --decadron - Zofran/phenergan - scopalamine patch (7) Thrush Status: Acute Plan: --magic mouthwash. Assessment 71-year-old female who presents with weakness, abdominal pain, constipation and difficulty swallowing. On admission she underwent imaging including a CT of the chest, abdomen and pelvis which revealed a gastric mass at or below the level of the GE junction, metastatic lesions to the liver, abdomen as well as bilateral lung mckay. Pathology showed a gastric adenocarcinoma. Plan 1. feeding tube placement in IR today. start tube feeds once cleared by GI/IR 2. continue pain management 3. supportive care. Attending Statement The exam, history, and the medical decision-making described in the above note were completed with the assistance of the mid-level provider. I reviewed and agree with the findings presented. I attest that I had a [id number] encounter with the patient on the same day, and personally performed and documented my assessment and findings in the medical record. case discussed with Dr. Marques Patient will benefit from palliative treatments to the gastric mass to reduce the chance of bleeding and also to relieve obstruction and pain discussed at length with patient family present during conversation plan to start tube feeds today Anemia stable --check B12/folate/serum iron/tibc and transferrin d/w rn Problem Qualifiers (1) Intractable nausea and vomiting: Qualified Code: R11.2 - Intractable vomiting with nausea, unspecified vomiting type Ana Paul Jan 15, 2017 14:08 Marko Nichols MD Jan 16, 2017 00:06
--- NOTE | 2017-01-15 14:21 | HHI.GIFU ---
Subjective Remarks Patient just got back from IR for what suppose to be G/J tube, however, only G tube was placed, per daughter, it was felt like she wasn't stable for J tube placement. No bleeding reported (MarieyasminKarlasanto BRIAN) Objective Vitals I&O Vital Signs Date Time Temp Pulse Resp B/P Pulse Ox O2 Delivery O2 Flow Rate FiO2 01/15/17 13:15 65 18 138/72 96 01/15/17 13:00 69 20 133/69 93 01/15/17 12:45 97.7 72 20 139/78 97 01/15/17 06:00 97.1 75 18 151/69 95 01/15/17 00:00 98.6 75 17 147/72 94 01/14/17 20:00 98.4 78 17 142/74 96 01/14/17 17:45 16 01/14/17 16:45 98.1 76 20 145/74 94 01/14/17 15:15 17 I/O 01/14/17 01/14/17 01/14/17 01/15/17 01/15/17 01/15/17 07:00 15:00 23:00 07:00 15:00 23:00 Intake Total 480 ml 1857 ml 480 ml 0 ml Balance 480 ml 1857 ml 480 ml 0 ml Intake Oral 480 ml 480 ml 0 ml IV Total 1857 ml # Voids 2 3 2 3 # Bowel Movements 0 1 0 0 Laboratory Laboratory Tests Test 01/15/17 07:43 White Blood Count 11.1 Red Blood Count 3.68 Hemoglobin 10.4 Hematocrit 31.4 Mean Corpuscular Volume 85.2 Mean Corpuscular Hemoglobin 28.2 Mean Corpuscular Hemoglobin 33.1 Concent Red Cell Distribution Width 16.7 Platelet Count 182 Mean Platelet Volume 8.6 Neutrophils (%) (Auto) 90.2 Lymphocytes (%) (Auto) 0.8 Monocytes (%) (Auto) 8.8 Eosinophils (%) (Auto) 0.0 Basophils (%) (Auto) 0.2 Neutrophils # (Auto) 10.0 Lymphocytes # (Auto) 0.1 Monocytes # (Auto) 1.0 Eosinophils # (Auto) 0.0 Basophils # (Auto) 0.0 CBC Comment DIFF FINAL Differential Comment Sodium Level 137 Potassium Level 4.1 Chloride Level 104 Carbon Dioxide Level 21.8 Anion Gap 11 Blood Urea Nitrogen 33 Creatinine 1.41 Estimat Glomerular Filtration 37 Rate Random Glucose 155 Calcium Level 8.2 Magnesium Level 2.1 Imaging Last Impressions Gastrostomy Tube Placement 01/15/17 Signed Impressions: Service Date/Time: Sunday, January 15, 2017 11:51 - CONCLUSION: Uncomplicated gastrostomy tube placement as above. Smith Antony MD Lower Extremity Ultrasound 01/11/17 Signed Impressions: Service Date/Time: December 19:16 - CONCLUSION: Normal examination. Orestes Mccord MD Modified Barium Swallow 01/10/17 Signed Impressions: Service Date/Time: Tuesday, January 10, 2017 00:00 - CONCLUSION: Normal examination. Lex Harmon MD Brain MRI 01/10/17 Signed Impressions: Service Date/Time: Tuesday, January 10, 2017 21:31 - CONCLUSION: 1. Atrophy and white matter disease without definite evidence for mass. Orestes Mccord MD Chest X-Ray 01/08/1712 Signed Impressions: Service Date/Time: Sunday, January 08, 2017 00:23 - CONCLUSION: Diffuse bilateral pulmonary metastatic disease. Cuauhtemoc Mensah MD Abdomen/Pelvis CT 01/08/1712 Signed Impressions: Service Date/Time: Sunday, January 08, 2017 01:19 - CONCLUSION: 1. There is an abnormal soft tissue mass involving the upper portion of the stomach at or just below the GE junction suspicious for neoplastic disease. Recommend direct visualization by endoscopy. 2. Diffuse liver metastatic disease. 3. Diffuse lung metastatic disease. 4. Diffuse para-aortic and retroperitoneal adenopathy. 5. Aneurysmal dilatation of the infrarenal abdominal aorta at 3.7 cm. Cuauhtemoc Mensah MD Chest CT 01/08/17 Signed Impressions: Service Date/Time: Sunday, January 08, 2017 01:19 - CONCLUSION: 1. Diffuse lung metastatic disease. 2. Diffuse liver metastatic disease. Cuauhtemoc Mensah MD Physical Exam HEENT: Normocephalic; atraumatic; no jaundice. CHEST: CTA CARDIAC: RRR ABDOMEN: Soft, nondistended, nontender; no hepatosplenomegaly; bowel sounds are present in all four quadrants. PEG tube EXTREMITIES: No clubbing, cyanosis, or edema. SKIN: Normal; no rash; no jaundice. SALES LEADER: No focal deficits; alert and oriented times three. (Lizbet Jesus) Assessment and Plan Plan ASSESSMENT: - Ulcerated Gastric mass with evidence of metastatic dz to liver and lung. Abdomen/Pelvis CT (01/08/17)-----> 1. There is an abnormal soft tissue mass involving the upper portion of the stomach at or just below the GE junction suspicious for neoplastic disease. Recommend direct visualization by endoscopy. 2. Diffuse liver metastatic disease. 3. Diffuse lung metastatic disease. 4. Diffuse para-aortic and retroperitoneal adenopathy. 5. Aneurysmal dilatation of the infrarenal abdominal aorta at 3.7 cm. Colonoscopy (06/29/15)----> two sessile polyps ranging between 3-5 mm in size were found in the rectum, multiple biopsies performed using cold forceps, sessile polyp ranging between 3-5 mm in size was found in the ascending colon, polypectomy was performed with cold forceps, sessile polyp ranging between 3-5 mm in size was found in the sigmoid colon, biopsy using cord forceps , melanosis, there was severe diverticulosis noted in the sigmoid colon, retroflexed views revealed small internal hemorrhoids, rectal exam revealed external hemorrhoids. Pathology sigmoid polyp-hyperplastic, cecum bx- colonic mucosa with pigmented macrophages in lamina propria, consistent with melanosis coli, negative for dysplasia, colon, ascending biopsy with fragments of tubular adenoma, negative for high grade dysplasia or malignancy, rectal polyp with fragments of hyperplastic polyp. She was adopted and does not know family history. 3-4 day hx of n/v, decreased appetite, constipation. No abn. weight loss. EGD (01/09/17)-----> 1. Esophagitis distal esophagus-biopsy, ulcerated mass fundus , old clot, friable-multiple biopsies , epinephrine 1:10,000 - 7 cc injected 2. Retroflexed views revealed ulcerated mass fundus. 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 AFP 777.5, CEA 1044.3, Ca19-9 9311.6. Oncology following - plan is for PET scan and to discuss further treatment plan as outpatient after PET. If bleeding, consider embolization by IR. No active bleeding at this time. HH Not tolerating diet. - Metastatic liver and lung disease on CT. Gastric mass as above, pathology pending. AFP 777.5, CEA 1044.3, Ca19-9 9311.6. Oncology following. - Severe anemia with Hemoccult positive stool,acute on chronic. Pt has hx of CLEMENCIA and B12 Deficiency. S/P 5 units PRBC, - N/V. CT as above with gastric mass. She does have hx of esophageal strictures, but states that this was more difficulty with pills getting caught and that this is different. States she has not had any issues with dysphagia since dilatation in 2011. PPI. Zofran. Phenergan. - Constipation. Gastrografin enema (01/10/17)----> Residual barium from mbs, there was filling of the descending, transverse, and portions of the ascending colon eventually there is filling of the cecum. No long segment stricture or mass is identified. There is extensive sigmoid diverticulosis. (+) BM. - Coagulopathy on admission with INR of 8.0. (On Coumadin for DVT, now on hold. INR 1.0). INR 1.1. - Acute on chronic kidney disease with electrolyte abnormalities. Creat 1.50 - Abdominal aortic aneurysm, Anxiety, Hx DVT, HTN, Hyperlipidemia, PAD, per attending. 01-15-17- Patient just got back from IR for what suppose to be G/J tube, however , only G tube was placed, per daughter, it was felt like she wasn't stable for J tube placement. No bleeding reported H&H stable PLAN: - TF tomorrow - Can change to G/J tube for N/V - Palliative care - Cont. PPI - Cont. Zofran - Cont. Phenergan - Monitor labs - Lactulose prn - Supportive care - If bleeding, consider IR for embolization - PET scan as outpatient - Further recommendations to follow based on results of above Patient seen and examined by Dr. Dent and myself (Lizbet Jesus) Physician Comments Patient seen and examined Agree with above Continue with current supportive care Monitor labs (Jonas Dent MD) Lizbet Jesus Jan 15, 2017 14:21 Jonas Dent MD Jan 15, 2017 23:04
[2017-01-15] MEDS: SODIUM CHLOR 0.45% 1000 ML INJ 1,000 ML IV SCH ×2 (14:29→22:52)
[2017-01-16] VITALS: BP 134/63; PULSE 75; RESP 18; TEMP 96.1; O2SAT 95
[2017-01-16] MEDS: LACTULOSE SYRUP 20 GM/30 ML CUP PO SCH ×5 (03:55→18:00)
[2017-01-16] MEDS: CHLORHEXIDINE GLUCONATE 2 % 1 PACK (2 CLOTHS) TOP SCH (03:56)
[2017-01-16] MEDS: SCOPOLAMINE 1.5 MG PATCH T-DERMAL SCH (03:56)
[2017-01-16] MEDS: MORPHINE SULFATE 8 MG/ML INJ IV PUSH PRN ×3 (03:58→22:40)
[2017-01-16 04:00] VITALS: BP 132/63; PULSE 74; RESP 17; TEMP 96.5; O2SAT 93
[2017-01-16] MEDS: METOCLOPRAMIDE HCL 10 MG/2 ML VIAL IV SCH ×3 (05:00→22:08)
[2017-01-16] MEDS: INSULIN NovoLIN REGULAR SUPPLEMENTAL SCALE SQ SCH ×4 (05:50→22:05)
[2017-01-16 08:37] VITALS: BP 149/77; PULSE 77; RESP 20; TEMP 97.8; O2SAT 90
[2017-01-16] MEDS: NYSTAT/DIPHENHY/LIDO MOUTHWASH (Adult) 120ML SWISH-SWAL SCH ×4 (09:00→22:22)
[2017-01-16] MEDS: POLYETHYLENE GLYCOL 17 GM PKG PO SCH ×2 (09:00→22:22)
[2017-01-16] MEDS: DOCUSATE SODIUM 50 MG/SENNA 8.6 MG TAB PO SCH ×2 (09:00→22:09)
[2017-01-16] MEDS: PANTOPRAZOLE SODIUM 40 MG VIAL IV SCH ×2 (09:22→22:08)
[2017-01-16] MEDS: NYSTATIN SUSP 500,000 U/5 ML CUP SWISH-SWAL SCH ×4 (09:23→22:08)
[2017-01-16] MEDS: CARVEDILOL 6.25 MG TAB PO SCH ×2 (09:23→22:08)
[2017-01-16] MEDS: DEXAMETHASONE 4 MG TAB PO SCH ×2 (09:23→22:09)
[2017-01-16] MEDS: SODIUM CHLORIDE 0.9% FLUSH 10 ML FLUSH SCH ×2 (09:23→22:20)
--- NOTE | 2017-01-16 09:29 | HHI.PR ---
Subjective Remarks thrush better. had g tube placed Objective Vitals thrush improved heart reg lung cta abd s/nt ext no edema Vital Signs Date Time Temp Pulse Resp B/P Pulse Ox O2 Delivery O2 Flow Rate FiO2 01/16/17 08:37 97.8 77 20 149/77 90 01/16/17 04:48 16 01/16/17 04:00 96.5 74 17 132/63 93 01/16/17 00:00 96.1 75 18 134/63 95 01/15/17 20:00 97.0 73 18 128/71 95 01/15/17 17:30 96.7 75 18 115/65 96 01/15/17 14:30 98.0 73 16 146/78 94 01/15/17 13:15 65 18 138/72 96 01/15/17 13:00 69 20 133/69 93 01/15/17 12:45 97.7 72 20 139/78 97 01/15/17 01/15/17 01/16/17 15:00 23:00 07:00 # Voids 1 # Bowel Movements 1 Result Diagram: 01/15/17 0743 01/15/17 0743 Imaging Last Impressions Lower Extremity Ultrasound 01/11/17 0000 Signed Impressions: Service Date/Time: December 19:16 - CONCLUSION: Normal examination. Orestes Mccord MD Modified Barium Swallow 01/10/17 0000 Signed Impressions: Service Date/Time: Tuesday, January 10, 2017 00:00 - CONCLUSION: Normal examination. Lex Harmon MD Brain MRI 01/10/17 0000 Signed Impressions: Service Date/Time: Tuesday, January 10, 2017 21:31 - CONCLUSION: 1. Atrophy and white matter disease without definite evidence for mass. Orestes Mccord MD Chest X-Ray 01/08/17 0013 Signed Impressions: Service Date/Time: Sunday, January 08, 2017 00:23 - CONCLUSION: Diffuse bilateral pulmonary metastatic disease. Cuauhtemoc Mensah MD Abdomen/Pelvis CT 01/08/17 0013 Signed Impressions: Service Date/Time: Sunday, January 08, 2017 01:19 - CONCLUSION: 1. There is an abnormal soft tissue mass involving the upper portion of the stomach at or just below the GE junction suspicious for neoplastic disease. Recommend direct visualization by endoscopy. 2. Diffuse liver metastatic disease. 3. Diffuse lung metastatic disease. 4. Diffuse para-aortic and retroperitoneal adenopathy. 5. Aneurysmal dilatation of the infrarenal abdominal aorta at 3.7 cm. Cuauhtemoc Mensah MD Chest CT 01/08/17 0000 Signed Impressions: Service Date/Time: Sunday, January 08, 2017 01:19 - CONCLUSION: 1. Diffuse lung metastatic disease. 2. Diffuse liver metastatic disease. Cuauhtemoc Mensah MD A/P Problem List: (1) Gastric carcinoma Status: Acute Plan: - comgmt with GI & Oncology - GE junction/gastric mass with metastatis to the liver, lung, and abdomen - EGD with biopsy performed by Dr. 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 Nichols. He recommends against IVC filter at this time - Defer possible anticoagulation to Oncology - will need PET/CT scan outpt - pt will f/u with Dr. Nichols outpt for treatment plan, likely palliative chemotherapy. - Pt/son request DNR status. - trial of scheduled IV reglan for nausea - Pt/family do NOT want SNF - Pt will d/c to her son's house and feels their will be sufficient help there. - Request C and home Pt upon discharge. - long conversation with pt and son at the bedside today (01/14/17) - Case d/w Dr. Okeefe (01/14/17) - consult IR for placement of G/J tube . g tube was placed on 01/15 ...will initiate tube feeding today and titrate up. If tolerating the tube feed could try to d/c tomorrow - trial of duragesic 25 mcg -nystatin and MMW for thrush. (2) Metastatic disease Status: Acute Plan: - see above (3) Esophageal mass Status: Acute Plan: - see above - Pt with dysphagia and poor oral intake. - MBS showed NO swallowing issue - supportive care (4) Anemia, blood loss Status: Acute Plan: - d/t bleeding from gastric mass - Hg 6/5 (01/02/17), 11.0 (01/12/17) - Pt has received 5 units PRBCs during this hospitalization - observe (5) CKD (chronic kidney disease) stage 3, GFR 30-59 ml/min Status: Acute Plan: - observe (6) Intractable nausea and vomiting Status: Acute Plan: -see above (7) Pulmonary nodules/lesions, multiple Status: Acute Plan: - CT (01/08/17) --> multiple pulm nodues, largest 2.3 cm RLL (8) Anxiety Status: Acute (9) Constipation Status: Acute Plan: - continue current bowel regimen - s/p Gastrografin enema (01/10/17) - Problem Qualifiers (1) Intractable nausea and vomiting: Qualified Code: R11.2 - Intractable vomiting with nausea, unspecified vomiting type (2) Constipation: Qualified Code: K59.00 - Constipation, unspecified constipation type Akbar Wilson MD Jan 16, 2017 09:29
[2017-01-16 11:28] LABS: TRANSFERRIN IRON PROFILE 161 MG/DL (200-360)
--- NOTE | 2017-01-16 11:56 | PD.ONC.PN ---
Subjective Subjective Remarks Afebrile overnight. Underwent simulation this morning. Having some abdominal pain at site of PEG tube insertion, but otherwise no complaints. Objective Data Date Time Temp Pulse Resp B/P Pulse Ox O2 Delivery O2 Flow Rate FiO2 01/16/17 08:37 97.8 77 20 149/77 90 01/16/17 04:48 16 01/16/17 04:00 96.5 74 17 132/63 93 01/16/17 00:00 96.1 75 18 134/63 95 01/15/17 20:00 97.0 73 18 128/71 95 01/15/17 17:30 96.7 75 18 115/65 96 01/15/17 14:30 98.0 73 16 146/78 94 01/15/17 13:15 65 18 138/72 96 01/15/17 13:00 69 20 133/69 93 01/15/17 12:45 97.7 72 20 139/78 97 Result Diagram: 01/15/17 0743 01/15/17 0743 Laboratory Results Laboratory Tests Test 01/16/17 09:00 Iron Level 28 MCG/DL Total Iron Binding Capacity 225 MCG/DL Percent Iron Saturation 12.4 % Transferrin 161 MG/DL Vitamin B12 Level 1760 PG/ML Administered Medications Medications (Trade) Dose Ordered Sig/[place] Route PRN Reason Start Time Stop Time Status Last Admin Dose Admin Sodium Chloride (NS Flush) 2 ml BID .XX 01/08/17 09:00 01/16/17 09:23 Morphine Sulfate (Morphine Inj) 2 mg Q2H PRN IV PUSH PAIN SCALE 6 TO 10 01/08/17 03:45 01/16/17 03:58 Pantoprazole Sodium (Protonix Inj) 40 mg Q12H IV 01/08/17 09:00 01/16/17 09:22 Ondansetron HCl (Zofran Inj) 4 mg Q6H PRN IV NAUSEA OR VOMITING 01/08/17 03:30 01/10/17 21:18 Miscellaneous Information 1 Q361D XX 01/08/17 03:30 01/08/17 03:30 Chlorhexidine Gluconate (Chlorhexidine 2% Cloth) Taper DAILY@04 TOP 01/08/17 04:00 01/04/18 03:59 01/13/17 04:00 Senna/Docusate Sodium (Stephanie-Colace) 1 tab BID PO 01/08/17 09:00 01/15/17 22:22 Glucagon (Glucagon Inj) 1 mg UNSCH PRN OTHER HYPOGLYCEMIA-SEE COMMENTS 01/09/17 10:15 01/15/17 12:26 Scopolamine (Transderm-Scop 1.5 Mg Patch.72 Hr) 1 patch Q3D T-DERMAL 01/10/17 01:00 01/16/17 03:56 Promethazine HCl (Phenergan Inj) 12.5 mg Q6H PRN IM NAUSEA 01/10/17 09:30 01/15/17 08:49 Lactulose (Lactulose Liq) 30 ml Q6HR PO 01/10/17 18:00 01/12/17 12:32 Polyethylene Glycol (Miralax) 17 gm BID PO 01/10/17 21:00 01/15/17 22:23 Dexamethasone (Decadron) 4 mg Q12HR PO 01/10/17 23:00 01/16/17 09:23 Carvedilol (Coreg) 6.25 mg Q12HR PO 01/12/17 00:45 01/16/17 09:23 Amlodipine Besylate (Norvasc) 10 mg DAILY PO 01/12/17 09:00 01/16/17 09:23 Clonidine (Catapres) 0.1 mg Q6H PRN PO SBP >165 01/12/17 00:45 01/12/17 03:58 Metoclopramide HCl (Reglan Inj) 5 mg Q8H IV 01/13/17 13:00 01/15/17 22:44 Non-Formulary Medication 45 ML GI COCKTAIL OF MAAL... Q6H PRN PO DYSPEPSIA 01/13/17 11:15 01/15/17 22:23 Multi-Ingredient Mouthwash/Gargle (Magic Mouthwash Adult Liq) 10 ml QID SWISH-SWAL 01/14/17 13:00 01/16/17 09:00 Fentanyl (Duragesic 25 Mcg Patch.72 Hr) 1 patch Q3D T-DERMAL 01/14/17 13:45 01/14/17 14:01 Nystatin (Mycostatin Liq) 5 ml QID SWISH-SWAL 01/15/17 13:00 01/16/17 09:23 Benzocaine/Menthol (Cepacol Extra Freddy (Sugar Free)) 1 lozenge Q2HR PRN BUCCAL sore throat 01/15/17 12:00 01/15/17 18:13 Objective Remarks GENERAL: Elderly female sitting up in bed in nad. SKIN: Warm and dry. HEAD: Normocephalic. EYES: No injection or drainage. NECK: Supple, trachea midline. CARDIOVASCULAR: Regular rate and rhythm RESPIRATORY: anterior mckay clear. GASTROINTESTINAL: Abdomen soft, non-tender, nondistended. G-tube in place, receiving TF with Glucerna EXTREMITIES: No cyanosis NEUROLOGICAL: awake and alert, normal speech. moving all extremities. Assessment/Plan Problem List: (1) Malnutrition Status: Acute Plan: --s/p G-tube placement in IR. started on TF with Glucerna, 7.25 --Dysphagia, poor oral intake, hypoalbuminemia. - MBS show no swallowing issue - Supportive care (2) Gastric adenocarcinoma Status: Acute Plan: -- GE junction/gastric mass with metastatic disease to the liver, lung and abdomen--highly suspicious for a primary gastric cancer. 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 Will need PET/CT scan outpatient -fs faxed to new patient referrals for follow up in 1-2 weeks. --plan for radiation with Dr. Marques. patient's performance status will need to improve bf she can receive chemotherapy (3) Anemia, blood loss Status: Acute Plan: --Severe anemia, likely bleeding from the gastric mass. - Monitor Hb - transfuse for Hb less than 7.5 --B12 WNL --iron studies show low TIBC, % saturation and serum iron. (4) CKD (chronic kidney disease) stage 3, GFR 30-59 ml/min Status: Acute Plan: --monitor (5) History of DVT (deep vein thrombosis) Status: Acute Plan: --anticoagulation is on hold due to bleeding risk - repeat doppler u/s shows no DVT --had DVT in leg ~ 4 years ago (6) Intractable nausea and vomiting Status: Acute Plan: --decadron - Zofran/phenergan - scopalamine patch (7) Thrush Status: Acute Plan: --magic mouthwash. Assessment 71-year-old female who presents with weakness, abdominal pain, constipation and difficulty swallowing. On admission she underwent imaging including a CT of the chest, abdomen and pelvis which revealed a gastric mass at or below the level of the GE junction, metastatic lesions to the liver, abdomen as well as bilateral lung mckay. Pathology showed a gastric adenocarcinoma. Plan 1. start TF with Glucerna, monitor response 2. monitor CBC 3. continue supportive care Attending Statement The exam, history, and the medical decision-making described in the above note were completed with the assistance of the mid-level provider. I reviewed and agree with the findings presented. I attest that I had a [id number] encounter with the patient on the same day, and personally performed and documented my assessment and findings in the medical record. discussed case with Dr. jaqui THOMPSONT simulation today Iron studies reviewed--iron deficient due to GI bleeding from gastric mass will benefit from iron infusions--Iron sucrose 200mg X3 B12 normal///folate pending focus on nutrition/supportive care answered patient's questions d/w rn Problem Qualifiers (1) Intractable nausea and vomiting: Qualified Code: R11.2 - Intractable vomiting with nausea, unspecified vomiting type Ana Paul Jan 16, 2017 11:56 Marko Nichols MD Jan 16, 2017 23:13
--- NOTE | 2017-01-16 12:24 | HHI.HCPN ---
Met with Ms. Vasquez upon arrival back onto the floor. Daughter at bedside. Ms. Vasquez denies any questions or concerns. She denies any pain or shortness of breath "unless she exerts" herself. She is looking forward to trying to eat some food. Continues with goals expressed yesterday with Dr. Bishop. She is looking forward to starting radiation and possibly chemo if she is able to get stronger. Per review of notes she understands treatment offered is palliative not curative. Family remains in support of her decision. Daughter reports her brother will be bringing in patient's living will and POA paperwork later today. Requested they provide a copy to the heating unit mechanic to place in patient's chart. REPLENISHER in to obtain vitals. No questions or concerns from family. Palliative care will continue to follow throughout hospitalization. Griselda Smart, BLEACH MAKER Jan 16, 2017 12:24
[2017-01-16 12:30] VITALS: BP_SYST 124; BP_SYST 126; BP_DIAS 63; BP_DIAS 65; PULSE 71; RESP 20; TEMP 97.7; O2SAT 95; O2SAT 99
--- NOTE | 2017-01-16 12:55 | HHI.GIFU ---
Subjective Remarks Patient is resting in bed accompanied by daughter, hasn't used G tube yet, she will soon. (Lizbet Jesus) Objective Vitals I&O Vital Signs Date Time Temp Pulse Resp B/P Pulse Ox O2 Delivery O2 Flow Rate FiO2 01/16/17 12:30 97.7 71 20 126/65 95 01/16/17 08:37 97.8 77 20 149/77 90 01/16/17 04:48 16 01/16/17 04:00 96.5 74 17 132/63 93 01/16/17 00:00 96.1 75 18 134/63 95 01/15/17 20:00 97.0 73 18 128/71 95 01/15/17 17:30 96.7 75 18 115/65 96 01/15/17 14:30 98.0 73 16 146/78 94 01/15/17 13:15 65 18 138/72 96 01/15/17 13:00 69 20 133/69 93 I/O 01/15/17 01/15/17 01/15/17 01/16/17 01/16/17 01/16/17 06:59 14:59 22:59 06:59 14:59 22:59 Intake Total 0 ml Balance 0 ml Intake Oral 0 ml # Voids 3 1 # Bowel Movements 0 1 Laboratory Laboratory Tests Test 01/16/17 09:00 Iron Level 28 Total Iron Binding Capacity 225 Percent Iron Saturation 12.4 Transferrin 161 Vitamin B12 Level 1760 Imaging Last Impressions Gastrostomy Tube Placement 01/15/17 0000 Signed Impressions: Service Date/Time: Sunday, January 15, 2017 11:51 - CONCLUSION: Uncomplicated gastrostomy tube placement as above. Smith Antony MD Lower Extremity Ultrasound 01/11/17 0000 Signed Impressions: Service Date/Time: December 19:16 - CONCLUSION: Normal examination. Orestes Mccord MD Modified Barium Swallow 01/10/17 0000 Signed Impressions: Service Date/Time: Tuesday, January 10, 2017 00:00 - CONCLUSION: Normal examination. Lex Harmon MD Brain MRI 01/10/17 0000 Signed Impressions: Service Date/Time: Tuesday, January 10, 2017 21:31 - CONCLUSION: 1. Atrophy and white matter disease without definite evidence for mass. Orestes Mccord MD Chest X-Ray 01/08/1712 Signed Impressions: Service Date/Time: Sunday, January 08, 2017 00:23 - CONCLUSION: Diffuse bilateral pulmonary metastatic disease. Cuauhtemoc Mensah MD Abdomen/Pelvis CT 01/08/173 Signed Impressions: Service Date/Time: Sunday, January 08, 2017 01:19 - CONCLUSION: 1. There is an abnormal soft tissue mass involving the upper portion of the stomach at or just below the GE junction suspicious for neoplastic disease. Recommend direct visualization by endoscopy. 2. Diffuse liver metastatic disease. 3. Diffuse lung metastatic disease. 4. Diffuse para-aortic and retroperitoneal adenopathy. 5. Aneurysmal dilatation of the infrarenal abdominal aorta at 3.7 cm. Cuauhtemoc Mensah MD Chest CT 01/08/17 0000 Signed Impressions: Service Date/Time: Sunday, January 08, 2017 01:19 - CONCLUSION: 1. Diffuse lung metastatic disease. 2. Diffuse liver metastatic disease. Cuauhtemoc Mensah MD Physical Exam HEENT: Normocephalic; atraumatic; no jaundice. CHEST: CTA CARDIAC: RRR ABDOMEN: Soft, nondistended, nontender; no hepatosplenomegaly; bowel sounds are present in all four quadrants. PEG tube EXTREMITIES: No clubbing, cyanosis, or edema. SKIN: Normal; no rash; no jaundice. SUPERVISOR EVAPORATOR: No focal deficits; alert and oriented times three. (Lizbet Jesus) Assessment and Plan Plan ASSESSMENT: - Ulcerated Gastric mass with evidence of metastatic dz to liver and lung. Abdomen/Pelvis CT (01/08/17)-----> 1. There is an abnormal soft tissue mass involving the upper portion of the stomach at or just below the GE junction suspicious for neoplastic disease. Recommend direct visualization by endoscopy. 2. Diffuse liver metastatic disease. 3. Diffuse lung metastatic disease. 4. Diffuse para-aortic and retroperitoneal adenopathy. 5. Aneurysmal dilatation of the infrarenal abdominal aorta at 3.7 cm. Colonoscopy (06/29/15)----> two sessile polyps ranging between 3-5 mm in size were found in the rectum, multiple biopsies performed using cold forceps, sessile polyp ranging between 3-5 mm in size was found in the ascending colon, polypectomy was performed with cold forceps, sessile polyp ranging between 3-5 mm in size was found in the sigmoid colon, biopsy using cord forceps , melanosis, there was severe diverticulosis noted in the sigmoid colon, retroflexed views revealed small internal hemorrhoids, rectal exam revealed external hemorrhoids. Pathology sigmoid polyp-hyperplastic, cecum bx- colonic mucosa with pigmented macrophages in lamina propria, consistent with melanosis coli, negative for dysplasia, colon, ascending biopsy with fragments of tubular adenoma, negative for high grade dysplasia or malignancy, rectal polyp with fragments of hyperplastic polyp. She was adopted and does not know family history. 3-4 day hx of n/v, decreased appetite, constipation. No abn. weight loss. EGD (01/09/17)-----> 1. Esophagitis distal esophagus-biopsy, ulcerated mass fundus , old clot, friable-multiple biopsies , epinephrine 1:10,000 - 7 cc injected 2. Retroflexed views revealed ulcerated mass fundus. 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 AFP 777.5, CEA 1044.3, Ca19-9 9311.6. Oncology following - plan is for PET scan and to discuss further treatment plan as outpatient after PET. If bleeding, consider embolization by IR. No active bleeding at this time. . Not tolerating diet. - Metastatic liver and lung disease on CT. Gastric mass as above, pathology pending. AFP 777.5, CEA 1044.3, Ca19-9 9311.6. Oncology following. - Severe anemia with Hemoccult positive stool,acute on chronic. Pt has hx of CLEMENCIA and B12 Deficiency. S/P 5 units PRBC, - N/V. CT as above with gastric mass. She does have hx of esophageal strictures, but states that this was more difficulty with pills getting caught and that this is different. States she has not had any issues with dysphagia since dilatation in 2011. PPI. Zofran. Phenergan. - Constipation. Gastrografin enema (01/10/17)----> Residual barium from mbs, there was filling of the descending, transverse, and portions of the ascending colon eventually there is filling of the cecum. No long segment stricture or mass is identified. There is extensive sigmoid diverticulosis. (+) BM. - Coagulopathy on admission with INR of 8.0. (On Coumadin for DVT, now on hold. INR 1.0). INR 1.1. - Acute on chronic kidney disease with electrolyte abnormalities. Creat 1.50 - Abdominal aortic aneurysm, Anxiety, Hx DVT, HTN, Hyperlipidemia, PAD, per attending. 01-15-17- Patient just got back from IR for what suppose to be G/J tube, however , only G tube was placed, per daughter, it was felt like she wasn't stable for J tube placement. No bleeding reported H&H stable 01-16-17- TF hasn't started yet, the plan is to start today PLAN: - TF per dietary recommendations - Can change to G/J tube for N/V - Palliative care - Cont. PPI - Cont. Zofran - Cont. Phenergan - Monitor labs - Lactulose prn - Supportive care - If bleeding, consider IR for embolization - PET scan as outpatient - Further recommendations to follow based on results of above Patient seen and examined by Dr. Dent and myself (Lizbet Jesus) Physician Comments Patient seen and examined Agree with above Continue with current supportive care Monitor labs (Jonas Dent MD) Lizbet Jesus Jan 16, 2017 12:55 Jonas Dent MD Jan 16, 2017 23:06
[2017-01-16] MEDS ORDERED: HOSP BED2 (12:56)
[2017-01-16] MEDS ORDERED: BEDSIDE COMMODE1 MI1 (12:56)
--- NOTE | 2017-01-16 14:24 | HHI.HCPN ---
Reason for visit a. To assist with evaluation and management of symptoms including:pain and nausea b. To assist medical decision maker(s) with: better understanding of current medical conditions; weighing benefits/burdens of medical treatment options; making medical treatment decisions. Subjective/Interval History Patient had tube feeding intiated. Only requested morphine once today. no nausea Family/friend interactions family at bedside. Advance Directives Living Will: Completed, but not made available Health Care Surrogate: Completed, but not made available Durable Power of Electrical Worker: Completed, but not made available Objective Vital Signs Date Time Temp Pulse Resp B/P Pulse Ox O2 Delivery O2 Flow Rate FiO2 01/16/17 12:30 97.7 71 20 126/65 95 01/16/17 08:37 97.8 77 20 149/77 90 01/16/17 04:48 16 01/16/17 04:00 96.5 74 17 132/63 93 01/16/17 00:00 96.1 75 18 134/63 95 01/15/17 20:00 97.0 73 18 128/71 95 01/15/17 17:30 96.7 75 18 115/65 96 01/15/17 14:30 98.0 73 16 146/78 94 Intake & Output 01/16/17 01/16/17 07:00 19:00 # Voids 1 # Bowel Movements 1 Physical Exam CONSTITUTIONAL/GENERAL: This is an adequately nourished patient, fatigued TUBES/LINES/DRAINS:g tube PIV, sierra. SKIN: No jaundice, rashes, or lesions. . No wounds seen anteriorly. Skin temperature appropriate. Not diaphoretic. HEAD: Atraumatic. Normocephalic. EYES: Pupils equal and round and reactive. Extraocular motions intact. No scleral icterus. ENT: Hearing grossly normal. Nose without bleeding or purulent drainage. NECK: Trachea midline. Supple, nontender. No palpable thyroid enlargement or nodularity. CARDIOVASCULAR: Regular rate and rhythm without murmurs, gallops, or rubs. RESPIRATORY/CHEST: Symmetric, unlabored respirations. Clear to auscultation. Breath sounds equal bilaterally. No wheezes, rales, or rhonchi. GASTROINTESTINAL: Abdomen soft, tender at mid epigastirc, G tube GENITOURINARY: Without palpable bladder distension. Sierra catheter in place. MUSCULOSKELETAL: Extremities without clubbing, cyanosis, or edema. LYMPHATICS: No palpable cervical or supraclavicular adenopathy. NEUROLOGICAL: Awake and alert. Motor and sensory grossly within normal limits. Follows commands. Cognitively sharp. Moves all extremities. PSYCHIATRIC: No obvious anxiety/depression. no apparent hallucinations or other psychotic thought process. Diagnostic Tests Laboratory Laboratory Tests Test 01/14/17 01/15/17 01/16/17 05:28 07:43 09:00 White Blood Count 10.6 TH/MM3 11.1 TH/MM3 (4.0-11.0) (4.0-11.0) Red Blood Count 3.78 MIL/MM3 3.68 MIL/MM3 (4.00-5.30) (4.00-5.30) Hemoglobin 10.8 GM/DL 10.4 GM/DL (11.6-15.3) (11.6-15.3) Hematocrit 32.0 % 31.4 % (35.0-46.0) (35.0-46.0) Mean Corpuscular Volume 84.7 FL 85.2 FL (80.0-100.0) (80.0-100.0) Mean Corpuscular Hemoglobin 28.5 PG 28.2 PG (27.0-34.0) (27.0-34.0) Mean Corpuscular Hemoglobin 33.7 % 33.1 % Concent (32.0-36.0) (32.0-36.0) Red Cell Distribution Width 16.3 % 16.7 % (11.6-17.2) (11.6-17.2) Platelet Count 159 TH/MM3 182 TH/MM3 (150-450) (150-450) Mean Platelet Volume 9.5 FL 8.6 FL (7.0-11.0) (7.0-11.0) Neutrophils (%) (Auto) 91.1 % 90.2 % (16.0-70.0) (16.0-70.0) Lymphocytes (%) (Auto) 1.1 % 0.8 % (9.0-44.0) (9.0-44.0) Monocytes (%) (Auto) 7.7 % (0.0-8.0) 8.8 % (0.0-8.0) Eosinophils (%) (Auto) 0.0 % (0.0-4.0) 0.0 % (0.0-4.0) Basophils (%) (Auto) 0.1 % (0.0-2.0) 0.2 % (0.0-2.0) Neutrophils # (Auto) 9.7 TH/MM3 10.0 TH/MM3 (1.8-7.7) (1.8-7.7) Lymphocytes # (Auto) 0.1 TH/MM3 0.1 TH/MM3 (1.0-4.8) (1.0-4.8) Monocytes # (Auto) 0.8 TH/MM3 1.0 TH/MM3 (0-0.9) (0-0.9) Eosinophils # (Auto) 0.0 TH/MM3 0.0 TH/MM3 (0-0.4) (0-0.4) Basophils # (Auto) 0.0 TH/MM3 0.0 TH/MM3 (0-0.2) (0-0.2) CBC Comment DIFF FINAL DIFF FINAL Differential Comment Sodium Level 136 MEQ/L 137 MEQ/L (136-145) (136-145) Potassium Level 4.2 MEQ/L 4.1 MEQ/L (3.5-5.1) (3.5-5.1) Chloride Level 103 MEQ/L 104 MEQ/L (98-107) (98-107) Carbon Dioxide Level 22.4 MEQ/L 21.8 MEQ/L (21.0-32.0) (21.0-32.0) Anion Gap 11 MEQ/L (5-15) 11 MEQ/L (5-15) Blood Urea Nitrogen 33 MG/DL (7-18) 33 MG/DL (7-18) Creatinine 1.50 MG/DL 1.41 MG/DL (0.50-1.00) (0.50-1.00) Estimat Glomerular Filtration 34 ML/MIN (>89) 37 ML/MIN (>89) Rate Random Glucose 158 MG/DL 155 MG/DL (74-106) (74-106) Calcium Level 8.4 MG/DL 8.2 MG/DL (8.5-10.1) (8.5-10.1) Magnesium Level 2.1 MG/DL (1.5-2.5) Iron Level 28 MCG/DL (50-170) Total Iron Binding Capacity 225 MCG/DL (250-450) Percent Iron Saturation 12.4 % (20-50) Transferrin 161 MG/DL (213-418) Vitamin B12 Level 1760 PG/ML (193-986) Result Diagram: 01/15/17 0743 01/15/17 0743 Imaging Last Impressions Gastrostomy Tube Placement 01/15/17 0000 Signed Impressions: Service Date/Time: Sunday, January 15, 2017 11:51 - CONCLUSION: Uncomplicated gastrostomy tube placement as above. Smith Antony MD Lower Extremity Ultrasound 01/11/17 Signed Impressions: Service Date/Time: December 19:16 - CONCLUSION: Normal examination. Orestes Mccord MD Modified Barium Swallow 01/10/17 0000 Signed Impressions: Service Date/Time: Tuesday, January 10, 2017 00:00 - CONCLUSION: Normal examination. Lex Harmon MD Brain MRI 01/10/17 0000 Signed Impressions: Service Date/Time: Tuesday, January 10, 2017 21:31 - CONCLUSION: 1. Atrophy and white matter disease without definite evidence for mass. Orestes Mccord MD Chest X-Ray 01/08/1712 Signed Impressions: Service Date/Time: Sunday, January 08, 2017 00:23 - CONCLUSION: Diffuse bilateral pulmonary metastatic disease. Cuauhtemoc Mensah MD Abdomen/Pelvis CT 01/08/1712 Signed Impressions: Service Date/Time: Sunday, January 08, 2017 01:19 - CONCLUSION: 1. There is an abnormal soft tissue mass involving the upper portion of the stomach at or just below the GE junction suspicious for neoplastic disease. Recommend direct visualization by endoscopy. 2. Diffuse liver metastatic disease. 3. Diffuse lung metastatic disease. 4. Diffuse para-aortic and retroperitoneal adenopathy. 5. Aneurysmal dilatation of the infrarenal abdominal aorta at 3.7 cm. Cuauhtemoc Mensah MD Chest CT 01/08/17 0000 Signed Impressions: Service Date/Time: Sunday, January 08, 2017 01:19 - CONCLUSION: 1. Diffuse lung metastatic disease. 2. Diffuse liver metastatic disease. Cuauhtemoc Mensah MD Procedures g tube placement Assessment and Plan Disease Oriented Problem List: (1) Gastric carcinoma (2) Metastatic disease (3) GI bleed (4) History of DVT (deep vein thrombosis) Symptom Scale: (1) Pain 0-10 Scale: 6 Comment: mid gastric (2) Fatigue 0-10 Scale: 8 (3) Nausea 0-10 Scale: 3 Comment: comes in waves Pertinent Non-Medical Issues Psychosocial: Spiritual: Legal: Ethical issues impacting care: Important Contacts [phone] Wayne Vasquez (son) Prognosis 71-year-old with metastatic gastric cancer. Will be appropriate for hospice of goals of care are comfort measures only. Code Status: No Code Plan == POA- son Alexandr, await documentation. will follow up documentation. Informed family /pt if pt does not have community DNR signed, she is willing to sign one. == code: DNR/DNI == goals of care: Pt desires to go through with radiation and if functionally tolerable, chemotherapy. She understands therapy offer is palliative and not curative. Family supportive of pt decision. == nausea/ pain cancer burden- no new med rec. appears well controlled, and will monitor. == palliative care will continue to follow. Time Spent Total Floor Time (mins): 35 Face to Face Time (mins): 25 Attestation To help prompt me to consider important information that might be impacting today's encounter and assessment, information from prior notes written by myself or my colleagues may have been "brought forward" into today's note. My signature on this note, however, is an attestation that I personally performed the exam, history, and/or decision-making noted today, and, unless otherwise indicated, the interactions with patient, family, and staff as well as the review of records all occurred today. I also attest that the listed assessment and stated plan reflect my best clinical judgment today based on the combination of historical information, prior notes, and today's exam/ interactions. When time spent is documented, it refers only to time spent today by the signer, or if indicated, combined time spent today by collaborating physician/nurse practitioner. Rodney Bishop MD Jan 16, 2017 14:24
[2017-01-16 16:19] VITALS: BP 165/77; PULSE 80; RESP 20; TEMP 97.8; O2SAT 95
[2017-01-16 20:00] VITALS: BP 119/64; PULSE 78; RESP 17; TEMP 97.4; O2SAT 97
[2017-01-17] VITALS: BP 100/61; PULSE 78; RESP 17; TEMP 96.3; O2SAT 95
[2017-01-17] MEDS: LACTULOSE SYRUP 20 GM/30 ML CUP PO SCH ×2 (00:28→06:27)
[2017-01-17] MEDS: CHLORHEXIDINE GLUCONATE 2 % 1 PACK (2 CLOTHS) TOP SCH (03:49)
[2017-01-17 04:00] VITALS: BP 147/67; PULSE 63; RESP 17; TEMP 96.9; O2SAT 94
[2017-01-17] MEDS: METOCLOPRAMIDE HCL 10 MG/2 ML VIAL IV SCH ×3 (06:34→21:39)
[2017-01-17] MEDS: MORPHINE SULFATE 8 MG/ML INJ IV PUSH PRN ×2 (06:38→10:26)
[2017-01-17] MEDS: INSULIN NovoLIN REGULAR SUPPLEMENTAL SCALE SQ SCH ×4 (06:45→22:00)
[2017-01-17 07:56] LABS: AUTOMATED NEUTROPHIL # 11.6 TH/MM3 (1.8-7.7); BASOPHIL % 0.2 % (0.0-2.0); EOSINOPHIL # 0.1 TH/MM3 (0-0.4); EOSINOPHIL % 0.6 % (0.0-4.0); HEMATOCRIT 34.5 % (35.0-46.0); HEMO FLAGS DIFF FINAL; LYMPH % 0.8 % (9.0-44.0); LYMPHOCYTE # 0.1 TH/MM3 (1.0-4.8); MEAN CELL VOLUME 85.3 FL (80.0-100.0); MEAN CORPUSCULAR HEMOGLOBIN 28.3 PG (27.0-34.0); MEAN CORPUSCULAR HGB CONC 33.2 % (32.0-36.0); MONO % 6.8 % (0.0-8.0); NEUT % 91.6 % (16.0-70.0); PLATELET COUNT 265 TH/MM3 (150-450); RED BLOOD COUNT 4.04 MIL/MM3 (4.00-5.30); RED CELL DISTRIBUTION WIDTH 16.9 % (11.6-17.2); WHITE BLOOD COUNT 12.7 TH/MM3 (4.0-11.0)
[2017-01-17 08:00] VITALS: BP 150/68; PULSE 83; RESP 12; TEMP 97.9; O2SAT 95
--- NOTE | 2017-01-17 08:26 | HHI.PR ---
Subjective Remarks mouth feels better. asking to stop laxatives..diarrhea now. Objective Vitals heart reg lung cta abd s/nt/g tube ext no edema Vital Signs Date Time Temp Pulse Resp B/P Pulse Ox O2 Delivery O2 Flow Rate FiO2 01/17/17 06:48 16 01/17/17 04:00 96.9 63 17 147/67 94 01/17/17 00:00 96.3 78 17 100/61 95 01/16/17 20:00 97.4 78 17 119/64 97 01/16/17 16:19 97.8 80 20 165/77 95 01/16/17 12:30 97.7 71 20 126/65 95 01/16/17 08:37 97.8 77 20 149/77 90 01/16/17 01/16/17 01/17/17 14:59 22:59 06:59 Intake Total 240 ml 856 ml Output Total 60.0 ml Balance 240 ml -60.0 ml 856 ml Intake Oral 240 ml 240 ml Tube Feeding 446 ml Tube Irrigant 170 ml Tube Feeding Residual Discard 60.0 ml # Voids 2 1 3 # Bowel Movements 2 2 Result Diagram: 01/17/17 0717 01/15/17 0743 Imaging Last Impressions Lower Extremity Ultrasound 01/11/17 0000 Signed Impressions: Service Date/Time: December 19:16 - CONCLUSION: Normal examination. Orestes Mccord MD Modified Barium Swallow 01/10/17 0000 Signed Impressions: Service Date/Time: Tuesday, January 10, 2017 00:00 - CONCLUSION: Normal examination. Lex Harmon MD Brain MRI 01/10/17 0000 Signed Impressions: Service Date/Time: Tuesday, January 10, 2017 21:31 - CONCLUSION: 1. Atrophy and white matter disease without definite evidence for mass. Orestes Mccord MD Chest X-Ray 01/08/17 0013 Signed Impressions: Service Date/Time: Sunday, January 08, 2017 00:23 - CONCLUSION: Diffuse bilateral pulmonary metastatic disease. Cuauhtemoc Mensah MD Abdomen/Pelvis CT 01/08/17 0013 Signed Impressions: Service Date/Time: Sunday, January 08, 2017 01:19 - CONCLUSION: 1. There is an abnormal soft tissue mass involving the upper portion of the stomach at or just below the GE junction suspicious for neoplastic disease. Recommend direct visualization by endoscopy. 2. Diffuse liver metastatic disease. 3. Diffuse lung metastatic disease. 4. Diffuse para-aortic and retroperitoneal adenopathy. 5. Aneurysmal dilatation of the infrarenal abdominal aorta at 3.7 cm. Cuauhtemoc Mensah MD Chest CT 01/08/17 0000 Signed Impressions: Service Date/Time: Sunday, January 08, 2017 01:19 - CONCLUSION: 1. Diffuse lung metastatic disease. 2. Diffuse liver metastatic disease. Cuauhtemoc Mensah MD A/P Problem List: (1) Gastric carcinoma Status: Acute Plan: - comgmt with GI & Oncology - GE junction/gastric mass with metastatis to the liver, lung, and abdomen - EGD with biopsy performed by Dr. 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 Nichols. He recommends against IVC filter at this time - Defer possible anticoagulation to Oncology - will need PET/CT scan outpt - pt will f/u with Dr. Nichols outpt for treatment plan, likely palliative chemotherapy. - Pt/son request DNR status. - trial of scheduled IV reglan for nausea - Pt/family do NOT want SNF - Pt will d/c to her son's house and feels their will be sufficient help there. - Request C and home Pt upon discharge. - Case d/w Dr. Okeefe (01/14/17) - consult IR for placement of G/J tube . g tube was placed on 01/15 - trial of duragesic 25 mcg -nystatin and MMW for thrush. --titrating glucerna tube feeding. --radiation to start. (2) Metastatic disease Status: Acute Plan: - see above (3) Esophageal mass Status: Acute Plan: - see above - Pt with dysphagia and poor oral intake. - MBS showed NO swallowing issue - supportive care (4) Anemia, blood loss Status: Acute Plan: - d/t bleeding from gastric mass - Hg 6/5 (01/02/17), 11.0 (01/12/17) - Pt has received 5 units PRBCs during this hospitalization - observe (5) CKD (chronic kidney disease) stage 3, GFR 30-59 ml/min Status: Acute Plan: - observe (6) Intractable nausea and vomiting Status: Acute Plan: -see above (7) Pulmonary nodules/lesions, multiple Status: Acute Plan: - CT (01/08/17) --> multiple pulm nodues, largest 2.3 cm RLL (8) Anxiety Status: Acute (9) Constipation Status: Acute Plan: - continue current bowel regimen - s/p Gastrografin enema (01/10/17) - Problem Qualifiers (1) Intractable nausea and vomiting: Qualified Code: R11.2 - Intractable vomiting with nausea, unspecified vomiting type (2) Constipation: Qualified Code: K59.00 - Constipation, unspecified constipation type Akbar Wilson MD Jan 17, 2017 08:26
[2017-01-17] MEDS: NYSTAT/DIPHENHY/LIDO MOUTHWASH (Adult) 120ML SWISH-SWAL SCH ×4 (10:25→21:39)
[2017-01-17] MEDS: CARVEDILOL 6.25 MG TAB PO SCH ×2 (10:26→21:39)
[2017-01-17] MEDS: DEXAMETHASONE 4 MG TAB PO SCH ×2 (10:26→21:39)
[2017-01-17] MEDS: NYSTATIN SUSP 500,000 U/5 ML CUP SWISH-SWAL SCH ×4 (10:26→21:39)
[2017-01-17] MEDS: IRON SUCROSE INJ 200 MG in SODIUM CHLORIDE 0.9% INJ 100 ML IV SCH (10:26)
[2017-01-17] MEDS: PANTOPRAZOLE SODIUM 40 MG VIAL IV SCH ×2 (10:27→21:39)
[2017-01-17] MEDS: SODIUM CHLORIDE 0.9% FLUSH 10 ML FLUSH SCH ×3 (10:27→22:35)
[2017-01-17 12:00] VITALS: BP 120/57; PULSE 76; RESP 14; TEMP 97.8; O2SAT 96
--- NOTE | 2017-01-17 12:29 | HHI.GIFU ---
Subjective Remarks Patient is resting in bed, accompanied by her son. She is receiving TF at 40 ml/ hr. She did fine all day yesterday, however, she had an episode of small amount of emesis after over drinking Silvina madina this morning. The plan is for radiation in efforts to shrink the mass, so she is able to tolerate soft diet ( Lizbet Jesus) Objective Vitals I&O Vital Signs Date Time Temp Pulse Resp B/P Pulse Ox O2 Delivery O2 Flow Rate FiO2 01/17/17 08:00 97.9 83 12 150/68 95 01/17/17 06:48 16 01/17/17 04:00 96.9 63 17 147/67 94 01/17/17 00:00 96.3 78 17 100/61 95 01/16/17 20:00 97.4 78 17 119/64 97 01/16/17 16:19 97.8 80 20 165/77 95 01/16/17 12:30 97.7 71 20 126/65 95 I/O 01/16/17 01/16/17 01/16/17 01/17/17 01/17/17 01/17/17 07:00 15:00 23:00 07:00 15:00 23:00 Intake Total 240 ml 856 ml Output Total 60.0 ml Balance 240 ml -60.0 ml 856 ml Intake Oral 240 ml 240 ml Tube Feeding 446 ml Tube Irrigant 170 ml Tube Feeding Residual Discard 60.0 ml # Voids 1 2 1 3 # Bowel Movements 1 2 2 Laboratory Laboratory Tests Test 01/17/17 07:17 White Blood Count 12.7 Red Blood Count 4.04 Hemoglobin 11.5 Hematocrit 34.5 Mean Corpuscular Volume 85.3 Mean Corpuscular Hemoglobin 28.3 Mean Corpuscular Hemoglobin 33.2 Concent Red Cell Distribution Width 16.9 Platelet Count 265 Mean Platelet Volume 10.7 Neutrophils (%) (Auto) 91.6 Lymphocytes (%) (Auto) 0.8 Monocytes (%) (Auto) 6.8 Eosinophils (%) (Auto) 0.6 Basophils (%) (Auto) 0.2 Neutrophils # (Auto) 11.6 Lymphocytes # (Auto) 0.1 Monocytes # (Auto) 0.9 Eosinophils # (Auto) 0.1 Basophils # (Auto) 0.0 CBC Comment DIFF FINAL Differential Comment Imaging Last Impressions Gastrostomy Tube Placement 01/15/17 Signed Impressions: Service Date/Time: Sunday, January 15, 2017 11:51 - CONCLUSION: Uncomplicated gastrostomy tube placement as above. Smith Antony MD Lower Extremity Ultrasound 01/11/17 Signed Impressions: Service Date/Time: December 19:16 - CONCLUSION: Normal examination. Orestes Mccord MD Modified Barium Swallow 01/10/17 Signed Impressions: Service Date/Time: Tuesday, January 10, 2017 00:00 - CONCLUSION: Normal examination. Lex Harmon MD Brain MRI 01/10/17 Signed Impressions: Service Date/Time: Tuesday, January 10, 2017 21:31 - CONCLUSION: 1. Atrophy and white matter disease without definite evidence for mass. Orestes Mccord MD Chest X-Ray 01/08/1712 Signed Impressions: Service Date/Time: Sunday, January 08, 2017 00:23 - CONCLUSION: Diffuse bilateral pulmonary metastatic disease. Cuauhtemoc Mensah MD Abdomen/Pelvis CT 01/08/1712 Signed Impressions: Service Date/Time: Sunday, January 08, 2017 01:19 - CONCLUSION: 1. There is an abnormal soft tissue mass involving the upper portion of the stomach at or just below the GE junction suspicious for neoplastic disease. Recommend direct visualization by endoscopy. 2. Diffuse liver metastatic disease. 3. Diffuse lung metastatic disease. 4. Diffuse para-aortic and retroperitoneal adenopathy. 5. Aneurysmal dilatation of the infrarenal abdominal aorta at 3.7 cm. Cuauhtemoc Mensah MD Chest CT 01/08/17 Signed Impressions: Service Date/Time: Sunday, January 08, 2017 01:19 - CONCLUSION: 1. Diffuse lung metastatic disease. 2. Diffuse liver metastatic disease. Cuauhtemoc Mensah MD Physical Exam HEENT: Normocephalic; atraumatic; no jaundice. CHEST: CTA CARDIAC: RRR ABDOMEN: Soft, nondistended, nontender; no hepatosplenomegaly; bowel sounds are present in all four quadrants. PEG tube EXTREMITIES: No clubbing, cyanosis, or edema. SKIN: Normal; no rash; no jaundice. RANGE EXAMINER: No focal deficits; alert and oriented times three. (Amawi,[employer]hawla INTERNATIONAL EDITORIAL PRODUCER) Assessment and Plan Plan ASSESSMENT: - Ulcerated Gastric mass with evidence of metastatic dz to liver and lung. Abdomen/Pelvis CT (01/08/17)-----> 1. There is an abnormal soft tissue mass involving the upper portion of the stomach at or just below the GE junction suspicious for neoplastic disease. Recommend direct visualization by endoscopy. 2. Diffuse liver metastatic disease. 3. Diffuse lung metastatic disease. 4. Diffuse para-aortic and retroperitoneal adenopathy. 5. Aneurysmal dilatation of the infrarenal abdominal aorta at 3.7 cm. Colonoscopy (06/29/15)----> two sessile polyps ranging between 3-5 mm in size were found in the rectum, multiple biopsies performed using cold forceps, sessile polyp ranging between 3-5 mm in size was found in the ascending colon, polypectomy was performed with cold forceps, sessile polyp ranging between 3-5 mm in size was found in the sigmoid colon, biopsy using cord forceps , melanosis, there was severe diverticulosis noted in the sigmoid colon, retroflexed views revealed small internal hemorrhoids, rectal exam revealed external hemorrhoids. Pathology sigmoid polyp-hyperplastic, cecum bx- colonic mucosa with pigmented macrophages in lamina propria, consistent with melanosis coli, negative for dysplasia, colon, ascending biopsy with fragments of tubular adenoma, negative for high grade dysplasia or malignancy, rectal polyp with fragments of hyperplastic polyp. She was adopted and does not know family history. 3-4 day hx of n/v, decreased appetite, constipation. No abn. weight loss. EGD (01/09/17)-----> 1. Esophagitis distal esophagus-biopsy, ulcerated mass fundus , old clot, friable-multiple biopsies , epinephrine 1:10,000 - 7 cc injected 2. Retroflexed views revealed ulcerated mass fundus. 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 AFP 777.5, CEA 1044.3, Ca19-9 9311.6. Oncology following - plan is for PET scan and to discuss further treatment plan as outpatient after PET. If bleeding, consider embolization by IR. No active bleeding at this time. HH 10.8/32 Not tolerating diet. - Metastatic liver and lung disease on CT. Gastric mass as above, pathology pending. AFP 777.5, CEA 1044.3, Ca19-9 9311.6. Oncology following. - Severe anemia with Hemoccult positive stool,acute on chronic. Pt has hx of CLEMENCIA and B12 Deficiency. S/P 5 units PRBC, 10. - N/V. CT as above with gastric mass. She does have hx of esophageal strictures, but states that this was more difficulty with pills getting caught and that this is different. States she has not had any issues with dysphagia since dilatation in 2011. PPI. Zofran. Phenergan. - Constipation. Gastrografin enema (01/10/17)----> Residual barium from mbs, there was filling of the descending, transverse, and portions of the ascending colon eventually there is filling of the cecum. No long segment stricture or mass is identified. There is extensive sigmoid diverticulosis. (+) BM. - Coagulopathy on admission with INR of 8.0. (On Coumadin for DVT, now on hold. INR 1.0). INR 1.1. - Acute on chronic kidney disease with electrolyte abnormalities. Creat 1.50 - Abdominal aortic aneurysm, Anxiety, Hx DVT, HTN, Hyperlipidemia, PAD, per attending. 01-15-17- Patient just got back from IR for what suppose to be G/J tube, however , only G tube was placed, per daughter, it was felt like she wasn't stable for J tube placement. No bleeding reported H&H stable 01-16-17- TF hasn't started yet, the plan is to start today 01-17-17- Tolerating TF okay, had a small amount of emesis today for over drinking Silvina madina PLAN: - TF per dietary recommendations - Consider changing tube to G/J tube for N/V - Palliative care - Cont. PPI - Cont. Zofran - Cont. Phenergan - Monitor labs - Lactulose prn - Supportive care - If bleeding, consider IR for embolization - PET scan as outpatient - Gi will sign off Patient seen and examined by Dr. Dent and myself (Lizbet Jesus) Physician Comments Patient seen and examined Agree with above Continue with current supportive care Monitor labs Not much to add at this point from a GI perspective we will sign off (Jonas Dent MD) Lizbet JesusP Jan 17, 2017 12:29 Jonas Dent MD Jan 17, 2017 21:44
--- NOTE | 2017-01-17 13:30 | PD.ONC.PN ---
Subjective Subjective Remarks Afebrile overnight. Patient tolerated TF overnight and today. Pain well controlled. Hoping to get home by Sunday. Objective Data Date Time Temp Pulse Resp B/P Pulse Ox O2 Delivery O2 Flow Rate FiO2 01/17/17 08:00 97.9 83 12 150/68 95 01/17/17 06:48 16 01/17/17 04:00 96.9 63 17 147/67 94 01/17/17 00:00 96.3 78 17 100/61 95 01/16/17 20:00 97.4 78 17 119/64 97 01/16/17 16:19 97.8 80 20 165/77 95 01/17/17 01/17/17 01/17/17 07:00 15:00 23:00 Intake Total 856 ml Balance 856 ml Result Diagram: 01/17/17 0717 01/15/17 0743 Laboratory Results Laboratory Tests Test 01/17/17 07:17 White Blood Count 12.7 TH/MM3 Red Blood Count 4.04 MIL/MM3 Hemoglobin 11.5 GM/DL Hematocrit 34.5 % Mean Corpuscular Volume 85.3 FL Mean Corpuscular Hemoglobin 28.3 PG Mean Corpuscular Hemoglobin 33.2 % Concent Red Cell Distribution Width 16.9 % Platelet Count 265 TH/MM3 Mean Platelet Volume 10.7 FL Neutrophils (%) (Auto) 91.6 % Lymphocytes (%) (Auto) 0.8 % Monocytes (%) (Auto) 6.8 % Eosinophils (%) (Auto) 0.6 % Basophils (%) (Auto) 0.2 % Neutrophils # (Auto) 11.6 TH/MM3 Lymphocytes # (Auto) 0.1 TH/MM3 Monocytes # (Auto) 0.9 TH/MM3 Eosinophils # (Auto) 0.1 TH/MM3 Basophils # (Auto) 0.0 TH/MM3 CBC Comment DIFF FINAL Differential Comment Administered Medications Medications (Trade) Dose Ordered Sig/[place] Route PRN Reason Start Time Stop Time Status Last Admin Dose Admin Sodium Chloride (NS Flush) 2 ml UNSCH PRN .XX FLUSH AFTER USING IV ACCESS 01/08/17 03:30 01/16/17 14:51 Sodium Chloride (NS Flush) 2 ml BID .XX 01/08/17 09:00 01/17/17 10:27 Morphine Sulfate (Morphine Inj) 2 mg Q2H PRN IV PUSH PAIN SCALE 6 TO 10 01/08/17 03:45 01/17/17 10:26 Pantoprazole Sodium (Protonix Inj) 40 mg Q12H IV 01/08/17 09:00 01/17/17 10:27 Ondansetron HCl (Zofran Inj) 4 mg Q6H PRN IV NAUSEA OR VOMITING 01/08/17 03:30 01/10/17 21:18 Miscellaneous Information 1 Q361D XX 01/08/17 03:30 01/08/17 03:30 Chlorhexidine Gluconate (Chlorhexidine 2% Cloth) Taper DAILY@04 TOP 01/08/17 04:00 01/04/18 03:59 01/13/17 04:00 Glucagon (Glucagon Inj) 1 mg UNSCH PRN OTHER HYPOGLYCEMIA-SEE COMMENTS 01/09/17 10:15 01/15/17 12:26 Scopolamine (Transderm-Scop 1.5 Mg Patch.72 Hr) 1 patch Q3D T-DERMAL 01/10/17 01:00 01/16/17 03:56 Promethazine HCl (Phenergan Inj) 12.5 mg Q6H PRN IM NAUSEA 01/10/17 09:30 01/15/17 08:49 Dexamethasone (Decadron) 4 mg Q12HR PO 01/10/17 23:00 01/17/17 10:26 Carvedilol (Coreg) 6.25 mg Q12HR PO 01/12/17 00:45 01/17/17 10:26 Amlodipine Besylate (Norvasc) 10 mg DAILY PO 01/12/17 09:00 01/17/17 10:26 Clonidine (Catapres) 0.1 mg Q6H PRN PO SBP >165 01/12/17 00:45 01/12/17 03:58 Metoclopramide HCl (Reglan Inj) 5 mg Q8H IV 01/13/17 13:00 01/17/17 06:34 Non-Formulary Medication 45 ML GI COCKTAIL OF MAAL... Q6H PRN PO DYSPEPSIA 01/13/17 11:15 01/15/17 22:23 Multi-Ingredient Mouthwash/Gargle (Magic Mouthwash Adult Liq) 10 ml QID SWISH-SWAL 01/14/17 13:00 01/17/17 10:25 Fentanyl (Duragesic 25 Mcg Patch.72 Hr) 1 patch Q3D T-DERMAL 01/14/17 13:45 01/14/17 14:01 Nystatin (Mycostatin Liq) 5 ml QID SWISH-SWAL 01/15/17 13:00 01/17/17 10:26 Benzocaine/ Menthol 1 lozenge 1 lozenge Q2HR PRN BUCCAL sore throat 01/15/17 12:00 01/15/17 18:13 Iron Sucrose/ Sodium Chloride (Venofer Inj/NS Inj) 110 ml @ 110 mls/hr DAILY IV 01/17/17 09:00 01/19/17 09:59 01/17/17 10:26 Objective Remarks GENERAL: Elderly female upright in bed in nad. SKIN: Warm and dry. HEAD: Normocephalic. EYES: No injection or drainage. NECK: Supple, trachea midline. CARDIOVASCULAR: Regular rate and rhythm RESPIRATORY: clear to auscultation. GASTROINTESTINAL: Abdomen soft, non-tender, nondistended. receiving TF via PEG tube with Glucerna EXTREMITIES: No cyanosis NEUROLOGICAL: aox3. normal speech. moving extremities. Assessment/Plan Problem List: (1) Malnutrition Status: Acute Plan: --s/p G-tube placement in IR. started on TF with Glucerna, 7.25 --Dysphagia, poor oral intake, hypoalbuminemia. - MBS show no swallowing issue - Supportive care (2) Gastric adenocarcinoma Status: Acute Plan: -- GE junction/gastric mass with metastatic disease to the liver, lung and abdomen--highly suspicious for a primary gastric cancer. 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 Will need PET/CT scan outpatient -fs faxed to new patient referrals for follow up in 1-2 weeks. --plan for radiation with Dr. Marques. underwent simulation on 01/16 -- patient's performance status will need to improve bf she can receive chemotherapy (3) Anemia, blood loss Status: Acute Plan: --Severe anemia, likely bleeding from the gastric mass. - Monitor Hb - transfuse for Hb less than 7.5 --B12 WNL --iron studies show low TIBC, % saturation and serum iron. IV iron ordered (4) CKD (chronic kidney disease) stage 3, GFR 30-59 ml/min Status: Acute Plan: --monitor (5) History of DVT (deep vein thrombosis) Status: Acute Plan: --anticoagulation is on hold due to bleeding risk --repeat doppler u/s shows no DVT --had DVT in leg ~ 4 years ago (6) Intractable nausea and vomiting Status: Acute Plan: --decadron - Zofran/phenergan - scopalamine patch -reglan (7) Thrush Status: Acute Plan: --magic mouthwash. Assessment 71-year-old female who presents with weakness, abdominal pain, constipation and difficulty swallowing. On admission she underwent imaging including a CT of the chest, abdomen and pelvis which revealed a gastric mass at or below the level of the GE junction, metastatic lesions to the liver, abdomen as well as bilateral lung mckay. Pathology showed a gastric adenocarcinoma. Plan 1. continue TF with Glucerna, monitor response 2. monitor CBC 3. continue supportive care 4. add PRN Roxanol via G-tube for pain in preparation for d/c home Attending Statement The exam, history, and the medical decision-making described in the above note were completed with the assistance of the mid-level provider. I reviewed and agree with the findings presented. I attest that I had a [id number] encounter with the patient on the same day, and personally performed and documented my assessment and findings in the medical record. Nutrition/PT pain control d/w rn Problem Qualifiers (1) Intractable nausea and vomiting: Qualified Code: R11.2 - Intractable vomiting with nausea, unspecified vomiting type Ana Paul Jan 17, 2017 13:30 Marko Nichols MD Jan 17, 2017 23:42
--- NOTE | 2017-01-17 14:23 | HHI.HCPN ---
Met with Ms. Vasquez and son at bedside. Ms. Vasquez in bed, resting comfortably , alert, oriented and able to make her needs known. Son brought in patient's living will and power of procurement intern for financial and medical. Copies placed on chart and faxed to HIM to be scanned into EMR. Living will and Power of Environmental Program Manager completed January 11, 2017. Son inquires about DNR status outside of hospital. Patient asks for clarification on DNR status. Answered questions to the best of my ability. Patient confirms she wishes to be a DNR. Community DNR signed, son also at bedside to witness conversation and signing of document. Yellow form placed on chart to go with patient upon discharge. Copy on chart, copy faxed to HIM to be scanned into EMR and copy given to son/patient. Patient and family have no further questions/concerns. Palliative care will continue to follow throughout hospitalization. Palliative care number provided. Son and patient appreciative of visit and ongoing support. Griselda Smart MECHANISM ASSEMBLER, SENIOR CLIENT ADVISOR Jan 17, 2017 14:23
[2017-01-17] MEDS: REMOVE OLD DURAGESIC (FENTANYL) PATCH T-DERMAL SCH (14:24)
[2017-01-17] MEDS: fentaNYL 25 MCG/HR PATCH T-DERMAL SCH (14:24)
[2017-01-17 16:00] VITALS: BP 130/67; PULSE 70; RESP 18; TEMP 97.9; O2SAT 94
[2017-01-17 20:00] VITALS: BP 151/72; PULSE 76; RESP 18; TEMP 96.8; O2SAT 95
[2017-01-18] VITALS: BP 107/57; PULSE 76; RESP 18; TEMP 97.1; O2SAT 96
[2017-01-18 04:00] VITALS: BP 148/71; PULSE 80; RESP 17; TEMP 96.7; O2SAT 97
[2017-01-18] MEDS: CHLORHEXIDINE GLUCONATE 2 % 1 PACK (2 CLOTHS) TOP SCH (04:00)
[2017-01-18] MEDS: METOCLOPRAMIDE HCL 10 MG/2 ML VIAL IV SCH ×2 (04:27→12:36)
[2017-01-18] MEDS: INSULIN NovoLIN REGULAR SUPPLEMENTAL SCALE SQ SCH ×4 (06:22→23:35)
[2017-01-18 07:15] LABS: AUTOMATED NEUTROPHIL # 10.6 TH/MM3 (1.8-7.7); BASOPHIL % 0.2 % (0.0-2.0); HEMO FLAGS DIFF FINAL; LYMPH % 0.8 % (9.0-44.0); LYMPHOCYTE # 0.1 TH/MM3 (1.0-4.8); MEAN CELL VOLUME 85.8 FL (80.0-100.0); MEAN CORPUSCULAR HEMOGLOBIN 28.2 PG (27.0-34.0); MEAN CORPUSCULAR HGB CONC 32.8 % (32.0-36.0); MONO % 8.8 % (0.0-8.0); NEUT % 90.2 % (16.0-70.0); PLATELET COUNT 258 TH/MM3 (150-450); RED BLOOD COUNT 3.85 MIL/MM3 (4.00-5.30); RED CELL DISTRIBUTION WIDTH 17.1 % (11.6-17.2); WHITE BLOOD COUNT 11.8 TH/MM3 (4.0-11.0)
[2017-01-18 08:00] VITALS: BP 163/76; PULSE 73; RESP 18; TEMP 96.8; O2SAT 94
--- NOTE | 2017-01-18 08:52 | HHI.PR ---
Subjective Remarks doing ok. getting anxious about d/c Objective Vitals heart reg lung cta abd gtube ext no edema Vital Signs Date Time Temp Pulse Resp B/P Pulse Ox O2 Delivery O2 Flow Rate FiO2 01/18/17 08:00 96.8 73 18 163/76 94 01/18/17 04:00 96.7 80 17 148/71 97 01/18/17 00:00 97.1 76 18 107/57 96 01/17/17 20:00 96.8 76 18 151/72 95 01/17/17 16:00 97.9 70 18 130/67 94 01/17/17 12:00 97.8 76 14 120/57 96 01/17/17 01/17/17 01/18/17 14:59 22:59 06:59 Intake Total 240 ml 666 ml Output Total 120.0 ml Balance 240 ml -120.0 ml 666 ml Intake Oral 240 ml Tube Feeding 516 ml Other 150 ml Tube Feeding Residual Discard 120.0 ml # Voids 3 1 2 # Bowel Movements 0 1 Result Diagram: 01/18/17 0617 01/15/17 0743 Imaging Last Impressions Lower Extremity Ultrasound 01/11/17 0000 Signed Impressions: Service Date/Time: December 19:16 - CONCLUSION: Normal examination. Orestes Mccord MD Modified Barium Swallow 01/10/17 0000 Signed Impressions: Service Date/Time: Tuesday, January 10, 2017 00:00 - CONCLUSION: Normal examination. Lex Harmon MD Brain MRI 01/10/17 0000 Signed Impressions: Service Date/Time: Tuesday, January 10, 2017 21:31 - CONCLUSION: 1. Atrophy and white matter disease without definite evidence for mass. Orestes Mccord MD Chest X-Ray 01/08/17 0013 Signed Impressions: Service Date/Time: Sunday, January 08, 2017 00:23 - CONCLUSION: Diffuse bilateral pulmonary metastatic disease. Cuauhtemoc Mensah MD Abdomen/Pelvis CT 01/08/17 0013 Signed Impressions: Service Date/Time: Sunday, January 08, 2017 01:19 - CONCLUSION: 1. There is an abnormal soft tissue mass involving the upper portion of the stomach at or just below the GE junction suspicious for neoplastic disease. Recommend direct visualization by endoscopy. 2. Diffuse liver metastatic disease. 3. Diffuse lung metastatic disease. 4. Diffuse para-aortic and retroperitoneal adenopathy. 5. Aneurysmal dilatation of the infrarenal abdominal aorta at 3.7 cm. Cuauhtemoc Mensah MD Chest CT 01/08/17 0000 Signed Impressions: Service Date/Time: Sunday, January 08, 2017 01:19 - CONCLUSION: 1. Diffuse lung metastatic disease. 2. Diffuse liver metastatic disease. Cuauhtemoc Mensah MD A/P Problem List: (1) Gastric carcinoma Status: Acute Plan: - comgmt with GI & Oncology - GE junction/gastric mass with metastatis to the liver, lung, and abdomen - EGD with biopsy performed by Dr. 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 Nichols. He recommends against IVC filter at this time - Defer possible anticoagulation to Oncology - will need PET/CT scan outpt - pt will f/u with Dr. Nichols outpt for treatment plan, likely palliative chemotherapy. - Pt/son request DNR status. - trial of scheduled IV reglan for nausea - Pt/family do NOT want SNF - Pt will d/c to her son's house and feels their will be sufficient help there. - Request C and home Pt upon discharge. - Case d/w Dr. Okeefe (01/14/17) - consult IR for placement of G/J tube . g tube was placed on 01/15 - trial of duragesic 25 mcg -nystatin and MMW for thrush. --titrating glucerna tube feeding. titrate up levemir. ssi. --radiation to start. (2) Metastatic disease Status: Acute Plan: - see above (3) Esophageal mass Status: Acute Plan: - see above - Pt with dysphagia and poor oral intake. - MBS showed NO swallowing issue - supportive care (4) Anemia, blood loss Status: Acute Plan: - d/t bleeding from gastric mass - Hg 6/5 (01/02/17), 11.0 (01/12/17) - Pt has received 5 units PRBCs during this hospitalization - observe (5) CKD (chronic kidney disease) stage 3, GFR 30-59 ml/min Status: Acute Plan: - observe (6) Intractable nausea and vomiting Status: Acute Plan: -see above (7) Pulmonary nodules/lesions, multiple Status: Acute Plan: - CT (01/08/17) --> multiple pulm nodues, largest 2.3 cm RLL (8) Anxiety Status: Acute (9) Constipation Status: Acute Plan: - continue current bowel regimen - s/p Gastrografin enema (01/10/17) - Problem Qualifiers (1) Intractable nausea and vomiting: Qualified Code: R11.2 - Intractable vomiting with nausea, unspecified vomiting type (2) Constipation: Qualified Code: K59.00 - Constipation, unspecified constipation type Akbar Wilson MD Jan 18, 2017 08:52
[2017-01-18] MEDS ORDERED: LACTULOSE SYRUP 20 GM/30 ML CUP G-TUBE PRN (09:00)
[2017-01-18] MEDS: IRON SUCROSE INJ 200 MG in SODIUM CHLORIDE 0.9% INJ 100 ML IV SCH (09:46)
[2017-01-18] MEDS: DEXAMETHASONE 4 MG TAB PO SCH ×2 (09:46→23:35)
[2017-01-18] MEDS: CARVEDILOL 6.25 MG TAB PO SCH ×2 (09:46→23:35)
[2017-01-18] MEDS: PANTOPRAZOLE SODIUM 40 MG VIAL IV SCH ×2 (09:46→23:35)
[2017-01-18] MEDS: NYSTATIN SUSP 500,000 U/5 ML CUP SWISH-SWAL SCH ×4 (09:47→23:35)
[2017-01-18] MEDS: MORPHINE SULFATE ORAL SOLN 10 MG/0.5 ML SYRINGE G-TUBE PRN ×2 (09:47→14:21)
[2017-01-18] MEDS: NYSTAT/DIPHENHY/LIDO MOUTHWASH (Adult) 120ML SWISH-SWAL SCH ×4 (09:47→23:35)
[2017-01-18] MEDS: SODIUM CHLORIDE 0.9% FLUSH 10 ML FLUSH SCH (09:48)
[2017-01-18 12:30] VITALS: BP 133/75; PULSE 72; RESP 18; TEMP 97.4; O2SAT 97
--- NOTE | 2017-01-18 13:51 | PD.ONC.PN ---
Subjective Subjective Remarks Afebrile overnight. Resting in bed. Feeling constipated. took a laxative this morning. Some pain around peg tube site, is improved with Roxanol. Objective Data Date Time Temp Pulse Resp B/P Pulse Ox O2 Delivery O2 Flow Rate FiO2 01/18/17 12:30 97.4 72 18 133/75 97 01/18/17 08:00 96.8 73 18 163/76 94 01/18/17 04:00 96.7 80 17 148/71 97 01/18/17 00:00 97.1 76 18 107/57 96 01/17/17 20:00 96.8 76 18 151/72 95 01/17/17 16:00 97.9 70 18 130/67 94 01/18/17 01/18/17 01/18/17 06:59 14:59 22:59 Intake Total 666 ml Balance 666 ml Result Diagram: 01/18/17 0617 01/15/17 0743 Laboratory Results Laboratory Tests Test 01/18/17 06:17 White Blood Count 11.8 TH/MM3 Red Blood Count 3.85 MIL/MM3 Hemoglobin 10.8 GM/DL Hematocrit 33.0 % Mean Corpuscular Volume 85.8 FL Mean Corpuscular Hemoglobin 28.2 PG Mean Corpuscular Hemoglobin 32.8 % Concent Red Cell Distribution Width 17.1 % Platelet Count 258 TH/MM3 Mean Platelet Volume 10.2 FL Neutrophils (%) (Auto) 90.2 % Lymphocytes (%) (Auto) 0.8 % Monocytes (%) (Auto) 8.8 % Eosinophils (%) (Auto) 0.0 % Basophils (%) (Auto) 0.2 % Neutrophils # (Auto) 10.6 TH/MM3 Lymphocytes # (Auto) 0.1 TH/MM3 Monocytes # (Auto) 1.0 TH/MM3 Eosinophils # (Auto) 0.0 TH/MM3 Basophils # (Auto) 0.0 TH/MM3 CBC Comment DIFF FINAL Differential Comment Administered Medications Medications (Trade) Dose Ordered Sig/[place] Route PRN Reason Start Time Stop Time Status Last Admin Dose Admin Sodium Chloride (NS Flush) 2 ml UNSCH PRN .XX FLUSH AFTER USING IV ACCESS 01/08/17 03:30 01/16/17 14:51 Sodium Chloride (NS Flush) 2 ml BID .XX 01/08/17 09:00 01/18/17 09:48 Morphine Sulfate (Morphine Inj) 2 mg Q2H PRN IV PUSH PAIN SCALE 9 TO 10 01/08/17 03:45 01/17/17 10:26 Pantoprazole Sodium (Protonix Inj) 40 mg Q12H IV 01/08/17 09:00 01/18/17 09:46 Ondansetron HCl (Zofran Inj) 4 mg Q6H PRN IV NAUSEA OR VOMITING 01/08/17 03:30 01/10/17 21:18 Miscellaneous Information 1 Q361D XX 01/08/17 03:30 01/08/17 03:30 Chlorhexidine Gluconate (Chlorhexidine 2% Cloth) Taper DAILY@04 TOP 01/08/17 04:00 01/04/18 03:59 01/13/17 04:00 Glucagon (Glucagon Inj) 1 mg UNSCH PRN OTHER HYPOGLYCEMIA-SEE COMMENTS 01/09/17 10:15 01/15/17 12:26 Scopolamine (Transderm-Scop 1.5 Mg Patch.72 Hr) 1 patch Q3D T-DERMAL 01/10/17 01:00 01/16/17 03:56 Promethazine HCl (Phenergan Inj) 12.5 mg Q6H PRN IM NAUSEA 01/10/17 09:30 01/15/17 08:49 Dexamethasone (Decadron) 4 mg Q12HR PO 01/10/17 23:00 01/18/17 09:46 Carvedilol (Coreg) 6.25 mg Q12HR PO 01/12/17 00:45 01/18/17 09:46 Amlodipine Besylate (Norvasc) 10 mg DAILY PO 01/12/17 09:00 01/18/17 09:46 Clonidine (Catapres) 0.1 mg Q6H PRN PO SBP >165 01/12/17 00:45 01/12/17 03:58 Metoclopramide HCl (Reglan Inj) 5 mg Q8H IV 01/13/17 13:00 01/18/17 12:36 Non-Formulary Medication 45 ML GI COCKTAIL OF MAAL... Q6H PRN PO DYSPEPSIA 01/13/17 11:15 01/15/17 22:23 Multi-Ingredient Mouthwash/Gargle (Magic Mouthwash Adult Liq) 10 ml QID SWISH-SWAL 01/14/17 13:00 01/18/17 12:36 Fentanyl (Duragesic 25 Mcg Patch.72 Hr) 1 patch Q3D T-DERMAL 01/14/17 13:45 01/17/17 14:24 Miscellaneous Information 1 Q3D T-DERMAL 01/17/17 13:45 01/17/17 14:24 Nystatin (Mycostatin Liq) 5 ml QID SWISH-SWAL 01/15/17 13:00 01/18/17 12:36 Benzocaine/ Menthol 1 lozenge 1 lozenge Q2HR PRN BUCCAL sore throat 01/15/17 12:00 01/15/17 18:13 Iron Sucrose/ Sodium Chloride (Venofer Inj/NS Inj) 110 ml @ 110 mls/hr DAILY IV 01/17/17 09:00 01/19/17 09:59 01/18/17 09:46 Morphine Sulfate (Roxanol Liq) 5 mg Q4H PRN G-TUBE pain1-8 01/17/17 14:30 01/18/17 09:47 Objective Remarks GENERAL: Elderly female sitting up in bed SKIN: Warm and dry. HEAD: Normocephalic. EYES: No injection or drainage. NECK: Supple, trachea midline. CARDIOVASCULAR: Regular rate and rhythm RESPIRATORY: clear to auscultation. GASTROINTESTINAL: Abdomen soft, non-tender, nondistended. PEG tube in place, receiving Glucerna EXTREMITIES: No cyanosis NEUROLOGICAL: awake and alert, normal speech. moving extremities. Assessment/Plan Problem List: (1) Malnutrition Status: Acute Plan: --s/p G-tube placement in IR. started on TF with Glucerna, 7.25 --Dysphagia, poor oral intake, hypoalbuminemia. - MBS show no swallowing issue - Supportive care (2) Gastric adenocarcinoma Status: Acute Plan: -- GE junction/gastric mass with metastatic disease to the liver, lung and abdomen--highly suspicious for a primary gastric cancer. 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 Will need PET/CT scan outpatient -fs faxed to new patient referrals for follow up in 1-2 weeks. --plan for radiation with Dr. Factor. underwent simulation on 01/16 -- patient's performance status will need to improve bf she can receive chemotherapy (3) Anemia, blood loss Status: Acute Plan: --Severe anemia, likely bleeding from the gastric mass. - Monitor Hb - transfuse for Hb less than 7.5 --B12 WNL --iron studies show low TIBC, % saturation and serum iron. IV iron ordered (4) CKD (chronic kidney disease) stage 3, GFR 30-59 ml/min Status: Acute Plan: --monitor (5) History of DVT (deep vein thrombosis) Status: Acute Plan: --anticoagulation is on hold due to bleeding risk --repeat doppler u/s shows no DVT --had DVT in leg ~ 4 years ago (6) Intractable nausea and vomiting Status: Acute Plan: --decadron - Zofran/phenergan - scopalamine patch -reglan (7) Thrush Status: Acute Plan: --magic mouthwash. Assessment 71-year-old female who presents with weakness, abdominal pain, constipation and difficulty swallowing. On admission she underwent imaging including a CT of the chest, abdomen and pelvis which revealed a gastric mass at or below the level of the GE junction, metastatic lesions to the liver, abdomen as well as bilateral lung mckay. Pathology showed a gastric adenocarcinoma. Plan 1. continue TF with Glucerna, monitor response 2. monitor CBC 3. once discharged, follow up in clinic Attending Statement The exam, history, and the medical decision-making described in the above note were completed with the assistance of the mid-level provider. I reviewed and agree with the findings presented. I attest that I had a [id number] encounter with the patient on the same day, and personally performed and documented my assessment and findings in the medical record. Will need port placement tomorrow I did not discuss this with the patient but will discuss in AM Problem Qualifiers (1) Intractable nausea and vomiting: Qualified Code: R11.2 - Intractable vomiting with nausea, unspecified vomiting type Ana Paul Jan 18, 2017 13:51 Marko Nichols MD Jan 18, 2017 23:19
[2017-01-18 16:00] VITALS: BP 136/77; PULSE 70; RESP 18; TEMP 96.5; O2SAT 98
[2017-01-18 20:00] VITALS: BP 124/66; PULSE 71; RESP 18; TEMP 97.7; O2SAT 96
[2017-01-18] MEDS ORDERED: INSULIN DETEMIR 100 UNITS/ML VIAL SQ SCH (21:00)
[2017-01-18] MEDS: INSULIN DETEMIR 100 UNITS/ML VIAL SQ SCH (23:35)
[2017-01-18] MEDS: SCOPOLAMINE 1.5 MG PATCH T-DERMAL SCH (23:35)
[2017-01-19] VITALS (7 sets, daily range): BP systolic 97–155; BP diastolic 57–77; PULSE 69–115; RESP 16–18; TEMP 96.6–98.2; O2SAT 94–96
[2017-01-19] MEDS: CHLORHEXIDINE GLUCONATE 2 % 1 PACK (2 CLOTHS) TOP SCH (04:00)
[2017-01-19] MEDS: MORPHINE SULFATE ORAL SOLN 10 MG/0.5 ML SYRINGE G-TUBE PRN ×2 (06:14→11:34)
[2017-01-19] MEDS: METOCLOPRAMIDE HCL 10 MG/2 ML VIAL IV SCH ×3 (06:15→23:12)
[2017-01-19] MEDS: INSULIN NovoLIN REGULAR SUPPLEMENTAL SCALE SQ SCH ×4 (06:37→23:00)
[2017-01-19] MEDS: DEXAMETHASONE 4 MG TAB PO SCH ×2 (08:50→23:11)
[2017-01-19] MEDS: NYSTAT/DIPHENHY/LIDO MOUTHWASH (Adult) 120ML SWISH-SWAL SCH ×4 (08:50→23:17)
[2017-01-19] MEDS: NYSTATIN SUSP 500,000 U/5 ML CUP SWISH-SWAL SCH ×4 (08:50→23:09)
[2017-01-19] MEDS: CARVEDILOL 6.25 MG TAB PO SCH ×2 (08:50→21:00)
[2017-01-19] MEDS: PANTOPRAZOLE SODIUM 40 MG VIAL IV SCH ×2 (08:50→23:09)
[2017-01-19] MEDS: SODIUM CHLORIDE 0.9% FLUSH 10 ML FLUSH SCH ×2 (08:51→23:10)
[2017-01-19] MEDS: IRON SUCROSE INJ 200 MG in SODIUM CHLORIDE 0.9% INJ 100 ML IV SCH (08:51)
--- NOTE | 2017-01-19 09:19 | HHI.PR ---
Subjective Remarks vomited w/out warning this AM nursing reports only can get up to 50ml/hr on tube feeding and over 100 cc residual. Objective Vitals thrush much better heart reg lung cta abd g tube. ext no edema Vital Signs Date Time Temp Pulse Resp B/P Pulse Ox O2 Delivery O2 Flow Rate FiO2 01/19/17 08:00 97.7 115 16 139/72 94 01/19/17 04:00 96.8 77 18 132/70 96 01/19/17 00:00 97.2 75 18 141/73 96 01/18/17 20:00 97.7 71 18 124/66 96 01/18/17 16:00 96.5 70 18 136/77 98 01/18/17 12:30 97.4 72 18 133/75 97 01/18/17 01/18/17 01/19/17 15:00 23:00 07:00 Intake Total 480 ml 480 ml Output Total 1200 ml 400 ml 600 ml Balance -720 ml 80 ml -600 ml Intake Oral 480 ml 480 ml Output Urine Total 1200 ml 400 ml 600 ml # Bowel Movements 0 2 Result Diagram: 01/18/17 0617 01/15/17 0743 Imaging Last Impressions Lower Extremity Ultrasound 01/11/17 0000 Signed Impressions: Service Date/Time: December 19:16 - CONCLUSION: Normal examination. Orestes Mccord MD Modified Barium Swallow 01/10/17 0000 Signed Impressions: Service Date/Time: Tuesday, January 10, 2017 00:00 - CONCLUSION: Normal examination. Lex Harmon MD Brain MRI 01/10/17 0000 Signed Impressions: Service Date/Time: Tuesday, January 10, 2017 21:31 - CONCLUSION: 1. Atrophy and white matter disease without definite evidence for mass. Orestes Mccord MD Chest X-Ray 01/08/17 0013 Signed Impressions: Service Date/Time: Sunday, January 08, 2017 00:23 - CONCLUSION: Diffuse bilateral pulmonary metastatic disease. Cuauhtemoc Mensah MD Abdomen/Pelvis CT 01/08/173 Signed Impressions: Service Date/Time: Sunday, January 08, 2017 01:19 - CONCLUSION: 1. There is an abnormal soft tissue mass involving the upper portion of the stomach at or just below the GE junction suspicious for neoplastic disease. Recommend direct visualization by endoscopy. 2. Diffuse liver metastatic disease. 3. Diffuse lung metastatic disease. 4. Diffuse para-aortic and retroperitoneal adenopathy. 5. Aneurysmal dilatation of the infrarenal abdominal aorta at 3.7 cm. Cuauhtemoc Mensah MD Chest CT 01/08/17 0000 Signed Impressions: Service Date/Time: Sunday, January 08, 2017 01:19 - CONCLUSION: 1. Diffuse lung metastatic disease. 2. Diffuse liver metastatic disease. Cuauhtemoc Mensah MD A/P Problem List: (1) Gastric carcinoma Status: Acute Plan: - comgmt with GI & Oncology - GE junction/gastric mass with metastatis to the liver, lung, and abdomen - EGD with biopsy performed by Dr. 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 Nichols. He recommends against IVC filter at this time - Defer possible anticoagulation to Oncology - will need PET/CT scan outpt - pt will f/u with Dr. Nichols outpt for treatment plan, likely palliative chemotherapy. - Pt/son request DNR status. - trial of scheduled IV reglan for nausea - Pt/family do NOT want SNF - Pt will d/c to her son's house and feels their will be sufficient help there. - Request HHC and home Pt upon discharge. - Case d/w Dr. Okeefe (01/14/17) - consult IR for placement of G/J tube . g tube was placed on 01/15 - trial of duragesic 25 mcg -nystatin and MMW for thrush. - radiation started on 01/18 vomited this AM...unable to titrate the continuous feeding above 50ml/hr due to high residuals over 100....will ask for bolus feeding reccs from dietary. (2) Metastatic disease Status: Acute Plan: - see above (3) Esophageal mass Status: Acute Plan: - see above - Pt with dysphagia and poor oral intake. - MBS showed NO swallowing issue - supportive care (4) Anemia, blood loss Status: Acute Plan: - d/t bleeding from gastric mass - Hg 6/5 (01/02/17), 11.0 (01/12/17) - Pt has received 5 units PRBCs during this hospitalization - observe (5) CKD (chronic kidney disease) stage 3, GFR 30-59 ml/min Status: Acute Plan: - observe (6) Intractable nausea and vomiting Status: Acute Plan: -see above (7) Pulmonary nodules/lesions, multiple Status: Acute Plan: - CT (01/08/17) --> multiple pulm nodues, largest 2.3 cm RLL (8) Anxiety Status: Acute (9) Constipation Status: Acute Plan: - continue current bowel regimen - s/p Gastrografin enema (01/10/17) - Problem Qualifiers (1) Intractable nausea and vomiting: Qualified Code: R11.2 - Intractable vomiting with nausea, unspecified vomiting type (2) Constipation: Qualified Code: K59.00 - Constipation, unspecified constipation type Akbar Wilson MD Jan 19, 2017 09:19
--- NOTE | 2017-01-19 11:07 | HHI.HCPN ---
Reason for visit a. To assist with evaluation and management of symptoms including:pain and nausea b. To assist medical decision maker(s) with: better understanding of current medical conditions; weighing benefits/burdens of medical treatment options; making medical treatment decisions. Subjective/Interval History Pt has 6/10 abdominal pain, which roxanol is effective in controlling. Pt is due for another dose, and have ask nurse to bring another prn roxanol dose. Pt also did not have bm for 2 days. Pt also nauseated this morning, but no nausea right now. Goals of care is the same. He declined phenergan suppository, rather have it IM. Family/friend interactions no family at bedside. Advance Directives Living Will: Completed, but not made available Health Care Surrogate: Completed, but not made available Durable Power of Talk Show Host: Completed, but not made available Objective Vital Signs Date Time Temp Pulse Resp B/P Pulse Ox O2 Delivery O2 Flow Rate FiO2 01/19/17 08:00 97.7 115 16 139/72 94 01/19/17 04:00 96.8 77 18 132/70 96 01/19/17 00:00 97.2 75 18 141/73 96 01/18/17 20:00 97.7 71 18 124/66 96 01/18/17 16:00 96.5 70 18 136/77 98 01/18/17 12:30 97.4 72 18 133/75 97 Intake & Output 01/19/17 01/19/17 07:00 19:00 Intake Total 480 ml Output Total 1000 ml Balance -520 ml Intake Oral 480 ml Output Urine Total 1000 ml # Bowel Movements 2 Physical Exam CONSTITUTIONAL/GENERAL: This is an adequately nourished patient, fatigued TUBES/LINES/DRAINS:g tube PIV, sierra. SKIN: No jaundice, rashes, or lesions. . No wounds seen anteriorly. Skin temperature appropriate. Not diaphoretic. HEAD: Atraumatic. Normocephalic. EYES: Pupils equal and round and reactive. Extraocular motions intact. No scleral icterus. ENT: Hearing grossly normal. Nose without bleeding or purulent drainage. NECK: Trachea midline. Supple, nontender. No palpable thyroid enlargement or nodularity. CARDIOVASCULAR: Regular rate and rhythm without murmurs, gallops, or rubs. RESPIRATORY/CHEST: Symmetric, unlabored respirations. Clear to auscultation. Breath sounds equal bilaterally. No wheezes, rales, or rhonchi. GASTROINTESTINAL: Abdomen soft, tender at mid epigastirc, G tube GENITOURINARY: Without palpable bladder distension. Sierra catheter in place. MUSCULOSKELETAL: Extremities without clubbing, cyanosis, or edema. LYMPHATICS: No palpable cervical or supraclavicular adenopathy. NEUROLOGICAL: Awake and alert. Motor and sensory grossly within normal limits. Follows commands. Cognitively sharp. Moves all extremities. PSYCHIATRIC: No obvious anxiety/depression. no apparent hallucinations or other psychotic thought process. Diagnostic Tests Laboratory Laboratory Tests Test 01/17/17 01/18/17 07:17 06:17 White Blood Count 12.7 TH/MM3 11.8 TH/MM3 (4.0-11.0) (4.0-11.0) Red Blood Count 4.04 MIL/MM3 3.85 MIL/MM3 (4.00-5.30) (4.00-5.30) Hemoglobin 11.5 GM/DL 10.8 GM/DL (11.6-15.3) (11.6-15.3) Hematocrit 34.5 % 33.0 % (35.0-46.0) (35.0-46.0) Mean Corpuscular Volume 85.3 FL 85.8 FL (80.0-100.0) (80.0-100.0) Mean Corpuscular Hemoglobin 28.3 PG 28.2 PG (27.0-34.0) (27.0-34.0) Mean Corpuscular Hemoglobin 33.2 % 32.8 % Concent (32.0-36.0) (32.0-36.0) Red Cell Distribution Width 16.9 % 17.1 % (11.6-17.2) (11.6-17.2) Platelet Count 265 TH/MM3 258 TH/MM3 (150-450) (150-450) Mean Platelet Volume 10.7 FL 10.2 FL (7.0-11.0) (7.0-11.0) Neutrophils (%) (Auto) 91.6 % 90.2 % (16.0-70.0) (16.0-70.0) Lymphocytes (%) (Auto) 0.8 % 0.8 % (9.0-44.0) (9.0-44.0) Monocytes (%) (Auto) 6.8 % (0.0-8.0) 8.8 % (0.0-8.0) Eosinophils (%) (Auto) 0.6 % (0.0-4.0) 0.0 % (0.0-4.0) Basophils (%) (Auto) 0.2 % (0.0-2.0) 0.2 % (0.0-2.0) Neutrophils # (Auto) 11.6 TH/MM3 10.6 TH/MM3 (1.8-7.7) (1.8-7.7) Lymphocytes # (Auto) 0.1 TH/MM3 0.1 TH/MM3 (1.0-4.8) (1.0-4.8) Monocytes # (Auto) 0.9 TH/MM3 1.0 TH/MM3 (0-0.9) (0-0.9) Eosinophils # (Auto) 0.1 TH/MM3 0.0 TH/MM3 (0-0.4) (0-0.4) Basophils # (Auto) 0.0 TH/MM3 0.0 TH/MM3 (0-0.2) (0-0.2) CBC Comment DIFF FINAL DIFF FINAL Differential Comment Result Diagram: 01/18/17 0617 01/15/17 0743 Procedures g tube placement Assessment and Plan Disease Oriented Problem List: (1) Gastric carcinoma (2) Metastatic disease (3) GI bleed (4) History of DVT (deep vein thrombosis) Symptom Scale: (1) Pain 0-10 Scale: 6 Comment: mid gastric (2) Fatigue 0-10 Scale: 8 (3) Nausea 0-10 Scale: 3 Comment: comes in waves Pertinent Non-Medical Issues Psychosocial: Spiritual: Legal: Ethical issues impacting care: Important Contacts [phone] Wayne Vasquez (son) Prognosis 71-year-old with metastatic gastric cancer. Will be appropriate for hospice of goals of care are comfort measures only. Code Status: No Code Plan == POA- son Alexandr, await documentation. will follow up documentation. Informed family /pt if pt does not have community DNR signed, she is willing to sign one. == code: DNR/DNI == goals of care: Pt desires to go through with radiation and if functionally tolerable, chemotherapy. She understands therapy offer is palliative and not curative. Family supportive of pt decision. == Pain, mainly abdominal. Continue roxanol and fentanyl. Sparing use thus far , but required one this morning. == Nausea- cancer burden, constipation. Continue dexamethazone, phenergan IM, and zofran. == constipation- on atc lactulose. Will remind nurse dulcolax suppositor available if still no bm. == palliative care will continue to follow. Attestation To help prompt me to consider important information that might be impacting today's encounter and assessment, information from prior notes written by myself or my colleagues may have been "brought forward" into today's note. My signature on this note, however, is an attestation that I personally performed the exam, history, and/or decision-making noted today, and, unless otherwise indicated, the interactions with patient, family, and staff as well as the review of records all occurred today. I also attest that the listed assessment and stated plan reflect my best clinical judgment today based on the combination of historical information, prior notes, and today's exam/ interactions. When time spent is documented, it refers only to time spent today by the signer, or if indicated, combined time spent today by collaborating physician/nurse practitioner. Rodney Bishop MD Jan 19, 2017 11:07
[2017-01-19 11:37] LABS: AUTOMATED NEUTROPHIL # 10.6 TH/MM3 (1.8-7.7); BASOPHIL % 0.2 % (0.0-2.0); EOSINOPHIL # 0.1 TH/MM3 (0-0.4); EOSINOPHIL % 0.5 % (0.0-4.0); HEMO FLAGS DIFF FINAL; LYMPHOCYTE # 0.1 TH/MM3 (1.0-4.8); MEAN CELL VOLUME 87.2 FL (80.0-100.0); MEAN CORPUSCULAR HEMOGLOBIN 27.9 PG (27.0-34.0); MEAN CORPUSCULAR HGB CONC 31.9 % (32.0-36.0); NEUT % 87.3 % (16.0-70.0); PLATELET COUNT 257 TH/MM3 (150-450); RED CELL DISTRIBUTION WIDTH 17.1 % (11.6-17.2); WHITE BLOOD COUNT 12.1 TH/MM3 (4.0-11.0)
--- NOTE | 2017-01-19 15:20 | PD.ONC.PN ---
Subjective Subjective Remarks Afebrile overnight. Patient received second XRT today. Resting in room in nad. Objective Data Date Time Temp Pulse Resp B/P Pulse Ox O2 Delivery O2 Flow Rate FiO2 01/19/17 12:00 98.2 69 18 155/76 95 01/19/17 08:00 97.7 115 16 139/72 94 01/19/17 04:00 96.8 77 18 132/70 96 01/19/17 00:00 97.2 75 18 141/73 96 01/18/17 20:00 97.7 71 18 124/66 96 01/18/17 16:00 96.5 70 18 136/77 98 01/19/17 01/19/17 01/19/17 07:00 15:00 23:00 Intake Total 960 ml Output Total 600 ml 600 ml Balance -600 ml 360 ml Result Diagram: 01/19/17 1123 01/15/17 0743 Laboratory Results Laboratory Tests Test 01/19/17 11:23 White Blood Count 12.1 TH/MM3 Red Blood Count 3.90 MIL/MM3 Hemoglobin 10.8 GM/DL Hematocrit 34.0 % Mean Corpuscular Volume 87.2 FL Mean Corpuscular Hemoglobin 27.9 PG Mean Corpuscular Hemoglobin 31.9 % Concent Red Cell Distribution Width 17.1 % Platelet Count 257 TH/MM3 Mean Platelet Volume 9.4 FL Neutrophils (%) (Auto) 87.3 % Lymphocytes (%) (Auto) 1.0 % Monocytes (%) (Auto) 11.0 % Eosinophils (%) (Auto) 0.5 % Basophils (%) (Auto) 0.2 % Neutrophils # (Auto) 10.6 TH/MM3 Lymphocytes # (Auto) 0.1 TH/MM3 Monocytes # (Auto) 1.3 TH/MM3 Eosinophils # (Auto) 0.1 TH/MM3 Basophils # (Auto) 0.0 TH/MM3 CBC Comment DIFF FINAL Differential Comment Administered Medications Medications (Trade) Dose Ordered Sig/[place] Route PRN Reason Start Time Stop Time Status Last Admin Dose Admin Sodium Chloride (NS Flush) 2 ml UNSCH PRN .XX FLUSH AFTER USING IV ACCESS 01/08/17 03:30 01/16/17 14:51 Sodium Chloride (NS Flush) 2 ml BID .XX 01/08/17 09:00 01/19/17 08:51 Morphine Sulfate (Morphine Inj) 2 mg Q2H PRN IV PUSH PAIN SCALE 9 TO 10 01/08/17 03:45 01/17/17 10:26 Pantoprazole Sodium (Protonix Inj) 40 mg Q12H IV 01/08/17 09:00 01/19/17 08:50 Ondansetron HCl (Zofran Inj) 4 mg Q6H PRN IV NAUSEA OR VOMITING 01/08/17 03:30 01/10/17 21:18 Miscellaneous Information 1 Q361D XX 01/08/17 03:30 01/08/17 03:30 Chlorhexidine Gluconate (Chlorhexidine 2% Cloth) Taper DAILY@04 TOP 01/08/17 04:00 01/04/18 03:59 01/13/17 04:00 Glucagon (Glucagon Inj) 1 mg UNSCH PRN OTHER HYPOGLYCEMIA-SEE COMMENTS 01/09/17 10:15 01/15/17 12:26 Scopolamine (Transderm-Scop 1.5 Mg Patch.72 Hr) 1 patch Q3D T-DERMAL 01/10/17 01:00 01/18/17 23:35 Promethazine HCl (Phenergan Inj) 12.5 mg Q6H PRN IM NAUSEA 01/10/17 09:30 01/15/17 08:49 Dexamethasone (Decadron) 4 mg Q12HR PO 01/10/17 23:00 01/19/17 08:50 Carvedilol (Coreg) 6.25 mg Q12HR PO 01/12/17 00:45 01/19/17 08:50 Amlodipine Besylate (Norvasc) 10 mg DAILY PO 01/12/17 09:00 01/19/17 08:50 Clonidine (Catapres) 0.1 mg Q6H PRN PO SBP >165 01/12/17 00:45 01/12/17 03:58 Metoclopramide HCl (Reglan Inj) 5 mg Q8H IV 01/13/17 13:00 01/19/17 13:24 Non-Formulary Medication 45 ML GI COCKTAIL OF MAAL... Q6H PRN PO DYSPEPSIA 01/13/17 11:15 01/15/17 22:23 Multi-Ingredient Mouthwash/Gargle (Magic Mouthwash Adult Liq) 10 ml QID SWISH-SWAL 01/14/17 13:00 01/19/17 13:24 Fentanyl (Duragesic 25 Mcg Patch.72 Hr) 1 patch Q3D T-DERMAL 01/14/17 13:45 01/17/17 14:24 Miscellaneous Information 1 Q3D T-DERMAL 01/17/17 13:45 01/17/17 14:24 Nystatin (Mycostatin Liq) 5 ml QID SWISH-SWAL 01/15/17 13:00 01/19/17 13:24 Benzocaine/Menthol (Cepacol Extra Freddy (Sugar Free)) 1 lozenge Q2HR PRN BUCCAL sore throat 01/15/17 12:00 01/15/17 18:13 Morphine Sulfate (Roxanol Liq) 5 mg Q4H PRN G-TUBE pain1-8 01/17/17 14:30 01/19/17 11:34 Lactulose (Lactulose Liq) 30 ml BID PRN G-TUBE constipation 01/18/17 09:00 01/19/17 15:17 Insulin Detemir (Levemir Inj) 10 units HS SQ 01/18/17 21:00 01/18/17 23:35 Objective Remarks GENERAL: Elderly female upright in bed, resting SKIN: Warm and dry. HEAD: Normocephalic. EYES: No injection or drainage. NECK: Supple, trachea midline. CARDIOVASCULAR: Regular rate and rhythm RESPIRATORY: clear to auscultation. GASTROINTESTINAL: Abdomen soft, non-tender, nondistended. PEG tube clamped EXTREMITIES: No cyanosis NEUROLOGICAL: aox3. normal speech. Assessment/Plan Problem List: (1) Malnutrition Status: Acute Plan: --s/p G-tube placement in IR. started on TF with Glucerna, 7.25. switched to bolus tube feeds on 7.28 --Dysphagia, poor oral intake, hypoalbuminemia. - MBS show no swallowing issue - Supportive care (2) Gastric adenocarcinoma Status: Acute Plan: -- GE junction/gastric mass with metastatic disease to the liver, lung and abdomen--highly suspicious for a primary gastric cancer. 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 Will need PET/CT scan outpatient -fs faxed to new patient referrals for follow up in 1-2 weeks. --plan for radiation with Dr. Marques. underwent simulation on 01/16. started XRT on 01.18. -- patient's performance status will need to improve bf she can receive chemotherapy (3) Anemia, blood loss Status: Acute Plan: --Severe anemia, likely bleeding from the gastric mass. - Monitor Hb - transfuse for Hb less than 7.5 --B12 WNL --iron studies show low TIBC, % saturation and serum iron. IV iron ordered (4) CKD (chronic kidney disease) stage 3, GFR 30-59 ml/min Status: Acute Plan: --monitor (5) History of DVT (deep vein thrombosis) Status: Acute Plan: --anticoagulation is on hold due to bleeding risk --repeat doppler u/s shows no DVT --had DVT in leg ~ 4 years ago (6) Intractable nausea and vomiting Status: Acute Plan: --decadron - Zofran/phenergan - scopalamine patch -reglan (7) Thrush Status: Acute Plan: --magic mouthwash. Assessment 71-year-old female who presents with weakness, abdominal pain, constipation and difficulty swallowing. On admission she underwent imaging including a CT of the chest, abdomen and pelvis which revealed a gastric mass at or below the level of the GE junction, metastatic lesions to the liver, abdomen as well as bilateral lung mckay. Pathology showed a gastric adenocarcinoma. Plan 1. start bolus tube feeds 2. continue XRT 3. once discharged, follow up in clinic Attending Statement The exam, history, and the medical decision-making described in the above note were completed with the assistance of the mid-level provider. I reviewed and agree with the findings presented. I attest that I had a [id number] encounter with the patient on the same day, and personally performed and documented my assessment and findings in the medical record. Plan for Carbo/Taxol next week d/w patient continue PT start bolus feeds d/w rn d/w Dr. Marques Problem Qualifiers (1) Intractable nausea and vomiting: Qualified Code: R11.2 - Intractable vomiting with nausea, unspecified vomiting type Ana Paul Jan 19, 2017 15:20 Marko Nichols MD Jan 19, 2017 22:56
[2017-01-19] MEDS: INSULIN DETEMIR 100 UNITS/ML VIAL SQ SCH (23:11)
[2017-01-20] VITALS: BP 105/61; PULSE 77; RESP 17; TEMP 96.4; O2SAT 95
[2017-01-20] MEDS: CHLORHEXIDINE GLUCONATE 2 % 1 PACK (2 CLOTHS) TOP SCH (03:44)
[2017-01-20 04:00] VITALS: BP 147/69; PULSE 70; RESP 18; TEMP 96.1; O2SAT 93
[2017-01-20] MEDS: METOCLOPRAMIDE HCL 10 MG/2 ML VIAL IV SCH ×3 (06:36→20:24)
[2017-01-20] MEDS: INSULIN NovoLIN REGULAR SUPPLEMENTAL SCALE SQ SCH ×4 (07:00→20:47)
[2017-01-20 07:50] VITALS: BP 154/76; PULSE 72; RESP 20; TEMP 97.8; O2SAT 95
--- NOTE | 2017-01-20 09:45 | HHI.PR ---
Subjective Remarks vomited this AM Objective Vitals nad heart reg lung cta abd g tube ext no edema Vital Signs Date Time Temp Pulse Resp B/P Pulse Ox O2 Delivery O2 Flow Rate FiO2 01/20/17 04:00 96.1 70 18 147/69 93 01/20/17 00:00 96.4 77 17 105/61 95 01/19/17 23:00 97/57 01/19/17 20:00 96.6 78 18 123/65 94 01/19/17 16:00 97.6 76 18 144/77 96 01/19/17 12:00 98.2 69 18 155/76 95 01/19/17 01/19/17 01/20/17 15:00 23:00 07:00 Intake Total 960 ml 480 ml 240 ml Output Total 600 ml Balance 360 ml 480 ml 240 ml Intake Oral 960 ml 480 ml 240 ml Output Urine Total 600 ml # Voids 2 1 # Bowel Movements 0 1 Result Diagram: 01/19/17 1123 Imaging Last Impressions Lower Extremity Ultrasound 01/11/17 0000 Signed Impressions: Service Date/Time: December 19:16 - CONCLUSION: Normal examination. Orestes Mccord MD Modified Barium Swallow 01/10/17 0000 Signed Impressions: Service Date/Time: Tuesday, January 10, 2017 00:00 - CONCLUSION: Normal examination. Lex Harmon MD Brain MRI 01/10/17 0000 Signed Impressions: Service Date/Time: Tuesday, January 10, 2017 21:31 - CONCLUSION: 1. Atrophy and white matter disease without definite evidence for mass. Orestes Mccord MD Chest X-Ray 01/08/17 0013 Signed Impressions: Service Date/Time: Sunday, January 08, 2017 00:23 - CONCLUSION: Diffuse bilateral pulmonary metastatic disease. Cuauhtemoc Mensah MD Abdomen/Pelvis CT 01/08/17 0013 Signed Impressions: Service Date/Time: Sunday, January 08, 2017 01:19 - CONCLUSION: 1. There is an abnormal soft tissue mass involving the upper portion of the stomach at or just below the GE junction suspicious for neoplastic disease. Recommend direct visualization by endoscopy. 2. Diffuse liver metastatic disease. 3. Diffuse lung metastatic disease. 4. Diffuse para-aortic and retroperitoneal adenopathy. 5. Aneurysmal dilatation of the infrarenal abdominal aorta at 3.7 cm. Cuauhtemoc Mensah MD Chest CT 01/08/17 0000 Signed Impressions: Service Date/Time: Sunday, January 08, 2017 01:19 - CONCLUSION: 1. Diffuse lung metastatic disease. 2. Diffuse liver metastatic disease. Cuauhtemoc Mensah MD A/P Problem List: (1) Gastric carcinoma Status: Acute Plan: - comgmt with GI & Oncology - GE junction/gastric mass with metastatis to the liver, lung, and abdomen - EGD with biopsy performed by Dr. 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 Nichols. He recommends against IVC filter at this time - Defer possible anticoagulation to Oncology - will need PET/CT scan outpt - pt will f/u with Dr. Nichols outpt for treatment plan, likely palliative chemotherapy. - Pt/son request DNR status. - trial of scheduled IV reglan for nausea - Pt/family do NOT want SNF - Pt will d/c to her son's house and feels their will be sufficient help there. - Request C and home Pt upon discharge. - Case d/w Dr. Okeefe (01/14/17) - consult IR for placement of G/J tube . g tube was placed on 01/15 - trial of duragesic 25 mcg -nystatin and MMW for thrush. - radiation started on 01/18 vomited this AM...unable to titrate the continuous feeding above 50ml/hr due to high residuals over 100.... TF changed to bolus feeding yesterday. titrate levemir and use ssi as needed. family very anxious about discharge...will monitor her today and try again for d /c tomorrow. (2) Metastatic disease Status: Acute Plan: - see above (3) Esophageal mass Status: Acute Plan: - see above - Pt with dysphagia and poor oral intake. - MBS showed NO swallowing issue - supportive care (4) Anemia, blood loss Status: Acute Plan: - d/t bleeding from gastric mass - Hg 6/5 (01/02/17), 11.0 (01/12/17) - Pt has received 5 units PRBCs during this hospitalization - observe (5) CKD (chronic kidney disease) stage 3, GFR 30-59 ml/min Status: Acute Plan: - observe (6) Intractable nausea and vomiting Status: Acute Plan: -see above (7) Pulmonary nodules/lesions, multiple Status: Acute Plan: - CT (01/08/17) --> multiple pulm nodues, largest 2.3 cm RLL (8) Anxiety Status: Acute (9) Constipation Status: Acute Plan: - continue current bowel regimen - s/p Gastrografin enema (01/10/17) - Problem Qualifiers (1) Intractable nausea and vomiting: Qualified Code: R11.2 - Intractable vomiting with nausea, unspecified vomiting type (2) Constipation: Qualified Code: K59.00 - Constipation, unspecified constipation type Akbar Wilson MD Jan 20, 2017 09:45
[2017-01-20] MEDS: NYSTAT/DIPHENHY/LIDO MOUTHWASH (Adult) 120ML SWISH-SWAL SCH ×4 (09:59→20:25)
[2017-01-20] MEDS: DEXAMETHASONE 4 MG TAB PO SCH ×2 (09:59→20:24)
[2017-01-20] MEDS: NYSTATIN SUSP 500,000 U/5 ML CUP SWISH-SWAL SCH ×4 (09:59→20:24)
[2017-01-20] MEDS: CARVEDILOL 6.25 MG TAB PO SCH ×2 (09:59→20:24)
[2017-01-20] MEDS ORDERED: LANSOPRAZOLE SOLUTAB 30 MG TAB G-TUBE SCH (10:00)
[2017-01-20] MEDS: SODIUM CHLORIDE 0.9% FLUSH 10 ML FLUSH SCH ×2 (10:01→20:24)
[2017-01-20] MEDS: MORPHINE SULFATE ORAL SOLN 10 MG/0.5 ML SYRINGE G-TUBE PRN ×2 (10:11→20:23)
[2017-01-20] MEDS: INSULIN DETEMIR 100 UNITS/ML VIAL SQ SCH ×2 (10:20→20:48)
[2017-01-20 11:50] VITALS: BP 139/64; PULSE 75; RESP 20; TEMP 97.7; O2SAT 98
[2017-01-20] MEDS: fentaNYL 25 MCG/HR PATCH T-DERMAL SCH (13:45)
[2017-01-20] MEDS: REMOVE OLD DURAGESIC (FENTANYL) PATCH T-DERMAL SCH (13:45)
[2017-01-20 15:50] VITALS: BP 147/71; PULSE 73; RESP 20; TEMP 97.5; O2SAT 95
[2017-01-20 17:57] LABS: AUTOMATED NEUTROPHIL # 12.3 TH/MM3 (1.8-7.7); BASOPHIL # 0.1 TH/MM3 (0-0.2); BASOPHIL % 0.8 % (0.0-2.0); HEMATOCRIT 32.2 % (35.0-46.0); LYMPH % 0.9 % (9.0-44.0); LYMPHOCYTE # 0.1 TH/MM3 (1.0-4.8); MEAN CELL VOLUME 85.8 FL (80.0-100.0); MEAN CORPUSCULAR HGB CONC 32.6 % (32.0-36.0); MONO % 7.5 % (0.0-8.0); NEUT % 90.8 % (16.0-70.0); PLATELET COUNT 249 TH/MM3 (150-450); RED BLOOD COUNT 3.76 MIL/MM3 (4.00-5.30); RED CELL DISTRIBUTION WIDTH 17.3 % (11.6-17.2); WHITE BLOOD COUNT 13.5 TH/MM3 (4.0-11.0)
[2017-01-20 18:01] LABS: HEMO FLAGS AUTO DIFF
[2017-01-20] MEDS: ONDANSETRON HCL 4 MG/2 ML VIAL IV PRN (18:35)
[2017-01-20 18:41] LABS: BANDS 5 % (0-6); CORRECTED NUCLEATED RBC 1 /100 WBC (0-0); METAMYELOCYTES 1 % (0-1); NEUTROPHIL # MANUAL DIFF 11.9 TH/MM3 (1.8-7.7); POLYS (SEG NEUTROPHILS) 82 % (16-70); WBC DIFF SAMPLE 100
[2017-01-20 18:42] LABS: ACANTHOCYTES OCC (NORMAL); OVALOCYTES 1+ (NORMAL)
[2017-01-20 18:43] LABS: PLATELET ESTIMATE SMEAR NORMAL (NORMAL); PLATELET MORPHOLOGY NORMAL (NORMAL); SCAN/DIFF FINAL DIFF MANUAL
[2017-01-20 20:00] VITALS: BP 148/70; PULSE 73; RESP 18; TEMP 98; O2SAT 95
[2017-01-21] VITALS: BP 158/73; PULSE 76; RESP 20; TEMP 96.6; O2SAT 94
[2017-01-21] MEDS: CHLORHEXIDINE GLUCONATE 2 % 1 PACK (2 CLOTHS) TOP SCH (01:02)
[2017-01-21 04:00] VITALS: BP 124/88; PULSE 75; RESP 19; TEMP 97.2; O2SAT 93
[2017-01-21] MEDS: METOCLOPRAMIDE HCL 10 MG/2 ML VIAL IV SCH ×3 (04:43→20:46)
[2017-01-21] MEDS: INSULIN NovoLIN REGULAR SUPPLEMENTAL SCALE SQ SCH ×4 (06:05→21:05)
[2017-01-21 07:55] VITALS: BP 131/65; PULSE 75; RESP 20; TEMP 97.3
[2017-01-21] MEDS ORDERED: PROMETHAZINE HCL SYRUP 6.25 MG/5 ML CUP G-TUBE ONE (09:30)
[2017-01-21] MEDS ORDERED: LACTULOSE SYRUP 20 GM/30 ML CUP G-TUBE ONE (09:30)
--- NOTE | 2017-01-21 09:36 | HHI.PR ---
Subjective Remarks still nauseated. vomits up attempts at her morning coffee some mild blood from g tube yesterday. no melena no bm in a few days. Objective Vitals heart reg lung cta abd g tube. bs ext no edema Vital Signs Date Time Temp Pulse Resp B/P Pulse Ox O2 Delivery O2 Flow Rate FiO2 01/21/17 07:55 97.3 75 20 131/65 01/21/17 04:00 97.2 75 19 124/88 93 01/21/17 00:00 96.6 76 20 158/73 94 01/20/17 20:00 98.0 73 18 148/70 95 01/20/17 15:50 97.5 73 20 147/71 95 01/20/17 11:50 97.7 75 20 139/64 98 01/20/17 01/20/17 01/21/17 15:00 23:00 07:00 Intake Total 900 ml 660 ml 120 ml Output Total 200 ml 550 ml Balance 900 ml 460 ml -430 ml Intake Oral 360 ml 400 ml 120 ml Tube Feeding 240 ml 180 ml Other 300 ml 80 ml Output Urine Total 200 ml 550 ml # Voids 4 2 # Bowel Movements 0 Result Diagram: 01/20/17 1723 Imaging Last Impressions Lower Extremity Ultrasound 01/11/17 0000 Signed Impressions: Service Date/Time: December 19:16 - CONCLUSION: Normal examination. Orestes Mccord MD Modified Barium Swallow 01/10/17 0000 Signed Impressions: Service Date/Time: Tuesday, January 10, 2017 00:00 - CONCLUSION: Normal examination. Lex Harmon MD Brain MRI 01/10/17 0000 Signed Impressions: Service Date/Time: Tuesday, January 10, 2017 21:31 - CONCLUSION: 1. Atrophy and white matter disease without definite evidence for mass. Orestes Mccord MD Chest X-Ray 01/08/17 0013 Signed Impressions: Service Date/Time: Sunday, January 08, 2017 00:23 - CONCLUSION: Diffuse bilateral pulmonary metastatic disease. Cuauhtemoc Mensah MD Abdomen/Pelvis CT 01/08/17 0013 Signed Impressions: Service Date/Time: Sunday, January 08, 2017 01:19 - CONCLUSION: 1. There is an abnormal soft tissue mass involving the upper portion of the stomach at or just below the GE junction suspicious for neoplastic disease. Recommend direct visualization by endoscopy. 2. Diffuse liver metastatic disease. 3. Diffuse lung metastatic disease. 4. Diffuse para-aortic and retroperitoneal adenopathy. 5. Aneurysmal dilatation of the infrarenal abdominal aorta at 3.7 cm. Cuauhtemoc Mensah MD Chest CT 01/08/17 0000 Signed Impressions: Service Date/Time: Sunday, January 08, 2017 01:19 - CONCLUSION: 1. Diffuse lung metastatic disease. 2. Diffuse liver metastatic disease. Cuauhtemoc Mensah MD A/P Problem List: (1) Gastric carcinoma Status: Acute Plan: - comgmt with GI & Oncology - GE junction/gastric mass with metastatis to the liver, lung, and abdomen - EGD with biopsy performed by Dr. 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 Nichols. He recommends against IVC filter at this time - Defer possible anticoagulation to Oncology - will need PET/CT scan outpt - pt will f/u with Dr. Nichols outpt for treatment plan, likely palliative chemotherapy. - Pt/son request DNR status. - trial of scheduled IV reglan for nausea - Pt/family do NOT want SNF - Pt will d/c to her son's house and feels their will be sufficient help there. - Request C and home Pt upon discharge. - Case d/w Dr. Okeefe (01/14/17) - consult IR for placement of G/J tube . g tube was placed on 01/15 - duragesic 25 mcg. roxicodone through g tube -nystatin and MMW for thrush. - radiation started on 01/18 - still ongoing problems with nausea and intermittent vomiting. she was worried about some mild blood/coffee grounds noted yesterday by nurse from g tube. I explained that she may have this from time to time given the ulcerated mass. -attempts are still being made to adjust her tube feeding. unable to tolerate higher rates or frequent boluses..high residuals titrate levemir and novolog as we adjust tube feeding. schedule laxative and antiemetics. she will be going home with son but they both remain very anxious (2) Metastatic disease Status: Acute Plan: - see above (3) Esophageal mass Status: Acute Plan: - see above - Pt with dysphagia and poor oral intake. - MBS showed NO swallowing issue - supportive care (4) Anemia, blood loss Status: Acute Plan: - d/t bleeding from gastric mass - Hg 6/5 (01/02/17), 11.0 (01/12/17) - Pt has received 5 units PRBCs during this hospitalization - observe (5) CKD (chronic kidney disease) stage 3, GFR 30-59 ml/min Status: Acute Plan: - observe (6) Intractable nausea and vomiting Status: Acute Plan: -see above (7) Pulmonary nodules/lesions, multiple Status: Acute Plan: - CT (01/08/17) --> multiple pulm nodues, largest 2.3 cm RLL (8) Anxiety Status: Acute (9) Constipation Status: Acute Plan: - continue current bowel regimen - s/p Gastrografin enema (01/10/17) - Problem Qualifiers (1) Intractable nausea and vomiting: Qualified Code: R11.2 - Intractable vomiting with nausea, unspecified vomiting type (2) Constipation: Qualified Code: K59.00 - Constipation, unspecified constipation type Akbar Wilson MD Jan 21, 2017 09:36
[2017-01-21] MEDS: DEXAMETHASONE 4 MG TAB PO SCH ×2 (10:03→20:48)
[2017-01-21] MEDS: CARVEDILOL 6.25 MG TAB PO SCH ×2 (10:03→20:48)
[2017-01-21] MEDS: NYSTATIN SUSP 500,000 U/5 ML CUP SWISH-SWAL SCH ×4 (10:04→20:41)
[2017-01-21] MEDS: LANSOPRAZOLE SOLUTAB 30 MG TAB G-TUBE SCH ×2 (10:04→20:48)
[2017-01-21] MEDS: INSULIN DETEMIR 100 UNITS/ML VIAL SQ SCH ×2 (10:08→21:05)
[2017-01-21] MEDS: SODIUM CHLORIDE 0.9% FLUSH 10 ML FLUSH SCH ×2 (10:24→20:49)
[2017-01-21 11:50] VITALS: BP 136/64; PULSE 69; RESP 20; TEMP 97.5; O2SAT 93
[2017-01-21] MEDS: NYSTAT/DIPHENHY/LIDO MOUTHWASH (Adult) 120ML SWISH-SWAL SCH ×4 (13:56→20:43)
[2017-01-21] MEDS ORDERED: PILL SPLITTER OTHER PRN (14:45)
[2017-01-21] MEDS ORDERED: FLUCONAZOLE 100 MG TAB G-TUBE ONE (15:00)
[2017-01-21 15:45] VITALS: BP 124/80; PULSE 77; RESP 20; TEMP 97; O2SAT 95
[2017-01-21] MEDS: PROMETHAZINE HCL SYRUP 6.25 MG/5 ML CUP PO SCH ×2 (17:22→23:58)
[2017-01-21 20:00] VITALS: BP 120/69; PULSE 85; RESP 18; TEMP 96.8; O2SAT 95
[2017-01-21] MEDS: LACTULOSE SYRUP 20 GM/30 ML CUP PO SCH (20:49)
[2017-01-21] MEDS: SCOPOLAMINE 1.5 MG PATCH T-DERMAL SCH (23:58)
[2017-01-22] VITALS: BP 124/61; PULSE 86; RESP 17; TEMP 96.1; O2SAT 96
[2017-01-22 04:00] VITALS: BP 134/68; PULSE 67; RESP 17; TEMP 96.2; O2SAT 95
[2017-01-22] MEDS: CHLORHEXIDINE GLUCONATE 2 % 1 PACK (2 CLOTHS) TOP SCH (04:00)
[2017-01-22] MEDS: METOCLOPRAMIDE HCL 10 MG/2 ML VIAL IV SCH (04:41)
[2017-01-22] MEDS: PROMETHAZINE HCL SYRUP 6.25 MG/5 ML CUP PO SCH ×3 (05:50→18:29)
[2017-01-22] MEDS: INSULIN NovoLIN REGULAR SUPPLEMENTAL SCALE SQ SCH ×3 (06:08→16:47)
[2017-01-22 08:00] VITALS: BP 146/98; PULSE 79; RESP 20; TEMP 97.1; O2SAT 93
--- NOTE | 2017-01-22 08:27 | HHI.DCPOC ---
Discharge Care Plan Diagnosis: (1) Gastric adenocarcinoma (2) Dysphagia (3) CKD (chronic kidney disease) stage 3, GFR 30-59 ml/min (4) GI bleed (5) Thrush (6) Fatigue (7) Nausea Goals to Promote Your Health * To prevent worsening of your condition and complications * To maintain your health at the optimal level Directions to Meet Your Goals Take your medications as prescribed Follow your dietary instruction Follow activity as directed Keep your appointments as scheduled Take your immunizations and boosters as scheduled If your symptoms worsen call your PCP, if no PCP go to Urgent Care Center or Emergency Room Smoking is Dangerous to Your Health. Avoid second hand smoke Call the 24-hour hour crisis hotline for domestic abuse at Akbar Wilson MD Jan 22, 2017 08:27
[2017-01-22] MEDS ORDERED: DEXA4TAB G-TUBE (08:38)
[2017-01-22] MEDS ORDERED: LEVEMIR SQ (08:38)
[2017-01-22] MEDS ORDERED: Lactulose Liq G-TUBE (08:38)
[2017-01-22] MEDS ORDERED: SCOP1PAT2 T-DERMAL (08:38)
[2017-01-22] MEDS ORDERED: PROM6.254 PO (08:38)
[2017-01-22] MEDS ORDERED: FENT25T T-DERMAL (08:38)
[2017-01-22] MEDS ORDERED: ZOFR4TAB3 SL (08:38)
[2017-01-22] MEDS ORDERED: PREV30TA3 G-TUBE (08:38)
[2017-01-22] MEDS ORDERED: MORP20SO2 G-TUBE (08:38)
[2017-01-22] MEDS ORDERED: NOVORP2 SQ (08:38)
[2017-01-22] MEDS: DEXAMETHASONE 4 MG TAB PO SCH (08:46)
[2017-01-22] MEDS: CARVEDILOL 6.25 MG TAB PO SCH (08:46)
[2017-01-22] MEDS: LANSOPRAZOLE SOLUTAB 30 MG TAB G-TUBE SCH (08:46)
[2017-01-22] MEDS ORDERED: REGL5TAB G-TUBE (08:46)
[2017-01-22] MEDS: NYSTATIN SUSP 500,000 U/5 ML CUP SWISH-SWAL SCH ×3 (08:46→18:36)
[2017-01-22] MEDS: NYSTAT/DIPHENHY/LIDO MOUTHWASH (Adult) 120ML SWISH-SWAL SCH ×3 (08:47→18:36)
[2017-01-22] MEDS ORDERED: Metoclopramide Liq G-TUBE (08:54)
[2017-01-22] MEDS: MORPHINE SULFATE 8 MG/ML INJ IV PUSH PRN (08:55)
--- NOTE | 2017-01-22 08:58 | HHI.DS ---
Discharge Summary Admission Date Jan 08, 2017 at 01:06 Discharge Date: Jan 22, 2017 Admitting Diagnosis GI bleed, marked anemia (1) Gastric carcinoma Diagnosis: Principal (2) Metastatic disease Diagnosis: Principal (3) Esophageal mass Diagnosis: Principal (4) Anemia, blood loss Diagnosis: Principal (5) CKD (chronic kidney disease) stage 3, GFR 30-59 ml/min Diagnosis: Secondary (6) Intractable nausea and vomiting Diagnosis: Secondary (7) Pulmonary nodules/lesions, multiple Diagnosis: Secondary (8) Anxiety Diagnosis: Secondary (9) Constipation Diagnosis: Secondary CBC/BMP: 01/20/17 1723 Significant Findings Laboratory Tests Test 01/19/17 01/20/17 11:23 17:23 White Blood Count 12.1 TH/MM3 13.5 TH/MM3 (4.0-11.0) (4.0-11.0) Red Blood Count 3.90 MIL/MM3 3.76 MIL/MM3 (4.00-5.30) (4.00-5.30) Hemoglobin 10.8 GM/DL 10.5 GM/DL (11.6-15.3) (11.6-15.3) Hematocrit 34.0 % 32.2 % (35.0-46.0) (35.0-46.0) Mean Corpuscular Hemoglobin 31.9 % Concent (32.0-36.0) Neutrophils (%) (Auto) 87.3 % 90.8 % (16.0-70.0) (16.0-70.0) Lymphocytes (%) (Auto) 1.0 % 0.9 % (9.0-44.0) (9.0-44.0) Monocytes (%) (Auto) 11.0 % (0.0-8.0) Neutrophils # (Auto) 10.6 TH/MM3 12.3 TH/MM3 (1.8-7.7) (1.8-7.7) Lymphocytes # (Auto) 0.1 TH/MM3 0.1 TH/MM3 (1.0-4.8) (1.0-4.8) Monocytes # (Auto) 1.3 TH/MM3 1.0 TH/MM3 (0-0.9) (0-0.9) Red Cell Distribution Width 17.3 % (11.6-17.2) Neutrophils % (Manual) 82 % (16-70) Lymphocytes % 3 % (9-44) Monocytes % 9 % (0-8) Neutrophils # (Manual) 11.9 TH/MM3 (1.8-7.7) Nucleated Red Blood Cells 1 /100 WBC (0-0) Ovalocytes 1+ (NORMAL) Acanthocytes OCC (NORMAL) Hospital Course (1) Gastric carcinoma Status: Acute Plan: - comgmt with GI & Oncology - GE junction/gastric mass with metastatis to the liver, lung, and abdomen - EGD with biopsy performed by Dr. 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 Nichols. He recommends against IVC filter at this time - Defer possible anticoagulation to Oncology - will need PET/CT scan outpt - pt will f/u with Dr. Nichols outpt for treatment plan, likely palliative chemotherapy. - Pt/son request DNR status. - Pt/family do NOT want SNF - Pt will d/c to her son's house and feels their will be sufficient help there. - Request C and home Pt upon discharge. - consult IR for placement of G/J tube . g tube was placed on 01/15 - duragesic 25 mcg. roxicodone through g tube -nystatin and MMW for thrush. - radiation started on 01/18 - still ongoing problems with nausea and intermittent vomiting. she was worried about some mild blood/coffee grounds noted yesterday by nurse from g tube. I explained that she may have this from time to time given the ulcerated mass. - continuous tf stopped due to high residual. pt doing bolus feeding with family comfortable with administration. she still gets some intermittent high residuals but doing ok. titrate levemir and novolog as we adjust tube feeding. schedule laxative and antiemetics. she will be going home with son but they both remain very anxious (2) Metastatic disease Status: Acute Plan: - see above (3) Esophageal mass Status: Acute Plan: - see above - Pt with dysphagia and poor oral intake. - MBS showed NO swallowing issue - supportive care (4) Anemia, blood loss Status: Acute Plan: - d/t bleeding from gastric mass - Hg 6/5 (01/02/17), 11.0 (01/12/17) - Pt has received 5 units PRBCs during this hospitalization - observe (5) CKD (chronic kidney disease) stage 3, GFR 30-59 ml/min Status: Acute Plan: - observe (6) Intractable nausea and vomiting Status: Acute Plan: -see above (7) Pulmonary nodules/lesions, multiple Status: Acute Plan: - CT (01/08/17) --> multiple pulm nodues, largest 2.3 cm RLL (8) Anxiety Status: Acute (9) Constipation Status: Acute Plan: - continue current bowel regimen - s/p Gastrografin enema (01/10/17) - Pt Condition on Discharge: Stable Discharge Disposition: Disch w/ Home Health Serv Discharge Instructions DIET: Follow Instructions for: On Tube Feeding Additional Diet Instructions: Glucerna 1.5 boluses of 240mls @ 7A, 12P, 5pm,10pm w/ 30ml water flush before/after bolus administration. 150ml water flushes q6hr Activities you can perform: Regular-No Restrictions Follow up Referrals: Oncology - [address] Nichols PCP Follow-up - 3-[address] camden la New Medications: Bedside Commode (Bedside Commode) 1 Mis Mis 1 EA .ROUTE DIRECTED #1 EA Hospital Bed - Manual (Hospital Bed - Manual) 1 Ea Ea 1 EA .ROUTE DIRECTED repositioning #1 EA Ondansetron Odt (Zofran Odt) 4 Mg Tab 4 MG SL Q6HR PRN Nausea/Vomiting #30 Ref 0 TAB Dexamethasone (Dexamethasone) 4 Mg Tab 4 MG G-TUBE DIRECTED 4mg gtube bid x 3 days, 2mg gtube bid x 3 days,2mg gtube 4 days then stop Nausea/Vomiting Days 10 TAB Fentanyl Patch 72 HR (Duragesic Patch 72 HR) 25 Mcg/Hr Patch 1 PATCH T-DERMAL Q3D Pain Management #10 Ref 3 PATCH Insulin Detemir Inj (Levemir Inj) 1,000 unit/ 10 ML Vial 20 UNITS SQ BID diabetes Days 30 Ref 3 INJECTION Insulin Human Regular Inj (Novolin R Inj) 1,000 Unit/10 Ml Vial 1 UNITS SQ ACHS SLIDING SCALE use as directed per sliding scale. diabetes Days 30 INJECTION Lansoprazole ODT (Prevacid Solutab ODT) 30 Mg Tab 30 MG G-TUBE BID acid reduction Days 30 Ref 3 TAB Morphine Liq (Morphine Liq) 20 Mg/Ml Liq 5 MG G-TUBE Q4H PRN pain Days 30 Ref 3 ML Promethazine Liq (Promethazine Liq) 6.25 Mg/5 Ml Syrp 6.25 MG PO Q6H Nausea/Vomiting Days 30 Ref 3 ML Scopolamine (Transderm-Scop) 1 Mg/3 Days Dis 1 PATCH T-DERMAL Q3D Nausea/Vomiting #10 Ref 3 PATCH ([Lactulose Liq]) 30 ML SYRP 30 ML G-TUBE Q6HR PRN constipation Days 30 ML ([Metoclopramide Liq]) 10 MG/10 ML SYRP 5 MG G-TUBE Q8HR Nausea/Vomiting Days 30 Ref 3 ML Continued Medications: Amlodipine (Amlodipine) 10 Mg Tab 10 MG PO DAILY Blood Pressure Management #30 Ref 0 TAB Buspirone (Buspirone) 7.5 Mg Tab 7.5 MG PO BID Anxiety Ref 0 TAB Carvedilol (Carvedilol) 6.25 Mg Tab 6.25 MG PO BID #60 Ref 0 TAB Cyanocobalamin (Vitamin B-12) (Vitamin B12) 2,500 Mcg Tab.chew IM MONTHLY DIETARY SUPPLENT Discontinued Medications: Atorvastatin (Atorvastatin) 20 Mg Tab 20 MG PO HS Cholesterol Management #30 Ref 0 TAB Cholecalciferol (Vitamin D3) 50,000 Unit Cap 68905 UNITS PO Q7D Nutritional Supplement #30 Ref 0 CAP Docusate Sodium (Colace) 100 Mg Capsule 100 MG PO DAILY Insulin Aspart Inj (Novolog Inj) 1,000 Unit/10 Ml Vial 14 UNITS SQ TIDPC Blood Sugar Management #10 Ref 0 ML Insulin Detemir Inj (Levemir Inj) 1,000 unit/ 10 ML Vial 52 UNITS SQ HS Do not mix with any other Insulin. Blood Sugar Management Ref 0 VIAL Omeprazole Magnesium (Prilosec) 20 Mg Tab 20 MG PO DAILY Polyethylene Glycol 3350 (Miralax) 17 Gm Powd.pack Telmisartan (Telmisartan) 40 Mg Tab 40 MG PO DAILY Blood Pressure Management #30 Ref 0 TAB Warfarin (Warfarin) 5 Mg Tab 5 MG PO DAILY Blood Clot Prevention #30 Ref 0 TAB Akbar Wilson MD Jan 22, 2017 08:57
[2017-01-22] MEDS: LACTULOSE SYRUP 20 GM/30 ML CUP PO SCH (09:00)
[2017-01-22] MEDS ORDERED: INSULIN DETEMIR 100 UNITS/ML VIAL SQ SCH (09:00)
[2017-01-22] MEDS: MORPHINE SULFATE ORAL SOLN 10 MG/0.5 ML SYRINGE G-TUBE PRN ×2 (12:01→18:29)
[2017-01-22] MEDS: SODIUM CHLORIDE 0.9% FLUSH 10 ML FLUSH SCH (12:02)
--- NOTE | 2017-01-22 12:40 | PD.ONC.PN ---
Subjective Subjective Remarks Afebrile overnight. Tolerating bolus tube feeds. Excited about going home soon. tolerating XRT. Objective Data Date Time Temp Pulse Resp B/P Pulse Ox O2 Delivery O2 Flow Rate FiO2 01/22/17 08:00 97.1 79 20 146/98 93 01/22/17 04:00 96.2 67 17 134/68 95 01/22/17 00:00 96.1 86 17 124/61 96 01/21/17 20:00 96.8 85 18 120/69 95 01/21/17 15:45 97.0 77 20 124/80 95 01/22/17 01/22/17 01/22/17 07:00 15:00 23:00 Intake Total 600 ml Output Total 200 ml Balance 400 ml Result Diagram: 01/20/17 1723 Administered Medications Medications (Trade) Dose Ordered Sig/[place] Route PRN Reason Start Time Stop Time Status Last Admin Dose Admin Sodium Chloride (NS Flush) 2 ml UNSCH PRN .XX FLUSH AFTER USING IV ACCESS 01/08/17 03:30 01/16/17 14:51 Sodium Chloride (NS Flush) 2 ml BID .XX 01/08/17 09:00 01/22/17 12:02 Morphine Sulfate (Morphine Inj) 2 mg Q2H PRN IV PUSH PAIN SCALE 9 TO 10 01/08/17 03:45 01/22/17 08:55 Ondansetron HCl (Zofran Inj) 4 mg Q6H PRN IV NAUSEA OR VOMITING 01/08/17 03:30 01/20/17 18:35 Miscellaneous Information 1 Q361D XX 01/08/17 03:30 01/08/17 03:30 Chlorhexidine Gluconate (Chlorhexidine 2% Cloth) Taper DAILY@04 TOP 01/08/17 04:00 01/04/18 03:59 01/13/17 04:00 Glucagon (Glucagon Inj) 1 mg UNSCH PRN OTHER HYPOGLYCEMIA-SEE COMMENTS 01/09/17 10:15 01/15/17 12:26 Scopolamine (Transderm-Scop 1.5 Mg Patch.72 Hr) 1 patch Q3D T-DERMAL 01/10/17 01:00 01/21/17 23:58 Promethazine HCl (Phenergan Inj) 12.5 mg Q6H PRN IM NAUSEA 01/10/17 09:30 01/15/17 08:49 Dexamethasone (Decadron) 4 mg Q12HR PO 01/10/17 23:00 01/22/17 08:46 Carvedilol (Coreg) 6.25 mg Q12HR PO 01/12/17 00:45 01/22/17 08:46 Amlodipine Besylate (Norvasc) 10 mg DAILY PO 01/12/17 09:00 01/22/17 08:46 Clonidine (Catapres) 0.1 mg Q6H PRN PO SBP >165 01/12/17 00:45 01/12/17 03:58 Non-Formulary Medication 45 ML GI COCKTAIL OF MAAL... Q6H PRN PO DYSPEPSIA 01/13/17 11:15 01/15/17 22:23 Multi-Ingredient Mouthwash/Gargle (Magic Mouthwash Adult Liq) 10 ml QID SWISH-SWAL 01/14/17 13:00 01/22/17 11:59 Fentanyl (Duragesic 25 Mcg Patch.72 Hr) 1 patch Q3D T-DERMAL 01/14/17 13:45 01/20/17 13:45 Miscellaneous Information 1 Q3D T-DERMAL 01/17/17 13:45 01/20/17 13:45 Nystatin (Mycostatin Liq) 5 ml QID SWISH-SWAL 01/15/17 13:00 01/22/17 11:59 Benzocaine/Menthol (Cepacol Extra Freddy (Sugar Free)) 1 lozenge Q2HR PRN BUCCAL sore throat 01/15/17 12:00 01/15/17 18:13 Morphine Sulfate (Roxanol Liq) 5 mg Q4H PRN G-TUBE pain1-8 01/17/17 14:30 01/22/17 12:01 Lactulose (Lactulose Liq) 30 ml BID PRN G-TUBE constipation 01/18/17 09:00 01/19/17 15:17 Promethazine HCl (Phenergan Liq) 6.25 mg Q6H PO 01/21/17 18:00 01/22/17 11:59 Lansoprazole (Prevacid Odt) 30 mg BID G-TUBE 01/21/17 09:45 01/22/17 08:46 Insulin Detemir (Levemir Inj) 20 units BID SQ 01/22/17 09:00 01/22/17 08:47 Objective Remarks GENERAL: Elderly female sitting up in bed in nad. SKIN: Warm and dry. HEAD: Normocephalic. EYES: No injection or drainage. NECK: Supple, trachea midline. CARDIOVASCULAR: Regular rate and rhythm RESPIRATORY: clear to auscultation. GASTROINTESTINAL: Abdomen soft, non-tender, nondistended. PEG tube clamped EXTREMITIES: No cyanosis NEUROLOGICAL: awake and alert, normal speech. Assessment/Plan Problem List: (1) Malnutrition Status: Acute Plan: --s/p G-tube placement in IR. tolerating bolus tube feeds (2) Gastric adenocarcinoma Status: Acute Plan: -- GE junction/gastric mass with metastatic disease to the liver, lung and abdomen--highly suspicious for a primary gastric cancer. 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 Will need PET/CT scan outpatient -fs faxed to new patient referrals for follow up in 1-2 weeks. --plan for radiation with Dr. Marques. underwent simulation on 01/16. started XRT on 01.18. -- patient's performance status will need to improve bf she can receive chemotherapy (3) Anemia, blood loss Status: Acute Plan: --d/t bleeding from the gastric mass. --transfuse for Hb less than 7.5 --s/p IV iron (4) CKD (chronic kidney disease) stage 3, GFR 30-59 ml/min Status: Acute Plan: --monitor (5) History of DVT (deep vein thrombosis) Status: Acute Plan: --anticoagulation is on hold due to bleeding risk --repeat doppler u/s shows no DVT --had DVT in leg ~ 4 years ago (6) Intractable nausea and vomiting Status: Resolved Plan: --decadron - Zofran/phenergan - scopalamine patch -reglan (7) Thrush Status: Acute Plan: --magic mouthwash. Assessment 71-year-old female who presents with weakness, abdominal pain, constipation and difficulty swallowing. On admission she underwent imaging including a CT of the chest, abdomen and pelvis which revealed a gastric mass at or below the level of the GE junction, metastatic lesions to the liver, abdomen as well as bilateral lung mckay. Pathology showed a gastric adenocarcinoma. Plan 1. patient being discharged today. 2. follow up in clinic in 1 week. Attending Statement The exam, history, and the medical decision-making described in the above note were completed with the assistance of the mid-level provider. I reviewed and agree with the findings presented. I attest that I had a [id number] encounter with the patient on the same day, and personally performed and documented my assessment and findings in the medical record. Problem Qualifiers (1) Intractable nausea and vomiting: Qualified Code: R11.2 - Intractable vomiting with nausea, unspecified vomiting type Ana Paul Jan 22, 2017 12:40 Marko Nichols MD Jan 22, 2017 23:48
[2017-01-22] MEDS ORDERED: METOCLOPRAMIDE HCL SYRUP 10 MG/10 ML UDC G-TUBE SCH (14:00)
[2017-01-22 14:15] VITALS: BP 121/82; PULSE 72; RESP 16; TEMP 96.3; O2SAT 95
== END 2017-01-22 19:40 | disposition home health service (06) | DRG 375 ==
LOC: PHED 23:46 → PHEDA 01-08 01:06 → HIMN 01-08 03:00 → HOCB 01-12 00:33
PROVIDERS: ADMIT Internal Medicine Critical Care Medicine; ATTEND Internal Medicine Critical Care Medicine
PROC: 30233N1 Transfusion of Nonautologous Red Blood Cells into Peripheral Vein, Percutaneous Approach (ICD-10-PCS; principal; 2017-01-08)
PROC: 0DB38ZX Excision of Lower Esophagus, Via Natural or Artificial Opening Endoscopic, Diagnostic (ICD-10-PCS; 2017-01-09)
PROC: 0DB68ZX Excision of Stomach, Via Natural or Artificial Opening Endoscopic, Diagnostic (ICD-10-PCS; 2017-01-09)
PROC: 0DH63UZ Insertion of Feeding Device into Stomach, Percutaneous Approach (ICD-10-PCS; 2017-01-15)
DX: C16.9 Malignant neoplasm of stomach, unspecified (principal); K92.2 Gastrointestinal hemorrhage, unspecified; E87.0 Hyperosmolality and hypernatremia; E46 Unspecified protein-calorie malnutrition; N18.4 Chronic kidney disease, stage 4 (severe); C78.00 Secondary malignant neoplasm of unspecified lung; B37.0 Candidal stomatitis; C78.7 Secondary malignant neoplasm of liver and intrahepatic bile duct; D62 Acute posthemorrhagic anemia; E11.22 Type 2 diabetes mellitus with diabetic chronic kidney disease; I12.9 Hypertensive chronic kidney disease with stage 1 through stage 4 chronic kidney disease, or unspecified chronic kidney disease; K21.9 Gastro-esophageal reflux disease without esophagitis; R79.1 Abnormal coagulation profile; Z79.01 Long term (current) use of anticoagulants; Z87.891 Personal history of nicotine dependence; K59.00 Constipation, unspecified; R59.0 Localized enlarged lymph nodes; Z86.010 Personal history of colon polyps; K64.4 Residual hemorrhoidal skin tags; K57.30 Diverticulosis of large intestine without perforation or abscess without bleeding; Z86.718 Personal history of other venous thrombosis and embolism; E78.5 Hyperlipidemia, unspecified; I73.9 Peripheral vascular disease, unspecified; E53.8 Deficiency of other specified B group vitamins; E55.9 Vitamin D deficiency, unspecified; F41.9 Anxiety disorder, unspecified; I71.2 Thoracic aortic aneurysm, without rupture; M81.0 Age-related osteoporosis without current pathological fracture; D50.9 Iron deficiency anemia, unspecified; Z51.5 Encounter for palliative care; Z66 Do not resuscitate; Z86.79 Personal history of other diseases of the circulatory system; K20.9 Esophagitis, unspecified; R11.2 Nausea with vomiting, unspecified
CPT/HCPCS: 36430; 49440; 51702; 70551; 71010; 71250; 74176; 74230; 74270; 76937; 77263; 77280; 77290; 77295; 77300; 77334; 77412; 80048; 80053; 81001; 82105; 82378; 82607; 82747; 82948; 83540; 83550; 83605; 83690; 83735; 84100; 84466; 85007; 85014; 85018; 85025; 85027; 85610; 85730; 86301; 86850; 86900; 86901; 86920; 87641; 88305; 88312; 93005; 93970; C1769; C1887; C9113; C9132; J0171; J0690; J1610; J1756; J2212; J2250; J2270; J2405; J2550; J2765; J3010; J3430; J7030; J7050; J8540; P9016; Q9963; Q9967

== ENCOUNTER 2017-02-08 18:37 | Inpatient (IN) | payer MEDICARE ==
[~2017-02-08] VITALS: Ht 170.2 cm; Wt 88.0 kg
[~2017-02-08 18:37] MED LIST changes: +AMLO10TA2 PO; +BEDSIDE COMMODE1 MI1; +BUSP1TAB PO; -BUSP5TAB PO; -CARV6.25 PO; +CARV6.252 PO; -CYAN1000P IM; +CYAN25005 IM; +DEXA4TAB G-TUBE; +FENT25T T-DERMAL; +HOSP BED2; -IRON SUPPLEMENT PO; +LEVEMIR SQ; -LOVA1TAB47 PO; +Lactulose Liq G-TUBE; -MIRA33502 PO; +MORP20SO2 G-TUBE; +Metoclopramide Liq G-TUBE; +NOVORP2 SQ; +PREV30TA3 G-TUBE; -PRIL20CA PO; +PROM6.254 PO; +SCOP1PAT2 T-DERMAL; -STOO100C PO; +ZOFR4TAB3 SL; -[UNRECOGNIZED DRUG - CODE] IV
[2017-02-08 18:39] VITALS: BP 155/86; PULSE 115; RESP 18; TEMP 98.5; O2SAT 100
--- NOTE | 2017-02-08 18:55 | PD ---
HPI Chief Complaint: Respiratory Distress Time Seen by Provider: 18:51 Travel History International Travel<30 days: No Contact w/Intl Traveler<30days: No Traveled to known affect area: No History of Present Illness HPI Patient is a 71-year-old female presents emergency department for evaluation of shortness of breath. Patient's was recently released from the hospital for shortness of breath. She has a history of lung cancer. She is not on home oxygen. EMS reports when they arrived to the patient's house she was satting 90 % on room air, they heard rales in her bases and started her on CPAP. Afterwards the patient was satting in the 100s. She arrives minimally tachypneic. Does endorse shortness of breath but denies any chest pain. She also endorses some leg swelling which is new since her release from the hospital a few days ago. Denies any nausea vomiting. States symptoms are gradually worsening and moderate in severity. 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) Musculoskeletal: Yes (DIABETIC RELATED) Neurologic: Yes Psychiatric: No Reproductive: No Respiratory: No Migraines: No Myocardial Infarction: No Radiation Therapy: Yes (FINISHED A WEEK AGO ) Renal Failure: No Seizures: No Sleep Apnea: No Thyroid Disease: No Ulcer: No PNEUMOCCOCAL Vaccine (Year): 2010 Menopausal: Yes : 5 Para: 3 Miscarriage: 2 Past Surgical History Abdominal Surgery: No Appendectomy: No Cardiac Surgery: No Cholecystectomy: No Ear Surgery: No Endocrine Surgery: No Eye Surgery: No Genitourinary Surgery: Yes (RECTAL CYST) Gynecologic Surgery: No Oral Surgery: No Thoracic Surgery: No Other Surgery: Yes (REMOVAL OF RECTAL CYST 1998.) Social History Alcohol Use: No Tobacco Use: No (QUIT) Substance Use: No Allergies-Medications (Allergen,Severity, Reaction): Coded Allergies: clindamycin (Unverified Allergy, Severe, VOMITING AND DIARRHEA, 02/06/17) sulfamethoxazole (Unverified Allergy, Severe, VOMITING AND DIARRHEA, ) penicillin G (Unverified Allergy, Mild, Rash, 02/06/17) ciprofloxacin (Unverified Allergy, Unknown, 02/06/17) Reported Meds & Prescriptions Reported Meds & Active Scripts Active [Metoclopramide Liq] 10 MG/10 ML Syrp 5 Mg G-TUBE Q8HR 30 Days Zofran Odt (Ondansetron Odt) 4 Mg Tab 4 Mg SL Q6HR PRN Transderm-Scop (Scopolamine) 1 Mg/3 Days Dis 1 Patch T-DERMAL Q3D Promethazine Liq (Promethazine HCl) 6.25 Mg/5 Ml Syrp 6.25 Mg PO Q6H 30 Days Morphine Liq (Morphine Sulfate) 20 Mg/Ml Liq 5 Mg G-TUBE Q4H PRN 30 Days [Lactulose Liq] 30 ML Syrp 30 Ml G-TUBE Q6HR PRN 30 Days Prevacid Solutab ODT (Lansoprazole) 30 Mg Tab 30 Mg G-TUBE BID 30 Days Novolin R Inj (Insulin Human Regular) 1,000 Unit/10 Ml Vial 1 Units SQ ACHS SLIDING SCALE 30 Days use as directed per sliding scale. Duragesic Patch 72 HR (Fentanyl) 25 Mcg/Hr Patch 1 Patch T-DERMAL Q3D Dexamethasone 4 Mg Tab 4 Mg G-TUBE DIRECTED 10 Days 4mg gtube bid x 3 days, 2mg gtube bid x 3 days,2mg gtube 4 days then stop Hospital Bed - Manual 1 Ea Ea 1 Ea .ROUTE DIRECTED Bedside Commode (Device) 1 Mis Mis 1 Ea .ROUTE DIRECTED Reported Vitamin B12 (Cyanocobalamin (Vitamin B-12)) 2,500 Mcg Tab.chew IM MONTHLY Review of Systems Except as stated in HPI: all other systems reviewed are Neg Physical Exam Narrative GENERAL: Well-developed well-nourished no obvious distress SKIN: Focused skin assessment warm/dry. HEAD: Atraumatic. Normocephalic. EYES: Pupils equal and round. No scleral icterus. No injection or drainage. ENT: No nasal bleeding or discharge. Mucous membranes pink and moist. NECK: Trachea midline. No JVD. CARDIOVASCULAR: Regular rate and rhythm. No murmur appreciated. RESPIRATORY: Minimally tachypneic without accessory muscle use. Decreased aeration bilaterally but appears to be clear. Breath sounds equal bilaterally. GASTROINTESTINAL: Abdomen soft, non-tender, nondistended. Hepatic and splenic margins not palpable. MUSCULOSKELETAL: No obvious deformities. No clubbing. No cyanosis. No edema. NEUROLOGICAL: Awake and alert. No obvious cranial nerve deficits. Motor grossly within normal limits. Normal speech. PSYCHIATRIC: Appropriate mood and affect; insight and judgment normal. Data Data Last Documented VS Vital Signs Date Time Temp Pulse Resp B/P Pulse Ox O2 Delivery O2 Flow Rate FiO2 02/08/17 19:14 100 Nasal Cannula 2.00 02/08/17 18:48 114 18 02/08/17 18:39 98.5 155/86 Orders Electrocardiogram (02/08/17 18:51) Complete Blood Count With Diff (02/08/17 18:51) Comprehensive Metabolic Panel (02/08/17 18:51) Chest, Single Ap (02/08/17 18:51) Ecg Monitoring (02/08/17 18:51) Iv Access Insert/Monitor (02/08/17 18:51) Oximetry (02/08/17 18:51) Oxygen Administration (02/08/17 18:51) Albuterol-Ipratropium Neb (Duoneb Neb) (02/08/17 19:00) Sodium Chloride 0.9% Flush (Ns Flush) (02/08/17 19:00) Furosemide Inj (Lasix Inj) (02/08/17 19:00) Blood Gas Venous (Vbg) (02/08/17 18:50) Ondansetron Inj (Zofran Inj) (02/08/17 19:00) Urinary Catheter Insert/Apply (02/08/17 20:08) Admit Order (Ed Use Only) (02/08/17 20:36) Labs Laboratory Tests Test 02/08/17 02/08/17 18:50 19:05 Blood Gas Puncture Site IV Blood Gas Patient Temperature 98.6 Venous Blood pH 7.38 Venous Blood Partial Pressure 47 mmHg CO2 Venous Blood Partial Pressure 19 mmHg O2 Venous Blood HCO3 27 mmol/L Venous Blood Oxygen Saturation 28 % Venous Blood Oxygen Content 5.0 Vol % Venous Blood Base Excess 2.3 mmol/L Oxygen Delivery Device NASAL CANNULA Blood Gas Liter Flow 2 L/M White Blood Count 6.0 TH/MM3 Red Blood Count 3.55 MIL/MM3 Hemoglobin 9.9 GM/DL Hematocrit 31.2 % Mean Corpuscular Volume 88.0 FL Mean Corpuscular Hemoglobin 27.9 PG Mean Corpuscular Hemoglobin 31.7 % Concent Red Cell Distribution Width 18.7 % Platelet Count 231 TH/MM3 Mean Platelet Volume 9.0 FL Neutrophils (%) (Auto) 87.9 % Lymphocytes (%) (Auto) 1.4 % Monocytes (%) (Auto) 8.8 % Eosinophils (%) (Auto) 1.1 % Basophils (%) (Auto) 0.8 % Neutrophils # (Auto) 5.3 TH/MM3 Lymphocytes # (Auto) 0.1 TH/MM3 Monocytes # (Auto) 0.5 TH/MM3 Eosinophils # (Auto) 0.1 TH/MM3 Basophils # (Auto) 0.1 TH/MM3 CBC Comment DIFF FINAL Differential Comment Sodium Level 134 MEQ/L Potassium Level 4.3 MEQ/L Chloride Level 98 MEQ/L Carbon Dioxide Level 27.6 MEQ/L Anion Gap 8 MEQ/L Blood Urea Nitrogen 37 MG/DL Creatinine 2.22 MG/DL Estimat Glomerular Filtration 22 ML/MIN Rate Random Glucose 140 MG/DL Calcium Level 8.2 MG/DL Total Bilirubin 0.4 MG/DL Aspartate Amino Transf 56 U/L (AST/SGOT) Alanine Aminotransferase 46 U/L (ALT/SGPT) Alkaline Phosphatase 262 U/L Total Protein 6.4 GM/DL Albumin 2.0 GM/DL MDM Medical Decision Making Medical Screen Exam Complete: Yes Emergency Medical Condition: Yes Differential Diagnosis Anemia, CHF, pneumonia,. Narrative Course Patient roomed in emergency department, review of her records shows that she was admitted at the end of last month for symptomatic anemia. She was discovered epigastric cancer at that time. She also appears to have several pulmonary nodules. Patient's basic labs been ordered. She was weaned in the emergency department nasal cannula and appears to be doing quite well on nasal cannula. ABG shows a pH 7.38 and PCO2 of 47. We'll continue to watch on nasal cannula at this time. Patient was discussed with the oncoming provider at [address] Donovan to follow-up labs and disposition the patient properly. Atilio Salazar MD Feb 08, 2017 18:55
[2017-02-08 18:58] LABS: BLOOD GAS VENOUS BASE EXCESS 2.3 mmol/L (-2-2); BLOOD GAS VENOUS HCO3 27 mmol/L (22-26); BLOOD GAS VENOUS O2 HGB SAT 28 % (70-76); BLOOD GAS VENOUS PCO2 47 mmHg (44-48); BLOOD GAS VENOUS pH 7.38 (7.360-7.400); TEMP CORR TO 98.6
[2017-02-08 18:59] LABS: BLOOD GAS VENOUS PO2 19 mmHg (35-40); CRITICAL VALUE YES; DRAW SITE IV; LITER FLOW 2 L/M; OXYGEN DEVICE NASAL CANNULA; STAT YES
[2017-02-08] MEDS ORDERED: SODIUM CHLORIDE 0.9% FLUSH 10 ML FLUSH IVF PRN (19:00)
[2017-02-08] MEDS ORDERED: ONDANSETRON HCL 4 MG/2 ML VIAL IV PUSH ONE (19:00)
[2017-02-08] MEDS ORDERED: FUROSEMIDE 40 MG/4 ML VIAL IV PUSH ONE (19:00)
[2017-02-08] MEDS ORDERED: RESP: ALBUTEROL 2.5 MG/IPRATROPIUM 0.5 MG NEB (SCH) INH ONE (19:00)
[2017-02-08 19:14] VITALS: O2SAT 100
[2017-02-08 19:48] LABS: AUTOMATED NEUTROPHIL # 5.3 TH/MM3 (1.8-7.7); BASOPHIL # 0.1 TH/MM3 (0-0.2); BASOPHIL % 0.8 % (0.0-2.0); EOSINOPHIL # 0.1 TH/MM3 (0-0.4); EOSINOPHIL % 1.1 % (0.0-4.0); HEMATOCRIT 31.2 % (35.0-46.0); HEMO FLAGS DIFF FINAL; LYMPH % 1.4 % (9.0-44.0); LYMPHOCYTE # 0.1 TH/MM3 (1.0-4.8); MEAN CORPUSCULAR HEMOGLOBIN 27.9 PG (27.0-34.0); MEAN CORPUSCULAR HGB CONC 31.7 % (32.0-36.0); MONO % 8.8 % (0.0-8.0); NEUT % 87.9 % (16.0-70.0); PLATELET COUNT 231 TH/MM3 (150-450); RED BLOOD COUNT 3.55 MIL/MM3 (4.00-5.30); RED CELL DISTRIBUTION WIDTH 18.7 % (11.6-17.2)
--- NOTE | 2017-02-08 20:07 | RADRPT ---
EXAM DATE/TIME: 02/08/2017 19:16 [facility] COMPARISON: CT THORAX W/O CONTRAST, January 08, 2017, 1:19. INDICATIONS : Short of breath and difficulty breathing today. MEDICAL HISTORY : History of gastric carcinoma with metastases to liver, lung, abdomen, GE junction/gastric mass, abdom inla aortic aneurysm, diverticulosis, anemia, hemorrhoids, HTN, CKD, DM, dyslipidemia. SURGICAL HISTORY : History of EGD with biopsy. ENCOUNTER: Initial ACUITY: 1 day PAIN SCORE: 3/10 LOCATION: Bilateral chest FINDINGS: There are numerous bilateral pulmonary nodules which are stable to increased in size and number since January 08. Heart size upper limits normal. No pneumothorax. CONCLUSION: 1. Worsening pulmonary parenchymal metastatic disease. Robin Kirkpatrick MD on February 08, 2017 at 20:04 Board Certified Radiologist. This report was verified electronically.
[2017-02-08 20:09] LABS: ANION GAP 8 MEQ/L (5-15); AST (GOT) 56 U/L (15-37); BICARBONATE 27.6 MEQ/L (21.0-32.0); BLOOD UREA NITROGEN 37 MG/DL (7-18); CHLORIDE 98 MEQ/L (98-107); GLOMERULAR FILTRATION RATE 22 ML/MIN (>89); POTASSIUM 4.3 MEQ/L (3.5-5.1); SODIUM (NA) 134 MEQ/L (136-145)
[2017-02-08 20:11] LABS: ALT (GPT) 46 U/L (10-53)
[2017-02-08 20:13] LABS: ALKALINE PHOSPHATASE 262 U/L (45-117); TOTAL BILIRUBIN ADULT 0.4 MG/DL (0.2-1.0)
--- NOTE | 2017-02-08 20:48 | PD ---
Physical Exam Date Seen by Provider: Feb 08, 2017 Time Seen by Provider: 20:37 Narrative 71-year-old female came to the emergency room brought by EMS with history of worsening respiratory distress. Patient has history of metastatic stomach cancer. As per her it has spread everywhere. Patient just had her last chemotherapy last week. Her oncologist Dr. Linda is planning to have a meeting and discuss about further options. Patient was just discharged 2 days ago from [facility]. She says the respiratory distress is progressively worsened. Patient has history of congestive heart failure but they stopped her Lasix since her kidneys and not doing well. She also has history of PE and DVT but they stopped her anticoagulants since the cancer. Patient was seen by the previous ER physician. Please refer to his history and physical for further details. Sign out was to follow-up on the blood test and the x-ray. Patient was given one albuterol and Lasix ordered by the previous physician along with oxygen. I went to reassess her. Patient appears to be moderate distress. She is morbidly obese with significant edema of both legs. She is lethargic but answering questions appropriately. She told me that she feels little better with the oxygen. Chest x-ray is back and is read as worsening metastases compared to the last x-ray. Blood test results of back and patient has significant renal sufficiency. Rest of the test results are within acceptable limits. I cannot get a CT pulmonary angiogram given her renal function to rule out PE. They will have to get a VQ scan tomorrow. I would like to admit the patient and I told her so. She agreed. Awaiting for the hospitalist to call back. I discussed about the patient if her and her family have considered hospice care. She said that her son is the one who has the healthcare proxy and is making the decisions and that she trusts him. She said they are considering but have not reached a decision unit. Data Data Last Documented VS Vital Signs Date Time Temp Pulse Resp B/P (MAP) Pulse Ox O2 Delivery O2 Flow Rate FiO2 02/08/17 19:14 100 Nasal Cannula 2.00 02/08/17 18:48 114 18 02/08/17 18:39 98.5 155/86 (109) Orders Orders Electrocardiogram (02/08/17 18:51) Complete Blood Count With Diff (02/08/17 18:51) Comprehensive Metabolic Panel (02/08/17 18:51) Chest, Single Ap (02/08/17 18:51) Ecg Monitoring (02/08/17 18:51) Iv Access Insert/Monitor (02/08/17 18:51) Oximetry (02/08/17 18:51) Oxygen Administration (02/08/17 18:51) Albuterol-Ipratropium Neb (Duoneb Neb) (02/08/17 19:00) Sodium Chloride 0.9% Flush (Ns Flush) (02/08/17 19:00) Furosemide Inj (Lasix Inj) (02/08/17 19:00) Blood Gas Venous (Vbg) (02/08/17 18:50) Ondansetron Inj (Zofran Inj) (02/08/17 19:00) Urinary Catheter Insert/Apply (02/08/17 20:08) Admit Order (Ed Use Only) (02/08/17 20:36) Labs Laboratory Tests Test 02/08/17 18:50 02/08/17 19:05 Blood Gas Puncture Site IV Blood Gas Patient Temperature 98.6 Venous Blood pH 7.38 Venous Blood Partial Pressure CO2 47 mmHg Venous Blood Partial Pressure O2 19 mmHg Venous Blood HCO3 27 mmol/L Venous Blood Oxygen Saturation 28 % Venous Blood Oxygen Content 5.0 Vol % Venous Blood Base Excess 2.3 mmol/L Oxygen Delivery Device NASAL CANNULA Blood Gas Liter Flow 2 L/M White Blood Count 6.0 TH/MM3 Red Blood Count 3.55 MIL/MM3 Hemoglobin 9.9 GM/DL Hematocrit 31.2 % Mean Corpuscular Volume 88.0 FL Mean Corpuscular Hemoglobin 27.9 PG Mean Corpuscular Hemoglobin Concent 31.7 % Red Cell Distribution Width 18.7 % Platelet Count 231 TH/MM3 Mean Platelet Volume 9.0 FL Neutrophils (%) (Auto) 87.9 % Lymphocytes (%) (Auto) 1.4 % Monocytes (%) (Auto) 8.8 % Eosinophils (%) (Auto) 1.1 % Basophils (%) (Auto) 0.8 % Neutrophils # (Auto) 5.3 TH/MM3 Lymphocytes # (Auto) 0.1 TH/MM3 Monocytes # (Auto) 0.5 TH/MM3 Eosinophils # (Auto) 0.1 TH/MM3 Basophils # (Auto) 0.1 TH/MM3 CBC Comment DIFF FINAL Differential Comment Blood Urea Nitrogen 37 MG/DL Creatinine 2.22 MG/DL Random Glucose 140 MG/DL Total Protein 6.4 GM/DL Albumin 2.0 GM/DL Calcium Level 8.2 MG/DL Alkaline Phosphatase 262 U/L Aspartate Amino Transf (AST/SGOT) 56 U/L Alanine Aminotransferase (ALT/SGPT) 46 U/L Total Bilirubin 0.4 MG/DL Sodium Level 134 MEQ/L Potassium Level 4.3 MEQ/L Chloride Level 98 MEQ/L Carbon Dioxide Level 27.6 MEQ/L Anion Gap 8 MEQ/L Estimat Glomerular Filtration Rate 22 ML/MIN MDM Supervised Visit with MILIND: No Interpretation(s) Twelve-lead EKG was reviewed by me. Normal sinus rhythm, left axis deviation, tachycardia, right bundle branch block. Heart rate of 101 bpm. Diagnosis Primary Impression: Respiratory distress Additional Impressions: Pleural effusion Lung metastases Renal insufficiency Admitting Information Admitting Physician Requests: Admit Minerva Donovan MD Feb 08, 2017 20:48
[2017-02-08] MEDS ORDERED: SENNOSIDES 8.6 MG TAB PO PRN (21:30)
[2017-02-08] MEDS ORDERED: BISACODYL 10 MG SUPP RECTAL PRN (21:30)
[2017-02-08] MEDS ORDERED: LACTULOSE SYRUP 20 GM/30 ML CUP PO PRN (21:30)
[2017-02-08] MEDS ORDERED: NALOXONE HCL 0.4 MG/ML AMP IV PRN (21:30)
[2017-02-08] MEDS ORDERED: SODIUM CHLORIDE 0.9% FLUSH 10 ML FLUSH IV FLUSH PRN (21:30)
[2017-02-08] MEDS ORDERED: MAGNESIUM HYDROXIDE SUSP 30 ML CUP PO PRN (21:30)
[2017-02-08] MEDS ORDERED: ONDANSETRON HCL 4 MG/2 ML VIAL IVP PRN (21:30)
--- NOTE | 2017-02-08 21:49 | HHI.HP ---
HPI Service [facility] Hospitalists Primary Care Physician Fiona Robles MD Admission Diagnosis respiratory distress, metastatic lung disease, pleural effusion Chief Complaint: increasing shortness of breath with increasing metastatic lung disease Travel History International Travel<30 Days: No Contact w/Intl Traveler <30 Da: No Traveled to Known Affected Are: No Sepsis Criteria Criteria Outcome: Meets severe sepsis criteria History of Present Illness 71-year-old female came to the emergency room brought by EMS with history of worsening respiratory distress. Patient has history of metastatic stomach cancer. As per her it has spread everywhere. Patient just had her last chemotherapy last week. Her oncologist Dr. Linda is planning to have a meeting and discuss about further options. Patient was just discharged 2 days ago from [facility]. She says the respiratory distress is progressively worsened. Patient has history of congestive heart failure but they stopped her Lasix since her kidneys and not doing well. She also has history of PE and DVT but they stopped her anticoagulants since the cancer. Patient was given one albuterol and Lasix ordered by the ER along with oxygen. She is morbidly obese with significant edema of both legs. She is lethargic but answering questions appropriately. She told me that she feels little better with the oxygen. Chest x-ray shows worsening metastases compared to the last x-ray. Blood test results of back and patient has significant renal sufficiency. Rest of the test results are within acceptable limits. In review of record and past record has progressive metastatic cancer with extreme lower extremity edema ,with decrease urine output lasix push helped a little . Discussed overall situation with patient and family and they did agree to have hospice evaluation . Patient would like hospice care at home ,for now comfort measures and pain control. Review of Systems Constitutional: COMPLAINS OF: Fatigue, Weight gain, Change in appetite Respiratory: COMPLAINS OF: Shortness of breath Cardiovascular: COMPLAINS OF: Lower Extremity Edema Gastrointestinal: COMPLAINS OF: Anorexia Past Family Social History Past Medical History gerd,incotinence,hyperlipidemia Past Surgical History rectal cyst Reported Medications [Metoclopramide Liq] 10 MG/10 ML Syrp 5 Mg G-TUBE Q8HR 30 Days Zofran Odt (Ondansetron Odt) 4 Mg Tab 4 Mg SL Q6HR PRN Transderm-Scop (Scopolamine) 1 Mg/3 Days Dis 1 Patch T-DERMAL Q3D Promethazine Liq (Promethazine HCl) 6.25 Mg/5 Ml Syrp 6.25 Mg PO Q6H 30 Days Morphine Liq (Morphine Sulfate) 20 Mg/Ml Liq 5 Mg G-TUBE Q4H PRN 30 Days [Lactulose Liq] 30 ML Syrp 30 Ml G-TUBE Q6HR PRN 30 Days Prevacid Solutab ODT (Lansoprazole) 30 Mg Tab 30 Mg G-TUBE BID 30 Days Novolin R Inj (Insulin Human Regular) 1,000 Unit/10 Ml Vial 1 Units SQ ACHS SLIDING SCALE 30 Days use as directed per sliding scale. Levemir Inj (Insulin Detemir) 1,000 unit/ 10 ML Vial 20 Units SQ BID 30 Days Duragesic Patch 72 HR (Fentanyl) 25 Mcg/Hr Patch 1 Patch T-DERMAL Q3D Dexamethasone 4 Mg Tab 4 Mg G-TUBE DIRECTED 10 Days 4mg gtube bid x 3 days, 2mg gtube bid x 3 days,2mg gtube 4 days then stop Hospital Bed - Manual 1 Ea Ea 1 Ea .ROUTE DIRECTED Bedside Commode (Device) 1 Mis Mis 1 Ea .ROUTE DIRECTED Reported Vitamin B12 (Cyanocobalamin (Vitamin B-12)) 2,500 Mcg Tab.chew IM MONTHLY Amlodipine (Amlodipine Besylate) 10 Mg Tab 10 Mg PO DAILY Carvedilol 6.25 Mg Tab 6.25 Mg PO BID Buspirone (Buspirone HCl) 7.5 Mg Tab 7.5 Mg PO BID Allergies: Coded Allergies: clindamycin (Unverified Allergy, Severe, VOMITING AND DIARRHEA, 02/06/17) sulfamethoxazole (Unverified Allergy, Severe, VOMITING AND DIARRHEA, ) penicillin G (Unverified Allergy, Mild, Rash, 02/06/17) ciprofloxacin (Unverified Allergy, Unknown, 02/06/17) Social History former smoker Physical Exam Vital Signs Vital Signs Date Time Temp Pulse Resp B/P Pulse Ox O2 Delivery O2 Flow Rate FiO2 02/08/17 19:14 100 Nasal Cannula 2.00 02/08/17 18:48 114 18 100 Nasal Cannula 2 02/08/17 18:39 98.5 115 18 155/86 100 Physical Exam GENERAL: This is a well-nourished, well-developed patient, in no apparent distress. SKIN: No rashes, ecchymoses or lesions. Cool and dry. HEAD: Atraumatic. Normocephalic. No temporal or scalp tenderness. EYES: Pupils equal round and reactive. Extraocular motions intact. No scleral icterus. No injection or drainage. ENT: Nose without bleeding, purulent drainage or septal hematoma. Throat without erythema, tonsillar hypertrophy or exudate. Uvula midline. Airway patent. NECK: Trachea midline. No JVD or lymphadenopathy. Supple, nontender, no meningeal signs. CARDIOVASCULAR: Regular rate and rhythm without murmurs, gallops, or rubs. RESPIRATORY: decrease breath sounds some rhonchi at bases GASTROINTESTINAL: Abdomen soft, non-tender, distended. No hepato-splenomegaly, or palpable masses. No guarding. MUSCULOSKELETAL: Diffuse lower extremity edema groin to feet plus 4 NEUROLOGICAL: Awake and alert. Cranial nerves II through XII intact. Motor and sensory grossly within normal limits. 4 out of 5 muscle strength in all muscle groups. Normal speech. Laboratory Laboratory Tests Test 02/08/17 02/08/17 18:50 19:05 Blood Gas Puncture Site IV Blood Gas Patient Temperature 98.6 Venous Blood pH 7.38 Venous Blood Partial Pressure 47 CO2 Venous Blood Partial Pressure 19 O2 Venous Blood HCO3 27 Venous Blood Oxygen Saturation 28 Venous Blood Oxygen Content 5.0 Venous Blood Base Excess 2.3 Oxygen Delivery Device NASAL CANNULA Blood Gas Liter Flow 2 White Blood Count 6.0 Red Blood Count 3.55 Hemoglobin 9.9 Hematocrit 31.2 Mean Corpuscular Volume 88.0 Mean Corpuscular Hemoglobin 27.9 Mean Corpuscular Hemoglobin 31.7 Concent Red Cell Distribution Width 18.7 Platelet Count 231 Mean Platelet Volume 9.0 Neutrophils (%) (Auto) 87.9 Lymphocytes (%) (Auto) 1.4 Monocytes (%) (Auto) 8.8 Eosinophils (%) (Auto) 1.1 Basophils (%) (Auto) 0.8 Neutrophils # (Auto) 5.3 Lymphocytes # (Auto) 0.1 Monocytes # (Auto) 0.5 Eosinophils # (Auto) 0.1 Basophils # (Auto) 0.1 CBC Comment DIFF FINAL Differential Comment Sodium Level 134 Potassium Level 4.3 Chloride Level 98 Carbon Dioxide Level 27.6 Anion Gap 8 Blood Urea Nitrogen 37 Creatinine 2.22 Estimat Glomerular Filtration 22 Rate Random Glucose 140 Calcium Level 8.2 Total Bilirubin 0.4 Aspartate Amino Transf 56 (AST/SGOT) Alanine Aminotransferase 46 (ALT/SGPT) Alkaline Phosphatase 262 Total Protein 6.4 Albumin 2.0 Result Diagram: 02/08/17190402/08/17 190 Imaging Last 24 hours Impressions Chest X-Ray 02/08/17 1851 Signed Impressions: Service Date/Time: January 19:16 - CONCLUSION: 1. Worsening pulmonary parenchymal metastatic disease. Robin Kirkpatrick MD Course in er did receive oxygen and iv lasix sierra placed Assessment and Plan Problem List: (1) Metastatic disease Status: Acute Plan: widespread metastatic disease gastric liver lungs -discussed with family and patient will watch over night vital signs continue oxygen which is making patient feel better ,if stable discharge with consult to [facility] family choice (2) Malnutrition Status: Acute Plan: as above still has J tube and recieves pain meds thru it Assessment and Plan as above discharge probably tomorrow with evaluation hospice Code Status no code Discussed Condition With family Physician Certification 2 Midnight Certification Type: Admission for Inpatient Services Order for Inpatient Services The services are ordered in accordance with Medicare regulations or non- Medicare payer requirements, as applicable. In the case of services not specified as inpatient-only, they are appropriately provided as inpatient services in accordance with the 2-midnight benchmark. Estimated LOS (days): 2 2 days is the estimated time the patient will need to remain in the hospital, assuming treatment plan goals are met and no additional complications. Post-Hospital Plan: Home Cruz Gonzalez MD Feb 08, 2017 21:49
[2017-02-08] MEDS ORDERED: fentaNYL 25 MCG/HR PATCH T-DERMAL SCH (23:00)
[2017-02-08] MEDS ORDERED: SCOPOLAMINE 1.5 MG PATCH T-DERMAL SCH (23:00)
[2017-02-09] VITALS (7 sets, daily range): BP systolic 111–143; BP diastolic 52–67; PULSE 89–103; RESP 18–19; TEMP 96.2–98.5; O2SAT 92–99
[2017-02-09] MEDS: PROMETHAZINE HCL SYRUP 6.25 MG/5 ML CUP PO SCH ×5 (00:10→22:10)
[2017-02-09] MEDS: METOCLOPRAMIDE HCL SYRUP 10 MG/10 ML UDC G-TUBE SCH ×4 (00:22→22:09)
[2017-02-09] MEDS: MORPHINE SULFATE ORAL SOLN 10 MG/0.5 ML SYRINGE G-TUBE PRN ×3 (05:02→22:12)
[2017-02-09] MEDS: INSULIN HUMAN REGULAR 1,000 UNITS/10 ML VIAL SQ SCH ×4 (07:00→22:39)
[2017-02-09] MEDS: SODIUM CHLORIDE 0.9% FLUSH 10 ML FLUSH IV FLUSH SCH ×2 (09:00→22:38)
--- NOTE | 2017-02-09 09:17 | EKG ---
Date Performed: 02/08/2017 Time Performed: 20:41:45 PTAGE: 71 years EKG: SINUS TACHYCARDIA RIGHT BUNDLE BRANCH BLOCK LEFT ANTERIOR FASCICULAR BLOCK POSSIBLE ANTERIO R MYOCARDIAL INFARCTION ABNORMAL ECG Compared to prior tracing no significant change PREVIOUS TRACING : 02/08/2017 18.57 DOCTOR: Rahat Benson Interpretating Date/Time 02/09/2017 09:16:12
--- NOTE | 2017-02-09 09:22 | EKG ---
Date Performed: 02/08/2017 Time Performed: 18:57:23 PTAGE: 71 years EKG: SINUS TACHYCARDIA RIGHT BUNDLE BRANCH BLOCK LEFT ANTERIOR FASCICULAR BLOCK POSSIBLE ANTERIO R MYOCARDIAL INFARCTION ABNORMAL ECG Compared to PREVIOUS TRACING poor R wave progression is now present across anterior precordium. This may reflect a lead placement change. Clinical correlation is recommended PREVIOUS TRACIN 7 00.06 DOCTOR: Rahat Benson Interpretating Date/Time 02/09/2017 09:19:24
[2017-02-09] MEDS: DOCUSATE SODIUM 50 MG/SENNA 8.6 MG TAB PO SCH ×2 (09:45→21:00)
[2017-02-09] MEDS: LANSOPRAZOLE SOLUTAB 30 MG TAB G-TUBE SCH ×2 (09:45→22:09)
--- NOTE | 2017-02-09 15:24 | HHI.PR ---
Subjective Remarks Pt reports that her breathing is slightly better today She is still having a lot of nausea, no vomiting Tolerated small sips of broth today Objective Vitals Vital Signs Date Time Temp Pulse Resp B/P Pulse Ox O2 Delivery O2 Flow Rate FiO2 02/09/17 11:29 97.6 89 18 119/62 94 02/09/17 07:35 96.2 91 19 134/67 99 02/09/17 04:15 98.0 93 19 129/64 93 02/09/17 00:10 98.2 96 19 120/67 99 02/08/17 22:15 Nasal Cannula 2.00 02/08/17 19:14 100 Nasal Cannula 2.00 02/08/17 18:48 114 18 100 Nasal Cannula 2 02/08/17 18:39 98.5 115 18 155/86 100 02/08/17 02/08/17 02/09/17 15:00 23:00 07:00 Intake Total 120 ml Output Total 425 ml Balance -305 ml Intake Oral 120 ml Output Urine Total 425 ml # Bowel Movements 1 Result Diagram: 02/08/17 1905 02/08/171904 Other Results Laboratory Tests Test 02/08/17 02/08/17 02/09/17 18:50 19:05 10:00 Blood Gas Puncture Site IV Blood Gas Patient Temperature 98.6 Venous Blood pH 7.38 Venous Blood Partial Pressure 47 mmHg CO2 Venous Blood Partial Pressure 19 mmHg O2 Venous Blood HCO3 27 mmol/L Venous Blood Oxygen Saturation 28 % Venous Blood Oxygen Content 5.0 Vol % Venous Blood Base Excess 2.3 mmol/L Oxygen Delivery Device NASAL CANNULA Blood Gas Liter Flow 2 L/M White Blood Count 6.0 TH/MM3 Red Blood Count 3.55 MIL/MM3 Hemoglobin 9.9 GM/DL Hematocrit 31.2 % Mean Corpuscular Volume 88.0 FL Mean Corpuscular Hemoglobin 27.9 PG Mean Corpuscular Hemoglobin 31.7 % Concent Red Cell Distribution Width 18.7 % Platelet Count 231 TH/MM3 Mean Platelet Volume 9.0 FL Neutrophils (%) (Auto) 87.9 % Lymphocytes (%) (Auto) 1.4 % Monocytes (%) (Auto) 8.8 % Eosinophils (%) (Auto) 1.1 % Basophils (%) (Auto) 0.8 % Neutrophils # (Auto) 5.3 TH/MM3 Lymphocytes # (Auto) 0.1 TH/MM3 Monocytes # (Auto) 0.5 TH/MM3 Eosinophils # (Auto) 0.1 TH/MM3 Basophils # (Auto) 0.1 TH/MM3 CBC Comment DIFF FINAL Differential Comment Sodium Level 134 MEQ/L Potassium Level 4.3 MEQ/L Chloride Level 98 MEQ/L Carbon Dioxide Level 27.6 MEQ/L Anion Gap 8 MEQ/L Blood Urea Nitrogen 37 MG/DL Creatinine 2.22 MG/DL Estimat Glomerular Filtration 22 ML/MIN Rate Random Glucose 140 MG/DL Calcium Level 8.2 MG/DL Total Bilirubin 0.4 MG/DL Aspartate Amino Transf 56 U/L (AST/SGOT) Alanine Aminotransferase 46 U/L (ALT/SGPT) Alkaline Phosphatase 262 U/L Total Protein 6.4 GM/DL Albumin 2.0 GM/DL Nasal Screen MRSA (PCR) MRSA NOT DETECTED Imaging Last 24 hours Impressions Chest X-Ray 02/08/17 [id number] Signed Impressions: Service Date/Time: , February 08, 2017 19:16 - CONCLUSION: 1. Worsening pulmonary parenchymal metastatic disease. 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 - She had just been discharged 2 days prior to admission from [facility] where she was treated for a UTI. - Her respiratory status declined. She was noted to have significant edema in bilateral LE - Patient has hx of CHF and her Lasix was previously stopped due to her renal status. - Patient was given one albuterol and Lasix ordered by the ER along with oxygen. - Chest x-ray shows worsening metastases compared to the last x-ray. - Labs at admission noted worsening renal function. - pts overall status has been in decline. Family wants to pursue Hospice consultation. They are unsure if [facility] or [facility] at this point so they will speak with both representatives to explore their options. Pt is not eating much of anything. She continues to have nausea. Currently she has been tolerating her TF per the nursing staff. - Cont. current regimen. - Await Hospice consultation. (2) Malnutrition Status: Acute Plan: - As above - Pt has G tube and receives pain meds and supplemental nutrition thru it Assessment and Plan Patient examined. Assessment and plan formulated with Cassandra Lopez PA-C. I agree with the above. await family's decision regarding hospice home with hospice vs hospice care center. Cassandra Lopez Feb 09, 2017 15:23 Marky Jaramillo DO Feb 10, 2017 09:41
[2017-02-10] VITALS (7 sets, daily range): BP systolic 108–141; BP diastolic 59–80; PULSE 88–104; RESP 18–21; TEMP 96.7–99.8; O2SAT 91–99
[2017-02-10] MEDS: METOCLOPRAMIDE HCL SYRUP 10 MG/10 ML UDC G-TUBE SCH ×3 (04:59→22:29)
[2017-02-10] MEDS: MORPHINE SULFATE ORAL SOLN 10 MG/0.5 ML SYRINGE G-TUBE PRN ×4 (04:59→22:39)
[2017-02-10] MEDS: PROMETHAZINE HCL SYRUP 6.25 MG/5 ML CUP PO SCH ×4 (04:59→22:29)
[2017-02-10] MEDS: INSULIN HUMAN REGULAR 1,000 UNITS/10 ML VIAL SQ SCH ×2 (06:07→11:00)
[2017-02-10] MEDS: DOCUSATE SODIUM 50 MG/SENNA 8.6 MG TAB PO SCH ×2 (09:00→21:00)
[2017-02-10] MEDS: LANSOPRAZOLE SOLUTAB 30 MG TAB G-TUBE SCH ×2 (09:00→22:39)
[2017-02-10] MEDS: SODIUM CHLORIDE 0.9% FLUSH 10 ML FLUSH IV FLUSH SCH ×2 (09:00→22:30)
--- NOTE | 2017-02-10 12:12 | HHI.PR ---
Subjective Remarks No new complaints Pt sitting at the edge of the bed, seems more lethargic today Family at bedside. They have decided on [facility] but are deciding between the care center or home with Hospice Objective Vitals Vital Signs Date Time Temp Pulse Resp B/P Pulse Ox O2 Delivery O2 Flow Rate FiO2 02/10/17 08:00 99.1 97 20 121/59 95 02/10/17 04:10 98.2 101 21 113/69 97 02/10/17 03:54 Nasal Cannula 3.00 02/10/17 00:10 99.8 100 18 108/59 93 02/09/17 20:00 98.5 103 19 111/52 93 02/09/17 18:03 92 21 02/09/17 15:41 98.4 95 18 143/66 92 02/09/17 02/09/17 02/10/17 14:59 22:59 06:59 Intake Total 500 ml 240 ml 50 ml Output Total 150 ml 150 ml Balance 350 ml 240 ml -100 ml Intake Oral 250 ml 240 ml 50 ml Tube Feeding 50 ml Other 200 ml Output Urine Total 150 ml 150 ml # Bowel Movements 0 1 0 Result Diagram: 02/08/17 1905 02/08/171904 Other Results Laboratory Tests Test 02/08/17 02/08/17 02/09/17 18:50 19:05 10:00 Blood Gas Puncture Site IV Blood Gas Patient Temperature 98.6 Venous Blood pH 7.38 Venous Blood Partial Pressure 47 mmHg CO2 Venous Blood Partial Pressure 19 mmHg O2 Venous Blood HCO3 27 mmol/L Venous Blood Oxygen Saturation 28 % Venous Blood Oxygen Content 5.0 Vol % Venous Blood Base Excess 2.3 mmol/L Oxygen Delivery Device NASAL CANNULA Blood Gas Liter Flow 2 L/M White Blood Count 6.0 TH/MM3 Red Blood Count 3.55 MIL/MM3 Hemoglobin 9.9 GM/DL Hematocrit 31.2 % Mean Corpuscular Volume 88.0 FL Mean Corpuscular Hemoglobin 27.9 PG Mean Corpuscular Hemoglobin 31.7 % Concent Red Cell Distribution Width 18.7 % Platelet Count 231 TH/MM3 Mean Platelet Volume 9.0 FL Neutrophils (%) (Auto) 87.9 % Lymphocytes (%) (Auto) 1.4 % Monocytes (%) (Auto) 8.8 % Eosinophils (%) (Auto) 1.1 % Basophils (%) (Auto) 0.8 % Neutrophils # (Auto) 5.3 TH/MM3 Lymphocytes # (Auto) 0.1 TH/MM3 Monocytes # (Auto) 0.5 TH/MM3 Eosinophils # (Auto) 0.1 TH/MM3 Basophils # (Auto) 0.1 TH/MM3 CBC Comment DIFF FINAL Differential Comment Sodium Level 134 MEQ/L Potassium Level 4.3 MEQ/L Chloride Level 98 MEQ/L Carbon Dioxide Level 27.6 MEQ/L Anion Gap 8 MEQ/L Blood Urea Nitrogen 37 MG/DL Creatinine 2.22 MG/DL Estimat Glomerular Filtration 22 ML/MIN Rate Random Glucose 140 MG/DL Calcium Level 8.2 MG/DL Total Bilirubin 0.4 MG/DL Aspartate Amino Transf 56 U/L (AST/SGOT) Alanine Aminotransferase 46 U/L (ALT/SGPT) Alkaline Phosphatase 262 U/L Total Protein 6.4 GM/DL Albumin 2.0 GM/DL Nasal Screen MRSA (PCR) MRSA NOT DETECTED Imaging Last 24 hours Impressions Chest X-Ray 02/08/17 0451 Signed Impressions: Service Date/Time: January 19:16 - CONCLUSION: 1. Worsening pulmonary parenchymal metastatic disease. 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 - She had just been discharged 2 days prior to admission from [facility] where she was treated for a UTI. - Her respiratory status declined. She was noted to have significant edema in bilateral LE - Patient has hx of CHF and her Lasix was previously stopped due to her renal status. - Patient was given one albuterol and Lasix ordered by the ER along with oxygen. - Chest x-ray shows worsening metastases compared to the last x-ray. - Labs at admission noted worsening renal function. - Pts overall status has been in decline. - Family has decided on [facility] but they family is deciding between going to the care center vs. home with hospice. Pt is not eating much of anything. She continues to have nausea. Currently she has been tolerating her TF per the nursing staff. - Cont. current regimen. (2) Malnutrition Status: Acute Plan: - As above - Pt has G tube and receives pain meds and supplemental nutrition thru it Assessment and Plan Patient examined. Assessment and plan formulated with Cassandra Lopez PA-C. I agree with the above. Family elected for [facility] Will discharge to home with home hospice services. Cassandra Lopez Feb 10, 2017 12:12 Marky Jaramillo DO Feb 10, 2017 15:27
--- NOTE | 2017-02-10 15:47 | HHI.DS ---
Discharge Summary Admission Date Feb 08, 2017 at 20:37 Discharge Date: Feb 11, 2017 Admitting Diagnosis respiratory distress, metastatic lung disease, pleural effusion (1) Metastatic disease Diagnosis: Principal (2) Malnutrition Brief History 71-year-old female came to the emergency room brought by EMS with history of worsening respiratory distress. Patient has history of metastatic stomach cancer. As per her it has spread everywhere. Patient just had her last chemotherapy last week. Her oncologist Dr. Linda is planning to have a meeting and discuss about further options. Patient was just discharged 2 days ago from [facility]. She says the respiratory distress is progressively worsened. Patient has history of congestive heart failure but they stopped her Lasix since her kidneys and not doing well. She also has history of PE and DVT but they stopped her anticoagulants since the cancer. Patient was given one albuterol and Lasix ordered by the ER along with oxygen. She is morbidly obese with significant edema of both legs. She is lethargic but answering questions appropriately. She told me that she feels little better with the oxygen. Chest x-ray shows worsening metastases compared to the last x-ray. Blood test results of back and patient has significant renal sufficiency. Rest of the test results are within acceptable limits. In review of record and past record has progressive metastatic cancer with extreme lower extremity edema ,with decrease urine output lasix push helped a little . Discussed overall situation with patient and family and they did agree to have hospice evaluation . Patient would like hospice care at home ,for now comfort measures and pain control. CBC/BMP: 02/08/17190402/08/171904 Significant Findings Laboratory Tests Test 02/08/17 02/08/17 18:50 19:05 Venous Blood Partial Pressure 19 mmHg (35-40) O2 Venous Blood HCO3 27 mmol/L (22-26) Venous Blood Oxygen Saturation 28 % (70-76) Venous Blood Oxygen Content 5.0 Vol % (9.0-17.0) Venous Blood Base Excess 2.3 mmol/L (-2-2) Red Blood Count 3.55 MIL/MM3 (4.00-5.30) Hemoglobin 9.9 GM/DL (11.6-15.3) Hematocrit 31.2 % (35.0-46.0) Mean Corpuscular Hemoglobin 31.7 % Concent (32.0-36.0) Red Cell Distribution Width 18.7 % (11.6-17.2) Neutrophils (%) (Auto) 87.9 % (16.0-70.0) Lymphocytes (%) (Auto) 1.4 % (9.0-44.0) Monocytes (%) (Auto) 8.8 % (0.0-8.0) Lymphocytes # (Auto) 0.1 TH/MM3 (1.0-4.8) Sodium Level 134 MEQ/L (136-145) Blood Urea Nitrogen 37 MG/DL (7-18) Creatinine 2.22 MG/DL (0.50-1.00) Estimat Glomerular Filtration 22 ML/MIN (>89) Rate Random Glucose 140 MG/DL (74-106) Calcium Level 8.2 MG/DL (8.5-10.1) Aspartate Amino Transf 56 U/L (15-37) (AST/SGOT) Alkaline Phosphatase 262 U/L (45-117) Albumin 2.0 GM/DL (3.4-5.0) PE at Discharge General: NAD, Lethargic Chest: CTA anteriorly Cardiac: Regular Abd: +BS, soft NT, G- tube in place Ext: Bilateral LE pitting edema Hospital Course (1) Metastatic disease Status: Acute Plan: - Pt is a 71 y/o female with 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 - She had just been discharged 2 days prior to admission from [facility] where she was treated for a UTI. - Her respiratory status declined. She was noted to have significant edema in bilateral LE - Patient has hx of CHF and her Lasix was previously stopped due to her renal status. - Patient was given one albuterol and Lasix ordered by the ER along with oxygen. - Chest x-ray shows worsening metastases compared to the last x-ray. - Labs at admission noted worsening renal function. - Pts overall status has been in decline. - Pt unable to tolerate TF, TF stopped - Pt painful especially with movement - Pt started on scheduled IV morphine - Family has decided on [facility] - Pt to transfer to the Hospice Care Center today (2) Malnutrition Status: Acute Plan: - As above - Pt has G tube and receives pain meds and supplemental nutrition thru it - TF stopped d/t high residuals. - tried to restart but continued high residuals. Pt Condition on Discharge: Deteriorating Discharge Disposition: Hospice/ Home Discharge Instructions DIET: Follow Instructions for: As Tolerated, No Restrictions, On Tube Feeding Activities you can perform: Weight Bearing as Ranjit Follow up Referrals: PCP Follow-up - [address] Fiona Casanova Continued Medications: Fentanyl Patch 72 HR (Duragesic Patch 72 HR) 25 Mcg/Hr Patch 1 PATCH T-DERMAL Q3D for Pain Management, #10 PATCH 3 Refills Lansoprazole ODT (Prevacid Solutab ODT) 30 Mg Tab 30 MG G-TUBE BID for acid reduction for 30 Days, TAB 3 Refills Morphine Liq (Morphine Liq) 20 Mg/Ml Liq 5 MG G-TUBE Q4H PRN for pain for 30 Days, ML 3 Refills Ondansetron Odt (Zofran Odt) 4 Mg Tab 4 MG SL Q6HR PRN for Nausea/Vomiting, #30 TAB 0 Refills Promethazine Liq (Promethazine Liq) 6.25 Mg/5 Ml Syrp 6.25 MG PO Q6H for Nausea/Vomiting for 30 Days, ML 3 Refills Scopolamine (Transderm-Scop) 1 Mg/3 Days Dis 1 PATCH T-DERMAL Q3D for Nausea/Vomiting, #10 PATCH 3 Refills [Lactulose Liq] () 30 ML SYRP 30 ML G-TUBE Q6HR PRN for constipation for 30 Days, ML [Metoclopramide Liq] () 10 MG/10 ML SYRP 5 MG G-TUBE Q8HR for Nausea/Vomiting for 30 Days, ML 3 Refills Discontinued Medications: Cyanocobalamin (Vitamin B-12) (Vitamin B12) 2,500 Mcg Tab.chew IM MONTHLY for DIETARY SUPPLENT Dexamethasone (Dexamethasone) 4 Mg Tab 4 MG G-TUBE DIRECTED for Nausea/Vomiting for 10 Days, TAB 4mg gtube bid x 3 days, 2mg gtube bid x 3 days,2mg gtube 4 days then stop Insulin Human Regular Inj (Novolin R Inj) 1,000 Unit/10 Ml Vial 1 UNITS SQ ACHS SLIDING SCALE for diabetes for 30 Days, INJECTION use as directed per sliding scale. Marky Jaramillo DO Feb 10, 2017 15:47
[2017-02-10] MEDS ORDERED: INSULIN ASPART SUPPLEMENTAL SCALE SQ SCH (16:00)
[2017-02-11 00:05] VITALS: BP 127/62; PULSE 90; RESP 18; TEMP 98; O2SAT 99
[2017-02-11 04:08] VITALS: BP 116/58; PULSE 95; RESP 18; TEMP 98.3; O2SAT 96
[2017-02-11] MEDS: PROMETHAZINE HCL SYRUP 6.25 MG/5 ML CUP PO SCH (04:57)
[2017-02-11] MEDS: MORPHINE SULFATE ORAL SOLN 10 MG/0.5 ML SYRINGE G-TUBE PRN (04:57)
[2017-02-11] MEDS: METOCLOPRAMIDE HCL SYRUP 10 MG/10 ML UDC G-TUBE SCH (04:58)
[2017-02-11 08:00] VITALS: BP 120/56; PULSE 99; RESP 15; TEMP 98.9; O2SAT 91
[2017-02-11] MEDS ORDERED: MORPHINE SULFATE 4 MG/ML INJ IV ONE (09:00)
[2017-02-11] MEDS ORDERED: MORPHINE SULFATE 4 MG/ML INJ ONE (09:53)
[2017-02-11 10:03] VITALS: O2SAT 96
[2017-02-11 12:00] VITALS: BP 127/62; PULSE 105; RESP 17; TEMP 98.3; O2SAT 96
[2017-02-11] MEDS ORDERED: MORPHINE SULFATE 4 MG/ML INJ IV PRN (14:00)
--- NOTE | 2017-02-11 14:01 | HHI.DCPOC ---
Discharge Care Plan Diagnosis: (1) Gastric adenocarcinoma (2) Malnutrition Goals to Promote Your Health * To prevent worsening of your condition and complications * To maintain your health at the optimal level Directions to Meet Your Goals Take your medications as prescribed Follow your dietary instruction Follow activity as directed Keep your appointments as scheduled Take your immunizations and boosters as scheduled If your symptoms worsen call your PCP, if no PCP go to Urgent Care Center or Emergency Room Smoking is Dangerous to Your Health. Avoid second hand smoke Call the 24-hour hour crisis hotline for domestic abuse at Marky Jaramillo DO Feb 11, 2017 14:01
[2017-02-11] MEDS: MORPHINE SULFATE 4 MG/ML INJ IV SCH ×2 (15:52→17:08)
== END 2017-02-11 17:12 | disposition hospice, inpatient (51) | DRG 181 ==
LOC: NEPC 18:37 → NEDA 20:37 → N06B 22:31
PROVIDERS: ADMIT Hospitalist; ATTEND Hospitalist
DX: C78.00 Secondary malignant neoplasm of unspecified lung (principal); C78.7 Secondary malignant neoplasm of liver and intrahepatic bile duct; E46 Unspecified protein-calorie malnutrition; I50.9 Heart failure, unspecified; Z93.4 Other artificial openings of gastrointestinal tract status; E66.01 Morbid (severe) obesity due to excess calories; Z68.30 Body mass index [BMI] 30.0-30.9, adult; Z85.028 Personal history of other malignant neoplasm of stomach; Z92.21 Personal history of antineoplastic chemotherapy; Z86.711 Personal history of pulmonary embolism; Z86.718 Personal history of other venous thrombosis and embolism; R60.0 Localized edema; Z51.5 Encounter for palliative care; K21.9 Gastro-esophageal reflux disease without esophagitis; E78.5 Hyperlipidemia, unspecified; R06.02 Shortness of breath; R11.0 Nausea; Z87.891 Personal history of nicotine dependence
CPT/HCPCS: 71010; 80053; 82805; 82948; 85025; 87641; 93005; 94664; 96374; 96375; J1940; J2270; J2405